=== PATIENT | female | born 1970 | race African-American/Black ===

== ENCOUNTER 2017-01-01 12:02 | Emergency (ER) | payer OTHER ==
[2017-01-01] MEDS ORDERED: MECLIZINE HCL 25 MG TABLET PO ONE (12:28)
--- NOTE | 2017-01-01 12:29 | ER Document Report ---
ED Medical Screen (RME) - General Stated Complaint: VOMITING,DIZZY Mode of Arrival: Ambulatory Information source: Patient Notes: Patient complains of feeling lightheaded and dizzy that started today. Patient does complain of congestion in her ears. Patient does complain of nausea with vomiting 1 today. Patient denies any pains. hx: DEYANIRA I have greeted and performed a rapid initial assessment of this patient. A comprehensive ED assessment and evaluation of the patient, analysis of test results and completion of the medical decision making process will be conducted by additional ED providers. Physical Exam - Vital signs Vitals: Temp Pulse Resp BP Pulse Ox 98.1 F 104 H 14 182/93 H 100 01/01/17 12:18 01/01/17 12:18 01/01/17 12:18 01/01/17 12:18 01/01/17 12:18 - Neurological Neuro grossly intact: Yes Monique Coma Scale Eye Opening: Spontaneous [place] Coma Scale Verbal: Oriented [place] Coma Scale Motor: Obeys Commands [place] Coma Scale Total: 15 Course - Vital Signs Vital signs: Temp Pulse Resp BP Pulse Ox 98.1 F 104 H 14 182/93 H 100 01/01/17 12:18 01/01/17 12:18 01/01/17 12:18 01/01/17 12:18 01/01/17 12:18
[2017-01-01 13:17] LABS: ABSOLUTE LYMPHOCYTES (AUTO) 0.9 10^3/uL (0.5-4.7); ABSOLUTE MONOCYTES (AUTO) 0.3 10^3/uL (0.1-1.4); ABSOLUTE NEUT (AUTO) 6.3 10^3/uL (1.7-8.2); BASOPHILS % (AUTO) 0.5 % (0-2); EOSINOPHILS % (AUTO) 0.6 % (0-6); HEMOGLOBIN 10.4 g/dL (12.0-15.5); HGB HCT DIFFERENCE -2.8; LYMPHOCYTES % (AUTO) 12.1 % (13-45); MEAN CORPUSCULAR HEMOGLOBIN 19.3 pg (27.0-33.4); MEAN CORPUSCULAR HGB CONC 30.5 g/dL (32.0-36.0); MONOCYTES % (AUTO) 4.1 % (3-13); RED BLOOD COUNT 5.38 10^6/uL (3.72-5.28); RED CELL DISTRIBUTION WIDTH 17.6 % (11.5-14.0); SEGMENTED NEUTROPHILS % (AUTO) 82.7 % (42-78); WHITE BLOOD COUNT 7.6 10^3/uL (4.0-10.5)
[2017-01-01 13:19] LABS: MEAN CORPUSCULAR VOLUME 63 fl (80-97)
[2017-01-01 13:23] LABS: ALANINE AMINOTRANSFERASE 32 U/L (9-52); ALBUMIN 3.4 g/dL (3.5-5.0); ALKALINE PHOSPHATASE 126 U/L (38-126); ANION GAP 6 (5-19); ASPARTATE AMINO TRANSFERASE 25 U/L (14-36); BILIRUBIN,TOTAL 0.5 mg/dL (0.2-1.3); BLOOD UREA NITROGEN 13 mg/dL (7-20); CALCIUM 9.8 mg/dL (8.4-10.2); CARBON DIOXIDE 31 mmol/L (22-30); CHLORIDE 99 mmol/L (98-107); CREATININE RESULT 0.62 mg/dL (0.52-1.25); GLUCOSE 342 mg/dL (75-110); POTASSIUM 4.1 mmol/L (3.6-5.0); SODIUM 135.6 mmol/L (137-145); TOTAL PROTEIN 7.4 g/dL (6.3-8.2)
[2017-01-01 14:02] LABS: ANISOCYTOSIS 2+; HYPOCHROMASIA 1+; MICROCYTOSIS 3+; OVALOCYTES 2+; POIKILOCYTOSIS 2+; ROULEAUX SLIGHT; SCHISTOCYTES SLIGHT
[2017-01-01] MEDS ORDERED: ONDANSETRON HCL INJ/PF 4 MG/2 ML SDV IV ONE (15:03)
[2017-01-01] MEDS ORDERED: NORMAL SALINE 1000 ML 1,000 ML IV PRN (15:04)
--- NOTE | 2017-01-01 16:49 | ER Document Report ---
ED General - General Chief Complaint: Vomiting Stated Complaint: VOMITING,DIZZY Mode of Arrival: Ambulatory Notes: 46 yr old diabetic female presents with complaints of nausea vomiting and lightheadedness, pt denies any fevers or chills , notes her blood sugar is usually in the 300s. pt denies any other concerns TRAVEL OUTSIDE OF THE [place] IN LAST 30 DAYS: No - HPI Onset: Just prior to arrival Onset/Duration: Sudden Quality of pain: No pain Severity: Mild Pain Level: Denies Associated symptoms: Nausea, Vomiting Exacerbated by: Denies Relieved by: Denies Similar symptoms previously: No Recently seen / treated by doctor: No - Related Data Allergies/Adverse Reactions: No Known Allergies Allergy (Verified 01/01/17 12:31) Past Medical History - General Information source: Patient - Social History Smoking Status: Never Smoker Cigarette use (# per day): No Chew tobacco use (# tins/day): No Smoking Education Provided: No Family History: Reviewed & Not Pertinent Patient has suicidal ideation: No Patient has homicidal ideation: No Endocrine Medical History: Reports: Hx Diabetes Mellitus Type 2 Renal/ Medical History: Denies: Hx Peritoneal Dialysis Surgical Hx: Negative Review of Systems - Review of Systems Notes: REVIEW OF SYSTEMS: CONSTITUTIONAL : Denies fever, chills, or sweats. Denies recent illness. EENT: Denies eye, ear, throat, or mouth pain or symptoms. Denies nasal or sinus congestion or discharge. Denies throat, tongue, or mouth swelling or difficulty swallowing. CARDIOVASCULAR: Denies chest pain. Denies palpitations or racing or irregular heart beat. Denies ankle edema. RESPIRATORY: Denies cough, cold, or chest congestion. Denies shortness of breath, difficulty breathing, or wheezing. GASTROINTESTINAL: Admits nausea vomiting GENITOURINARY: Denies difficulty urinating, painful urination, burning, frequency, blood in urine, or discharge. FEMALE GENITOURINARY: Denies vaginal bleeding, heavy or abnormal periods, irregular periods. Denies vaginal discharge or odor. MUSCULOSKELETAL: Denies back or neck pain or stiffness. Denies joint pain or swelling. SKIN: Denies rash, lesions or sores. HEMATOLOGIC : Denies easy bruising or bleeding. LYMPHATIC: Denies swollen, enlarged glands. NEUROLOGICAL: Admits to lightheadedness PSYCHIATRIC: Denies anxiety or stress. Denies depression, suicidal ideation, or homicidal ideation. ALL OTHER SYSTEMS REVIEWED AND NEGATIVE. Dictation was performed using [employer] voice recognition software PHYSICAL EXAMINATION: GENERAL: Well-appearing, well-nourished and in no acute distress. HEAD: Atraumatic, normocephalic. EYES: Pupils equal round and reactive to light, extraocular movements intact, conjunctiva are normal. ENT: Nares patent, oropharynx clear without exudates. Moist mucous membranes. NECK: Normal range of motion, supple without lymphadenopathy LUNGS: Breath sounds clear to auscultation bilaterally and equal. No wheezes rales or rhonchi. HEART: Regular rate and rhythm without murmurs ABDOMEN: Soft, nontender, nondistended abdomen. No guarding, no rebound. No masses appreciated. Female : deferred Musculoskeletal: Normal range of motion, no pitting or edema. No cyanosis. NEUROLOGICAL: Cranial nerves grossly intact. Normal speech, normal gait. Normal sensory, motor exams PSYCH: Normal mood, normal affect. SKIN: Warm, Dry, normal turgor, no rashes or lesions noted. Physical Exam - Vital signs Vitals: Temp Pulse Resp BP Pulse Ox 98.1 F 104 H 14 182/93 H 100 01/01/17 12:18 01/01/17 12:18 01/01/17 12:18 01/01/17 12:18 01/01/17 12:18 Course - Re-evaluation Re-evalutation: 01/01/17 16:47 Patient looks extremely well, fluid boluses otherwise stable for discharge. I do not find any life-threatening issues does not appear to be in DKA After performing a Medical Screening Examination, I estimate there is LOW risk for ACUTE CORONARY SYNDROME, RESPIRATORY FAILURE, SEPSIS OR MENINGITIS, thus I consider the discharge disposition reasonable. The patient and I have discussed the diagnosis and risks, and we agree with discharging home with close follow- up. We also discussed returning to the Emergency Department immediately if new or worsening symptoms occur. We have discussed the symptoms which are most concerning (e.g., changing or worsening pain, trouble swallowing or breathing, neck stiffness, fever) that necessitate immediate return. - Vital Signs Vital signs: Temp Pulse Resp BP Pulse Ox 98.1 F 104 H 14 182/93 H 100 01/01/17 12:18 01/01/17 12:18 01/01/17 12:18 01/01/17 12:18 01/01/17 12:18 - Laboratory Result Diagrams: 01/01/17 12:55 01/01/17 12:55 Laboratory results interpreted by me: 01/01/17 01/01/17 12:55 12:55 RBC 5.38 H Hgb 10.4 L Hct 34.0 L MCV 63 L MCH 19.3 L MCHC 30.5 L RDW 17.6 H Seg Neutrophils % 82.7 H Lymphocytes % 12.1 L Sodium 135.6 L Carbon Dioxide 31 H Glucose 342 H Albumin 3.4 L Discharge - Discharge Clinical Impression: Hyperglycemia Nausea & vomiting Qualifiers: Vomiting type: unspecified Vomiting Intractability: non-intractable Qualified Code(s): R11.2 - Nausea with vomiting, unspecified Condition: Stable Disposition: HOME, SELF-CARE Instructions: Vomiting ([facility]) Additional Instructions: Follow up with your physician tomorrow for further care or return to the ED IMMEDIATELY if symptoms worsen or new concerns occur Prescriptions: Ondansetron [Zofran Odt 4 mg Tablet] 1 - 2 tab PO Q4H PRN #15 tab.rapdis PRN Reason: For Nausea/Vomiting
[2017-01-01 17:11] VITALS: BP 132/76
--- NOTE | 2017-01-01 22:04 | EKG REPORT ---
SEVERITY:- OTHERWISE NORMAL ECG - SINUS TACHYCARDIA : Confirmed by: Keira Fernandes MD 01-Jan-2017 22:03:44
[2017-01-02 15:10] LABS: PATH REVIEW PATHOLOGIST REVIEWED
== END 2017-01-01 17:00 | disposition home or self-care (01) ==
LOC: ER 12:02
DX: E11.65 Type 2 diabetes mellitus with hyperglycemia (principal); R11.2 Nausea with vomiting, unspecified; R42 Dizziness and giddiness
CPT/HCPCS: 93005; 99284; 96361; 96374; 36415; 84703; 85025; 80053; 93010; J2405; J7030

== ENCOUNTER → 2019-03-13 | Outpatient (CLI) | payer OTHER ==
[2019-03-13 15:58] LABS: ANION GAP 8 (5-19); BLOOD UREA NITROGEN 57 mg/dL (7-20); CALCIUM 8.7 mg/dL (8.4-10.2); CARBON DIOXIDE 30 mmol/L (22-30); CHLORIDE 96 mmol/L (98-107); GLUCOSE 392 mg/dL (75-110); POTASSIUM 3.8 mmol/L (3.6-5.0); SODIUM 134.2 mmol/L (137-145)
[2019-03-15 07:37] LABS: HEPATITIS BE ANTIGEN Negative (Negative); HEPATITIS C VIRUS AB <0.1 s/co ratio (0.0-0.9); HEPATITS B SURFACE ANTIGEN Negative (Negative)
[2019-03-15 12:59] LABS: HEPATITIS B CORE AB TOT Negative (Negative)
== END ==
LOC: OD 14:15
PROVIDERS: ATTEND Physician Assistant Medical
DX: I13.2 Hypertensive heart and chronic kidney disease with heart failure and with stage 5 chronic kidney disease, or end stage renal disease (principal); R60.9 Edema, unspecified; N18.6 End stage renal disease; I50.9 Heart failure, unspecified; E11.22 Type 2 diabetes mellitus with diabetic chronic kidney disease
CPT/HCPCS: 36415; 80048; 86704; 86803; 86804; 87340; 87350

== ENCOUNTER 2019-03-24 05:14 | Emergency (ER) | payer OTHER ==
--- NOTE | 2019-03-24 05:26 | ER Document Report ---
ED Medical Screen (RME) - General Stated Complaint: POSSIBLE SEIZURE Time Seen by Provider: 03/24/19 05:19 Primary Care Provider: REJI PRYOR PA-C [Primary Care Provider] - Follow up as needed Notes: 48-year-old female with chief complaint of tremors. She states that she started uncontrollably shaking earlier tonight, then again later, ambulance was called. She denies headache, shortness of breath, focal numbness or weakness, fever/ch ills, nausea/vomiting, abdominal pain. Past medical history of diabetes and renal failure, currently preparing for peritoneal dialysis. TRAVEL OUTSIDE OF THE [place] IN LAST 30 DAYS: No - Related Data Allergies/Adverse Reactions: No Known Allergies Allergy (Verified 01/01/17 12:31) Past Medical History Endocrine Medical History: Reports: Hx Diabetes Mellitus Type 2 Renal/ Medical History: Denies: Hx Peritoneal Dialysis Physical Exam - General General appearance: Appears well In distress: None - Neurological Cognition: Normal Orientation: AAOx4 Monique Coma Scale Eye Opening: Spontaneous [place] Coma Scale Verbal: Oriented [place] Coma Scale Motor: Obeys Commands [place] Coma Scale Total: 15 Speech: Normal Cranial nerves: Normal Cerebellar coordination: Normal Motor strength normal: LUE, RUE, LLE, RLE 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 Denies any current symptoms. No overt neurological deficits noted. She is hypertensive, hyperglycemic. Work-up pending. I have greeted and performed a rapid initial assessment of this patient. A comprehensive ED assessment and evaluation of the patient, analysis of test results and completion of the medical decision making process will be conducted by additional ED providers. Doctor's Discharge - Discharge Referrals: REJI PRYOR PA-C [Primary Care Provider] - Follow up as needed
--- NOTE | 2019-03-24 05:52 | ER Document Report ---
ED General - General Chief Complaint: tremors Stated Complaint: POSSIBLE SEIZURE Time Seen by Provider: 03/24/19 05:19 TRAVEL OUTSIDE OF THE [place] IN LAST 30 DAYS: No - HPI Patient complains to provider of: Uncontrolled shaking left upper extremity and cramping Notes: 48-year-old female presents with uncontrolled shaking cramping of her left upper extremity last evening. Is now resolved. Patient just recently had her first episode of peritoneal dialysis yesterday afternoon approximately 12. Patient is being trained on how to do her own peritoneal dialysis at home. And yesterday was her first session. Patient denies shortness of breath, confusion, nausea, vomiting, any pain at all. She is in a normal state of health at this time. Denies any fever chills or other constitutional symptoms - Related Data Allergies/Adverse Reactions: No Known Allergies Allergy (Verified 03/24/19 05:41) Past Medical History - Social History Smoking Status: Unknown if Ever Smoked Family History: Reviewed & Not Pertinent Endocrine Medical History: Reports: Hx Diabetes Mellitus Type 2 Renal/ Medical History: Denies: Hx Peritoneal Dialysis Review of Systems - Review of Systems Notes: REVIEW OF SYSTEMS: CONSTITUTIONAL: -fevers, -chills EENT: -eye pain, -difficulty swallowing, -nasal congestion CARDIOVASCULAR: -chest pain, -syncope. RESPIRATORY: -cough, -SOB GASTROINTESTINAL: -abdominal pain, -nausea, -vomiting, -diarrhea GENITOURINARY: -dysuria, -hematuria MUSCULOSKELETAL: -back pain, -neck pain SKIN: -rash or skin lesions. HEMATOLOGIC: -easy bruising or bleeding. LYMPHATIC: -swollen, enlarged glands. NEUROLOGICAL: -altered mental status or loss of consciousness, -headache, - neurologic symptoms PSYCHIATRIC: -anxiety, -depression. ALL OTHER SYSTEMS REVIEWED AND NEGATIVE. Physical Exam - Vital signs Vitals: Temp 98.5 F 03/24/19 05:14 - Notes Notes: PHYSICAL EXAMINATION: GENERAL: Well-appearing, well-nourished and in no acute distress. HEAD: Atraumatic, normocephalic. EYES: Pupils equal round and reactive to light, extraocular movements intact, sclera anicteric, conjunctiva are normal. ENT: nares patent, oropharynx clear without exudates. Moist mucous membranes. NECK: Normal range of motion, supple without lymphadenopathy LUNGS: Breath sounds clear to auscultation bilaterally and equal. No wheezes rales or rhonchi. HEART: Regular rate and rhythm without murmurs ABDOMEN: Soft, nontender, normoactive bowel sounds. No guarding, no rebound. No masses appreciated. EXTREMITIES: Normal range of motion, no pitting or edema. No cyanosis. NEUROLOGICAL: Cranial nerves grossly intact. Normal speech, normal gait. Normal sensory and motor exams. PSYCH: Normal mood, normal affect. SKIN: Warm, Dry, normal turgor, no rashes or lesions noted. Course - Re-evaluation Re-evalutation: 03/24/19 06:19 48-year-old female stable vital signs within normal limits. Lower extensive lab work-up including EKG 03/24/19 07:21 Appearing female given fluid resuscitation. EKG shows no T wave abnormalities. Patient found to have normal potassium, normal anion gap. Urine pending at this time. Patient found to have critically elevated glucose greater than 700. Patient's kidney function 2.75 creatinine. Will initiate emergent IV insulin infusion. Her profound hyperglycemia in the setting of neurologic findings of shaking and cramping of her left upper extrema 03/24/19 10:15 Consult patient's panel sewer. Discussed case at length. Patient just received her first treatment peritoneal dialysis has a great deal of glucose in it. This is most likely the etiology of her elevated blood glucose. Recommend continued fluid resuscitation insulin therapy she can follow-up outpatient with them tomorrow. Patient does have access to insulin at home. Recommend today very tight diet control. Protein and vegetables no carbs. Follow-up appropriately tomorrow. - Vital Signs Vital signs: Temp Pulse Resp BP Pulse Ox 98.5 F 12 199/109 H 94 03/24/19 07:40 03/24/19 08:01 03/24/19 08:01 03/24/19 08:01 - Laboratory Result Diagrams: 03/24/19 06:10 03/24/19 06:10 Laboratory results interpreted by me: 03/24/19 03/24/19 03/24/19 06:10 06:10 06:10 Hgb 9.9 L Hct 32.0 L MCV 69 L MCH 21.5 L MCHC 31.0 L RDW 19.1 H Seg Neutrophils % 81.6 H Lymphocytes % 10.8 L VBG HCO3 32.6 H Sodium 131.5 L Chloride 92 L BUN 65 H Creatinine 2.75 H Est GFR ( Amer) 22 L Est GFR (Non-Af Amer) 18 L Glucose 736 H* Alkaline Phosphatase 351 H Total Protein 6.2 L Albumin 2.7 L Critical Care Note - Critical Care Note Total time excluding time spent on procedures (mins): 38 Discharge - Discharge Clinical Impression: Hyperglycemia, Hyperosmolality Condition: Stable Disposition: HOME, SELF-CARE
[2019-03-24 06:29] LABS: VENOUS BLOOD BASE EXCESS 5.4 mmol/L; VENOUS BLOOD HCO3 32.6 mmol/L (20-32); VENOUS BLOOD PCO2 62.6 mmHg (35-63); VENOUS BLOOD PH 7.34 (7.30-7.42)
[2019-03-24 06:30] LABS: ABSOLUTE BASOPHILS # (AUTO) 0.1 10^3/uL (0.0-0.2); ABSOLUTE EOSINOPHILS # (AUTO) 0.1 10^3/uL (0.0-0.6); ABSOLUTE LYMPHOCYTES (AUTO) 0.5 10^3/uL (0.5-4.7); ABSOLUTE MONOCYTES (AUTO) 0.3 10^3/uL (0.1-1.4); ABSOLUTE NEUT (AUTO) 4.2 10^3/uL (1.7-8.2); EOSINOPHILS % (AUTO) 1.1 % (0-6); HEMOGLOBIN 9.9 g/dL (12.0-15.5); LYMPHOCYTES % (AUTO) 10.8 % (13-45); MEAN CORPUSCULAR HEMOGLOBIN 21.5 pg (27.0-33.4); MEAN CORPUSCULAR VOLUME 69 fl (80-97); MONOCYTES % (AUTO) 5.5 % (3-13); PLATELET COUNT 235 10^3/uL (150-450); RED BLOOD COUNT 4.61 10^6/uL (3.72-5.28); RED CELL DISTRIBUTION WIDTH 19.1 % (11.5-14.0); SEGMENTED NEUTROPHILS % (AUTO) 81.6 % (42-78); TOTAL CELLS COUNTED % (AUTO) 100 %; WHITE BLOOD COUNT 5.1 10^3/uL (4.0-10.5)
[2019-03-24 06:50] LABS: ALANINE AMINOTRANSFERASE 30 U/L (9-52); ALBUMIN 2.7 g/dL (3.5-5.0); ALKALINE PHOSPHATASE 351 U/L (38-126); ANION GAP 10 (5-19); ASPARTATE AMINO TRANSFERASE 23 U/L (14-36); BILIRUBIN,DIRECT 0.3 mg/dL (0.0-0.4); BILIRUBIN,TOTAL 0.4 mg/dL (0.2-1.3); BLOOD UREA NITROGEN 65 mg/dL (7-20); CALCIUM 8.4 mg/dL (8.4-10.2); CARBON DIOXIDE 30 mmol/L (22-30); CHLORIDE 92 mmol/L (98-107); POTASSIUM 4.3 mmol/L (3.6-5.0); SODIUM 131.5 mmol/L (137-145); TOTAL PROTEIN 6.2 g/dL (6.3-8.2)
[2019-03-24 07:16] LABS: GLUCOSE 736 mg/dL (75-110)
[2019-03-24] MEDS ORDERED: INSULIN REG, HUMAN 100 UNIT/ML 3 ML VIAL (PYX) IV ONE ×3 (07:19→09:29)
--- NOTE | 2019-03-24 07:36 | EKG REPORT ---
SEVERITY:- ABNORMAL ECG - SINUS RHYTHM PROBABLE LEFT ATRIAL ABNORMALITY LEFT POSTERIOR FASCICULAR BLOCK NONSPECIFIC ST-T CHANGES ANTEROLATERAL LEADS, NEW FROM 2016 EKG : Confirmed by: Raheem Barrios MD 24-Mar-2019 07:35:25
[2019-03-24] MEDS ORDERED: ACETAMINOPHEN 325 MG TABLET PO ONE (07:52)
[2019-03-24] MEDS ORDERED: NORMAL SALINE 1000 ML 500 ML IV ONE (08:13)
[2019-03-24 10:25] VITALS: BP 200/117
== END 2019-03-24 10:25 | disposition home or self-care (01) ==
LOC: ER 05:14 → UNDOADMIN 08:10 → EH 08:10 → UNDODISIN 10:51
DX: E87.0 Hyperosmolality and hypernatremia (principal); E11.65 Type 2 diabetes mellitus with hyperglycemia; Z99.2 Dependence on renal dialysis
CPT/HCPCS: 93005; 99291; 96360; 96361; 36415; 82962; 84703; 85025; 80053; 84484; 82803; 93010; J1815; J7030

== ENCOUNTER → 2019-05-01 | Outpatient (CLI) | payer OTHER ==
--- NOTE | 2019-05-01 10:43 | RADIOLOGY REPORT (SQ) ---
EXAM DESCRIPTION: U/S ABDOMEN COMPLETE W/O DOP COMPLETED DATE/TIME: 05/01/2019 10:20 am REASON FOR STUDY: R18.8 OTHER ASCITES R18.8 OTHER ASCITES COMPARISON: None. TECHNIQUE: Dynamic and static grayscale images acquired of the abdomen and recorded on PACS. Additio nal selected color Doppler and spectral images recorded. Note: Study does not meet criteria for complete doppler/duplex scan LIMITATIONS: None. FINDINGS: PANCREAS: No masses. Visualized pancreatic duct normal caliber. LIVER: No masses. Echotexture normal. LIVER VASCULATURE: Normal directional flow of the main portal vein and hepatic veins. GALLBLADDER: No stones. Normal wall thickness. No pericholecystic fluid. ULTRASOUND-DETECTED ERWIN'S SIGN: Negative. INTRAHEPATIC DUCTS AND COMMON DUCT: CBD and intrahepatic ducts normal caliber. No filling defects. INFERIOR VENA CAVA: Normal flow. AORTA: No aneurysm. RIGHT KIDNEY: Normal size, 10.3 cm. Normal echogenicity. No solid or suspicious masses. No hyd ronephrosis. No calcifications. LEFT KIDNEY: Normal size, 11.8 cm. Normal echogenicity. No solid or suspicious masses. No hydr onephrosis. No calcifications. SPLEEN: Normal size, 11.2 cm. No solid masses. PERITONEAL AND PLEURAL SPACES: There is a small amount of ascites. OTHER: No other significant finding. IMPRESSION: There is a small amount of ascites. No other significant finding. TECHNICAL DOCUMENTATION: JOB ID: [id number] [employer]- All Rights Reserved Reading location - IP/workstation name: [email or web address]
== END ==
LOC: RAD 09:53
PROVIDERS: ATTEND Internal Medicine Nephrology
DX: R18.8 Other ascites (principal)
CPT/HCPCS: 76700

== ENCOUNTER 2019-07-25 16:26 | Emergency (ER) | payer OTHER ==
[2019-07-25 17:36] LABS: ALKALINE PHOSPHATASE 530 U/L (38-126); ANION GAP 12 (5-19); ASPARTATE AMINO TRANSFERASE 44 U/L (14-36); BILIRUBIN,DIRECT 0.4 mg/dL (0.0-0.4); BILIRUBIN,TOTAL 0.5 mg/dL (0.2-1.3); BLOOD UREA NITROGEN 43 mg/dL (7-20); CALCIUM 7.5 mg/dL (8.4-10.2); CARBON DIOXIDE 23 mmol/L (22-30); CHLORIDE 94 mmol/L (98-107); POTASSIUM 3.5 mmol/L (3.6-5.0); TOTAL PROTEIN 6.8 g/dL (6.3-8.2)
[2019-07-25 17:45] LABS: ABSOLUTE LYMPHOCYTES (AUTO) 0.5 10^3/uL (0.5-4.7); ABSOLUTE MONOCYTES (AUTO) 0.7 10^3/uL (0.1-1.4); ABSOLUTE NEUT (AUTO) 5.1 10^3/uL (1.7-8.2); BASOPHILS % (AUTO) 0.5 % (0-2); EOSINOPHILS % (AUTO) 0.6 % (0-6); HEMOGLOBIN 10.8 g/dL (12.0-15.5); LYMPHOCYTES % (AUTO) 8.2 % (13-45); MEAN CORPUSCULAR HEMOGLOBIN 21.2 pg (27.0-33.4); MEAN CORPUSCULAR HGB CONC 27.6 g/dL (32.0-36.0); MEAN CORPUSCULAR VOLUME 77 fl (80-97); MONOCYTES % (AUTO) 10.4 % (3-13); PLATELET COUNT 262 10^3/uL (150-450); RED BLOOD COUNT 5.06 10^6/uL (3.72-5.28); RED CELL DISTRIBUTION WIDTH 19.3 % (11.5-14.0); SEGMENTED NEUTROPHILS % (AUTO) 80.3 % (42-78); TOTAL CELLS COUNTED % (AUTO) 100 %; WHITE BLOOD COUNT 6.3 10^3/uL (4.0-10.5)
[2019-07-25 17:46] LABS: GLUCOSE 1087 mg/dL (75-110)
[2019-07-25] MEDS ORDERED: CLONIDINE HCL 0.2 MG TABLET PO ONE (18:11)
[2019-07-25] MEDS ORDERED: HYDRALAZINE HCL 50 MG TABLET PO ONE (18:11)
[2019-07-25 18:31] LABS: VENOUS BLOOD BASE EXCESS -5.2 mmol/L; VENOUS BLOOD HCO3 23.5 mmol/L (20-32); VENOUS BLOOD PH 7.2 (7.30-7.42)
[2019-07-25 18:34] LABS: APPEARANCE,URINE CLEAR; BILIRUBIN,URINE NEGATIVE (NEGATIVE); COLOR,URINE YELLOW; GLUCOSE, URINE >=500 mg/dL (NEGATIVE); KETONES,URINE NEGATIVE (NEGATIVE); LEUKOCYTE ESTERASE,URINE NEGATIVE (NEGATIVE); NITRITE,URINE NEGATIVE (NEGATIVE); PROTEIN,URINE >=500 mg/dL (NEGATIVE); URINE SPECIFIC GRAVITY 1.023; UROBILINOGEN,URINE NEGATIVE mg/dL (<2.0)
--- NOTE | 2019-07-25 19:23 | RADIOLOGY REPORT (SQ) ---
EXAM DESCRIPTION: CHEST SINGLE VIEW COMPLETED DATE/TIME: 07/25/2019 6:48 pm REASON FOR STUDY: ESRD, hyperglycemia COMPARISON: None. TECHNIQUE: Single frontal radiographic view of the chest acquired. NUMBER OF VIEWS: One view. LIMITATIONS: None. FINDINGS: LUNGS AND PLEURA: No pneumothorax. Moderate right basilar consolidation and large pleural effusion. MEDIASTINUM AND HILAR STRUCTURES: Age-appropriate contour. HEART AND VASCULAR STRUCTURES: Mild cardiomegaly. BONES: No acute findings. HARDWARE: Prior sternotomy -AVR. Right-sided dialysis catheter. OTHER: No other significant finding. IMPRESSION: Moderate right basilar consolidation and large pleural effusion. TECHNICAL DOCUMENTATION: JOB ID: [id number] [id number] 2010 [employer]- All Rights Reserved Reading location - IP/workstation name: [email or web address]
[2019-07-25] MEDS ORDERED: INSULIN REG, HUMAN 100 UNIT/ML 3 ML VIAL (PYX) IV ONE (20:06)
--- NOTE | 2019-07-25 20:34 | ER Document Report ---
ED General - General Chief Complaint: High Blood Sugar Stated Complaint: BLOOD SUGAR PROBLEMS Time Seen by Provider: 07/25/19 17:18 Primary Care Provider: INDIGO VALLE NP [Primary Care Provider] - Follow up as needed TRAVEL OUTSIDE OF THE [place] IN LAST 30 DAYS: No - HPI Notes: Patient is a 48-year-old female who presents to the emergency department for evaluation. She is here because her upper thighs hurt. She states she believes it is because they are "pulling too much fluid" at dialysis. She is to be on peritoneal dialysis. They started her on hemodialysis, are trying to get her back on peritoneal dialysis if possible. The patient states that she started having cramping and pain in her proximal thighs, believe that was from them over dialyzing her, so decided not to go to dialysis today. The patient also notes that she did not take any of her antihypertensives today. She is on both clonidine and hydralazine. She denies any vision changes. No chest pain or difficulty breathing. She states she also forgot to take her normal diabetic medications. She did take him insulin prior to EMS arrival. EMS found her blood sugar to be high. On further questioning the patient states she has a known pleural effusion on the right. She states that it was drained when she was in hospital in [place] last month. She is unsure as to what the fluid results showed. She denies any shortness of breath, no cough. - Related Data Allergies/Adverse Reactions: No Known Allergies Allergy (Verified 07/25/19 16:49) Past Medical History - General Information source: Patient - Social History Smoking Status: Current Every Day Smoker Chew tobacco use (# tins/day): No Frequency of alcohol use: None Drug Abuse: None Family History: Reviewed & Not Pertinent Patient has suicidal ideation: No Patient has homicidal ideation: No - Past Medical History Cardiac Medical History: Reports: Hx Congestive Heart Failure, Hx Hypertension Pulmonary Medical History: Reports: Other - Right-sided pleural effusion Endocrine Medical History: Reports: Hx Diabetes Mellitus Type 2 Renal/ Medical History: Reports: Hx End Stage Renal Disease, Hx Hemodialysis. Denies: Hx Peritoneal Dialysis Review of Systems - Review of Systems Constitutional: No symptoms reported EENT: No symptoms reported Cardiovascular: No symptoms reported Respiratory: See HPI Gastrointestinal: No symptoms reported Genitourinary: No symptoms reported Musculoskeletal: See HPI Skin: No symptoms reported Neurological/Psychological: No symptoms reported Physical Exam - Vital signs Vitals: Resp Pulse Ox 6 L 99 07/25/19 16:59 07/25/19 16:59 - Notes Notes: Is a 48-year-old female who appears older than her stated age in no acute distress. Head is normocephalic and atraumatic. She does have a patch in place over her left eye, right pupil is round. Oral mucosa is moist. Heart is regular rate and rhythm, lungs show diminished breath sounds in the right base, but no wheezes, rales, rhonchi. Abdomen is soft, nontender, normoactive bowel sounds. Extremities are 2+ pitting pretibial edema. No posterior calf tenderness. Skin is warm and dry. Patient is drowsy but alerts to verbal stimuli. Patient is awake, alert, oriented x3. Cranial nerves III - XII are grossly intact without focal neurological deficits. Strength is plus 4 out of 5 bilateral upper and lower extremities. Sensation is intact. Reflexes symmetrical. Intact [id number], rapid alternating movements, heel-to-sh in. Course - Re-evaluation Re-evalutation: 07/25/19 20:33 Patient presents emergency department for evaluation. On arrival her vital signs are markedly abnormal. She was hypertensive. Her blood glucose is rating as high. I did again give her regular blood pressure medications, and it decreased without incident. Current blood pressure is 145/82. Patient laboratory investigations showed a borderline low potassium, and a blood glucose over thousand. Her serum glucose is high, her osmolality is high. She started on insulin drip. This is done judiciously as her potassium is already borderline, but I am not inclined to administer fluids or potassium at this time to a dialysis patient who missed hemodialysis today. Patient remained stable. Her chest x-ray reveals a right pleural effusion, but again this is not new. I will contact medicine for possible admission. 07/25/19 22:[address] Romo in regards to this patient. She is very complex, and that she has findings consistent with HHS, but is likely moderately fluid overload secondary to being a dialysis patient did not receive dialysis today. She is a right pleural effusion. Her potassium is low despite not being dialyzed. Fluid management in this patient will be difficult. We do not have nephrology on. The patient was started on an insulin drip and given IV fluids, but only judiciously. I spoke with Dr. Jarquin at [facility], he will accept the patient in transfer. 07/26/19 01:07 She has been on insulin drip for several hours at this point. Basic metabolic panel was ordered to be repeated. She does have a significant hypokalemia as a result. I am hesitant to give much in the way of potassium in this patient whose creatinine is elevating, he did not have dialysis today. She was given 20 potassium orally, transport is forthcoming. Patient remained stable, has no complaints. 07/26/19 01:59 Transport to [facility] has arrived. Patient remained stable. Heart rate in the 70s, moderately elevated blood pressure 175/90 but otherwise unremarkable. Patient is stable for transport to next facility. - Vital Signs Vital signs: Temp Pulse Resp BP Pulse Ox 98.3 F 68 17 175/90 H 100 07/25/19 20:27 07/25/19 20:27 07/26/19 01:01 07/26/19 01:00 07/26/19 01:01 - Laboratory Result Diagrams: 07/25/19 16:42 07/26/19 00:17 Laboratory results interpreted by me: 07/25/19 07/25/19 07/25/19 16:42 16:42 16:42 Hgb 10.8 L MCV 77 L MCH 21.2 L MCHC 27.6 L RDW 19.3 H Lymph % (Auto) 8.2 L Seg Neutrophils % 80.3 H VBG pH Sodium 129.2 L Potassium 3.5 L Chloride 94 L Carbon Dioxide BUN 43 H Creatinine 3.09 H Est GFR ( Amer) 19 L Est GFR (MDRD) Non-Af 16 L Glucose 1087 H* POC Glucose Serum Osmolality 338 H Calcium 7.5 L AST 44 H Alkaline Phosphatase 530 H Albumin 3.0 L Urine Protein Urine Glucose (UA) Urine Blood 07/25/19 07/25/19 07/25/19 18:06 18:06 23:52 Hgb MCV MCH MCHC RDW Lymph % (Auto) Seg Neutrophils % VBG pH 7.20 L Sodium Potassium Chloride Carbon Dioxide BUN Creatinine Est GFR ( Amer) Est GFR (MDRD) Non-Af Glucose POC Glucose 546 H* Serum Osmolality Calcium AST Alkaline Phosphatase Albumin Urine Protein >=500 H Urine Glucose (UA) >=500 H Urine Blood SMALL H 07/26/19 00:17 Hgb MCV MCH MCHC RDW Lymph % (Auto) Seg Neutrophils % VBG pH Sodium 133.3 L Potassium 2.9 L* Chloride Carbon Dioxide 21 L BUN 44 H Creatinine 3.49 H Est GFR ( Amer) 17 L Est GFR (MDRD) Non-Af 14 L Glucose 592 H* POC Glucose Serum Osmolality Calcium 8.2 L AST Alkaline Phosphatase Albumin Urine Protein Urine Glucose (UA) Urine Blood - Diagnostic Test Radiology reviewed: Reports reviewed Radiology results interpreted by me: 07/25/19 22:49 Chest X-Ray 07/25/19 17:53 IMPRESSION: Moderate right basilar consolidation and large pleural effusion. Critical Care Note - Critical Care Note Total time excluding time spent on procedures (mins): 20 Discharge - Discharge Clinical Impression: Hyperosmolality, Hyperglycemia, Recurrent right pleural effusion Condition: Stable Disposition: [facility] Admitting Provider: Dr. Jarquin Referrals: INDIGO VALLE NP [Primary Care Provider] - Follow up as needed
[2019-07-25] MEDS ORDERED: NORMAL SALINE 1000 ML 1,000 ML IV ONE (22:42)
[2019-07-26 00:48] LABS: ANION GAP 13 (5-19); BLOOD UREA NITROGEN 44 mg/dL (7-20); CALCIUM 8.2 mg/dL (8.4-10.2); CARBON DIOXIDE 21 mmol/L (22-30); CHLORIDE 99 mmol/L (98-107)
[2019-07-26 00:54] LABS: GLUCOSE 592 mg/dL (75-110); POTASSIUM 2.9 mmol/L (3.6-5.0)
[2019-07-26] MEDS ORDERED: POTASSIUM CHLORIDE 10 MEQ CAPSULE.ER PO ONE ×2 (01:00→01:01)
[2019-07-26 02:16] VITALS: BP 156/81
== END 2019-07-26 02:17 | disposition short-term general hospital (02) ==
LOC: ER 16:26
DX: E11.00 Type 2 diabetes mellitus with hyperosmolarity without nonketotic hyperglycemic-hyperosmolar coma (NKHHC) (principal); T38.3X6A Underdosing of insulin and oral hypoglycemic [antidiabetic] drugs, initial encounter; Z91.138 Patient's unintentional underdosing of medication regimen for other reason; Z91.14 Patient's other noncompliance with medication regimen; E11.22 Type 2 diabetes mellitus with diabetic chronic kidney disease; I12.0 Hypertensive chronic kidney disease with stage 5 chronic kidney disease or end stage renal disease; N18.6 End stage renal disease; Z99.2 Dependence on renal dialysis; Z91.15 Patient's noncompliance with renal dialysis; Z79.4 Long term (current) use of insulin; E87.6 Hypokalemia; R25.2 Cramp and spasm; M79.652 Pain in left thigh; M79.651 Pain in right thigh; J90 Pleural effusion, not elsewhere classified; Z79.899 Other long term (current) drug therapy; F17.200 Nicotine dependence, unspecified, uncomplicated
CPT/HCPCS: 99285; 96360; 96361; 36415; 82962; 83930; 85025; 80053; 81001; 82803; 71045; J1815; J7030

== ENCOUNTER 2019-07-28 18:26 | Emergency (ER) | payer OTHER ==
--- NOTE | 2019-07-28 19:17 | ER Document Report ---
ED Medical Screen (RME) - General Chief Complaint: Back Pain Stated Complaint: BACK PAIN Time Seen by Provider: 07/28/19 19:06 Primary Care Provider: INDIGO VALLE NP [Primary Care Provider] - Follow up as needed Mode of Arrival: Wheelchair Information source: Patient Notes: This 48-year-old female with history of dialysis presents emergency department with thigh pain low back pain. Reports symptoms started Saturday. Patient reports she has dialysis on Saturday and Saturday. She reports she was transferred to [facility] where they did dialysis yesterday. She reports she did tell [facility] about the thigh pain and they put patches on her thighs. Patient reports they checked her electrolytes and they were fine.. No other symptoms such as fever vomiting diarrhea. Patient does still make urine. I have greeted and performed a rapid initial assessment of this patient. A comprehensive ED assessment and evaluation of the patient, analysis of test results and completion of the medical decision making process will be conducted by additional ED providers. Dictation of this chart was performed using voice recognition software; the refore, there may be some unintended grammatical errors. TRAVEL OUTSIDE OF THE [place] IN LAST 30 DAYS: No - Related Data Allergies/Adverse Reactions: No Known Allergies Allergy (Verified 07/28/19 18:33) Past Medical History - Social History Frequency of alcohol use: None Drug Abuse: None - Past Medical History Cardiac Medical History: Reports: Hx Congestive Heart Failure, Hx Hypertension Endocrine Medical History: Reports: Hx Diabetes Mellitus Type 2 Renal/ Medical History: Reports: Hx End Stage Renal Disease, Hx Hemodialysis. Denies: Hx Peritoneal Dialysis Physical Exam - Vital signs Vitals: Temp Pulse Resp BP Pulse Ox 97.7 F 64 18 109/48 L 95 07/28/19 18:38 07/28/19 18:38 07/28/19 18:38 07/28/19 18:38 07/28/19 18:38 Course - Vital Signs Vital signs: Temp Pulse Resp BP Pulse Ox 97.7 F 64 18 109/48 L 95 07/28/19 18:38 07/28/19 18:38 07/28/19 18:38 07/28/19 18:38 07/28/19 18:38 Doctor's Discharge - Discharge Referrals: INDIGO VALLE NP [Primary Care Provider] - Follow up as needed
[2019-07-28 19:45] LABS: ABSOLUTE BASOPHILS # (AUTO) 0.1 10^3/uL (0.0-0.2); ABSOLUTE EOSINOPHILS # (AUTO) 0.1 10^3/uL (0.0-0.6); ABSOLUTE LYMPHOCYTES (AUTO) 0.5 10^3/uL (0.5-4.7); ABSOLUTE MONOCYTES (AUTO) 0.7 10^3/uL (0.1-1.4); ABSOLUTE NEUT (AUTO) 5.4 10^3/uL (1.7-8.2); BASOPHILS % (AUTO) 1.7 % (0-2); EOSINOPHILS % (AUTO) 1.2 % (0-6); HEMATOCRIT 32.9 % (36.0-47.0); HEMOGLOBIN 10.3 g/dL (12.0-15.5); LYMPHOCYTES % (AUTO) 7.9 % (13-45); MEAN CORPUSCULAR HEMOGLOBIN 21.3 pg (27.0-33.4); MEAN CORPUSCULAR HGB CONC 31.4 g/dL (32.0-36.0); MONOCYTES % (AUTO) 10.7 % (3-13); PLATELET COUNT 253 10^3/uL (150-450); RED BLOOD COUNT 4.85 10^6/uL (3.72-5.28); RED CELL DISTRIBUTION WIDTH 17.5 % (11.5-14.0); SEGMENTED NEUTROPHILS % (AUTO) 78.5 % (42-78); TOTAL CELLS COUNTED % (AUTO) 100 %; WHITE BLOOD COUNT 6.9 10^3/uL (4.0-10.5)
[2019-07-28 19:53] LABS: AMORPHOUS SEDIMENT,URINE TRACE /HPF; APPEARANCE,URINE CLOUDY; BILIRUBIN,URINE NEGATIVE (NEGATIVE); COLOR,URINE AMBER; GLUCOSE, URINE >=500 mg/dL (NEGATIVE); KETONES,URINE TRACE mg/dL (NEGATIVE); LEUKOCYTE ESTERASE,URINE NEGATIVE (NEGATIVE); NITRITE,URINE NEGATIVE (NEGATIVE); PROTEIN,URINE >=500 mg/dL (NEGATIVE); URINE SPECIFIC GRAVITY 1.021; UROBILINOGEN,URINE NEGATIVE mg/dL (<2.0)
[2019-07-28 20:09] LABS: ALBUMIN 2.7 g/dL (3.5-5.0); ALKALINE PHOSPHATASE 274 U/L (38-126); ANION GAP 9 (5-19); ASPARTATE AMINO TRANSFERASE 30 U/L (14-36); BILIRUBIN,DIRECT 0.5 mg/dL (0.0-0.4); BILIRUBIN,TOTAL 0.6 mg/dL (0.2-1.3); BLOOD UREA NITROGEN 45 mg/dL (7-20); CALCIUM 7.6 mg/dL (8.4-10.2); CARBON DIOXIDE 25 mmol/L (22-30); CHLORIDE 99 mmol/L (98-107); POTASSIUM 4.2 mmol/L (3.6-5.0); TOTAL PROTEIN 6.6 g/dL (6.3-8.2)
[2019-07-28 20:12] LABS: MEAN CORPUSCULAR VOLUME 68 fl (80-97)
--- NOTE | 2019-07-28 20:25 | ER Document Report ---
HPI - HPI Patient complains to provider of: low back pain Time Seen by Provider: 07/28/19 19:06 Onset/Duration: Constant, Waxing and waning Quality of pain: Achy Severity: Moderate Pain Level: 4 Context: This is a 48yr old female pt with the listed pmh, presenting with an acute exacerbation of their lower lower back pain and bilat thigh pain. Patient states that this has been ongoing for the last few days. no fall or trauma. she feels like they may have taken off too much fluid at dialysis as they have done before and that's when she has had this pain before. Patient states that the pain is a sharp achy 8 out of 10 pain with radiation to her bilat thighs. she still makes a little urine. Patient states that movement and palpation make the pain worse and rest makes the pain better. Patient denies any numbness, tingling, change of bowel or bladder habits or signs or symptoms of saddle anesthesia. Patient states that secondary to the pain, they have come to the emergency department. otc meds not helping. No spinal surgeries. no IV drug use. no recent abx or steroids. no fevers, uti sx, or genitalia complaints. pt able to walk but minimally at baseline. Patient denies all other complaints at this time. denies . no hx of renal stones. she usually gets dialysis tues, thurs, sat. Exacerbated by: Movement Relieved by: Remaining still Similar symptoms previously: Yes Recently seen / treated by doctor: No - ROS Systems Reviewed and Negative: Yes All other systems reviewed and negative - to include 10 systems, unless mentioned in the hpi - REPRODUCTIVE Reproductive: DENIES: : Past Medical History - General Information source: Patient - Social History Smoking Status: Never Smoker Frequency of alcohol use: None Drug Abuse: None Lives with: Family Family History: Reviewed & Not Pertinent Patient has suicidal ideation: No Patient has homicidal ideation: No - Past Medical History Cardiac Medical History: Reports: Hx Congestive Heart Failure, Hx Hypertension Endocrine Medical History: Reports: Hx Diabetes Mellitus Type 2 Renal/ Medical History: Reports: Hx End Stage Renal Disease, Hx Hemodialysis. Denies: Hx Peritoneal Dialysis - Immunizations Immunizations up to date: Yes Vertical Provider Document - CONSTITUTIONAL Agree With Documented VS: Yes Exam Limitations: No Limitations General Appearance: No Apparent Distress Notes: Vital signs: All vital signs were reviewed per nursing notes. Gen. Appearance: Nontoxic, patient of stated age,. pleasant, smiling, speaking in full sentences, in no sign of resp distress, nontoxic, pt laying in bed, appears uncomfortable and chronically debilitated, middle aged black female, family at bedside, Psychiatric: Alert and oriented x3, pleasant and very conversational, normal affect. Skin: Warm, pink, dry, normal turgor, no rashes. no grossly visible overlying skin changes or signs of trauma. HEENT: Normocephalic, atraumatic, no kenney signs. no raccoon eyes, pupils are equal and reactive to light, extraocular muscles intact other than chronic left eye changes-unchanged from baseline per pt, mucosal membranes moist, pink conjunctiva, no pharyngeal erythema no tonsilar exudate. no drooling, tripoding, voice change or stridor, uvula midline. tongue protrudes midline Neck: Supple, no JVD, no tenderness, no lymphadenopathy. full rom and full strength. no meningeal signs. no signs of central cord syndrome CV: Regular rate and rhythm, Lungs: Clear to auscultation bilaterally, no wheezes, symmetrical chest rise. no chest wall ttp Abdomen: Soft, nontender, nondistended, good bowel sounds, no rebound, rigidity, guarding or peritoneal signs. No CVA tenderness bilaterally. This is a nonacute abdomen. No tenderness over McBurney's point. no grossly visible or palpable abdominal hernias Pelvic/Genitalia: pt deferred Rectal: deferred; however, no sign of loss of bowel or bladder, no soiling of clothing Back: There is increased tissue tension over the paralumbar musculature on the bilat sides. Palpation to this region did reproduce patient's pain exactly. There is no tenderness to palpation along the midline of the cervical, thoracic or lumbar spine. There are no step-offs or deformities noted. no overlying skin changes. Extremities: Distal pulses two out of four, good capillary refill, no edema, cyanosis or clubbing. full rom and full strength in all extremities with pain on bilat hip flexion and extension. no swelling or ttp of the extremities other than mild edema in bilat extremities ~1+. gait not assessed due to pt being min imally ambulatory at baseline and a fall risk. good hand sales manager. neg magdalena sign. neg peterson squeeze. no drop foot. no shortening or rotation of the limbs. no obvious deformities. Neuro: Cranial nerves II through XII intact, normal speech, cerebellar function intact. Symmetric smile and faces. reflexes wnl. motor and sensation intact to light touch. - INFECTION CONTROL TRAVEL OUTSIDE OF THE [place] IN LAST 30 DAYS: No Course - Re-evaluation Re-evalutation: pt here for lbp and thigh pain and bilat leg swelling x a few days. no fall or trauma. no signs or cauda equina, spinal cord involvement, or central cord syndrome. labs unremarkable other than chronic unchanged mild anemia, renal dz, hyponatremia, hyperglycemia without signs of dka, elevated bnp/ck in a dialysis pt, and a ua that appears contaminated. ucx pending. pt denied uti sx. will await culture results for initiation of abx. cxr showed a chronic unchanged pleural effusion and was otherwise neg for anything acute per rad and reviewed by myself. pt informed of findings. she was pain controlled with vicodin here. will dc with a few vicodin and glipizide. gave medication precautions. advised sx care. cont home meds as prescribed. she is only on a long acting insulin per pt and after discussing case with ed attending, dr bolivar, he advised adding po glipizide 10mg qd and having pt frequently check her sugars since her glucose was 400 here and f/u closely with her pcp for possible adjustment of her hypoglycemic meds. strict return precautions given. advised to f/u with pcp/nephr/dietitian assistant/dialysis in 1-2 days. return for any worsening symptoms. vss. well appearing. satting well on ra. neurononfocal. pt understands and agrees to plan. On reexam, pt improved with tx listed. remained stable. nontoxic. well appearing. pain controlled. tolerating po. requesting to go home. neurononfocal. case discussed with ER Attending, Dr. bolivar, who directed and agrees with plan of care and advised no further workup indicated at this time and pt is stable for dc home with close f/u with pcp/specialist. Documentation achieved through voice recording which may lead to some occasional accidental typographical errors. Extensive efforts have been made to proof read documentation to make sure these are the least as possible. according to the [place], she has not received any narcotics in the last 2 yrs other than 2 short scripts of vicodin back in 11/2018 and oxycodone 06/2018. Category Date Time Status Accucheck (ED) NOW Care 07/28/19 20:23 Active PCT AccuChek Documentation NOW Care 07/28/19 20:23 Active CHEST 2 VIEWS [RAD] Stat Exams 07/28/19 21:11 Completed BETA HYDROXYBUTYRATE Stat Lab 07/28/19 19:35 Completed BNP (In-House) [NT PRO BNP] [CHEM] Stat Lab 07/28/19 19:35 Completed CBC WITH DIFF [HEME] Stat Lab 07/28/19 19:35 Completed CKMB [CREATINE KINASE MB] [CHEM] Stat Lab 07/28/19 19:35 Completed COMPREHENSIVE METABOLIC PANEL [CHEM] Stat Lab 07/28/19 19:35 Completed CREATINE KINASE [CHEM] Stat Lab 07/28/19 19:35 Completed HCG-QUAL, SERUM [CHEM] Stat Lab 07/28/19 19:35 Completed MAGNESIUM [CHEM] Stat Lab 07/28/19 19:35 Completed URINALYSIS [URIN] Stat Lab 07/28/19 19:20 Completed URINE CULTURE [MC] Stat Lab 07/28/19 19:20 Completed Glipizide [Glucotrol 10 mg Tablet] Med 07/28/19 23:04 Discontinued 10 mg PO NOW ONE Hydrocodone/Acetaminophen [[place] 5-325 mg Tablet] Med 07/28/19 21:11 Discontinued 1 tab PO NOW ONE - Vital Signs Vital signs: Temp Pulse Resp BP Pulse Ox 97.7 F 64 18 109/48 L 95 07/28/19 18:38 07/28/19 18:38 07/28/19 18:38 07/28/19 18:38 07/28/19 18:38 Temp Pulse Pulse Resp BP BP Pulse Ox 07/28/19 23:27 97.8 F 67 14 114/65 98 07/28/19 21:35 16 118/65 07/28/19 18:38 97.7 F 64 18 109/48 L 95 - Laboratory Result Diagrams: 07/28/19 19:35 07/28/19 19:35 Laboratory results interpreted by me: 07/28/19 07/28/19 19:20 19:35 Hgb 10.3 L Hct 32.9 L MCV 68 L D MCH 21.3 L MCHC 31.4 L RDW 17.5 H Lymph % (Auto) 7.9 L Seg Neutrophils % 78.5 H Urine Protein >=500 H Urine Glucose (UA) >=500 H Urine Ketones TRACE H Urine Blood SMALL H Labs- Entire Visit 07/28/19 07/28/19 07/28/19 19:20 19:35 19:35 WBC 6.9 RBC 4.85 Hgb 10.3 L Hct 32.9 L MCV 68 L D MCH 21.3 L MCHC 31.4 L RDW 17.5 H Plt Count 253 Lymph % (Auto) 7.9 L Sunflower % (Auto) 10.7 Eos % (Auto) 1.2 Baso % (Auto) 1.7 Absolute Neuts (auto) 5.4 Absolute Lymphs (auto) 0.5 Absolute Monos (auto) 0.7 Absolute Eos (auto) 0.1 Absolute Basos (auto) 0.1 Seg Neutrophils % 78.5 H Sodium 132.8 L Potassium 4.2 Chloride 99 Carbon Dioxide 25 Anion Gap 9 BUN 45 H Creatinine 3.79 H Est GFR ( Amer) 15 L Est GFR (MDRD) Non-Af 13 L Glucose 406 H* Calcium 7.6 L Magnesium Total Bilirubin 0.6 Direct Bilirubin 0.5 H Neonat Total Bilirubin Not Reportable Neonat Direct Bilirubin Not Reportable Neonat Indirect Bili Not Reportable AST 30 ALT 16 Alkaline Phosphatase 274 H Creatine Kinase CK-MB (CK-2) NT-Pro-B Natriuret Pep Total Protein 6.6 Albumin 2.7 L Beta-Hydroxybutyrate Serum HCG, Qual Urine Color Urine Appearance CLOUDY Urine pH 5.0 Ur Specific Morrill 1.021 Urine Protein >=500 H Urine Glucose (UA) >=500 H Urine Ketones TRACE H Urine Blood SMALL H Urine Nitrite NEGATIVE Urine Bilirubin NEGATIVE Urine Urobilinogen NEGATIVE Ur Leukocyte Esterase NEGATIVE Urine WBC (Auto) 7 Urine RBC (Auto) 5 U Hyaline Cast (Auto) 5 Urine Bacteria (Auto) TRACE Squamous Epi Cells Auto 13 Amorphous Sediment Auto TRACE Urine Mucus (Auto) RARE Urine Ascorbic Acid NEGATIVE 07/28/19 07/28/19 07/28/19 19:35 19:35 19:35 WBC RBC Hgb Hct MCV MCH MCHC RDW Plt Count Lymph % (Auto) Sunflower % (Auto) Eos % (Auto) Baso % (Auto) Absolute Neuts (auto) Absolute Lymphs (auto) Absolute Monos (auto) Absolute Eos (auto) Absolute Basos (auto) Seg Neutrophils % Sodium Potassium Chloride Carbon Dioxide Anion Gap BUN Creatinine Est GFR ( Amer) Est GFR (MDRD) Non-Af Glucose Calcium Magnesium 2.0 Total Bilirubin Direct Bilirubin Neonat Total Bilirubin Neonat Direct Bilirubin Neonat Indirect Bili AST ALT Alkaline Phosphatase Creatine Kinase 435 H CK-MB (CK-2) 4.30 NT-Pro-B Natriuret Pep 70345 H Total Protein Albumin Beta-Hydroxybutyrate Serum HCG, Qual NEGATIVE Urine Color Urine Appearance Urine pH Ur Specific Morrill Urine Protein Urine Glucose (UA) Urine Ketones Urine Blood Urine Nitrite Urine Bilirubin Urine Urobilinogen Ur Leukocyte Esterase Urine WBC (Auto) Urine RBC (Auto) U Hyaline Cast (Auto) Urine Bacteria (Auto) Squamous Epi Cells Auto Amorphous Sediment Auto Urine Mucus (Auto) Urine Ascorbic Acid 07/28/19 19:35 WBC RBC Hgb Hct MCV MCH MCHC RDW Plt Count Lymph % (Auto) Sunflower % (Auto) Eos % (Auto) Baso % (Auto) Absolute Neuts (auto) Absolute Lymphs (auto) Absolute Monos (auto) Absolute Eos (auto) Absolute Basos (auto) Seg Neutrophils % Sodium Potassium Chloride Carbon Dioxide Anion Gap BUN Creatinine Est GFR ( Amer) Est GFR (MDRD) Non-Af Glucose Calcium Magnesium Total Bilirubin Direct Bilirubin Neonat Total Bilirubin Neonat Direct Bilirubin Neonat Indirect Bili AST ALT Alkaline Phosphatase Creatine Kinase CK-MB (CK-2) NT-Pro-B Natriuret Pep Total Protein Albumin Beta-Hydroxybutyrate 0.8 Serum HCG, Qual Urine Color Urine Appearance Urine pH Ur Specific Morrill Urine Protein Urine Glucose (UA) Urine Ketones Urine Blood Urine Nitrite Urine Bilirubin Urine Urobilinogen Ur Leukocyte Esterase Urine WBC (Auto) Urine RBC (Auto) U Hyaline Cast (Auto) Urine Bacteria (Auto) Squamous Epi Cells Auto Amorphous Sediment Auto Urine Mucus (Auto) Urine Ascorbic Acid - Diagnostic Test Radiology reviewed: Image reviewed, Reports reviewed Radiology results interpreted by me: Chest X-Ray 07/28/19 21:11 IMPRESSION: Moderate right pleural effusion, unchanged. Discharge - Discharge Clinical Impression: Peripheral edema, Hyperglycemia, Chronic anemia, Chronic kidney disease requiring chronic dialysis Low back pain Qualifiers: Chronicity: acute Back pain laterality: bilateral Sciatica presence: with sciatica Sciatica laterality: bilateral sciatica Qualified Code(s): M54.42 - Lumbago with sciatica, left side; M54.41 - Lumbago with sciatica, right side Condition: Stable Disposition: HOME, SELF-CARE Additional Instructions: Follow-up with PCP/endocrinology/nephrology/dialysis in 1 to 2 days for recheck. Return for any worsening symptoms. check your blood sugar often. do not work, drive, operate machinery or take tylenol while taking the pain meds. take the medication as prescribed. ice/heat to your back, get your dialysis as instructed. Prescriptions: Glipizide [Glipizide Xl] 10 mg PO DAILY #14 tab.er.24 Hydrocodone/Acetaminophen [[place] 5-325 mg Tablet] 1 tab PO Q6 PRN #12 tablet PRN Reason: For Pain Referrals: INDIGO VALLE NP [Primary Care Provider] - Follow up tomorrow
[2019-07-28 20:26] LABS: GLUCOSE 406 mg/dL (75-110)
[2019-07-28] MEDS ORDERED: HYDROCODONE/ACETAMINOPHEN 5-325 MG TABLET PO ONE (21:11)
[2019-07-28 21:46] LABS: CREATINE KINASE MB 4.3 ng/mL (<4.55)
--- NOTE | 2019-07-28 21:56 | RADIOLOGY REPORT (SQ) ---
XR CHEST 2 VIEWS CLINICAL STATEMENT: edema COMPARISON: 07/25/2019 FINDINGS: Moderate right pleural effusion, unchanged. Right chest PermCath. No pneumothorax. Left lung is clear. No pulmonary edema. IMPRESSION: Moderate right pleural effusion, unchanged.
[2019-07-28] MEDS ORDERED: GLIPIZIDE 10 MG TABLET PO ONE (23:04)
[2019-07-28 23:28] VITALS: BP 114/65
== END 2019-07-28 23:28 | disposition home or self-care (01) ==
LOC: ER 18:26
DX: M54.42 Lumbago with sciatica, left side (principal); M54.41 Lumbago with sciatica, right side; I12.0 Hypertensive chronic kidney disease with stage 5 chronic kidney disease or end stage renal disease; N18.6 End stage renal disease; E11.22 Type 2 diabetes mellitus with diabetic chronic kidney disease; E11.65 Type 2 diabetes mellitus with hyperglycemia; D63.1 Anemia in chronic kidney disease; Z99.2 Dependence on renal dialysis; R60.0 Localized edema; J90 Pleural effusion, not elsewhere classified; Z79.4 Long term (current) use of insulin
CPT/HCPCS: 99283; 36415; 87086; 82553; 82010; 82550; 83735; 84703; 85025; 80053; 81001; 83880; 71046; J3490

== ENCOUNTER → 2019-08-12 | Outpatient (CLI) | payer OTHER ==
--- NOTE | 2019-08-12 15:27 | RADIOLOGY REPORT (SQ) ---
EXAM DESCRIPTION: VENOUS BILATERAL LOWER COMPLETED DATE/TIME: 08/12/2019 3:16 pm REASON FOR STUDY: SWELLING R22.43 LOCALIZED SWELLING, MASS AND LUMP, LOWER LIMB, BILATE COMPARISON: None. TECHNIQUE: Dynamic and static green scale and color images acquired of both lower extremity venous sy stems. Selected spectral images acquired with additional compression and augmentation maneuvers. Imag es stored on PACS. LIMITATIONS: None. FINDINGS: RIGHT LEG COMMON FEMORAL AND FEMORAL: Normal phasicity, compression and augmentation. No visualized echogenic m aterial on green scale. No defects on color images. POPLITEAL: Normal compression and augmentation. No visualized echogenic material on green scale. No de fects on color images. CALF VESSELS: Normal compression and augmentation. No visualized echogenic material on green scale. No defects on color image. GSV AND SSV: Normal compression. No visualized echogenic material on green scale. No defects on color images. ANY DEEP VENOUS INSUFFICIENCY: Not evaluated. ANY EVIDENCE OF POPLITEAL CYST: No. OTHER: There is subcutaneous edema. LEFT LEG COMMON FEMORAL AND FEMORAL: Normal phasicity, compression and augmentation. No visualized echogenic m aterial on green scale. No defects on color images. POPLITEAL: Normal compression and augmentation. No visualized echogenic material on green scale. No de fects on color images. CALF VESSELS: Normal compression and augmentation. No visualized echogenic material on green scale. No defects on color images. GSV AND SSV: Normal compression. No visualized echogenic material on green scale. No defects on color images. ANY DEEP VENOUS INSUFFICIENCY: Not evaluated. ANY EVIDENCE POPLITEAL CYST: No. OTHER: There is subcutaneous edema. IMPRESSION: NO EVIDENCE DVT OR SVT IN EITHER LEG. TECHNICAL DOCUMENTATION: JOB ID: [id number] [employer]- All Rights Reserved Reading location - IP/workstation name: [email or web address]
--- NOTE | 2019-08-12 16:22 | XCELERA REPORT ---
[address] [address] Lower Extremity Arterial Evaluation Name: STEPHANIE RODRIGUEZ Age: 48 yrs Gender: Female : 1970 Patient Status: Outpatient Patient Location: [facility] Study Date: 08/12/2019 01:31 PM Procedure: A color flow and duplex scan of the lower extremity arteries was performed bilaterally with velocity and waveform anaylsis. Reason For Study: BLE PAIN Ordering Physician: Alberto CORREA Performed By: William Yu Measurements and Calculations Right Left [employer]IV[employer] DEFENSE DIRECTOR PSV 104.1 122.2 cm/sec Prox PFA PSV -62.1 -68.4 cm/sec Prox SFA PSV 83.8 103.7 cm/sec Mid SFA PSV -120.7 -98.2 cm/sec Dist SFA PSV -81.6 -79.5 cm/sec Prox Pop A PSV 62.9 59.4 cm/sec Dist NILSA PSV 82.5 76.6 cm/sec Dist [employer] PSV 77.1 70.2 cm/sec Buck Pedis PSV -66.3 -157.1cm/sec Right Side Arterial Evaluation Normal velocity and triphasic waveforms noted from the Common Femoral artery to the infrageniculate vessels . Calcification noted in the huynh of larger arteries. . Ankle Brachial index not ordered. Left Side Arterial Evaluation Normal velocity and triphasic waveforms noted from the Common Femoral artery to the infrageniculate vessels . Calcification noted in the huynh of larger arteries. . Ankle Brachial index not ordered. Interpretation Summary No hemodynamically significant lesions in the bilateral lower extremities, on duplex imaging, at rest. Arterial wall calcification noted suggestive of Atherosclerosis. : Alberto CORREA > Phil Morrison
== END ==
LOC: SP 12:58
PROVIDERS: ATTEND Internal Medicine Nephrology
DX: M79.606 Pain in leg, unspecified (principal); R60.0 Localized edema
CPT/HCPCS: 93925; 93970

== ENCOUNTER 2019-08-13 12:56 | Inpatient (IN) | payer OTHER ==
--- NOTE | 2019-08-13 13:12 | ER Document Report ---
ED Medical Screen (RME) - General Chief Complaint: Leg Swelling Stated Complaint: SWOLLEN LEG Time Seen by Provider: 08/13/19 13:08 Primary Care Provider: Alberto DEWITT MD [Primary Care Provider] - Follow up as needed Mode of Arrival: Wheelchair Information source: Patient Notes: 38-year-old female presented to ED for complaint of swelling to both legs for about a month. She is a dialysis patient. She went to dialysis morning Dr. Dewitt sent her to the emergency room to be evaluated. She states the pain and swelling is getting worse over the past week. She states the pain is in her muscles not in her joints. She patient is alert oriented respirations regular and unlabored speaking in full sentences. Cramping states the pain and swelling is up to her thighs. I have greeted and performed a rapid initial assessment of this patient. A comprehensive ED assessment and evaluation of the patient, analysis of test results and completion of medical decision making process will be conducted by an additional ED providers. TRAVEL OUTSIDE OF THE [place] IN LAST 30 DAYS: No - Related Data Allergies/Adverse Reactions: No Known Allergies Allergy (Verified 07/28/19 18:33) Past Medical History - Past Medical History Cardiac Medical History: Reports: Hx Congestive Heart Failure, Hx Hypertension Endocrine Medical History: Reports: Hx Diabetes Mellitus Type 2 Renal/ Medical History: Reports: Hx End Stage Renal Disease, Hx Hemodialysis. Denies: Hx Peritoneal Dialysis - Immunizations Immunizations up to date: Yes Physical Exam - Vital signs Vitals: Temp Pulse Resp BP Pulse Ox 97.6 F 72 19 149/75 H 97 08/13/19 13:04 08/13/19 13:04 08/13/19 13:04 08/13/19 13:04 08/13/19 13:04 Course - Vital Signs Vital signs: Temp Pulse Resp BP Pulse Ox 97.6 F 72 19 149/75 H 97 08/13/19 13:04 08/13/19 13:04 08/13/19 13:04 08/13/19 13:04 08/13/19 13:04 Doctor's Discharge - Discharge Referrals: Alberto DEWITT MD [Primary Care Provider] - Follow up as needed
--- NOTE | 2019-08-13 13:48 | ER Document Report ---
ED General - General Chief Complaint: Leg Swelling Stated Complaint: SWOLLEN LEG Time Seen by Provider: 08/13/19 13:08 Mode of Arrival: Wheelchair TRAVEL OUTSIDE OF THE [place] IN LAST 30 DAYS: No - HPI Notes: 48-year-old female with a history of chronic renal failure and on dialysis presents to the ED for complaints of bilateral thigh pain that has been bothersome for the last 3 weeks as well as some shortness of breath. Patient was getting dialysis today, Dr. Saul Dewitt, patient's director of oncology advised her to go to the emergency room for further evaluation. Patient states that she feels that her thighs are tighter, pain with movement. Ultrasound of bilateral lower extremities to rule out DVT was performed yesterday with which was negative. Patient reports pain is 8 out of 10, constant and throbbing. Denies any recent traumas or falls. Patient does get dialysis on Tuesdays and Fridays, no anuria. denies fevers, chills, chest pain,palpitations, dysp sebas, nausea, vomiting, diarrhea, abdominal pain, hematuria,blurred vision, double vision, loss of vision, speech changes, LH, dizziness, syncope, headaches, wheezing, ST, URI, neck pain, weakness, bowel or bladder dysfunction, saddle anesthesia, numbness or tingling in bilateral upper or lower extremities equally, muscle paralysis, weakness in bilateral upper or lower extremities equally or rash. - Related Data Allergies/Adverse Reactions: No Known Allergies Allergy (Verified 08/13/19 13:09) Past Medical History - General Information source: Patient - Social History Smoking Status: Never Smoker Chew tobacco use (# tins/day): No Frequency of alcohol use: None Drug Abuse: None Family History: Reviewed & Not Pertinent Patient has suicidal ideation: No Patient has homicidal ideation: No - Past Medical History Cardiac Medical History: Reports: Hx Congestive Heart Failure, Hx Hypertension Endocrine Medical History: Reports: Hx Diabetes Mellitus Type 2 Renal/ Medical History: Reports: Hx End Stage Renal Disease, Hx Hemodialysis. Denies: Hx Peritoneal Dialysis - Immunizations Immunizations up to date: Yes Review of Systems - Review of Systems Constitutional: No symptoms reported EENT: No symptoms reported Cardiovascular: No symptoms reported Respiratory: See HPI Gastrointestinal: No symptoms reported Genitourinary: No symptoms reported Female Genitourinary: No symptoms reported Musculoskeletal: See HPI Skin: No symptoms reported Hematologic/Lymphatic: No symptoms reported Neurological/Psychological: No symptoms reported Physical Exam - Vital signs Vitals: Temp Pulse Resp BP Pulse Ox 97.6 F 72 19 149/75 H 97 08/13/19 13:03 08/13/19 13:03 08/13/19 13:03 08/13/19 13:03 08/13/19 13:03 - Notes Notes: PHYSICAL EXAMINATION: GENERAL: Well-appearing, well-nourished and in no acute distress. HEAD: Atraumatic, normocephalic. EYES: Pupils equal round and reactive to light, extraocular movements intact, conjunctiva are normal. ENT: Nares patent, oropharynx clear without exudates. Moist mucous membranes. NECK: Normal range of motion, supple without lymphadenopathy LUNGS: Diminished breath sounds clear to auscultation bilaterally and equal. No wheezes rales or rhonchi. HEART: Regular rate and rhythm without murmurs ABDOMEN: Soft, nontender, nondistended abdomen. No guarding, no rebound. No masses appreciated. Female : deferred Musculoskeletal: Normal range of motion, no pitting or edema. No cyanosis. Lateral upper medial aspect of thighs taut, noted bilateral pedal edema. noted discoloration of skin bilaterally. negative magdalena's sign. anterior and posterior drawer test negative. noted pain with flexion bilaterally Dtr + 2 in BLE. Full motor and sensory function to BLE equally. No open wounds. No induration or drainage. Strength 5 out of 5 bilaterally equally. Ankle examination normal. Squeeze test negative. Hip examination normal. Pulses + 2 bilaterally and equally.negative squeeze bilaterally and equally. NEUROLOGICAL: Cranial nerves grossly intact. Normal speech, normal gait. Normal sensory, motor exams PSYCH: Normal mood, normal affect. SKIN: Warm, Dry, normal turgor, no rashes or lesions noted. Course - Re-evaluation Re-evalutation: 08/15/19 13:53 Afebrile, slightly hypertensive, in mild distress due to pain from upper thighs. Patient is asymptomatic for chest pain shortness of breath at this point in time. patient does have a elevated CK at 500, alk phos is 500, creatinine is elevated at 3.8 however patient does follow with Dr. Dewitt for nephrology, was referred to the emergency room by Dr.George Dewitt due to concerns of tightening of her bilateral upper thighs that is been progressive over the course of the last 2 weeks. Clinical examination does show the medial aspect of the upper thigh which is taut, painful on palpation, but is warm to touch, cap refill is less than 3 seconds, patient is able to move bilateral legs with passive range of motion, states that she is unable to actively move her legs with bending however she is able to bear full weight. consulted with Dr. Dewitt, director of oncology, at 1530, because he did refer patient to the emergency room as well as to discuss her pertinent laboratory findings of her creatinine in acute on chronic renal failure. Dr. Dewitt felt that the patient should be admitted to the emergency room for further evaluation of her bilateral thigh pain in conjunction with her laboratory findings and suggested obtaining CT of bilateral lower extremities with contrast to evaluate for any infectious process. BNP is still pending as well as cxr is pending. Dr. Kelvin Paulino, ER supervising physician at 1600 did evaluate patient at bedside, does find the tautness of her upper thighs to be concerning however there is no overt etiology for the pain she is having in her bilateral upper thighs. BNP 16,200, no vascular congestion noted on chest x-ray. Discussed findings with Dr. Black, hospitalist at 1800, will be admitted under the medical service on telemetry for further evaluation of her congestive heart failure, acute on chronic kidney failure. Patient was agreeable this plan of care and agree with plan of care. - Vital Signs Vital signs: Temp Pulse Resp BP Pulse Ox 97.7 F 70 16 125/57 L 98 08/15/19 11:32 08/15/19 11:32 08/15/19 11:32 08/15/19 11:32 08/15/19 11:32 - Laboratory Result Diagrams: 08/15/19 04:34 08/15/19 04:34 Laboratory results interpreted by me: 08/13/19 08/13/19 08/13/19 13:47 13:47 13:47 Hgb 10.6 L Hct 34.3 L MCV 69 L MCH 21.2 L MCHC 30.9 L RDW 17.8 H Lymph % (Auto) 7.0 L Baso % (Auto) 2.2 H Seg Neutrophils % 82.3 H Sodium 136.5 L BUN 65 H Creatinine 3.80 H Est GFR ( Amer) 15 L Est GFR (MDRD) Non-Af 13 L Glucose 448 H* Direct Bilirubin 0.8 H AST 53 H Alkaline Phosphatase 504 H Creatine Kinase 500 H C-Reactive Protein 45.1 H NT-Pro-B Natriuret Pep 20618 H Total Protein 9.0 H Urine Protein Urine Glucose (UA) Urine Blood 08/13/19 17:26 Hgb Hct MCV MCH MCHC RDW Lymph % (Auto) Baso % (Auto) Seg Neutrophils % Sodium BUN Creatinine Est GFR ( Amer) Est GFR (MDRD) Non-Af Glucose Direct Bilirubin AST Alkaline Phosphatase Creatine Kinase C-Reactive Protein NT-Pro-B Natriuret Pep Total Protein Urine Protein >=500 H Urine Glucose (UA) >=500 H Urine Blood SMALL H Discharge - Discharge Clinical Impression: Bilateral thigh pain CHF (congestive heart failure) Qualifiers: Heart failure type: unspecified Heart failure chronicity: acute on chronic Qualified Code(s): I50.9 - Heart failure, unspecified Condition: Stable Disposition: ADMITTED INPATIENT Admitting Provider: Wayne (Hospitalist) Unit Admitted: Telemetry
[2019-08-13 14:04] LABS: ABSOLUTE BASOPHILS # (AUTO) 0.2 10^3/uL (0.0-0.2); ABSOLUTE EOSINOPHILS # (AUTO) 0.2 10^3/uL (0.0-0.6); ABSOLUTE LYMPHOCYTES (AUTO) 0.6 10^3/uL (0.5-4.7); ABSOLUTE MONOCYTES (AUTO) 0.5 10^3/uL (0.1-1.4); ABSOLUTE NEUT (AUTO) 7.2 10^3/uL (1.7-8.2); BASOPHILS % (AUTO) 2.2 % (0-2); EOSINOPHILS % (AUTO) 2.6 % (0-6); HEMATOCRIT 34.3 % (36.0-47.0); HEMOGLOBIN 10.6 g/dL (12.0-15.5); MEAN CORPUSCULAR HEMOGLOBIN 21.2 pg (27.0-33.4); MEAN CORPUSCULAR HGB CONC 30.9 g/dL (32.0-36.0); MEAN CORPUSCULAR VOLUME 69 fl (80-97); MONOCYTES % (AUTO) 5.9 % (3-13); PLATELET COUNT 345 10^3/uL (150-450); RED CELL DISTRIBUTION WIDTH 17.8 % (11.5-14.0); SEGMENTED NEUTROPHILS % (AUTO) 82.3 % (42-78); TOTAL CELLS COUNTED % (AUTO) 100 %; WHITE BLOOD COUNT 8.7 10^3/uL (4.0-10.5)
[2019-08-13 14:30] LABS: ALBUMIN 3.7 g/dL (3.5-5.0); ALKALINE PHOSPHATASE 504 U/L (38-126); ANION GAP 12 (5-19); ASPARTATE AMINO TRANSFERASE 53 U/L (14-36); BILIRUBIN,DIRECT 0.8 mg/dL (0.0-0.4); BILIRUBIN,TOTAL 0.9 mg/dL (0.2-1.3); BLOOD UREA NITROGEN 65 mg/dL (7-20); C-REACTIVE PROTEIN 45.1 mg/L (<10.0); CALCIUM 8.8 mg/dL (8.4-10.2); CARBON DIOXIDE 26 mmol/L (22-30); CHLORIDE 99 mmol/L (98-107); CREATINE KINASE 500 U/L (30-135); POTASSIUM 4.8 mmol/L (3.6-5.0)
[2019-08-13 14:35] LABS: GLUCOSE 448 mg/dL (75-110)
[2019-08-13] MEDS ORDERED: NORMAL SALINE 1000 ML 1,000 ML IV PRN (14:36)
[2019-08-13] MEDS ORDERED: FUROSEMIDE INJ/PF 40 MG/4 ML SDV IV ONE (17:28)
[2019-08-13] MEDS ORDERED: ACETAMINOPHEN 325 MG TABLET PO ONE (17:28)
[2019-08-13] MEDS: MORPHINE SULFATE 10 MG/ML INJ IV ONE ×2 (17:49→18:32)
[2019-08-13 18:00] LABS: AMORPHOUS SEDIMENT,URINE TRACE /HPF; APPEARANCE,URINE CLOUDY; BILIRUBIN,URINE NEGATIVE (NEGATIVE); GLUCOSE, URINE >=500 mg/dL (NEGATIVE); KETONES,URINE NEGATIVE (NEGATIVE); LEUKOCYTE ESTERASE,URINE NEGATIVE (NEGATIVE); NITRITE,URINE NEGATIVE (NEGATIVE); PROTEIN,URINE >=500 mg/dL (NEGATIVE); URINE SPECIFIC GRAVITY 1.021; UROBILINOGEN,URINE NEGATIVE mg/dL (<2.0)
[2019-08-13 18:01] LABS: COLOR,URINE DARK YELLOW
--- NOTE | 2019-08-13 18:50 | RADIOLOGY REPORT (SQ) ---
EXAM DESCRIPTION: CT LEFT LOWER EXTREMITY WITH COMPLETED DATE/TIME: 08/13/2019 6:05 pm REASON FOR STUDY: please combine. r/o infection,compartment syndrome COMPARISON: None. TECHNIQUE: CT scan of the left hip performed without oral contrast. 80 mL Omnipaque 350 low osmolar contrast was injected. Images reviewed with soft tissue and bone windows. Reconstructed coronal an d sagittal MPR images reviewed. All images stored on PACS. All CT scanners at this facility use dose modulation, iterative reconstruction, and/or weight based d osing when appropriate to reduce radiation dose to as low as reasonably achievable (ALARA). [facility]: Dose Right [facility]: CareDose [facility]: Dose Right [facility]: Teradose 4D [facility]: [employer] RADIATION DOSE: mGy. LIMITATIONS: None. FINDINGS: PELVIC BONES: No acute fracture. No worrisome bone lesions. VISUALIZED SPINE: Not included. Left lower extremity: No fracture or dislocation. No abnormal fluid collections. Soft tissue planes appear to be maintained. There is subcutaneous edema. OPPOSITE HIP: No fracture or dislocation. No abnormal fluid collection. Soft tissue planes are main tained. There is subcutaneous edema. PELVIC SOFT TISSUES: No significant findings. EXTRAPELVIC SOFT TISSUES: Subcutaneous edema. OTHER: No other significant finding. IMPRESSION: Subcutaneous edema. No evidence of abscess. No evidence of compartment syndrome. TECHNICAL DOCUMENTATION: JOB ID: [id number] Quality ID # [id number]: Final reports with documentation of one or more dose reduction techniques (e.g., Au tomated exposure control, adjustment of the mA and/or kV according to patient size, use of iterative reconstruction technique) 2010 [employer]- All Rights Reserved Reading location - IP/workstation name: [email or web address]
[2019-08-13] MEDS ORDERED: INSULIN LISPRO 100 UNIT/ML 3 ML VIAL SUBCUT ONE (18:52)
--- NOTE | 2019-08-13 18:52 | RADIOLOGY REPORT (SQ) ---
EXAM DESCRIPTION: CT RT LOWER EXTREMITY WITH COMPLETED DATE/TIME: 08/13/2019 6:05 pm REASON FOR STUDY: please combine. r/o infection,compartment syndrome COMPARISON: None. TECHNIQUE: CT scan of the right hip performed without intravenous or oral contrast. Images reviewed with soft tissue and bone windows. Reconstructed coronal and sagittal MPR images reviewed. All sharyn ges stored on PACS. All CT scanners at this facility use dose modulation, iterative reconstruction, and/or weight based d osing when appropriate to reduce radiation dose to as low as reasonably achievable (ALARA). [facility]: Dose Right [facility]: CareDose [facility]: Dose Right [facility]: Teradose 4D [facility]: [employer] RADIATION DOSE: CT Rad equipment meets quality standard of care and radiation dose reduction techniq ues were employed. CTDIvol: 4.1 mGy. DLP: 238 mGy-cm. mGy. LIMITATIONS: None. FINDINGS: PELVIC BONES: No acute fracture. No worrisome bone lesions. VISUALIZED SPINE: Not included. Right lower extremity: No fracture or dislocation. No abnormal fluid collection. Soft tissue planes are maintained. There is subcutaneous edema. Left lower extremity: No fracture or dislocation. No abnormal fluid collection. Soft tissue planes are maintained. There is subcutaneous edema. PELVIC SOFT TISSUES: No significant findings. EXTRAPELVIC SOFT TISSUES: Subcutaneous edema. OTHER: No other significant finding. IMPRESSION: Subcutaneous edema. There is no evidence of abscess or compartment syndrome. TECHNICAL DOCUMENTATION: JOB ID: [id number] Quality ID # [id number]: Final reports with documentation of one or more dose reduction techniques (e.g., Au tomated exposure control, adjustment of the mA and/or kV according to patient size, use of iterative reconstruction technique) 2010 [employer]- All Rights Reserved Reading location - IP/workstation name: [email or web address]
--- NOTE | 2019-08-13 18:59 | RADIOLOGY REPORT (SQ) ---
EXAM DESCRIPTION: CHEST SINGLE VIEW COMPLETED DATE/TIME: 08/13/2019 6:07 pm REASON FOR STUDY: chf COMPARISON: 07/28/2019 EXAM PARAMETERS: NUMBER OF VIEWS: One view. TECHNIQUE: Single frontal radiographic view of the chest acquired. RADIATION DOSE: NA LIMITATIONS: None. FINDINGS: LUNGS AND PLEURA: Chronic relatively stable right pleural effusion. No masses. No infilt rate. MEDIASTINUM AND HILAR STRUCTURES: No masses. Contour normal. HEART AND VASCULAR STRUCTURES: Cardiomegaly. No mckenna pulmonary edema. BONES: No acute findings. HARDWARE: Dual-lumen catheter, sternotomy wires, heart valve. OTHER: No other significant finding. IMPRESSION: Cardiomegaly without pulmonary edema. Stable right pleural effusion. TECHNICAL DOCUMENTATION: JOB ID: [id number] [employer]- All Rights Reserved Reading location - IP/workstation name: [email or web address]
[2019-08-13] MEDS ORDERED: MORPHINE SULFATE 10 MG/ML INJ ONE (19:25)
[2019-08-13] MEDS ORDERED: ACETAMINOPHEN 325 MG TABLET PO PRN (19:32)
[2019-08-13] MEDS ORDERED: ONDANSETRON 4 MG TAB.RAPDIS PO PRN (19:32)
[2019-08-13] MEDS ORDERED: GLUCAGON,HUMAN RECOMB 1 MG INJ IM PRN (20:08)
[2019-08-13] MEDS ORDERED: DEXTROSE 50%-WATER 25 GM/50 ML DISP.SYRIN IV PRN ×2 (20:08)
[2019-08-13] MEDS ORDERED: DEXTROSE 40% GEL 15 GM TUBE PO PRN ×2 (20:08)
[2019-08-13] MEDS ORDERED: METHYLPREDNISOLONE INJ 40 MG/1 ML SDV IV ONE (21:00)
[2019-08-13] MEDS ORDERED: HYDRALAZINE HCL INJ/PF 20 MG/1 ML SDV IV PRN (21:06)
--- NOTE | 2019-08-13 21:16 | PDOC H&P ---
History of Present Illness Admission Date/PCP: 08/13/19 18:08 INDIGO VALLE NP Patient complains of: Bilateral anterior thigh pain x3 weeks History of Present Illness: STEPHANIE RODRIGUEZ is a 48 year old female with chronic kidney disease requiring hemodialysis. She has hypertension as well as diabetes mellitus type 2 requiring insulin. She has a history of mitral valve surgery. The patient was initially on peritoneal dialysis. It was felt to be ineffective. A Vas-Cath was placed in her right chest and hemodialysis was initiated. The patient reports that she was working back towards peritoneal dialysis. Approximately 3 weeks ago she fell at dialysis. She states she fell on her knee but also had back pain. It was at that point that both of her thighs began to hurt. The pain radiated from her back through her thighs. She describes it as a tightness over the anterior musculature. There is tenderness. She also reports hyperesthesia and a feeling of electrical shock radiating down her thighs. She denies weakness but states that there is pain when sitting or getting up from a seated position. She does not report associated symptoms such as chest pain, palpitation, legs feeling cold or numb. She went to her primary care physician and was given tizanidine and [place]. She states that these did not help. Progressed and when she presented for dialysis today she was instructed to go to the emergency department for further evaluation. She arrived at the emergency department at approximately 1:45 PM. On evaluation it was noted that her white blood cell count was normal but her sed rate is elevated. Her glucose was 448 and her blood pressure was elevated. The blood pressure continued to climb for several hours until it reached 194/112 at approximately 6 PM. Her brain atretic peptide was 16,000 and this is up from 10,000 several months ago. Her BUN and creatinine are elevated as expected. Her alkaline phosphatase was elevated at 500 as well as her creatinine kinase. The patient was referred to the hospital service for ongoing evaluation and treatment. 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 Denies: Ears, Nose, Throat Neurological Medical History: Denies: Hemorrhagic CVA, Ischemic CVA, Migraine, Seizures Endocrine Medical History: Reports: Diabetes Mellitus Type 2 Renal/ Medical History: Reports: End Stage Renal Disease Malignancy Medical History: Reports: None GI Medical History: Denies: Cirrhosis, Diverticulitis, Hiatal Hernia Musculoskeltal Medical History: Denies: Arthritis, Fibromyalgia, Gout Skin Medical History: Denies: Eczema, Psoriasis Psychiatric Medical History: Denies: Alcohol Dependency, Depression, Substance Abuse, Tobacco Dependency Traumatic Medical History: Reports: None Hematology: Reports: Anemia Denies: Sickle Cell Disease, Bleeding Tendencies Infectious Medical History: Reports: None Past Surgical History Past Surgical History: Reports: Valve Replacement - Mitral valve surgery, Vascular Surgery - Vas-Cath placement, peritoneal dialysis catheter placement, Other - Left eye surgery Social History Information Source: Patient Lives with: Family, Other - She is Smoking Status: Never Smoker Electronic Cigarette use?: No Frequency of Alcohol Use: None Hx Recreational Drug Use: No Hx Prescription Drug Abuse: No - Advance Directive Resuscitation Status: Full Code Surrogate healthcare decision maker:: Currently no healthcare proxy or living will on record Family History Family History: CAD, DM, Hypertension, Malignancy, Other - Congestive heart failure Parental Family History Reviewed: Yes Children Family History Reviewed: Yes Sibling(s) Family History Reviewed.: Yes Medication/Allergy Home Medications: Aspirin [Ecotrin] 81 mg PO DAILY 03/24/19 Carvedilol [Coreg] 1 tab PO Q12 03/24/19 Clonidine HCl [Catapres 0.2 mg Tablet] 1 tab PO DAILY PRN 03/24/19 Hydralazine HCl 100 mg PO TID 03/24/19 Torsemide [Demadex] 80 mg PO BID 03/24/19 Glipizide [Glipizide Xl] 10 mg PO DAILY #14 tab.er.24 07/28/19 Gentamicin Sulfate [Garamycin 0.1% Cream 15 gm] 1 applic TP ASDIR PRN 08/13/19 Insulin Detemir [Levemir] 15 unit SQ DAILY 08/13/19 Tizanidine HCl 4 mg PO Q6HP PRN 08/13/19 Allergies/Adverse Reactions: No Known Allergies Allergy (Verified 08/13/19 13:09) Review of Systems Constitutional: PRESENT: as per HPI, chills - Occasionally from the shoulders down, other - Her head gets sweaty. ABSENT: fever(s) Eyes: PRESENT: other - Left eye blindness Ears: ABSENT: hearing changes Nose, Mouth, and Throat: ABSENT: mouth pain, sore throat Cardiovascular: PRESENT: edema. ABSENT: chest pain, palpitations Respiratory: ABSENT: cough, dyspnea, sputum Gastrointestinal: ABSENT: abdominal pain, constipation, diarrhea, nausea, vomiting Genitourinary: ABSENT: dysuria, hematuria Musculoskeletal: PRESENT: back pain, other - Muscle pain in thighs Integumentary: PRESENT: diaphoresis - Had occasionally get sweaty, other - Dark discoloration medial distal thigh at the knee. ABSENT: erythema Neurological: ABSENT: abnormal speech, confusion, memory loss, tremor(s), vertigo Psychiatric: ABSENT: anxiety, depression, hallucinations Endocrine: ABSENT: cold intolerance, heat intolerance, polydipsia, polyphagia, polyuria Hematologic/Lymphatic: ABSENT: easy bleeding, easy bruising, lymphadenopathy Allergic/Immunologic: ABSENT: seasonal rhinorrhea Physical Exam Vital Signs: Temp Pulse Resp BP Pulse Ox 98.0 F 67 13 185/110 H 100 08/13/19 17:01 08/13/19 17:01 08/13/19 19:05 08/13/19 19:05 08/13/19 19:05 Intake & Output 08/12/19 08/13/19 08/14/19 06:59 06:59 06:59 Intake Total 1000 Balance 1000 General appearance: PRESENT: cooperative, mild distress, well-developed, well- nourished Head exam: PRESENT: atraumatic, normocephalic Eye exam: PRESENT: conjunctiva pale - Right eye, EOMI - Right eye, other - Left eye with patch in place. ABSENT: nystagmus, periorbital swelling, scleral icterus Ear exam: PRESENT: normal external ear exam. ABSENT: bleeding, drainage Mouth exam: PRESENT: dry mucosa, neck supple, tongue midline Teeth exam: ABSENT: poor dentation Neck exam: ABSENT: carotid bruit, lymphadenopathy, tenderness, tracheal deviation, tracheostomy Respiratory exam: PRESENT: clear to auscultation peterson - Bilaterally anteriorly, decreased breath sounds - At the right base, symmetrical, unlabored. ABSENT: rales, rhonchi, tachypnea, wheezes Cardiovascular exam: PRESENT: RRR, +S1, +S2, systolic murmur - 2/6, other - Positive S4 Pulses: PRESENT: normal radial pulses, normal dorsalis pedis pul GI/Abdominal exam: PRESENT: normal bowel sounds, soft. ABSENT: distended, tenderness Rectal exam: PRESENT: deferred Gentrourinary exam: ABSENT: indwelling catheter Extremities exam: PRESENT: tenderness - Tender over the anterior thigh with fullness to palpation mostly the rectus femoris. No tenderness proximally or below the knee. Fullness of the quadricep tendon., +1 edema - Pitting edema distal posterior thigh bilaterally Musculoskeletal exam: PRESENT: tenderness - As above Neurological exam: PRESENT: alert, awake, oriented to person, oriented to place, oriented to time, oriented to situation, CN II-XII grossly intact - Except left eye Psychiatric exam: PRESENT: appropriate affect - Affect reflects her frustration. ABSENT: agitated, anxious Focused psych exam: ABSENT: delusional, restlessness Skin exam: PRESENT: dry, warm. ABSENT: normal color - Few exam the entire leg there appears to be slightly increased pigmentation in the medial aspect of the thigh and knees., rash Results Laboratory Results: 08/13/19 13:47 08/13/19 13:47 08/13/19 08/13/19 08/13/19 13:47 13:47 17:26 WBC 8.7 RBC 5.00 Hgb 10.6 L Hct 34.3 L MCV 69 L MCH 21.2 L MCHC 30.9 L RDW 17.8 H Plt Count 345 Seg Neutrophils % 82.3 H Sodium 136.5 L Potassium 4.8 Chloride 99 Carbon Dioxide 26 Anion Gap 12 BUN 65 H Creatinine 3.80 H Est GFR ( Amer) 15 L Glucose 448 H* Calcium 8.8 Magnesium 2.0 Total Bilirubin 0.9 AST 53 H Alkaline Phosphatase 504 H C-Reactive Protein 45.1 H Total Protein 9.0 H Albumin 3.7 Urine Color DARK YELLOW Urine Appearance CLOUDY Urine pH 5.0 Ur Specific [place] 1.021 Urine Protein >=500 H Urine Glucose (UA) >=500 H Urine Ketones NEGATIVE Urine Blood SMALL H Urine Nitrite NEGATIVE Ur Leukocyte Esterase NEGATIVE Urine WBC (Auto) 9 Urine RBC (Auto) 10 08/13/19 08/13/19 08/13/19 13:47 13:47 13:47 Creatine Kinase 500 H CK-MB (CK-2) 2.98 NT-Pro-B Natriuret Pep 66922 H Impressions: Lower Extremity CT 08/13/19 15:48 IMPRESSION: Subcutaneous edema. There is no evidence of abscess or compartment syndrome. Chest X-Ray 08/13/19 17:29 IMPRESSION: Cardiomegaly without pulmonary edema. Stable right pleural effusion. Assessment and Plan - Diagnosis (1) Bilateral thigh pain Is this a current diagnosis for this admission?: Yes (2) Myositis Qualifiers: Myositis type: unspecified type Myositis location: thigh Laterality: unspecified laterality Qualified Code(s): M60.859 - Other myositis, unspecified thigh Is this a current diagnosis for this admission?: Yes (3) Hypertensive emergency Is this a current diagnosis for this admission?: Yes (4) Type 2 diabetes mellitus with insulin therapy Is this a current diagnosis for this admission?: Yes (5) CHF (congestive heart failure) Qualifiers: Heart failure type: unspecified Heart failure chronicity: acute on chronic Qualified Code(s): I50.9 - Heart failure, unspecified Is this a current diagnosis for this admission?: Yes (6) Chronic kidney disease on chronic dialysis Is this a current diagnosis for this admission?: Yes (7) Low back pain Qualifiers: Chronicity: acute Back pain laterality: midline Sciatica presence: without sciatica Qualified Code(s): M54.5 - Low back pain Is this a current diagnosis for this admission?: Yes (8) Pleural effusion Is this a current diagnosis for this admission?: Yes (9) Peripheral edema Is this a current diagnosis for this admission?: Yes - Plan Summary Summary: Bilateral thigh pain with myositis-bilateral rectus femoris tenderness with elevated creatinine kinase and sed rate. This would suggest an inflammatory process. She is not on any medications that would cause myositis or myalgias. She did state that she gets shooting pain down her thighs ever since she fell. When she fell she had acute onset back pain. CT scan of the thighs was negative for compartment syndrome and showed subcutaneous inflammatory changes. I will give a test dose of 40 mg Solu-Medrol IV x1 to see if this helps. Analgesia will be available. I have also ordered a K pad for gentle heat to try and relieve the discomfort. Serial creatinine kinase levels as well as sed rate studies have been ordered. Hypertensive emergency-the patient is on multiple medications for her blood pressure. Unfortunately she missed most of these during the day and her blood pressure sindi to 194/112. Blood pressure medications have been reinstituted. I expect her pressure will respond nicely. We will continue her home medication regimen at this time. As needed antihypertensives will be available. Diabetes mellitus type 2 requiring insulin-the patient's serum glucose was 448 on admission. I requested an Accu-Chek at approximately 6 PM and the sugar was 300. This is likely due to no food. She was given subcutaneous Humalog as a one-time dose. She will resume her glipizide and Lantus. Humalog sliding scale will be available as well. A diabetic/cardiac/hemodialysis diet has been ordered. Hemoglobin A1c is pending for the morning. Congestive heart failure-I could not find an echocardiogram. The patient has had mitral valve surgery and has cardiomegaly and a right pleural effusion on x- ray. These appear to be chronic. I have ordered an echocardiogram for better clarification of heart failure. Interestingly, the chest x-ray does not show mckenna congestion or pulmonary edema. There is cardiomegaly. As noted the right pleural effusion is chronic. We will resume her torsemide, hydralazine and clonidine. End-stage renal disease on hemodialysis-kidney disease most likely due to diabetes. There is also significant hypertension. The patient was initially started on peritoneal dialysis. When this was felt to be ineffective she was advanced to hemodialysis. The goal is to return to peritoneal dialysis. Her outpatient dialysis schedule is Saturday, and Saturday but as an inpatient she received dialysis on Saturday, Saturday and Saturday. Daily laboratory studies have been ordered as well as monitoring intake and output. Low back pain-the patient fell at dialysis several weeks ago. She states that she has low back pain and that is when the discomfort in her thighs started. Typically muscle tenderness is not associated with a radiculopathy. We will obtain lumbar spine films to assess for any compression fractures or decreased disc spaces. Right pleural effusion-this is felt to be chronic. We will continue to monitor. We will return her to her torsemide 80 mg twice daily diuretic dose. Peripheral edema-the patient does have pitting edema. She states that this will fluctuate and typically is worse when she is on her feet. It is mild today. We will continue to monitor with hemodialysis, diuretic therapy and low-sodium diet. - Time Time Spent with patient: 35 or more minutes Medications reviewed and adjusted accordingly: Yes Anticipated discharge: Home - Inpatient Certification Medical Necessity: Failure to Improve With Outpatient Therapy, Need Close Gaby toring Due to Risk of Patient Decompensation, Need For Continuous Telemetry Monitoring, Need for Pain Control, Other - Hemodialysis Post Hospital Care: D/C Supervisor Opening And Picking Documentation
--- NOTE | 2019-08-13 21:19 | ADVANCED CARE ---
- Diagnosis (1) Bilateral thigh pain Diagnosis Current: Yes (2) Myositis Diagnosis Current: Yes (3) Hypertensive emergency Diagnosis Current: Yes (4) Type 2 diabetes mellitus with insulin therapy Diagnosis Current: Yes (5) CHF (congestive heart failure) Diagnosis Current: Yes (6) Chronic kidney disease on chronic dialysis Diagnosis Current: Yes (7) Low back pain Diagnosis Current: Yes (8) Pleural effusion Diagnosis Current: Yes (9) Peripheral edema Diagnosis Current: Yes Attendance: The discussion was held at the bedside. The patient's daughter was present. Resuscitation Status: Full Code Discussion: I explained to the patient that a blank [place] healthcare proxy form will be present in her admission packet. We discussed the effective use of this document. As she is it might be that she does not want her making decisions. Legally the decisions will default to him first. I explained that she could designate decision-makers and that would supersede the typical familial order. I also explained that she could delineate treatment options in the event of catastrophic illness such as feeding tubes, long-term ventilation with tracheostomy and intermediate placement. The patient will review the document during this hospitalization. Care Planning Goals: Complete healthcare proxy. Document(s) Completed: None at this time. Time Spent: 18 minutes
[2019-08-13] MEDS: HYDRALAZINE HCL 50 MG TABLET PO SCH (21:29)
[2019-08-13] MEDS: CARVEDILOL 12.5 MG TABLET PO SCH (21:30)
[2019-08-13] MEDS: FAMOTIDINE 20 MG TABLET PO SCH (21:30)
[2019-08-13] MEDS: CLONIDINE HCL 0.2 MG TABLET PO SCH (21:30)
[2019-08-13] MEDS: INSULIN LISPRO 100 UNIT/ML 3 ML VIAL SUBCUT SCH (21:31)
[2019-08-13] MEDS: TORSEMIDE 20 MG TABLET PO SCH (21:31)
[2019-08-13] MEDS: HEPARIN SOD (PORCINE) 5,000 UNIT/ML 1 ML VIAL SUBCUT SCH (21:31)
[2019-08-13] MEDS: TEMAZEPAM 15 MG CAPSULE PO SCH (21:31)
[2019-08-13] MEDS ORDERED: FAMOTIDINE 20 MG TABLET PO SCH (22:00)
[2019-08-14] MEDS: FENTANYL CITRATE INJ/PF 100 MCG/2 ML AMPUL IV PRN ×2 (00:22→14:27)
[2019-08-14] MEDS: HEPARIN SOD (PORCINE) 5,000 UNIT/ML 1 ML VIAL SUBCUT SCH ×3 (05:08→21:05)
[2019-08-14] MEDS: HYDRALAZINE HCL 50 MG TABLET PO SCH ×3 (05:09→21:09)
[2019-08-14 05:52] LABS: ABSOLUTE LYMPHOCYTES (AUTO) 0.5 10^3/uL (0.5-4.7); ABSOLUTE MONOCYTES (AUTO) 0.2 10^3/uL (0.1-1.4); ABSOLUTE NEUT (AUTO) 7.8 10^3/uL (1.7-8.2); BASOPHILS % (AUTO) 0.5 % (0-2); EOSINOPHILS % (AUTO) 0.1 % (0-6); HEMATOCRIT 32.7 % (36.0-47.0); HEMOGLOBIN 10.2 g/dL (12.0-15.5); LYMPHOCYTES % (AUTO) 5.5 % (13-45); MEAN CORPUSCULAR HGB CONC 31.1 g/dL (32.0-36.0); MEAN CORPUSCULAR VOLUME 68 fl (80-97); MONOCYTES % (AUTO) 1.9 % (3-13); PLATELET COUNT 313 10^3/uL (150-450); RED BLOOD COUNT 4.84 10^6/uL (3.72-5.28); RED CELL DISTRIBUTION WIDTH 17.9 % (11.5-14.0); TOTAL CELLS COUNTED % (AUTO) 100 %; WHITE BLOOD COUNT 8.4 10^3/uL (4.0-10.5)
[2019-08-14 06:04] LABS: ANION GAP 12 (5-19); BLOOD UREA NITROGEN 68 mg/dL (7-20); CALCIUM 8.9 mg/dL (8.4-10.2); CARBON DIOXIDE 22 mmol/L (22-30); CHLORIDE 102 mmol/L (98-107); CHOLESTEROL 186.45 mg/dL (0-200); CREATINE KINASE 335 U/L (30-135); GLUCOSE 238 mg/dL (75-110); PHOSPHORUS 6.4 mg/dL (2.5-4.5); TRIGLYCERIDES 64 mg/dL (<150)
[2019-08-14 06:14] LABS: DIRECT LDL 88 mg/dL (<100)
[2019-08-14 06:27] LABS: ERYTHROCYTE SEDIMENTATION RATE 64 mm/hr (0-20)
[2019-08-14] MEDS: GLIPIZIDE XL 5 MG TAB.ER.24 PO SCH (08:18)
[2019-08-14] MEDS: INSULIN LISPRO 100 UNIT/ML 3 ML VIAL SUBCUT SCH ×4 (08:19→21:05)
[2019-08-14] MEDS ORDERED: INSULIN GLARGINE,HUM.REC.ANLOG 1,000 UNIT/10 ML VIAL SUBCUT SCH (10:00)
[2019-08-14] MEDS: TORSEMIDE 20 MG TABLET PO SCH ×2 (11:39→17:25)
[2019-08-14] MEDS: CARVEDILOL 12.5 MG TABLET PO SCH ×2 (11:40→21:09)
[2019-08-14] MEDS: CLONIDINE HCL 0.2 MG TABLET PO SCH ×2 (11:40→21:09)
--- NOTE | 2019-08-14 14:33 | PDOC CONSULTATION ---
Consultation Consult Date: 08/14/19 Provider Consulted: Alberto CORREA Consult reason:: ESRD. Severe bilateral thigh pain. History of Present Illness Admission Date/PCP: 08/13/19 18:08 INDIGO VALLE NP History of Present Illness: STEPHANIE RODRIGUEZ is a 48 year old female with a history of multiple comorbidities including long-standing complicated diabetes mellitus- bilateral severe proliferative retinopathy which has resulted in bilateral vitrectomy/retinopexy ; however she has lost vision in the left eye post surgery done in November 2018, history of chronic combined systolic and diastolic congestive heart failure with last echocardiogram done in 2018 that I reviewed showing an ejection fraction of 30-35%, history of mitral regurgitation for which she underwent a mitral valve repair in 2018 and finally Diabetic ESRD for which she initially underwent a complicated PD catheter placement in January 10, 2019 at [facility] and has had issues on PD and therefore she was converted to hemodialysis through an IJ catheter through which she is currently undergoing dialysis. Review of her discharge notes from January 2019 from [facility] showed that following her initial PD catheter placement she had pain and bloody aspirate in her Tenckhoff. She was then taken back to the OR for a redo exploratory laparoscopy and had a washout of hemoperitoneum and repositioning of the catheter. She was also transfused 2 units at that time. She has been now admitted with history of progressive pain and swelling of both the thighs over the last 3 to 4 days. Apparently she has had a fall to 3 weeks ago at the dialysis unit where she fell back as she was walking out. She says she had some pain but that got better. She denies uses of any drugs. No history of any polyarthralgia. She however she is also noted some discoloration over her thighs.I had seen her a few days earlier to this at the dialysis unit where she did she had some mild pain of both thighs but it was not warm or firm. She apparently saw her primary care who prescribed her with some analgesics and muscle relaxants but it was not making any improvement. The pain was getting much worse to the point that she was having difficulty in standing up and walking. I was able to reexamine her again at this stage at the dialysis unit and it showed it was firm and more tender, warm and there was there is purple/bluish discoloration that prompted me to think about possible compartment syndrome even though bilateral involvement is very unlikely and she was then referred her to the ER. Evaluations in the ER included CT scans of her thighs which showed some edema but no evidences to indicate compartment syndrome. She had labs done showed elevated CPK of around 500 along with elevated AST and alk phosphatase. She was seen by Dr. Og/hospitalist who after his initial evaluations concluded the patient had myositis and began her on IV Solu-Medrol. I am seeing her today on dialysis and she is completely different person. She states the pain is her whole lot better than she can imagine that she was undergoing over the last few days. She says she is able to undergo dialysis without crying in pain. She st ates she is able to bear some weight. She feels so much relieved compared to the other day. Presently she is undergoing dialysis without any issues. Vital signs are stable. 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 Denies: Ears, Nose, Throat Neurological Medical History: Denies: Hemorrhagic CVA, Ischemic CVA, Migraine, Seizures Endocrine Medical History: Reports: Diabetes Mellitus Type 2 Complications of Diabetes: Reports: None Renal/ Medical History: Reports: End Stage Renal Disease Malignancy Medical History: Reports: None GI Medical History: Denies: Cirrhosis, Diverticulitis, Hiatal Hernia Musculoskeltal Medical History: Denies: Arthritis, Fibromyalgia, Gout Skin Medical History: Denies: Eczema, Psoriasis Psychiatric Medical History: Denies: Alcohol Dependency, Depression, Substance Abuse, Tobacco Dependency Traumatic Medical History: Reports: None Infectious Medical History: Reports: None Past Surgical History Past Surgical History: Reports: Valve Replacement - Mitral valve surgery, Vascular Surgery - Vas-Cath placement, peritoneal dialysis catheter placement, Other - Left eye surgery Social History Lives with: Family, Other - She is Smoking Status: Never Smoker Electronic Cigarette use?: No Frequency of Alcohol Use: None Hx Recreational Drug Use: No Drugs: None Hx Prescription Drug Abuse: No - Advance Directive Resuscitation Status: Full Code Family History Parental Family History Reviewed: Yes - Positive for diabetes CAD and CKD Children Family History Reviewed: No Sibling(s) Family History Reviewed.: Yes - Positive for diabetes and CKD Medication/Allergy Home Medications: Aspirin [Ecotrin] 81 mg PO DAILY 03/24/19 Carvedilol [Coreg] 12.5 mg PO Q12 03/24/19 Clonidine HCl [Catapres 0.2 mg Tablet] 1 tab PO DAILY PRN 03/24/19 Hydralazine HCl 100 mg PO TID 03/24/19 Torsemide [Demadex] 80 mg PO BID 03/24/19 Glipizide [Glipizide Xl] 10 mg PO DAILY #14 tab.er.24 07/28/19 Gentamicin Sulfate [Garamycin 0.1% Cream 15 gm] 1 applic TP ASDIR PRN 08/13/19 Insulin Detemir [Levemir] 15 unit SQ DAILY 08/13/19 Tizanidine HCl 4 mg PO Q6HP PRN 08/13/19 Allergies/Adverse Reactions: No Known Allergies Allergy (Verified 08/13/19 13:09) Review of Systems Constitutional: PRESENT: anorexia, fatigue, weakness. ABSENT: chills, fever(s), headache(s), night sweats Ears: ABSENT: hearing changes Nose, Mouth, and Throat: ABSENT: mouth pain, sore throat Cardiovascular: PRESENT: edema. ABSENT: chest pain, dyspnea on exertion, orthropnea, palpitations Respiratory: ABSENT: dyspnea, hemoptysis Gastrointestinal: ABSENT: abdominal pain, bloating, coffee ground emesis, heartburn, hematemesis, hematochezia, nausea, vomiting Genitourinary: ABSENT: dysuria, hematuria, nocturia Musculoskeletal: PRESENT: back pain, deformity - Swollen twice which are painful and tender over the last 2 to 3 days, muscle weakness - Affecting her thighs leading to difficulty in standing up as well as walking. Integumentary: ABSENT: erythema, lesions, pruritus, rash, wounds Neurological: ABSENT: abnormal gait, abnormal movements, abnormal speech, confusion, convulsions, focal weakness, paresthesias, restless legs Hematologic/Lymphatic: ABSENT: easy bleeding, easy bruising, lymphadenopathy Physical Exam Vital Signs: Temp Pulse Resp BP Pulse Ox 97.7 F 82 16 173/83 H 97 08/14/19 11:49 08/14/19 11:49 08/14/19 11:49 08/14/19 11:49 08/14/19 11:49 Intake & Output 08/13/19 08/14/19 08/15/19 06:59 06:59 06:59 Intake Total 1000 Balance 1000 Weight 66.2 kg General appearance: PRESENT: mild distress Exam: She is wearing an eye patch over her left eye. On removal of the eye patch there is a lot of sclerosis and opacities that there is covering her left eye which indicates to me that she has had complete loss of vision . Eye exam: PRESENT: EOMI, PERRLA Ear exam: PRESENT: normal external ear exam Mouth exam: PRESENT: moist Neck exam: ABSENT: lymphadenopathy, meningismus, tenderness, thyromegaly, tracheal deviation Respiratory exam: PRESENT: clear to auscultation peterson. ABSENT: crackles Cardiovascular exam: PRESENT: +S1, +S2, systolic murmur GI/Abdominal exam: PRESENT: normal bowel sounds, soft. ABSENT: organomegaly, tenderness Extremities exam: PRESENT: other - Both her thighs unlike when I saw her at [facility] at the dialysis unit now soft but emblem fuser tender. She has no more bluish- purple discoloration that I saw her yesterday. Good capillary refill of toes.. ABSENT: pedal edema Neurological exam: PRESENT: alert, awake, oriented to person, oriented to place, oriented to time Psychiatric exam: PRESENT: appropriate affect Skin exam: ABSENT: cyanosis, mottled, rash Results Laboratory Results: 08/14/19 05:19 08/14/19 05:19 08/13/19 08/13/19 08/13/19 13:47 13:47 17:26 WBC 8.7 RBC 5.00 Hgb 10.6 L Hct 34.3 L MCV 69 L MCH 21.2 L MCHC 30.9 L RDW 17.8 H Plt Count 345 Seg Neutrophils % 82.3 H Sodium 136.5 L Potassium 4.8 Chloride 99 Carbon Dioxide 26 Anion Gap 12 BUN 65 H Creatinine 3.80 H Est GFR ( Amer) 15 L Glucose 448 H* Calcium 8.8 Phosphorus Magnesium 2.0 Total Bilirubin 0.9 AST 53 H Alkaline Phosphatase 504 H C-Reactive Protein 45.1 H Total Protein 9.0 H Albumin 3.7 Triglycerides Cholesterol LDL Cholesterol Direct VLDL Cholesterol HDL Cholesterol Urine Color DARK YELLOW Urine Appearance CLOUDY Urine pH 5.0 Ur Specific [place] 1.021 Urine Protein >=500 H Urine Glucose (UA) >=500 H Urine Ketones NEGATIVE Urine Blood SMALL H Urine Nitrite NEGATIVE Ur Leukocyte Esterase NEGATIVE Urine WBC (Auto) 9 Urine RBC (Auto) 10 08/14/19 08/14/19 05:19 05:19 WBC 8.4 RBC 4.84 Hgb 10.2 L Hct 32.7 L MCV 68 L MCH 21.0 L MCHC 31.1 L RDW 17.9 H Plt Count 313 Seg Neutrophils % 92.0 H Sodium 135.8 L Potassium 5.0 Chloride 102 Carbon Dioxide 22 Anion Gap 12 BUN 68 H Creatinine 3.77 H Est GFR ( Amer) 15 L Glucose 238 H Calcium 8.9 Phosphorus 6.4 H Magnesium 1.9 Total Bilirubin AST Alkaline Phosphatase C-Reactive Protein Total Protein Albumin Triglycerides 64 Cholesterol 186.45 LDL Cholesterol Direct 88 VLDL Cholesterol 13.0 HDL Cholesterol 56 Urine Color Urine Appearance Urine pH Ur Specific [place] Urine Protein Urine Glucose (UA) Urine Ketones Urine Blood Urine Nitrite Ur Leukocyte Esterase Urine WBC (Auto) Urine RBC (Auto) 08/13/19 08/13/19 08/13/19 13:47 13:47 13:47 Creatine Kinase 500 H CK-MB (CK-2) 2.98 NT-Pro-B Natriuret Pep 04293 H 08/14/19 08/14/19 05:19 05:19 Creatine Kinase 335 H CK-MB (CK-2) NT-Pro-B Natriuret Pep 10979 H Impressions: Lower Extremity CT 08/13/19 15:48 IMPRESSION: Subcutaneous edema. There is no evidence of abscess or compartment syndrome. Chest X-Ray 08/13/19 17:29 IMPRESSION: Cardiomegaly without pulmonary edema. Stable right pleural eff usion. Assessment & Plan - Diagnosis (1) Myositis Qualifiers: Myositis type: unspecified type Myositis location: thigh Laterality: unspecified laterality Qualified Code(s): M60.859 - Other myositis, unspecified thigh Is this a current diagnosis for this admission?: Yes Plan: Labs and clinical picture is indicative of myositis. I am not sure whether this is just plain polymyositis or is this Dermatomyositis. She obviously needs evaluation by rheumatology. Currently she is being managed well by hospitalist as she has had good relief of her clinical symptoms with the usage of IV Solu- Medrol. Discussed with Dr Og/ hospitalist to continue IV steroids followed by conversion to p.o. steroids while awaiting for rheumatology referral. (2) ESRD needing dialysis Plan: Patient currently undergoing dialysis. Vital signs are stable. Dialysis being supervised to ensure safe and smooth procedure. Plan to remove drain 1 to 2 L as tolerated. Dialysis orders were reviewed with the treating dialysis nurse. (3) Bilateral thigh pain Is this a current diagnosis for this admission?: Yes Plan: Most likely in the background of polymyositis. Much improved on steroids. Continue on the same. No evidences of compartment syndrome. (4) CHF (congestive heart failure) Qualifiers: Heart failure type: unspecified Heart failure chronicity: acute on chronic Qualified Code(s): I50.9 - Heart failure, unspecified Is this a current diagnosis for this admission?: Yes (5) Type 2 diabetes mellitus with insulin therapy Is this a current diagnosis for this admission?: Yes Plan: Chronic and stable at the moment. Compensated. (6) Hypertension Plan: Uncontrolled. See response to dialysis and ultrafiltration.
--- NOTE | 2019-08-14 15:31 | PDOC PROGRESS REPORT ---
Subjective Progress Note for:: 08/14/19 Subjective:: The patient had dialysis earlier. Her pressure is better and her muscle pain and tenderness has improved. Reason For Visit: MYOSITIS,ACUTE ON CHRONIC KIDNEY FAILURE,CONGESTIV Physical Exam Vital Signs: Temp Pulse Resp BP Pulse Ox 97.7 F 75 16 173/83 H 97 08/14/19 11:49 08/14/19 14:00 08/14/19 11:49 08/14/19 11:49 08/14/19 11:49 Intake & Output 08/13/19 08/14/19 08/15/19 06:59 06:59 06:59 Intake Total 1000 Balance 1000 Weight 66.2 kg General appearance: PRESENT: no acute distress, well-developed Mouth exam: PRESENT: moist, tongue midline Respiratory exam: PRESENT: clear to auscultation peterson, symmetrical, unlabored. ABSENT: rales, rhonchi, tachypnea, wheezes Cardiovascular exam: PRESENT: RRR, +S1, +S2 GI/Abdominal exam: PRESENT: normal bowel sounds, soft. ABSENT: distended, tenderness Musculoskeletal exam: PRESENT: normal inspection, other - Significantly decreased tenderness over the rectus femoris muscles Neurological exam: PRESENT: alert, awake, oriented to person, oriented to place, oriented to time, oriented to situation, CN II-XII grossly intact - Except left eye Psychiatric exam: PRESENT: appropriate affect. 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 Results Laboratory Results: 08/14/19 05:19 08/14/19 05:19 08/13/19 08/14/19 08/14/19 17:26 05:19 05:19 WBC 8.4 RBC 4.84 Hgb 10.2 L Hct 32.7 L MCV 68 L MCH 21.0 L MCHC 31.1 L RDW 17.9 H Plt Count 313 Seg Neutrophils % 92.0 H Sodium 135.8 L Potassium 5.0 Chloride 102 Carbon Dioxide 22 Anion Gap 12 BUN 68 H Creatinine 3.77 H Est GFR ( Amer) 15 L Glucose 238 H Calcium 8.9 Phosphorus 6.4 H Magnesium 1.9 Triglycerides 64 Cholesterol 186.45 LDL Cholesterol Direct 88 VLDL Cholesterol 13.0 HDL Cholesterol 56 Urine Color DARK YELLOW Urine Appearance CLOUDY Urine pH 5.0 Ur Specific [place] 1.021 Urine Protein >=500 H Urine Glucose (UA) >=500 H Urine Ketones NEGATIVE Urine Blood SMALL H Urine Nitrite NEGATIVE Ur Leukocyte Esterase NEGATIVE Urine WBC (Auto) 9 Urine RBC (Auto) 10 08/13/19 08/13/19 08/13/19 13:47 13:47 13:47 Creatine Kinase 500 H CK-MB (CK-2) 2.98 NT-Pro-B Natriuret Pep [id number] H 08/14/19 08/14/19 05:19 05:19 Creatine Kinase 335 H CK-MB (CK-2) NT-Pro-B Natriuret Pep 36438 H Impressions: Lower Extremity CT 08/13/19 15:48 IMPRESSION: Subcutaneous edema. There is no evidence of abscess or compartment syndrome. Chest X-Ray 08/13/19 17:29 IMPRESSION: Cardiomegaly without pulmonary edema. Stable right pleural effusion. Assessment and Plan - Diagnosis (1) Bilateral thigh pain Is this a current diagnosis for this admission?: Yes (2) Myositis Qualifiers: Myositis type: unspecified type Myositis location: thigh Laterality: unspecified laterality Qualified Code(s): M60.859 - Other myositis, unspecified thigh Is this a current diagnosis for this admission?: Yes (3) Hypertensive emergency Is this a current diagnosis for this admission?: Yes (4) Type 2 diabetes mellitus with insulin therapy Is this a current diagnosis for this admission?: Yes (5) CHF (congestive heart failure) Qualifiers: Heart failure type: unspecified Heart failure chronicity: acute on chronic Qualified Code(s): I50.9 - Heart failure, unspecified Is this a current diagnosis for this admission?: Yes (6) Chronic kidney disease on chronic dialysis Is this a current diagnosis for this admission?: Yes (7) Low back pain Qualifiers: Chronicity: acute Back pain laterality: midline Sciatica presence: without sciatica Qualified Code(s): M54.5 - Low back pain Is this a current diagnosis for this admission?: Yes (8) Pleural effusion Is this a current diagnosis for this admission?: Yes (9) Peripheral edema Is this a current diagnosis for this admission?: Yes - Plan Summary Summary: Bilateral thigh pain with myositis-bilateral rectus femoris tenderness with elevated creatinine kinase and sed rate. This would suggest an inflammatory process. She is not on any medications that would cause myositis or myalgias. She did state that she gets shooting pain down her thighs ever since she fell. When she fell she had acute onset back pain. CT scan of the thighs was negative for compartment syndrome and showed subcutaneous inflammatory changes. I will give a test dose of 40 mg Solu-Medrol IV x1 to see if this helps. Analgesia will be available. I have also ordered a K pad for gentle heat to try and relieve the discomfort. Serial creatinine kinase levels as well as sed rate studies have been ordered. Hypertensive emergency-the patient is on multiple medications for her blood pressure. Unfortunately she missed most of these during the day and her blood pressure sindi to 194/112. Blood pressure medications have been reinstituted. I expect her pressure will respond nicely. We will continue her home medication regimen at this time. As needed antihypertensives will be available. Diabetes mellitus type 2 requiring insulin-the patient's serum glucose was 448 on admission. I requested an Accu-Chek at approximately 6 PM and the sugar was 300. This is likely due to no food. She was given subcutaneous Humalog as a one-time dose. She will resume her glipizide and Lantus. Humalog sliding scale will be available as well. A diabetic/cardiac/hemodialysis diet has been orde red. Hemoglobin A1c is pending for the morning. Congestive heart failure-I could not find an echocardiogram. The patient has had mitral valve surgery and has cardiomegaly and a right pleural effusion on x- ray. These appear to be chronic. I have ordered an echocardiogram for better clarification of heart failure. Interestingly, the chest x-ray does not show mckenna congestion or pulmonary edema. There is cardiomegaly. As noted the right pleural effusion is chronic. We will resume her torsemide, hydralazine and clonidine. End-stage renal disease on hemodialysis-kidney disease most likely due to diabetes. There is also significant hypertension. The patient was initially started on peritoneal dialysis. When this was felt to be ineffective she was advanced to hemodialysis. The goal is to return to peritoneal dialysis. Her outpatient dialysis schedule is Saturday, and Saturday but as an inpatient she received dialysis on Saturday, Saturday and Saturday. Daily laboratory studies have been ordered as well as monitoring intake and output. Low back pain-the patient fell at dialysis several weeks ago. She states that she has low back pain and that is when the discomfort in her thighs started. Typically muscle tenderness is not associated with a radiculopathy. We will obtain lumbar spine films to assess for any compression fractures or decreased disc spaces. Right pleural effusion-this is felt to be chronic. We will continue to monitor. We will return her to her torsemide 80 mg twice daily diuretic dose. Peripheral edema-the patient does have pitting edema. She states that this will fluctuate and typically is worse when she is on her feet. It is mild today. We will continue to monitor with hemodialysis, diuretic therapy and low-sodium diet. 08/14/2019-the patient responded to steroid therapy. Her creatinine kinase and pain decreased. She likely has a polymyositis. She will need to see a disability services coordinator. She will likely discharge tomorrow on a prednisone taper. Hypertension is improved. We will continue her home medication regimen. I did discuss the possibility of increased blood pressure on steroid therapy. Because of the steroids her sugars were increased so I have increased her Lantus to 20 units daily. She will need to monitor and adjust dosing while on steroid taper. Peripheral edema is improved. - Time Time Spent with patient: 15-24 minutes Medications reviewed and adjusted accordingly: Yes Anticipated discharge: Home Within: within 24 hours
--- NOTE | 2019-08-14 16:34 | RADIOLOGY REPORT (SQ) ---
EXAM DESCRIPTION: L SPINE 2 VIEWS COMPLETED DATE/TIME: 08/14/2019 4:25 pm REASON FOR STUDY: Back pain after a fall COMPARISON: None. NUMBER OF VIEWS: Two views. TECHNIQUE: AP and lateral radiographic images acquired of the lumbar spine. LIMITATIONS: None. FINDINGS: MINERALIZATION: Normal. SEGMENTATION: Normal. No transitional anatomy. ALIGNMENT: Normal. VERTEBRAE: Maintained height. No fracture or worrisome bone lesion. DISCS: Preserved height. No significant osteophytes or end plate irregularity. POSTERIOR ELEMENTS: Pedicles and facets are intact. No pars defect or posterior arch defects. HARDWARE: None in the spine. PARASPINAL SOFT TISSUES: Normal. PELVIS: Intact as visualized. No fractures or worrisome bone lesions. SI joints intact. OTHER: No other significant finding. IMPRESSION: NORMAL 2 VIEW LUMBAR SPINE. TECHNICAL DOCUMENTATION: JOB ID: [id number] [employer]- All Rights Reserved Reading location - IP/workstation name: [email or web address]
[2019-08-14] MEDS: METHYLPREDNISOLONE INJ 40 MG/1 ML SDV IV SCH ×2 (16:38→21:09)
[2019-08-14] MEDS: TEMAZEPAM 15 MG CAPSULE PO SCH (21:09)
[2019-08-14] MEDS: FAMOTIDINE 20 MG TABLET PO SCH (21:09)
[2019-08-15] MEDS: HEPARIN SOD (PORCINE) 5,000 UNIT/ML 1 ML VIAL SUBCUT SCH (05:27)
[2019-08-15] MEDS: HYDRALAZINE HCL 50 MG TABLET PO SCH (05:27)
[2019-08-15 05:30] LABS: HEMATOCRIT 31.3 % (36.0-47.0); HEMOGLOBIN 9.7 g/dL (12.0-15.5); MEAN CORPUSCULAR HEMOGLOBIN 20.7 pg (27.0-33.4); MEAN CORPUSCULAR HGB CONC 30.9 g/dL (32.0-36.0); MEAN CORPUSCULAR VOLUME 67 fl (80-97); PLATELET COUNT 367 10^3/uL (150-450); RED BLOOD COUNT 4.67 10^6/uL (3.72-5.28); RED CELL DISTRIBUTION WIDTH 17.6 % (11.5-14.0); WHITE BLOOD COUNT 8.9 10^3/uL (4.0-10.5)
[2019-08-15 05:52] LABS: ANION GAP 12 (5-19); BLOOD UREA NITROGEN 50 mg/dL (7-20); CALCIUM 8.7 mg/dL (8.4-10.2); CARBON DIOXIDE 26 mmol/L (22-30); CHLORIDE 97 mmol/L (98-107); CREATINE KINASE 230 U/L (30-135); GLUCOSE 370 mg/dL (75-110); PHOSPHORUS 6.6 mg/dL (2.5-4.5); POTASSIUM 4.6 mmol/L (3.6-5.0)
[2019-08-15 07:10] LABS: ABSOLUTE LYMPHOCYTES# (MANUAL) 0.6 10^3/uL (0.5-4.7); ABSOLUTE MONOCYTES # (MANUAL) 0.2 10^3/uL (0.1-1.4); BASOPHILS % (MANUAL) 0 % (0-2); EOSINOPHILS % (MANUAL) 0 % (0-6); LYMPHOCYTES % (MANUAL) 7 % (13-45); MONOCYTES % (MANUAL) 2 % (3-13); SEGMENTED NEUTROPHILS % (MAN) 91 % (42-78); TOTAL CELLS COUNTED 100
[2019-08-15 07:12] LABS: ANISOCYTOSIS 1+; PLATELET COMMENT ADEQUATE
[2019-08-15] MEDS: GLIPIZIDE XL 5 MG TAB.ER.24 PO SCH (08:41)
[2019-08-15] MEDS: INSULIN LISPRO 100 UNIT/ML 3 ML VIAL SUBCUT SCH ×2 (08:41→11:50)
--- NOTE | 2019-08-15 09:51 | PDOC DISCHARGE SUMMARY ---
Impression - Admit/DC Date/PCP Admission Date/Primary Care Provider: 08/13/19 18:08 INDIGO VALLE NP Discharge Date: 08/15/19 - Discharge Diagnosis (1) Bilateral thigh pain Is this a current diagnosis for this admission?: Yes (2) Myositis Is this a current diagnosis for this admission?: Yes (3) Hypertensive emergency Is this a current diagnosis for this admission?: Yes (4) Type 2 diabetes mellitus with insulin therapy Is this a current diagnosis for this admission?: Yes (5) CHF (congestive heart failure) Is this a current diagnosis for this admission?: Yes (6) Chronic kidney disease on chronic dialysis Is this a current diagnosis for this admission?: Yes (7) Low back pain Is this a current diagnosis for this admission?: Yes (8) Pleural effusion Is this a current diagnosis for this admission?: Yes (9) Peripheral edema Is this a current diagnosis for this admission?: Yes - Assessment Summary: Bilateral thigh pain with myositis-bilateral rectus femoris tenderness with elevated creatinine kinase and sed rate. This would suggest an inflammatory process. She is not on any medications that would cause myositis or myalgias. She did state that she gets shooting pain down her thighs ever since she fell. When she fell she had acute onset back pain. CT scan of the thighs was negative for compartment syndrome and showed subcutaneous inflammatory changes. I will give a test dose of 40 mg Solu-Medrol IV x1 to see if this helps. Analgesia will be available. I have also ordered a K pad for gentle heat to try and relieve the discomfort. Serial creatinine kinase levels as well as sed rate studies have been ordered. Hypertensive emergency-the patient is on multiple medications for her blood pressure. Unfortunately she missed most of these during the day and her blood pressure sindi to 194/112. Blood pressure medications have been reinstituted. I expect her pressure will respond nicely. We will continue her home medication regimen at this time. As needed antihypertensives will be available. Diabetes mellitus type 2 requiring insulin-the patient's serum glucose was 448 on admission. I requested an Accu-Chek at approximately 6 PM and the sugar was 300. This is likely due to no food. She was given subcutaneous Humalog as a one-time dose. She will resume her glipizide and Lantus. Humalog sliding scale will be available as well. A diabetic/cardiac/hemodialysis diet has been ordered. Hemoglobin A1c is pending for the morning. Congestive heart failure-I could not find an echocardiogram. The patient has had mitral valve surgery and has cardiomegaly and a right pleural effusion on x- ray. These appear to be chronic. I have ordered an echocardiogram for better clarification of heart failure. Interestingly, the chest x-ray does not show mckenna congestion or pulmonary edema. There is cardiomegaly. As noted the right pleural effusion is chronic. We will resume her torsemide, hydralazine and clonidine. End-stage renal disease on hemodialysis-kidney disease most likely due to diabetes. There is also significant hypertension. The patient was initially started on peritoneal dialysis. When this was felt to be ineffective she was advanced to hemodialysis. The goal is to return to peritoneal dialysis. Her outpatient dialysis schedule is Saturday, and Saturday but as an inpatient she received dialysis on Saturday, Saturday and Saturday. Daily laboratory studies have been ordered as well as monitoring intake and output. Low back pain-the patient fell at dialysis several weeks ago. She states that she has low back pain and that is when the discomfort in her thighs started. Typically muscle tenderness is not associated with a radiculopathy. We will obtain lumbar spine films to assess for any compression fractures or decreased disc spaces. Right pleural effusion-this is felt to be chronic. We will continue to monitor. We will return her to her torsemide 80 mg twice daily diuretic dose. Peripheral edema-the patient does have pitting edema. She states that this will fluctuate and typically is worse when she is on her feet. It is mild today. We will continue to monitor with hemodialysis, diuretic therapy and low-sodium diet. 08/14/2019-the patient responded to steroid therapy. Her creatinine kinase and pain decreased. She likely has a polymyositis. She will need to see a technical staff assistant. She will likely discharge tomorrow on a prednisone taper. Hypertension is improved. We will continue her home medication regimen. I did discuss the possibility of increased blood pressure on steroid therapy. Because of the steroids her sugars were increased so I have increased her Lantus to 20 units daily. She will need to monitor and adjust dosing while on steroid taper. Peripheral edema is improved. - Additional Information Resuscitation Status: Full Code Discharge Diet: Cardiac, Diabetic Discharge Activity: Activity As Tolerated, Balance Activity w/Rest, Weigh Daily Referrals: INDIGO VALLE NP [Primary Care Provider] - 08/24/19 1:30 pm Prescriptions: Prednisone [Deltasone 10 mg Tablet] 10 mg PO ASDIR #126 tablet Insulin Detemir [Levemir] 20 unit SQ DAILY 30 Days #6 ml Home Medications: Aspirin [Ecotrin] 81 mg PO DAILY 03/24/19 Carvedilol [Coreg] 12.5 mg PO Q12 03/24/19 Clonidine HCl [Catapres 0.2 mg Tablet] 1 tab PO DAILY PRN 03/24/19 Hydralazine HCl 100 mg PO TID 03/24/19 Torsemide [Demadex] 80 mg PO BID 03/24/19 Glipizide [Glipizide Xl] 10 mg PO DAILY #14 tab.er.24 07/28/19 Gentamicin Sulfate [Garamycin 0.1% Cream 15 gm] 1 applic TP ASDIR PRN 08/13/19 Tizanidine HCl 4 mg PO Q6HP PRN 08/13/19 Carvedilol [Coreg 12.5 mg Tablet] 12.5 mg PO Q12 tablet 08/15/19 Clonidine HCl [Catapres 0.2 mg Tablet] 0.2 mg PO Q12 tablet 08/15/19 Glipizide [Glucotrol Xl 5 mg Tab.er] 10 mg PO QAM tab.er.24 08/15/19 Hydralazine HCl [Apresoline 50 mg Tablet] 100 mg PO Q8 tablet 08/15/19 Insulin Detemir [Levemir] 20 unit SQ DAILY 30 Days #6 ml 08/15/19 Prednisone [Deltasone 10 mg Tablet] 10 mg PO ASDIR #126 tablet 08/15/19 Torsemide [Demadex 20 mg Tablet] 80 mg PO BID tablet 08/15/19 History of Present Illiness History of Present Illness: STEPHANIE RODRIGUEZ is a 48 year old female with chronic kidney disease requiring hemodialysis. She has hypertension as well as diabetes mellitus type 2 requiring insulin. She has a history of mitral valve surgery. The patient was initially on peritoneal dialysis. It was felt to be ineffective. A Vas-Cath was placed in her right chest and hemodialysis was initiated. The patient reports that she was working back towards peritoneal dialysis. Approximately 3 weeks ago she fell at dialysis. She states she fell on her knee but also had back pain. It was at that point that both of her thighs began to hurt. The pain radiated from her back through her thighs. She describes it as a tightness over the anterior musculature. There is tenderness. She also reports hyperesthesia and a feeling of electrical shock radiating down her thighs. She denies weakness but states that there is pain when sitting or getting up from a seated position. She does not report associated symptoms such as chest pain, palpitation, legs feeling cold or numb. She went to her primary care physician and was given tizanidine and [place]. She states that these did not help. Progressed and when she presented for dialysis today she was instructed to go to the emergency department for further evaluation. She arrived at the emergency department at approximately 1:45 PM. On evaluation it was noted that her white blood cell count was normal but her sed rate is elevated. Her glucose was 448 and her blood pressure was elevated. The blood pressure continued to climb for several hours until it reached 194/112 at approximately 6 PM. Her brain atretic peptide was 16,000 and this is up from 10,000 several months ago. Her BUN and creatinine are elevated as expected. Her alkaline phosphatase was elevated at 500 as well as her creatinine kinase. The patient was referred to the hospital service for ongoing evaluation and treatment. Hospital Course Hospital Course: Benign hospital course. With a dose of steroids she noticed immediate improvement. She likely has polymyositis. After second dose of IV steroids her pain was almost completely gone. She will be discharged on a slow steroid taper. She will need follow-up with rheumatology. Instead of her normal dialysis on Saturday she in fact was dialyzed on Saturday. She was sent from the dialysis center prior to her dialysis treatment on . She will follow-up with her regular dialysis slot on Saturday. Physical Exam Vital Signs: Temp Pulse Resp BP Pulse Ox 97.7 F 69 16 168/86 H 98 08/15/19 07:34 08/15/19 03:20 08/15/19 07:34 08/15/19 07:34 08/15/19 03:20 Intake & Output 08/14/19 08/15/19 08/16/19 06:59 06:59 06:59 Intake Total 1000 1198 Output Total 3600 Balance 1000 -2402 Weight 66.2 kg 63.9 kg General appearance: PRESENT: no acute distress, well-developed Head exam: PRESENT: atraumatic, normocephalic Eye exam: PRESENT: other - Patch over left eye Respiratory exam: PRESENT: chest wall tenderness, symmetrical, unlabored. ABSENT: rales, rhonchi, tachypnea, wheezes Cardiovascular exam: PRESENT: RRR, +S1, +S2 GI/Abdominal exam: PRESENT: normal bowel sounds, soft. ABSENT: distended, tenderness Extremities exam: ABSENT: joint swelling, pedal edema Neurological exam: PRESENT: alert, awake, oriented to person, oriented to place, oriented to time, oriented to situation, CN II-XII grossly intact - Except left eye Psychiatric exam: PRESENT: appropriate affect, normal mood. ABSENT: agitated, anxious Focused psych exam: ABSENT: delusional, restlessness Skin exam: PRESENT: dry, warm. ABSENT: rash - Pigmented areas medial knee/thigh resolved Results Laboratory Results: WBC 8.9 10^3/uL (4.0-10.5) 08/15/19 04:34 RBC 4.67 10^6/uL (3.72-5.28) 08/15/19 04:34 Hgb 9.7 g/dL (12.0-15.5) L 08/15/19 04:34 Hct 31.3 % (36.0-47.0) L 08/15/19 04:34 MCV 67 fl (80-97) L 08/15/19 04:34 MCH 20.7 pg (27.0-33.4) L 08/15/19 04:34 MCHC 30.9 g/dL (32.0-36.0) L 08/15/19 04:34 RDW 17.6 % (11.5-14.0) H 08/15/19 04:34 Plt Count 367 10^3/uL (150-450) 08/15/19 04:34 Lymph % (Auto) Not Reportable 08/15/19 04:34 [place] % (Auto) Not Reportable 08/15/19 04:34 Eos % (Auto) Not Reportable 08/15/19 04:34 Baso % (Auto) Not Reportable 08/15/19 04:34 Absolute Neuts (auto) Not Reportable 08/15/19 04:34 Absolute Lymphs (auto) Not Reportable 08/15/19 04:34 Absolute Monos (auto) Not Reportable 08/15/19 04:34 Absolute Eos (auto) Not Reportable 08/15/19 04:34 Absolute Basos (auto) Not Reportable 08/15/19 04:34 Total Counted 100 08/15/19 04:34 Seg Neutrophils % Not Reportable 08/15/19 04:34 Seg Neuts % (Manual) 91 % (42-78) H 08/15/19 04:34 Lymphocytes % (Manual) 7 % (13-45) L 08/15/19 04:34 Monocytes % (Manual) 2 % (3-13) L 08/15/19 04:34 Eosinophils % (Manual) 0 % (0-6) 08/15/19 04:34 Basophils % (Manual) 0 % (0-2) 08/15/19 04:34 Abs Neuts (Manual) 8.1 10^3/uL (1.7-8.2) 08/15/19 04:34 Abs Lymphs (Manual) 0.6 10^3/uL (0.5-4.7) 08/15/19 04:34 Abs Monocytes (Manual) 0.2 10^3/uL (0.1-1.4) 08/15/19 04:34 Absolute Eos (Manual) 0.0 10^3/uL (0.0-0.6) 08/15/19 04:34 Abs Basophils (Manual) 0.0 10^3/uL (0.0-0.2) 08/15/19 04:34 Platelet Comment ADEQUATE 08/15/19 04:34 Anisocytosis 1+ 08/15/19 04:34 Microcytosis 2+ 08/15/19 04:34 ESR 64 mm/hr (0-20) H 08/14/19 05:19 Sodium 134.5 mmol/L (137-145) L 08/15/19 04:34 Potassium 4.6 mmol/L (3.6-5.0) 08/15/19 04:34 Chloride 97 mmol/L (98-107) L 08/15/19 04:34 Carbon Dioxide 26 mmol/L (22-30) 08/15/19 04:34 Anion Gap 12 (5-19) 08/15/19 04:34 BUN 50 mg/dL (7-20) H 08/15/19 04:34 Creatinine 3.41 mg/dL (0.52-1.25) H 08/15/19 04:34 Est GFR ( Amer) 17 (>60) L 08/15/19 04:34 Est GFR (MDRD) Non-Af 14 (>60) L 08/15/19 04:34 Glucose 370 mg/dL (75-110) H 08/15/19 04:34 POC Glucose 433 mg/dL (70-110) H* 08/14/19 20:23 Hemoglobin A1c % 13.4 % (4.7-6.0) H 08/14/19 05: Calcium 8.7 mg/dL (8.4-10.2) 08/15/19 04:34 Phosphorus 6.6 mg/dL (2.5-4.5) H 08/15/19 04:34 Magnesium 2.0 mg/dL (1.6-2.3) 08/15/19 04:34 Total Bilirubin 0.9 mg/dL (0.2-1.3) 08/13/19 13:47 Direct Bilirubin 0.8 mg/dL (0.0-0.4) H 08/13/19 13:47 Neonat Total Bilirubin Not Reportable 08/13/19 13:47 Neonat Direct Bilirubin Not Reportable 08/13/19 13:47 Neonat Indirect Bili Not Reportable 08/13/19 13:47 AST 53 U/L (14-36) H 08/13/19 13:47 ALT 28 U/L (<35) 08/13/19 13:47 Alkaline Phosphatase 504 U/L (38-126) H 08/13/19 13:47 Creatine Kinase 230 U/L (30-135) H 08/15/19 04:34 CK-MB (CK-2) 2.98 ng/mL (<4.55) 08/13/19 13:47 C-Reactive Protein 45.1 mg/L (<10.0) H 08/13/19 13:47 NT-Pro-B Natriuret Pep 00287 pg/mL (<125) H 08/14/19 05:19 Total Protein 9.0 g/dL (6.3-8.2) H 08/13/19 13:47 Albumin 3.7 g/dL (3.5-5.0) 08/13/19 13:47 Triglycerides 64 mg/dL (<150) 08/14/19 05:19 Cholesterol 186.45 mg/dL (0-200) 08/14/19 05:19 LDL Cholesterol Direct 88 mg/dL (<100) 08/14/19 05:19 VLDL Cholesterol 13.0 mg/dL (10-31) 08/14/19 05:19 HDL Cholesterol 56 mg/dL (>40) 08/14/19 05:19 Urine Color DARK YELLOW 08/13/19 17:26 Urine Appearance CLOUDY 08/13/19 17:26 Urine pH 5.0 (5.0-9.0) 08/13/19 17:26 Ur Specific [place] 1.021 08/13/19 17:26 Urine Protein >=500 mg/dL (NEGATIVE) H 08/13/19 17:26 Urine Glucose (UA) >=500 mg/dL (NEGATIVE) H 08/13/19 17:26 Urine Ketones NEGATIVE mg/dL (NEGATIVE) 08/13/19 17:26 Urine Blood SMALL (NEGATIVE) H 08/13/19 17:26 Urine Nitrite NEGATIVE (NEGATIVE) 08/13/19 17:26 Urine Bilirubin NEGATIVE (NEGATIVE) 08/13/19 17:26 Urine Urobilinogen NEGATIVE mg/dL (<2.0) 08/13/19 17:26 Ur Leukocyte Esterase NEGATIVE (NEGATIVE) 08/13/19 17:26 Urine WBC (Auto) 9 /HPF 08/13/19 17:26 Urine RBC (Auto) 10 /HPF 08/13/19 17:26 U Hyaline Cast (Auto) 10 /LPF 08/13/19 17:26 Urine Bacteria (Auto) TRACE /HPF 08/13/19 17:26 Squamous Epi Cells Auto 9 /HPF 08/13/19 17:26 Amorphous Sediment Auto TRACE /HPF 08/13/19 17:26 Urine Mucus (Auto) RARE /LPF 08/13/19 17:26 Urine Ascorbic Acid NEGATIVE (NEGATIVE) 08/13/19 17:26 08/13/19 08/13/19 08/14/19 13:47 13:47 05:19 CK-MB (CK-2) 2.98 NT-Pro-B Natriuret Pep 17734 H 22060 H Impressions: Lower Extremity CT 08/13/19 15:48 IMPRESSION: Subcutaneous edema. No evidence of abscess. No evidence of compartment syndrome. Lower Extremity CT 08/13/19 15:48 IMPRESSION: Subcutaneous edema. There is no evidence of abscess or compartment syndrome. Chest X-Ray 08/13/19 17:29 IMPRESSION: Cardiomegaly without pulmonary edema. Stable right pleural effusion. Lumbar Spine X-Ray 08/14/19 08:00 IMPRESSION: NORMAL 2 VIEW LUMBAR SPINE. Plan Health Concerns: The patient will need confirmatory diagnosis regarding her myositis. The steroid taper has been initiated. I started at approximately 1 mg/kg and will decrease by 10 mg every week. The technical staff assistant will adjust as appropriate. I did explain that the steroids will increase her sugars and she will likely need to increase her Levemir. She will need to be more comprehensive with Accu- Cheks. She also needs to monitor her blood pressure as the steroids can increase her blood pressure. Plan of Treatment: As above. Continue with hemodialysis and other medications. Increase Levemir based on Accu-Cheks. Goals: Framing Mill Operator Helper: Dr. Israel Hernández [phone], Dr. Misha Paulson [phone]---gave info to patient and they will schedule--DJL Time Spent: Greater than 30 Minutes Stroke Is this a Stroke Patient?: No Acute Heart Failure - Is this a Heart Failure Patient?: No
[2019-08-15] MEDS: TORSEMIDE 20 MG TABLET PO SCH (09:53)
[2019-08-15] MEDS: CARVEDILOL 12.5 MG TABLET PO SCH (09:53)
[2019-08-15] MEDS: CLONIDINE HCL 0.2 MG TABLET PO SCH (09:53)
[2019-08-15] MEDS: METHYLPREDNISOLONE INJ 40 MG/1 ML SDV IV SCH (09:54)
[2019-08-15] MEDS ORDERED: INSULIN GLARGINE,HUM.REC.ANLOG 1,000 UNIT/10 ML VIAL SUBCUT SCH (10:00)
[2019-08-15 11:35] VITALS: BP 125/57
[2019-08-15] MEDS ORDERED: INSULIN GLARGINE,HUM.REC.ANLOG 1,000 UNIT/10 ML VIAL (PYX) SUBCUT ONE (12:30)
[2019-08-17 15:36] LABS: A/G RATIO 0.6 (0.7-1.7); ALBUMIN 2 2.5 g/dL (2.9-4.4); ALPHA-2-GLOBULIN 2 0.8 g/dL (0.4-1.0); BETA GLOBULINS 1.1 g/dL (0.7-1.3); GAMMA GLOBULIN 2.2 g/dL (0.4-1.8); GLOBULIN TOTAL 4.5 g/dL (2.2-3.9); MONOCLONAL SPIKE Not Observed g/dL (Not Observ)
== END 2019-08-15 12:25 | disposition home or self-care (01) | DRG 545 ==
LOC: ER 12:56 → EH 18:08 → OBSVTOIN 18:08 → 3N 20:11
PROVIDERS: ADMIT Hospitalist; ATTEND Hospitalist
DX: M33.20 Polymyositis, organ involvement unspecified (principal); N18.6 End stage renal disease; I16.1 Hypertensive emergency; I13.2 Hypertensive heart and chronic kidney disease with heart failure and with stage 5 chronic kidney disease, or end stage renal disease; I50.42 Chronic combined systolic (congestive) and diastolic (congestive) heart failure; Z91.81 History of falling; Z79.4 Long term (current) use of insulin; E11.22 Type 2 diabetes mellitus with diabetic chronic kidney disease; Z99.2 Dependence on renal dialysis; T46.5X6A Underdosing of other antihypertensive drugs, initial encounter; Z91.138 Patient's unintentional underdosing of medication regimen for other reason; E11.319 Type 2 diabetes mellitus with unspecified diabetic retinopathy without macular edema; H54.62 Unqualified visual loss, left eye, normal vision right eye; Z79.82 Long term (current) use of aspirin; Z79.899 Other long term (current) drug therapy; M54.5 Low back pain; Z82.49 Family history of ischemic heart disease and other diseases of the circulatory system; Z83.3 Family history of diabetes mellitus
CPT/HCPCS: 36415; 71045; 72100; 80048; 80053; 80061; 81001; 82550; 82553; 82962; 83036; 83735; 83880; 84100; 84165; 85025; 85652; 86038; 86140; 93306; 96361; 96374; 99285; J1644; J1815; J1940; J2270; J2920; J3010; J3490; J7030

== ENCOUNTER 2019-08-17 03:39 | Emergency (ER) | payer OTHER ==
[2019-08-17] MEDS ORDERED: ASPIRIN 81 MG TABLET, CHEWABLE PO ONE (04:10)
--- NOTE | 2019-08-17 04:32 | ER Document Report ---
ED General - General Chief Complaint: High Blood Sugar Stated Complaint: CHEST PAIN Time Seen by Provider: 08/17/19 04:12 Primary Care Provider: INDIGO VALLE NP [Primary Care Provider] - Follow up as needed TRAVEL OUTSIDE OF THE [place] IN LAST 30 DAYS: No - HPI Notes: This is a 48-year-old female with a history of end-stage renal disease on dialysis Tuesdays, , Saturdays, who presents today with a complaint of elevated blood sugar. Patient also describes midsternal chest discomfort since yesterday evening around 5:00, which is constant, and worse with certain mo vements and she denies any fever or chills. She denies any vomiting or diarrhea. He denies any dyspnea. She describes the symptoms as moderate. Positions. Patient was recently admitted to the hospital and she was put on steroids. Patient states that she was told that the steroids would make her blood sugar go up. She states her blood pressure is elevated because of that. The pain is worse with certain movements. - Related Data Allergies/Adverse Reactions: No Known Allergies Allergy (Verified 08/13/19 13:09) Past Medical History - Social History Smoking Status: Never Smoker Chew tobacco use (# tins/day): No Frequency of alcohol use: None Drug Abuse: None Family History: Reviewed & Not Pertinent Patient has suicidal ideation: No Patient has homicidal ideation: No - Past Medical History Cardiac Medical History: Reports: Hx Congestive Heart Failure, Hx Hypertension, Hx Heart Murmur Pulmonary Medical History: Denies: Hx Asthma, Hx COPD, Hx Respiratory Failure Neurological Medical History: Denies: Hx Migraine, Hx Seizures Endocrine Medical History: Reports: Hx Diabetes Mellitus Type 2 Renal/ Medical History: Reports: Hx End Stage Renal Disease, Hx Hemodialysis. Denies: Hx Peritoneal Dialysis GI Medical History: Denies: Hx Cirrhosis, Hx Diverticulitis, Hx Hiatal Hernia Musculoskeletal Medical History: Denies Hx Arthritis, Denies Hx Fibromyalgia, Denies Hx Gout Skin Medical History: Denies Hx Eczema, Denies Hx Psoriasis Psychiatric Medical History: Denies: Hx Depression Past Surgical History: Reports: Hx Valve Replacement - Mitral valve surgery, Hx Vascular Surgery - Vas-Cath placement, peritoneal dialysis catheter placement, Other - Left eye surgery - Immunizations Immunizations up to date: Yes Review of Systems - Review of Systems Constitutional: denies: Fever Cardiovascular: Chest pain. denies: Palpitations, Heart racing, Dyspnea, Syncope, Dizziness Genitourinary: denies: Frequency, Flank pain, Hematuria Musculoskeletal: denies: Muscle pain, Muscle stiffness Neurological/Psychological: denies: Headaches -: Yes All other systems reviewed and negative Physical Exam - Vital signs Vitals: Temp Pulse Resp BP Pulse Ox 98.7 F 69 20 170/95 H 100 08/17/19 03:53 08/17/19 03:53 08/17/19 03:53 08/17/19 03:53 08/17/19 03:53 - General General appearance: Appears well, Alert - Respiratory Respiratory status: No respiratory distress Chest status: Tender - There is slight mid to right upper chest wall pain on palpation. There is reproducible pain with movement. Breath sounds: Normal Chest palpation: Normal - Cardiovascular Rhythm: Regular Heart sounds: Normal auscultation Murmur: No - Abdominal Inspection: Normal Distension: No distension Bowel sounds: Normal Tenderness: Nontender Organomegaly: No organomegaly - Extremities General upper extremity: Normal inspection, Nontender, Normal color, Normal ROM, Normal temperature General lower extremity: Normal inspection, Nontender, Edema - 2+ peripheral edema bilaterally., Normal color, Normal ROM, Normal temperature. No: Katya's sign - Neurological Neuro grossly intact: Yes Cognition: Normal Orientation: AAOx4 Monique Coma Scale Eye Opening: Spontaneous [place] Coma Scale Verbal: Oriented Monique Coma Scale Motor: Obeys Commands Monique Coma Scale Total: 15 Speech: Normal Motor strength normal: LUE, RUE, LLE, RLE Sensory: Normal - Psychological Associated symptoms: Normal affect, Normal mood Course - Re-evaluation Re-evalutation: 08/17/19 04:42 Clinical picture suggests hyperglycemia likely secondary to steroid use. Doubt DKA in this non insulin-dependent diabetic. 2. Atypical chest pain likely chest wall pain. I doubt acute coronary syndrome with atypical, reproducible pain for greater than 8 hours. Cannot rule out with one negative troponin. EKG shows normal sinus rhythm at 68 bpm. Left posterior fascicular block. No acute injury pattern. 08/17/19 06:15 Patient's care signed out to Dr. Munguia and end of my shift pending reevaluation and disposition. Anticipate discharge once blood sugar improves. - Vital Signs Vital signs: Temp Pulse Resp BP Pulse Ox 98.7 F 69 20 170/95 H 100 08/17/19 03:53 08/17/19 03:53 08/17/19 03:53 08/17/19 03:53 08/17/19 03:53 - Laboratory Result Diagrams: 08/17/19 04:19 08/17/19 04:19 Laboratory results interpreted by me: 08/17/19 08/17/19 08/17/19 04:19 04:19 04:40 Hgb 9.5 L Hct 31.2 L MCV 68 L MCH 20.8 L MCHC 30.5 L RDW 18.0 H VBG pH VBG HCO3 Sodium 129.8 L Chloride 92 L Carbon Dioxide 21 L BUN 95 H Creatinine 5.52 H Est GFR ( Amer) 10 L Est GFR (MDRD) Non-Af 8 L Glucose 571 H* POC Glucose 542 H* Calcium 7.5 L Direct Bilirubin 0.5 H Alkaline Phosphatase 487 H Creatine Kinase 213 H Albumin 3.1 L 08/17/19 04:55 Hgb Hct MCV MCH MCHC RDW VBG pH 7.29 L VBG HCO3 19.7 L Sodium Chloride Carbon Dioxide BUN Creatinine Est GFR ( Amer) Est GFR (MDRD) Non-Af Glucose POC Glucose Calcium Direct Bilirubin Alkaline Phosphatase Creatine Kinase Albumin Discharge - Discharge Clinical Impression: Hyperglycemia, Atypical chest pain Condition: Stable Disposition: OTHER Referrals: INDIGO VALLE NP [Primary Care Provider] - Follow up as needed
[2019-08-17] MEDS ORDERED: INSULIN REG, HUMAN 100 UNIT/ML 3 ML VIAL (PYX) IV ONE (04:51)
--- NOTE | 2019-08-17 05:04 | RADIOLOGY REPORT (SQ) ---
EXAM DESCRIPTION: XR CHEST 2 VIEWS COMPLETED DATE/TME: 08/17/2019 00:00 CLINICAL HISTORY: chest pain COMPARISON: 08/13/2019 FINDINGS: Frontal and lateral views of the chest. Cardiomediastinal silhouette: Right-sided tunneled dialysis catheter. Cardiomegaly. Prior median sternotomy. Lungs: Bibasilar opacities with likely right pleural effusion. No pneumothorax. Bones: No acute osseous abnormalities Upper abdomen: No abnormality identified. IMPRESSION: 1. Cardiomegaly. 2. Right pleural effusion with likely underlying atelectasis or consolidation.
[2019-08-17 05:12] LABS: VENOUS BLOOD BASE EXCESS -6.5 mmol/L; VENOUS BLOOD HCO3 19.7 mmol/L (20-32); VENOUS BLOOD PCO2 42.2 mmHg (35-63); VENOUS BLOOD PH 7.29 (7.30-7.42)
[2019-08-17 05:19] LABS: ALBUMIN 3.1 g/dL (3.5-5.0); ALKALINE PHOSPHATASE 487 U/L (38-126); ANION GAP 17 (5-19); ASPARTATE AMINO TRANSFERASE 26 U/L (14-36); BILIRUBIN,DIRECT 0.5 mg/dL (0.0-0.4); BILIRUBIN,TOTAL 0.5 mg/dL (0.2-1.3); BLOOD UREA NITROGEN 95 mg/dL (7-20); CALCIUM 7.5 mg/dL (8.4-10.2); CARBON DIOXIDE 21 mmol/L (22-30); CHLORIDE 92 mmol/L (98-107); CREATINE KINASE 213 U/L (30-135); POTASSIUM 4.3 mmol/L (3.6-5.0); TOTAL PROTEIN 7.3 g/dL (6.3-8.2)
[2019-08-17 05:26] LABS: HEMATOCRIT 31.2 % (36.0-47.0); HEMOGLOBIN 9.5 g/dL (12.0-15.5); MEAN CORPUSCULAR HEMOGLOBIN 20.8 pg (27.0-33.4); MEAN CORPUSCULAR HGB CONC 30.5 g/dL (32.0-36.0); MEAN CORPUSCULAR VOLUME 68 fl (80-97); PLATELET COUNT 333 10^3/uL (150-450); RED BLOOD COUNT 4.56 10^6/uL (3.72-5.28); WHITE BLOOD COUNT 8.2 10^3/uL (4.0-10.5)
[2019-08-17 05:29] LABS: CREATINE KINASE MB 3.11 ng/mL (<4.55)
[2019-08-17 05:38] LABS: TROPONIN I 0.049 ng/mL
[2019-08-17 05:39] LABS: GLUCOSE 571 mg/dL (75-110)
[2019-08-17] MEDS ORDERED: CARVEDILOL 12.5 MG TABLET PO ONE (06:58)
[2019-08-17] MEDS ORDERED: CLONIDINE HCL 0.2 MG TABLET PO ONE (06:58)
[2019-08-17] MEDS ORDERED: GLIPIZIDE 10 MG TABLET PO ONE (06:59)
[2019-08-17 07:00] LABS: ABSOLUTE MONOCYTES # (MANUAL) 0.5 10^3/uL (0.1-1.4); BAND NEUTROPHILS % (MANUAL) 2 % (3-5); BASOPHILS % (MANUAL) 0 % (0-2); EOSINOPHILS % (MANUAL) 0 % (0-6); LYMPHOCYTES % (MANUAL) 12 % (13-45); METAMYELOCYTES % (MANUAL) 2 % (0); MONOCYTES % (MANUAL) 6 % (3-13); SEGMENTED NEUTROPHILS % (MAN) 78 % (42-78); TOTAL CELLS COUNTED 100
[2019-08-17 07:02] LABS: ANISOCYTOSIS 1+; BURR CELLS SLIGHT; PLATELET COMMENT ADEQUATE; PLATELET LARGE PRESENT; POIKILOCYTOSIS SLIGHT; POLYCHROMASIA SLIGHT; SCHISTOCYTES SLIGHT; TOXIC VACUOLATION PRESENT
--- NOTE | 2019-08-17 07:34 | EKG REPORT ---
SEVERITY:- ABNORMAL ECG - NSR68 LEFT POSTERIOR FASCICULAR BLOCK NONSPECIFIC T ABNORMALITIES, LATERAL LEADS POOR R WAVE PROGRESSION ANTERIOR LEADS : Confirmed by: Raheem Barrios MD 17-Aug-2019 07:34:20
[2019-08-17] MEDS ORDERED: ONDANSETRON HCL INJ/PF 4 MG/2 ML SDV IV ONE (09:33)
[2019-08-17 09:54] LABS: ALBUMIN 2.8 g/dL (3.5-5.0); ALKALINE PHOSPHATASE 361 U/L (38-126); ANION GAP 13 (5-19); ASPARTATE AMINO TRANSFERASE 22 U/L (14-36); BILIRUBIN,DIRECT 0.4 mg/dL (0.0-0.4); BILIRUBIN,TOTAL 0.5 mg/dL (0.2-1.3); BLOOD UREA NITROGEN 98 mg/dL (7-20); CALCIUM 7.5 mg/dL (8.4-10.2); CARBON DIOXIDE 22 mmol/L (22-30); CHLORIDE 95 mmol/L (98-107); GLUCOSE 276 mg/dL (75-110); POTASSIUM 4.1 mmol/L (3.6-5.0); TOTAL PROTEIN 6.8 g/dL (6.3-8.2)
--- NOTE | 2019-08-17 10:23 | ER Document Report ---
Doctor's Note Notes: 08/17/19 10:19 This 48-year-old female patient presented to the emergency room this morning about 4 AM complaining of substernal chest pain and elevated blood sugars. She was placed on prednisone last week for a presumed myositis involving her thighs. She stopped taking the prednisone due to the elevated blood sugars. When she arrived here her blood sugar was 571, her total CK was 231, it had been about 500 last week. Her troponin was 0.049, a repeat troponin 5 hours later was 0.056 When asked about her chest pain, she said it was a dull aching in the right substernal region. She reports that it may have been made worse with certain movements, but she is not really certain about that. At this time there is no palpation tenderness and there is no chest pain reported.
[2019-08-17] MEDS ORDERED: LORAZEPAM INJ 2 MG/1 ML VIAL IV ONE (11:25)
[2019-08-17] MEDS ORDERED: METHYLPREDNISOLONE INJ 40 MG/1 ML SDV IV ONE (11:30)
--- NOTE | 2019-08-17 11:47 | PDOC CONSULTATION ---
Consultation Consult Date: 08/17/19 Attending physician:: OTTO VORA Provider Consulted: CHENG LONGO Consult reason:: Hyperglycemia, hypertension, polymyositis History of Present Illness Admission Date/PCP: INDIGO VALLE NP Patient complains of: Severe leg pain with hyperglycemia History of Present Illness: STEPHANIE RODRIGUEZ is a 48 year old female who discharged from hospital yesterday. She had a diagnosis of polymyositis. She required steroid therapy. We discussed the fact that her sugars would increase and she would need to compensate. Your sugars are extremely high and so she stopped her steroids and now has recurrent severe pain. In addition she has elevated glucose levels and hypertension. She is due for hemodialysis tomorrow. As she was discharged yesterday I was asked by the emergency room physician to consult and help with disposition. Past Medical History Cardiac Medical History: Reports: Congestive Heart Failure, Hypertension, Heart Murmur Pulmonary Medical History: Denies: Asthma, Chronic Obstructive Pulmonary Disease (COPD), Respiratory Failure Neurological Medical History: Denies: Migraine, Seizures Endocrine Medical History: Reports: Diabetes Mellitus Type 2 Renal/ Medical History: Reports: End Stage Renal Disease GI Medical History: Denies: Cirrhosis, Diverticulitis, Hiatal Hernia Musculoskeltal Medical History: Denies: Arthritis, Fibromyalgia, Gout Skin Medical History: Denies: Eczema, Psoriasis Psychiatric Medical History: Denies: Depression Hematology: Reports: Anemia Denies: Sickle Cell Disease, Bleeding Tendencies Past Surgical History Past Surgical History: Reports: Valve Replacement - Mitral valve surgery, Vascular Surgery - Vas-Cath placement, peritoneal dialysis catheter placement, Other - Left eye surgery Social History Information Source: Patient, COUNT INCLUDES [facility] Records Lives with: Family Smoking Status: Never Smoker Electronic Cigarette use?: No Frequency of Alcohol Use: None Hx Recreational Drug Use: No Drugs: None Hx Prescription Drug Abuse: No - Advance Directive Resuscitation Status: Full Code Family History Family History: Reviewed & Not Pertinent Parental Family History Reviewed: Yes Children Family History Reviewed: Yes Sibling(s) Family History Reviewed.: Yes Medication/Allergy Home Medications: Aspirin [Ecotrin] 81 mg PO DAILY 03/24/19 Carvedilol [Coreg] 12.5 mg PO Q12 03/24/19 Clonidine HCl [Catapres 0.2 mg Tablet] 1 tab PO DAILY PRN 03/24/19 Hydralazine HCl 100 mg PO TID 03/24/19 Glipizide [Glipizide Xl] 10 mg PO DAILY #14 tab.er.24 07/28/19 Gentamicin Sulfate [Garamycin 0.1% Cream 15 gm] 1 applic TP ASDIR PRN 08/13/19 Tizanidine HCl 4 mg PO Q6HP PRN 08/13/19 Carvedilol [Coreg 12.5 mg Tablet] 12.5 mg PO Q12 tablet 08/15/19 Clonidine HCl [Catapres 0.2 mg Tablet] 0.2 mg PO Q12 tablet 08/15/19 Torsemide [Demadex 20 mg Tablet] 80 mg PO BID tablet 08/15/19 Insulin Detemir [Levemir] 20 unit SQ DAILY 30 Days #6 ml 08/17/19 Insulin Lispro [Insulin Lispro Kwikpen U-100] 100 unit SQ ACHS #3 insuln.pen 08/17/19 Prednisone [Deltasone 10 mg Tablet] 10 mg PO ASDIR #126 tablet 08/17/19 Allergies/Adverse Reactions: No Known Allergies Allergy (Verified 08/13/19 13:09) Review of Systems All systems: reviewed and no additional remarkable complaints except as stated Eyes: PRESENT: visual disturbances - Blind in left eye Musculoskeletal: PRESENT: other - Severe pain in the rectus femoris muscles. Extremely tender. Neurological: PRESENT: abnormal gait Psychiatric: PRESENT: anxiety Physical Exam Vital Signs: Temp Pulse Resp BP Pulse Ox 98.4 F 69 13 147/87 H 100 08/17/19 11:01 08/17/19 03:53 08/17/19 11:01 08/17/19 11:01 08/17/19 11:01 Intake & Output 08/16/19 08/17/19 08/18/19 06:59 06:59 06:59 Weight 58.967 kg General appearance: PRESENT: cooperative, severe distress, well-developed Head exam: PRESENT: normocephalic Eye exam: PRESENT: other - Patch on left eye Ear exam: PRESENT: normal external ear exam. ABSENT: bleeding, drainage Mouth exam: PRESENT: moist, tongue midline Neck exam: PRESENT: full ROM. ABSENT: carotid bruit, lymphadenopathy Respiratory exam: PRESENT: clear to auscultation peterson, symmetrical. ABSENT: rales, rhonchi, tachypnea, wheezes Cardiovascular exam: PRESENT: RRR, +S1, +S2 GI/Abdominal exam: PRESENT: normal bowel sounds, soft. ABSENT: distended, tenderness Extremities exam: ABSENT: joint swelling, pedal edema Musculoskeletal exam: PRESENT: tenderness - Marked tenderness bilateral rectus femoris muscles Neurological exam: PRESENT: alert, awake, oriented to person, oriented to place, oriented to time, oriented to situation Psychiatric exam: PRESENT: anxious, other - Distressed affect reflecting severe pain Focused psych exam: ABSENT: delusional, pressured speech, restlessness Results Laboratory Results: 08/17/19 04:19 08/17/19 09:20 08/17/19 08/17/19 08/17/19 04:19 04:19 04:55 WBC 8.2 RBC 4.56 Hgb 9.5 L Hct 31.2 L MCV 68 L MCH 20.8 L MCHC 30.5 L RDW 18.0 H Plt Count 333 Seg Neutrophils % Not Reportable VBG pH 7.29 L VBG pCO2 42.2 VBG HCO3 19.7 L VBG Base Excess -6.5 Sodium 129.8 L Potassium 4.3 Chloride 92 L Carbon Dioxide 21 L Anion Gap 17 BUN 95 H Creatinine 5.52 H Est GFR ( Amer) 10 L Glucose 571 H* Calcium 7.5 L Total Bilirubin 0.5 AST 26 Alkaline Phosphatase 487 H Total Protein 7.3 Albumin 3.1 L 08/17/19 09:20 WBC RBC Hgb Hct MCV MCH MCHC RDW Plt Count Seg Neutrophils % VBG pH VBG pCO2 VBG HCO3 VBG Base Excess Sodium 129.9 L Potassium 4.1 Chloride 95 L Carbon Dioxide 22 Anion Gap 13 BUN 98 H Creatinine 5.50 H Est GFR ( Amer) 10 L Glucose 276 H Calcium 7.5 L Total Bilirubin 0.5 AST 22 Alkaline Phosphatase 361 H Total Protein 6.8 Albumin 2.8 L 08/17/19 08/17/19 08/17/19 04:19 04:19 09:20 Creatine Kinase 213 H CK-MB (CK-2) 3.11 Troponin I 0.049 0.056 Impressions: Chest X-Ray 08/17/19 00:00 IMPRESSION: 1. Cardiomegaly. 2. Right pleural effusion with likely underlying atelectasis or consolidation. Assessment and Plan - Diagnosis (1) Hyperglycemia Is this a current diagnosis for this admission?: Yes (2) Myositis Qualifiers: Myositis type: unspecified type Myositis location: thigh Laterality: unspecified laterality Qualified Code(s): M60.859 - Other myositis, unspecified thigh Is this a current diagnosis for this admission?: Yes (3) Bilateral thigh pain Is this a current diagnosis for this admission?: Yes (4) Chronic kidney disease on chronic dialysis Is this a current diagnosis for this admission?: Yes (5) Hypertension Qualifiers: Hypertension type: essential hypertension Qualified Code(s): I10 - Essential (primary) hypertension Is this a current diagnosis for this admission?: Yes (6) Type 2 diabetes mellitus with insulin therapy Is this a current diagnosis for this admission?: Yes - Plan Summary Summary: The patient had a marked increase in glucose from the steroid therapy. Patient held the steroids but unfortunately had significant rebound pain. We discussed pain management and I reminded her that the most significant relief came when she did receive a dose of steroids. Her glucose was never this high with the intravenous steroids. I will have the staff administer a dose of Solu-Medrol. I rewrote the prednisone treatment plan for the patient. We will start at 10 mg to see if this gives her any relief and then if not go to 15 or 20 mg. I wrote out a sliding scale for Humalog in addition to splitting her Levemir dose with a higher dose in the morning than in the evening. This was all sp elled out in her discharge paperwork. I printed the actual sliding scale for her to have at home and sent the Humalog pen prescription to [facility] on [facility]. The patient will keep her outpatient dialysis appointment tomorrow. I stressed that there may be treatments for myositis not involving steroids. I explained again that this is why she needs rheumatology. I coordinated with Dr. Vora in the emergency department. I reviewed the discharge plan with him. He was in agreement and will discharge the patient. - Time Time Spent with patient: 35 or more minutes Medications reviewed and adjusted accordingly: Yes Anticipated discharge: Home
[2019-08-17 12:13] VITALS: BP 130/85
== END 2019-08-17 12:45 | disposition home or self-care (01) ==
LOC: ER 03:39
DX: E11.65 Type 2 diabetes mellitus with hyperglycemia (principal); R07.89 Other chest pain; I13.2 Hypertensive heart and chronic kidney disease with heart failure and with stage 5 chronic kidney disease, or end stage renal disease; E11.22 Type 2 diabetes mellitus with diabetic chronic kidney disease; N18.6 End stage renal disease; I50.9 Heart failure, unspecified; Z99.2 Dependence on renal dialysis
CPT/HCPCS: 93005; 99285; 96374; 96375; 36415; 82553; 82962; 82550; 85025; 87070; 80053; 84484; 82803; 71046; 93010; J3490; J2920; J2060; J1815

== ENCOUNTER 2019-09-05 15:33 | Emergency (ER) | payer OTHER ==
--- NOTE | 2019-09-05 15:45 | ER Document Report ---
ED Medical Screen (RME) - General Chief Complaint: Dialysis Catheter Problem Stated Complaint: CATH PROBLEMS Time Seen by Provider: 09/05/19 15:44 Primary Care Provider: INDIGO VALLE NP [Primary Care Provider] - Follow up as needed Mode of Arrival: Ambulatory Information source: Patient Notes: Patient's dialysis catheter dislodged at the completion of dialysis today. Patient normally dialyzes on Saturday and Saturday and did finish her session. Patient denies any pain to the site and no bleeding. hx: CHF, hypertension, dialysis I have greeted and performed a rapid initial assessment of this patient. A comprehensive ED assessment and evaluation of the patient, analysis of test results and completion of the medical decision making process will be conducted by additional ED providers. TRAVEL OUTSIDE OF THE [place] IN LAST 30 DAYS: No - Related Data Allergies/Adverse Reactions: No Known Allergies Allergy (Verified 09/05/19 15:43) Past Medical History - Past Medical History Cardiac Medical History: Reports: Hx Congestive Heart Failure, Hx Hypertension, Hx Heart Murmur Pulmonary Medical History: Denies: Hx Asthma, Hx COPD, Hx Respiratory Failure Neurological Medical History: Denies: Hx Migraine, Hx Seizures Endocrine Medical History: Reports: Hx Diabetes Mellitus Type 2 Renal/ Medical History: Reports: Hx End Stage Renal Disease, Hx Hemodialysis. Denies: Hx Peritoneal Dialysis GI Medical History: Denies: Hx Cirrhosis, Hx Diverticulitis, Hx Hiatal Hernia Musculoskeltal Medical History: Denies Hx Arthritis, Denies Hx Fibromyalgia, Denies Hx Gout Skin Medical History: Denies Hx Eczema, Denies Hx Psoriasis Psychiatric Medical History: Denies: Hx Depression Past Surgical History: Reports: Hx Valve Replacement - Mitral valve surgery, Hx Vascular Surgery - Vas-Cath placement, peritoneal dialysis catheter placement, Other - Left eye surgery - Immunizations Immunizations up to date: Yes Physical Exam - General General appearance: Appears well, Alert Notes: Dialysis catheter dislodged about 5 in, suture had come loose, dressing in pl herber, no active bleeding Doctor's Discharge - Discharge Referrals: INDIGO VALLE NP [Primary Care Provider] - Follow up as needed
--- NOTE | 2019-09-05 17:13 | ER Document Report ---
ED General - General Chief Complaint: Medical Complaint Stated Complaint: CATH PROBLEMS Time Seen by Provider: 09/05/19 15:44 Primary Care Provider: INDIGO VALLE NP [Primary Care Provider] - Follow up as needed Mode of Arrival: Ambulatory TRAVEL OUTSIDE OF THE [place] IN LAST 30 DAYS: No - HPI Notes: Patient is a 49-year-old female with a history of CHF, hypertension, DM2, end- stage renal disease and on dialysis every Saturday//Saturday who presents per the direction of Dr. Morrison for dislodged port to her right chest today while at dialysis. Patient did complete her dialysis. Patient states that the stitch ripped in the tubing came out. She has no other concerns or complaints. She is able to eat and drink without difficulty. No other concerns or complaints. Denies any headache, fever, neck pain, URI, sore throat, chest pain, palpitations, syncope, cough, shortness of breath, wheeze, dyspnea, abdominal pain, nausea/vomiting/diarrhea, urinary retention, dysuria, hematuria, or rash. - Related Data Allergies/Adverse Reactions: No Known Allergies Allergy (Verified 09/05/19 15:43) Home Medications: patient doesnt have list Past Medical History - General Information source: Patient - Social History Smoking Status: Never Smoker Chew tobacco use (# tins/day): No Frequency of alcohol use: None Drug Abuse: None Family History: Reviewed & Not Pertinent Patient has suicidal ideation: No Patient has homicidal ideation: No - Past Medical History Cardiac Medical History: Reports: Hx Congestive Heart Failure, Hx Hypertension, Hx Heart Murmur Pulmonary Medical History: Denies: Hx Asthma, Hx COPD, Hx Respiratory Failure Neurological Medical History: Denies: Hx Migraine, Hx Seizures Endocrine Medical History: Reports: Hx Diabetes Mellitus Type 2 Renal/ Medical History: Reports: Hx End Stage Renal Disease, Hx Hemodialysis. Denies: Hx Peritoneal Dialysis GI Medical History: Denies: Hx Cirrhosis, Hx Diverticulitis, Hx Hiatal Hernia Musculoskeletal Medical History: Denies Hx Arthritis, Denies Hx Fibromyalgia, Denies Hx Gout Skin Medical History: Denies Hx Eczema, Denies Hx Psoriasis Psychiatric Medical History: Denies: Hx Depression Past Surgical History: Reports: Hx Valve Replacement - Mitral valve surgery, Hx Vascular Surgery - Vas-Cath placement, peritoneal dialysis catheter placement, Other - Left eye surgery - Immunizations Immunizations up to date: Yes Review of Systems - Review of Systems -: Yes All other systems reviewed and negative Physical Exam - Vital signs Vitals: Temp Pulse Resp BP Pulse Ox 97.4 F 68 18 158/80 H 100 09/05/19 18:47 09/05/19 18:47 09/05/19 18:47 09/05/19 18:47 09/05/19 18:47 - Notes Notes: PHYSICAL EXAMINATION: GENERAL: Well-appearing, well-nourished and in no acute distress. Chest: the port itself does appear to have come out some with the stitch being torn as well. No bleeding or discharge noted otherwise. LUNGS: somewhat diminished rt base. clear otherwise. HEART: Regular rate and rhythm without murmurs, rubs, gallops. ABDOMEN: Soft, nontender, nondistended abdomen. No guarding, no rebound. Normal bowel sounds present. No CVA tenderness bilaterally. Musculoskeletal: FROM to passive/active. Strength 5+/5. Extremities: 1+ pitting edema b/l LE's. Peripheral pulses 1+ b/l. Capillary refill less than 3 seconds. NEUROLOGICAL: Normal speech, normal gait. PSYCH: Normal mood, normal affect. SKIN: Warm, Dry, normal turgor, no rashes or lesions noted. see above. Course - Re-evaluation Re-evalutation: 09/05/19 18:04 Dr. Morrison at bedside and evaluating patient. Pt is now c/o feeling flushed and low sugar. Accucheck at bedside shows sugar of 48. Dr. Morrison would like CBC, CMP, and Vanc 1g. We will also give glucagon IV and PO. Vitals otherwise acceptable at this time. He believes she can then go home as long as the remaining labs are acceptable for f/u with him on Saturday. He taped the port cords at this time as well. We do not need to send her on any PO meds for home otherwise. Pt in agreement with tentative plan. 09/05/19 19:28 Patient is an afebrile, well-hydrated, 49-year-old female who presents for port catheter complications. Vitals are acceptable without significant tachycardia, tachypnea, or hypoxia. PE is otherwise unremarkable. Patient is nontoxic- appearing and is tolerating p.o. without difficulty. Patient states that she is feeling much better. Sugar has improved. Labs otherwise acceptable. Dr. Morrison reevaluate the patient and decided to pull the port out here in the emergency department. She is to follow-up on Saturday as directed by Dr. Morrison. Patient has no new concerns or complaints. She has a capability of monitoring her glucose at home. Low suspicion for any uremia warranting another dialysis session, sepsis, meningitis, severe dehydration, respiratory compromise, acute abdomen, or other systemic emergent condition at this time. Patient is aware that condition can change from initial presentation and she needs to monitor symptoms closely and seek medical attention with any acute changes. Return to the ED with any other worsening/concerning symptoms. Patient is in agreement. - Vital Signs Vital signs: Temp Pulse Resp BP Pulse Ox 97.4 F 68 18 158/80 H 100 09/05/19 18:47 09/05/19 18:47 09/05/19 18:47 09/05/19 18:47 09/05/19 18:47 - Laboratory Result Diagrams: 09/05/19 18:25 09/05/19 18:25 Laboratory results interpreted by me: 09/05/19 09/05/19 09/05/19 17:59 18:25 18:25 Hgb 9.3 L Hct 30.1 L MCV 67 L MCH 20.7 L MCHC 31.0 L RDW 17.7 H Sodium 136.5 L Potassium 3.5 L Chloride 97 L Carbon Dioxide 31 H BUN 25 H Creatinine 1.84 H Est GFR ( Amer) 35 L Est GFR (MDRD) Non-Af 29 L Glucose 57 L POC Glucose 48 L Alkaline Phosphatase 279 H Albumin 3.3 L 09/05/19 18:43 Hgb Hct MCV MCH MCHC RDW Sodium Potassium Chloride Carbon Dioxide BUN Creatinine Est GFR ( Amer) Est GFR (MDRD) Non-Af Glucose POC Glucose 169 H Alkaline Phosphatase Albumin Discharge - Discharge Clinical Impression: Encounter for care related to Port-a-Cath, Low glucose level Condition: Stable Disposition: HOME, SELF-CARE Additional Instructions: Keep the skin clean Wash with soap and water Tylenol if needed Take home medication as directed Monitor blood glucose regularly Monitor for any worsening symptoms Recheck with your PCM in 3-5 days F/u with Dr. Morrison on Saturday morning* Return to the ED with any worsening symptoms and/or development of fever, headache, chest pain, palpitations, syncope, shortness of breath, trouble breathing, abdominal pain, n/v/d, abscess, purulent discharge, red streaks, worsening swelling, or other worsening symptoms that are concerning to you. Forms: Elevated Blood Pressure Referrals: INDIGO VALLE NP [Primary Care Provider] - Follow up as needed OLIVIA MORRISON MD [ACTIVE STAFF] - 09/07/19
--- NOTE | 2019-09-05 17:35 | RADIOLOGY REPORT (SQ) ---
EXAM DESCRIPTION: CHEST 2 VIEWS COMPLETED DATE/TIME: 09/05/2019 5:20 pm REASON FOR STUDY: check port rt side, dislodged during dialysis COMPARISON: 08/17/2019 EXAM PARAMETERS: NUMBER OF VIEWS: two views TECHNIQUE: Digital Frontal and Lateral radiographic views of the chest acquired. RADIATION DOSE: NA LIMITATIONS: none FINDINGS: LUNGS AND PLEURA: Unchanged moderate right pleural effusion with associated atelectasis or consolidation. MEDIASTINUM AND HILAR STRUCTURES: No masses or contour abnormalities. HEART AND VASCULAR STRUCTURES: Cardiomegaly with prosthetic valvular annulus. BONES: No acute findings. HARDWARE: None in the chest. OTHER: There is a right chest large bore multi lumen vascular catheter, which is significantly retrac rach from position noted on prior examination dated 08/17/2019. The tips project near the confluence o f the superior vena cava. IMPRESSION: 1. There is a right chest large bore multi lumen vascular catheter, which is significant ly retracted from position noted on prior examination dated 08/17/2019. The tips project near the con fluence of the superior vena cava. 2. Unchanged moderate right pleural effusion and cardiomegaly. TECHNICAL DOCUMENTATION: JOB ID: [id number] [employer]- All Rights Reserved Reading location - IP/workstation name: [email or web address]
[2019-09-05] MEDS ORDERED: DEXTROSE 50%-WATER 25 GM/50 ML DISP.SYRIN IV ONE (18:03)
[2019-09-05] MEDS ORDERED: VANCOMYCIN HCL INJ 1000 MG VIAL IV ONE (18:07)
--- NOTE | 2019-09-05 18:43 | PDOC CONSULTATION ---
Consultation Consult Date: 09/05/19 Attending physician:: Alberto DEWITT Provider Consulted: OLIVIA CASTRO Consult reason:: Permacatheter loss. History of Present Illness Admission Date/PCP: INDIGO VALLE NP Patient complains of: Permacatheter became dislodged after dialysis today. History of Present Illness: STEPHANIE RODRIGUEZ is a 49 year old female The patient had a complete dialysis of the PD unit today. The catheter path of this large sort of the cuff outside of the skin. He was therefore referred to the emergency room for further evaluation and management. Past Medical History Cardiac Medical History: Reports: Congestive Heart Failure, Hypertension, Heart Murmur Pulmonary Medical History: Denies: Asthma, Chronic Obstructive Pulmonary Disease (COPD), Respiratory Failure Neurological Medical History: Denies: Migraine, Seizures Endocrine Medical History: Reports: Diabetes Mellitus Type 2 Renal/ Medical History: Reports: End Stage Renal Disease GI Medical History: Denies: Cirrhosis, Diverticulitis, Hiatal Hernia Musculoskeltal Medical History: Denies: Arthritis, Fibromyalgia, Gout Skin Medical History: Denies: Eczema, Psoriasis Psychiatric Medical History: Denies: Depression Hematology: Reports: Anemia Denies: Sickle Cell Disease, Bleeding Tendencies Past Surgical History Past Surgical History: Reports: Valve Replacement - Mitral valve surgery, Vascular Surgery - Vas-Cath placement, peritoneal dialysis catheter placement, Other - Left eye surgery Social History Smoking Status: Never Smoker Electronic Cigarette use?: No Frequency of Alcohol Use: None Hx Recreational Drug Use: No Drugs: None Hx Prescription Drug Abuse: No Family History Family History: Reviewed & Not Pertinent Parental Family History Reviewed: No Children Family History Reviewed: No Sibling(s) Family History Reviewed.: No Medication/Allergy Home Medications: Aspirin [Ecotrin] 81 mg PO DAILY 03/24/19 Carvedilol [Coreg] 12.5 mg PO Q12 03/24/19 Clonidine HCl [Catapres 0.2 mg Tablet] 1 tab PO DAILY PRN 03/24/19 Hydralazine HCl 100 mg PO TID 03/24/19 Glipizide [Glipizide Xl] 10 mg PO DAILY #14 tab.er.24 07/28/19 Gentamicin Sulfate [Garamycin 0.1% Cream 15 gm] 1 applic TP ASDIR PRN 08/13/19 Tizanidine HCl 4 mg PO Q6HP PRN 08/13/19 Carvedilol [Coreg 12.5 mg Tablet] 12.5 mg PO Q12 tablet 08/15/19 Clonidine HCl [Catapres 0.2 mg Tablet] 0.2 mg PO Q12 tablet 08/15/19 Torsemide [Demadex 20 mg Tablet] 80 mg PO BID tablet 08/15/19 Insulin Detemir [Levemir] 20 unit SQ DAILY 30 Days #6 ml 08/17/19 Insulin Lispro [Insulin Lispro Kwikpen U-100] 100 unit SQ ACHS #3 insuln.pen 08/17/19 Prednisone [Deltasone 10 mg Tablet] 10 mg PO ASDIR #126 tablet 08/17/19 Allergies/Adverse Reactions: No Known Allergies Allergy (Verified 09/05/19 15:43) Physical Exam Additional comments: Constitutional: Well-developed well-nourished -Martiniquais lady apparent mild acute distress. She believes that her sugar is low. Eyes: Mucous membranes pink and moist, pupils equal and reactive to light. Conjunctiva normal. Left eye shrunken, bilateral arcus senilis, advised. ENT: Hearing grossly normal. External pinna normal to inspection. Tongue normal to inspection. Respiratory: Normal respiratory effort. Chest: Right-sided PermCath in place, cuff slightly exposed, no purulence or erythema. Abdomen: Soft, non tender. Mildly protuberant. PD catheter in place. No hernia noted. Psychiatric: Judgment, memory, insight seem normal. Mood is pleasant and appropriate. Extremities: Upper extremities show normal range of movement. Pulses present noted to the radial arteries. Capillary refill normal. No cyanosis noted. No muscle wasting noted. Lower extremities show normal range of movement. Pulses present noted to the dorsalis pedis artery. Capillary refill normal. No cyanosis noted. No muscle wasting noted. Results Impressions: Chest X-Ray 09/05/19 17:08 IMPRESSION: 1. There is a right chest large bore multi lumen vascular catheter, which is significantly retracted from position noted on prior examination dated 08/17/2019. The tips project near the confluence of the superior vena cava. 2. Unchanged moderate right pleural effusion and cardiomegaly. Assessment & Plan - Diagnosis (1) Permanent central venous catheter in place Is this a current diagnosis for this admission?: Yes (2) ESRD needing dialysis Is this a current diagnosis for this admission?: Yes (3) Type 2 diabetes mellitus with insulin therapy Is this a current diagnosis for this admission?: Yes (4) Hypertension Qualifiers: Hypertension type: essential hypertension Qualified Code(s): I10 - Essential (primary) hypertension Is this a current diagnosis for this admission?: Yes - Plan Summary Plan Summary: This patient with peritoneal dialysis catheter in place, also a right-sided permacatheter. The abdominal catheter placed in about January of this year and will need to be permacatheter in about . She is on hemodialysis, the hope is to get her back on peritoneal dialysis. With her full dialysis today she was found to have a catheter that was loose. My recommendation at this point is to anchor the catheter which was done with tape. The hope is to replace it on Saturday with a new PermCath catheter possibly through another sites. In the meanwhile the patient should be evaluated for low blood sugar or other causes of l feeling less than optimal. I believe a single dose of vancomycin would be appropriate given the circumstances also evaluation CBC SMA-7 chest x- ray and possible EKG. I will leave this up to the judgment of the emergency room personnel. In the meanwhile there is no embossing machine tender promotional demonstrator today but I will try to discuss his embossing machine tender Dr. Saul Dewitt on Saturday. And we will make tentative plans to replace her catheter on Saturday. She understands that if she is not admitted that she is to arrive at the [facility] on Saturday for procedure.
[2019-09-05 18:51] LABS: ABSOLUTE BASOPHILS # (AUTO) 0.1 10^3/uL (0.0-0.2); TOTAL CELLS COUNTED % (AUTO) 100 %
[2019-09-05 18:54] LABS: ABSOLUTE EOSINOPHILS # (AUTO) 0.3 10^3/uL (0.0-0.6); ABSOLUTE LYMPHOCYTES (AUTO) 1.1 10^3/uL (0.5-4.7); ABSOLUTE MONOCYTES (AUTO) 0.7 10^3/uL (0.1-1.4); ABSOLUTE NEUT (AUTO) 5.2 10^3/uL (1.7-8.2); BASOPHILS % (AUTO) 1.2 % (0-2); EOSINOPHILS % (AUTO) 3.6 % (0-6); HEMATOCRIT 30.1 % (36.0-47.0); HEMOGLOBIN 9.3 g/dL (12.0-15.5); LYMPHOCYTES % (AUTO) 15.2 % (13-45); MEAN CORPUSCULAR HEMOGLOBIN 20.7 pg (27.0-33.4); MEAN CORPUSCULAR VOLUME 67 fl (80-97); MONOCYTES % (AUTO) 9.2 % (3-13); PLATELET COUNT 291 10^3/uL (150-450); RED CELL DISTRIBUTION WIDTH 17.7 % (11.5-14.0); SEGMENTED NEUTROPHILS % (AUTO) 70.8 % (42-78); WHITE BLOOD COUNT 7.4 10^3/uL (4.0-10.5)
[2019-09-05 19:03] LABS: ALBUMIN 3.3 g/dL (3.5-5.0); ALKALINE PHOSPHATASE 279 U/L (38-126); ANION GAP 9 (5-19); ASPARTATE AMINO TRANSFERASE 28 U/L (14-36); BILIRUBIN,DIRECT 0.3 mg/dL (0.0-0.4); BILIRUBIN,TOTAL 0.6 mg/dL (0.2-1.3); BLOOD UREA NITROGEN 25 mg/dL (7-20); CALCIUM 8.5 mg/dL (8.4-10.2); CARBON DIOXIDE 31 mmol/L (22-30); CHLORIDE 97 mmol/L (98-107); POTASSIUM 3.5 mmol/L (3.6-5.0); TOTAL PROTEIN 7.8 g/dL (6.3-8.2)
[2019-09-05 19:08] LABS: GLUCOSE 57 mg/dL (75-110)
[2019-09-05 19:46] VITALS: BP 181/103
== END 2019-09-05 20:15 | disposition home or self-care (01) ==
LOC: ER 15:33
DX: T82.898A Other specified complication of vascular prosthetic devices, implants and grafts, initial encounter (principal); I13.2 Hypertensive heart and chronic kidney disease with heart failure and with stage 5 chronic kidney disease, or end stage renal disease; E11.22 Type 2 diabetes mellitus with diabetic chronic kidney disease; N18.6 End stage renal disease; I50.9 Heart failure, unspecified; Z99.2 Dependence on renal dialysis
CPT/HCPCS: 99284; 96374; 96375; 36415; 87040; 82962; 85025; 80053; 71046; J3490; J3370

== ENCOUNTER 2019-09-07 06:59 | Day surgery (SDC) | payer OTHER ==
[2019-09-07] MEDS ORDERED: VANCOMYCIN HCL 500 MG in DEXTROSE 5%-WATER 100 ML IV PRN (07:28)
[2019-09-07] MEDS ORDERED: OXYCODONE-ACETAMINOPHEN 5-325 MG TABLET PO ONE (08:00)
[2019-09-07] MEDS ORDERED: DIAZEPAM 5 MG TABLET PO ONE (08:00)
[2019-09-07] MEDS ORDERED: BACITRACIN INJ 50,000 UNIT VIAL ONE (08:09)
[2019-09-07] MEDS ORDERED: LIDOCAINE 0.5% INJ-PF (5 MG/ML) 50 ML SDV ONE (08:09)
[2019-09-07] MEDS ORDERED: DIAZEPAM 5 MG TABLET ONE (08:11)
[2019-09-07] MEDS ORDERED: OXYCODONE-ACETAMINOPHEN 5-325 MG TABLET ONE (08:11)
[2019-09-07] MEDS ORDERED: MIDAZOLAM 2 MG/2 ML INJ ONE (08:29)
[2019-09-07] MEDS ORDERED: CEFAZOLIN INJ 1 GM VIAL ONE (08:29)
[2019-09-07] MEDS ORDERED: FENTANYL CITRATE INJ/PF 100 MCG/2 ML AMPUL ONE (08:30)
--- NOTE | 2019-09-07 10:24 | Discharge Summary ---
Discharge Summary (SDC) - Discharge Final Diagnosis: #1 end-stage renal disease on hemodialysis. 2. Valvular heart disease. 3. Diabetes mellitus type 2. Date of Surgery: 09/07/19 Discharge Date: 09/07/19 Condition: Fair Treatment or Instructions: Discharge home [after recovery per ASU criteria]. Diet , [renal],, diabetic, as tolerated, when fully awake advance as tolerated. Activities within moderation encouraged. Follow up in my office by appointment in about [1 week]. Call for appointment. Leave wounds [covered], [keep clean and dry, until office visit in 1 week]. Hold of on school/work [until evaluation in office]. Meds per med rec. May shower [in 48 hrs], [try to keep operated area as dry as possible]. Referrals: INDIGO VALLE NP [Primary Care Provider] - Discharge Diet: Other (Comments) - Renal, diabetic. Respiratory Treatments at Home: Deep Breathing/Coughing Discharge Activity: Activity As Tolerated Report the Following to Your Physician Immediately: Shortness of Breath, Unusual Bleeding
[2019-09-07] MEDS ORDERED: NORMAL SALINE 1000 ML 1,000 ML IV PRN (10:25)
--- NOTE | 2019-09-07 10:26 | Discharge Summary ---
Discharge Summary (SDC) - Discharge Final Diagnosis: #1 end-stage renal disease on hemodialysis. 2. Valvular heart disease. 3. Diabetes mellitus type 2. 4. Hypertension. Date of Surgery: 09/07/19 Condition: Fair Treatment or Instructions: Discharge home [after recovery per ASU criteria]. Diet , [renal],, diabetic, as tolerated, when fully awake advance as tolerated. Activities within moderation encouraged. Follow up in my office by appointment in about [1 week]. Call for appointment. Leave wounds [covered], [keep clean and dry, until office visit in 1 week]. Hold of on school/work [until evaluation in office]. Meds per med rec. May shower [in 48 hrs], [try to keep operated area as dry as possible]. Referrals: INDIGO VALLE NP [Primary Care Provider] - Respiratory Treatments at Home: Deep Breathing/Coughing Discharge Activity: Activity As Tolerated Report the Following to Your Physician Immediately: Shortness of Breath, Unusual Bleeding
--- NOTE | 2019-09-07 10:28 | EKG REPORT ---
SEVERITY:- ABNORMAL ECG - SINUS RHYTHM RIGHT AXIS DEVIATION ABNORMAL T, CONSIDER ISCHEMIA, LATERAL LEADS : Confirmed by: Raheem Barrios MD 07-Sep-2019 10:27:20
--- NOTE | 2019-09-07 10:28 | PDOC H&P ---
General Chief Complaint: This patient who lost her permacatheter on Saturday presents for insertion of a new permacatheter. She is hemodialysis dependent at this time. - Diagnosis (1) ESRD needing dialysis Is this a Current Diagnosis?: Yes (2) Hypertension Is this a Current Diagnosis?: Yes (3) Type 2 diabetes mellitus with insulin therapy Is this a Current Diagnosis?: Yes - Current Medications/Allergies Home Medications: Aspirin [Ecotrin] 81 mg PO DAILY 03/24/19 Hydralazine HCl 100 mg PO TID 03/24/19 Gentamicin Sulfate [Garamycin 0.1% Cream 15 gm] 1 applic TP ASDIR PRN 08/13/19 Allergies/Adverse Reactions: No Known Allergies Allergy (Verified 09/07/19 07:49) Past Medical History Cardiac Medical History: Reports: Congestive Heart Failure, Coronary Artery Disease, Hypertension, Heart Murmur Denies: Myocardial Infarction Pulmonary Medical History: Denies: Asthma, Bronchitis, Chronic Obstructive Pulmonary Disease (COPD), Pneumonia, Respiratory Failure Neurological Medical History: Denies: Migraine, Seizures Endocrine Medical History: Reports: Diabetes Mellitus Type 2 Renal/ Medical History: Reports: End Stage Renal Disease GI Medical History: Denies: Cirrhosis, Diverticulitis, Hiatal Hernia Musculoskeltal Medical History: Denies: Arthritis, Fibromyalgia, Gout Skin Medical History: Denies: Eczema, Psoriasis Psychiatric Medical History: Denies: Depression Hematology: Denies: Anemia, Sickle Cell Disease, Bleeding Tendencies Past Surgical History Past Surgical History: Reports: Valve Replacement - Mitral valve surgery, Vascular Surgery - Vas-Cath placement, peritoneal dialysis catheter placement, Other - Left eye surgery Family History Family History: Reviewed & Not Pertinent Parental Family History Reviewed: No Children Family History Reviewed: No Sibling(s) Family History Reviewed.: No Social History Smoking Status: Never Smoker Frequency of Alcohol Use: None Hx Recreational Drug Use: No Drugs: None Hx Prescription Drug Abuse: No Physical Exam Vital Signs: Temp Pulse Resp BP Pulse Ox 97.5 F 66 14 125/73 100 09/07/19 07:00 09/07/19 07:00 09/07/19 07:00 09/07/19 07:00 09/07/19 07:00 Intake & Output 09/06/19 09/07/19 09/08/19 06:59 06:59 06:59 Weight 58.967 kg Additional comments: Constitutional: Well-developed well-nourished -Salvad[place] lady, small build. No apparent acute distress. Eyes: Mucous membranes pink and moist, pupils unequal and reactive to light. Conjunctiva normal. Heavy arcus senilis. Left eye shrunken. ENT: Hearing grossly normal. External pinna normal to inspection. Teeth intact. Tongue normal to inspection. Cardiac: Heart sounds 1 and 2 normal, no murmurs. No carotid bruit. Chest: Right-sided site of permacatheter removal. Also scar of mitral valvuloplasty. Respiratory: breath sounds are present bilaterally, normal. Normal respiratory effort. Skin: Normal to inspection. No ulcers, normal turgor. Abdomen: Soft, non tender. Liver and spleen are not palpably enlarged. Bowel sounds are normal. PD catheter in place. Psychiatric: Judgment, memory, insight seem normal. Mood is pleasant and appropriate. Extremities: Upper extremities show normal range of movement. Pulses present noted to the radial arteries. Capillary refill normal. No cyanosis noted. No muscle wasting noted. Neurovascular: No apparent tremors, gait normal. Sensation grossly intact. Hearing grossly normal. Vison grossly intact. Impression/Plan Plan: The plan is for insertion of a new PermCath catheter. Consideration to be given to replacing it on the right. The patient has had removal of the old catheter, preoperative cleansing so that the chance of infection should be small. The procedure, its risks, benefits, expected outcomes alternatives are familiar to the patient. She wishes to proceed.
--- NOTE | 2019-09-07 10:31 | Operative Report ---
Operative Report DATE OF SURGERY: 09/07/19 PREOPERATIVE DIAGNOSIS: #1 end-stage renal disease on hemodialysis. 2. Valvul ar heart disease. 3. Diabetes mellitus type 2. 4. Hypertension. POSTOPERATIVE DIAGNOSIS: #1 end-stage renal disease on hemodialysis. 2. Valvular heart disease. 3. Diabetes mellitus type 2. 4. Hypertension. OPERATION: 1. Ultrasound evaluation of the right internal jugular vein. 2. Permacath insertion via real-time access in the right internal jugular vein. 3. Angiogram and interpretation. SURGEON: OLIVIA KHALIL LABEL MACHINE OPERATOR: None. ANESTHESIA: Moderate Sedation TISSUE REMOVED OR ALTERED: Not applicable. COMPLICATIONS: None. ESTIMATED BLOOD LOSS: 5 mL. INTRAOPERATIVE FINDINGS: Of a patent and large right internal jugular vein, estimated to be 2 cm in diameter. Satisfactory and safe access under ultrasound guidance. The position with the tip of the catheter well down in the right atrial pool. Noted topographically and also on angiogram. Final x-ray shows no untoward finding, hardware in good position. PROCEDURE: After obtaining informed consent, the patient was taken to the [Lining Machine Tender] and positioned supine. The [right neck] and chest were prepared with chlorhexidine and draped out with sterile linen. After the " universal timeout", in which it was verified that the patient continued to receive antibiotic, the procedure commenced. A steriley sheathed ultrasound probe was used to evaluate the [right internal jugular] vein. Local anesthesia was infiltrated adjacent to the probe. Access into the [right internal jugular] vein was obtained using a micropuncture needle, followed by micropuncture wire and then a micropuncture catheter. This was followed by introduction of a 0.035 guidewire the tip of which was placed down into the inferior vena cava . A 23 cm long PermCath was now positioned over the chest and an exit site marked and locally anesthetized ,the catheter was placed between the 2 incisions. Proximally, the catheter was now positioned using a peel-away sheath, after dilation. Easy ingress of heparinized solution and egress of blood obtained through both ports. A completion angiogram was done by injecting contrast. The findings were as dictated. The neck incision was now closed using interrupted 3-0 PDS to the subcutaneous tissues, the catheter was anchored at the exit site using 3-0 PDS. A Biopatch device was now placed adjacent to the catheter. Dressings were applied and the procedure concluded. Copies of the dictated operative report for Dr. Olivia Morrison MD.concluded. Copies of the dictated operative report for Dr. Olivia Morrison MD.
[2019-09-07 13:53] VITALS: BP 104/67
--- NOTE | 2019-09-09 09:07 | RADIOLOGY REPORT (SQ) ---
EXAM DESCRIPTION: TUNNELED CENTRAL LINE COMPLETED DATE/TIME: 09/07/2019 10:36 am REASON FOR STUDY: NEED FOR VASCULAR ACCESS COMPARISON: None. FLUOROSCOPY TIME: 0.6 minutes 17 images saved to PACS. TECHNIQUE: Intra-operative images acquired during surgical procedure to evaluate progress. NUMBER OF IMAGES: 17 LIMITATIONS: None. FINDINGS: Intraoperative fluoroscopic images obtained to evaluate progress. Limited arteriogram dem onstrating evidence of arterial cannulation. Additional images demonstrate evidence of right interna l jugular tunneled hemodialysis catheter placement. Please see operative report for detailed descrip tion of procedure. IMPRESSION: IMAGE(S) OBTAINED DURING PROCEDURE. COMMENT: Quality ID [id number]: Final reports for procedures using fluoroscopy that document radiation exp osure indices, or exposure time and number of fluorographic images (if radiation exposure indices are not available) Please consult full operative report of the attending physician for description of the procedure. TECHNICAL DOCUMENTATION: JOB ID: [id number] [employer]- All Rights Reserved Reading location - IP/workstation name: [email or web address]
== END 2019-09-07 12:30 | disposition home or self-care (01) ==
LOC: CCL 06:59
PROVIDERS: ATTEND Surgery
DX: I13.2 Hypertensive heart and chronic kidney disease with heart failure and with stage 5 chronic kidney disease, or end stage renal disease (principal); E11.22 Type 2 diabetes mellitus with diabetic chronic kidney disease; N18.6 End stage renal disease; Z99.2 Dependence on renal dialysis; Z79.4 Long term (current) use of insulin; Z79.82 Long term (current) use of aspirin; Z79.899 Other long term (current) drug therapy
CPT/HCPCS: 36415; 82962; 84132; 84703; 36558; 76937; 77001; 93005; 93010; C1713; C1752; Q9967; J2250; J3490 ×2; J3010; J3370; J7060; J1644; J0690

== ENCOUNTER 2019-10-29 01:06 | Emergency (ER) | payer OTHER ==
[2019-10-29 01:36] LABS: ABSOLUTE BASOPHILS # (AUTO) 0.1 10^3/uL (0.0-0.2); ABSOLUTE EOSINOPHILS # (AUTO) 0.1 10^3/uL (0.0-0.6); ABSOLUTE LYMPHOCYTES (AUTO) 0.9 10^3/uL (0.5-4.7); ABSOLUTE MONOCYTES (AUTO) 0.7 10^3/uL (0.1-1.4); ABSOLUTE NEUT (AUTO) 5.1 10^3/uL (1.7-8.2); BASOPHILS % (AUTO) 1.3 % (0-2); EOSINOPHILS % (AUTO) 1.2 % (0-6); HEMATOCRIT 29.5 % (36.0-47.0); HEMOGLOBIN 8.6 g/dL (12.0-15.5); LYMPHOCYTES % (AUTO) 13.4 % (13-45); MEAN CORPUSCULAR HEMOGLOBIN 20.9 pg (27.0-33.4); MEAN CORPUSCULAR HGB CONC 29.1 g/dL (32.0-36.0); MEAN CORPUSCULAR VOLUME 72 fl (80-97); MONOCYTES % (AUTO) 9.9 % (3-13); PLATELET COUNT 275 10^3/uL (150-450); RED BLOOD COUNT 4.11 10^6/uL (3.72-5.28); RED CELL DISTRIBUTION WIDTH 19.6 % (11.5-14.0); SEGMENTED NEUTROPHILS % (AUTO) 74.2 % (42-78); TOTAL CELLS COUNTED % (AUTO) 100 %; WHITE BLOOD COUNT 6.8 10^3/uL (4.0-10.5)
[2019-10-29 01:50] LABS: ALBUMIN 3.1 g/dL (3.5-5.0); ALKALINE PHOSPHATASE 380 U/L (38-126); ANION GAP 11 (5-19); ASPARTATE AMINO TRANSFERASE 20 U/L (14-36); BILIRUBIN,DIRECT 0.4 mg/dL (0.0-0.4); BILIRUBIN,TOTAL 0.6 mg/dL (0.2-1.3); BLOOD UREA NITROGEN 46 mg/dL (7-20); CALCIUM 8.3 mg/dL (8.4-10.2); CARBON DIOXIDE 28 mmol/L (22-30); CHLORIDE 92 mmol/L (98-107); POTASSIUM 4.2 mmol/L (3.6-5.0); TOTAL PROTEIN 6.9 g/dL (6.3-8.2)
[2019-10-29 02:03] LABS: GLUCOSE 833 mg/dL (75-110)
[2019-10-29] MEDS ORDERED: MORPHINE SULFATE 10 MG/ML INJ IV ONE (02:12)
[2019-10-29] MEDS ORDERED: INSULIN REG, HUMAN 100 UNIT/ML 3 ML VIAL (PYX) IV ONE ×2 (02:12→03:57)
[2019-10-29] MEDS ORDERED: ONDANSETRON HCL INJ/PF 4 MG/2 ML SDV IV ONE (02:13)
[2019-10-29 02:59] LABS: VENOUS BLOOD BASE EXCESS 0.9 mmol/L; VENOUS BLOOD HCO3 28.6 mmol/L (20-32); VENOUS BLOOD PCO2 63.5 mmHg (35-63); VENOUS BLOOD PH 7.27 (7.30-7.42)
--- NOTE | 2019-10-29 03:01 | RADIOLOGY REPORT (SQ) ---
EXAM DESCRIPTION: XR FEMUR 2 VIEWS COMPLETED DATE/TME: 10/29/2019 01:31 CLINICAL HISTORY: 49 years, Female, pain s/p fall COMPARISON: None. NUMBER OF VIEWS: Two TECHNIQUE: Two views of the left femur LIMITATIONS: None. FINDINGS: There is no acute fracture or dislocation. No large soft tissue swelling. No radiopaque foreign body. Vascular calcifications are noted. IMPRESSION: No acute fracture or dislocation copyright 2010 [employer]- All Rights Reserved
--- NOTE | 2019-10-29 03:04 | RADIOLOGY REPORT (SQ) ---
EXAM DESCRIPTION: XR KNEE 4 OR MORE VIEWS COMPLETED DATE/TME: 10/29/2019 01:32 CLINICAL HISTORY: 49 years, Female, pain s/p fall COMPARISON: None. NUMBER OF VIEWS: Four TECHNIQUE: Four views of the left knee LIMITATIONS: None. FINDINGS: There is no acute fracture or dislocation. No significant joint effusion. No radiopaque foreign body. Vascular calcifications are noted. IMPRESSION: No acute fracture or dislocation copyright 2010 [employer]- All Rights Reserved
[2019-10-29] MEDS ORDERED: CLONIDINE HCL 0.2 MG TABLET PO ONE (03:57)
[2019-10-29] MEDS ORDERED: HYDRALAZINE HCL 10 MG TABLET PO ONE (03:58)
[2019-10-29] MEDS ORDERED: OXYCODONE-ACETAMINOPHEN 5-325 MG TABLET PO ONE (06:02)
[2019-10-29 06:17] VITALS: BP 169/128
--- NOTE | 2019-10-29 06:21 | ER Document Report ---
ED General - General Chief Complaint: High Blood Sugar Stated Complaint: LEG PAIN Time Seen by Provider: 10/29/19 02:04 Primary Care Provider: INDIGO VALLE NP [Primary Care Provider] - Follow up as needed TRAVEL OUTSIDE OF THE [place] IN LAST 30 DAYS: No - HPI Notes: Patient is a 49-year-old female with a history of end-stage renal disease, dialysis Saturday, poorly controlled diabetes, and high blood pressure, who presents to the emergency department for evaluation. She states that the left side of her body "gave way" and she fell to the ground. She is complaining of pain in her left leg. She was unable to bear weight because of the pain earlier. She states this is happened to her in the past. She calls it a "seizure," describes it as a cramping type sensation. She denies hitting her head or losing consciousness. No neck or back pain. Her pain is worsened by bearing weight, nothing seems to make it better. The patient states she has been compliant with her medications, but then admits that her blood sugar read as "high" yesterday morning. She is been taking her Lantus, but admits she did not recheck it, nor did she take her sliding scale insulin for her elevated blood sugar. Patient states that she used to be on hydralazine 100 mg 3 times a day, states that cardiology in [facility] changed to to 10 mg 3 times a day. She is unable to tell me why. - Related Data Allergies/Adverse Reactions: No Known Allergies Allergy (Verified 09/07/19 07:49) Home Medications: isorbid. hydralazine. clonidine. torsemide. carvedilol Past Medical History - General Information source: Patient - Social History Smoking Status: Former Smoker Frequency of alcohol use: None Drug Abuse: None Family History: Reviewed & Not Pertinent Patient has suicidal ideation: No Patient has homicidal ideation: No - Past Medical History Cardiac Medical History: Reports: Hx Congestive Heart Failure, Hx Coronary Art ryan Disease, Hx Hypertension, Hx Heart Murmur Denies: Hx Heart Attack Pulmonary Medical History: Denies: Hx Asthma, Hx Bronchitis, Hx COPD, Hx Pneumonia, Hx Respiratory Kanu lure Neurological Medical History: Denies: Hx Cerebrovascular Accident, Hx Migraine, Hx Seizures Endocrine Medical History: Reports: Hx Diabetes Mellitus Type 2 Renal/ Medical History: Reports: Hx End Stage Renal Disease, Hx Hemodialysis. Denies: Hx Peritoneal Dialysis GI Medical History: Denies: Hx Cirrhosis, Hx Diverticulitis, Hx Hiatal Hernia Musculoskeletal Medical History: Denies Hx Arthritis, Denies Hx Fibromyalgia, Denies Hx Gout Skin Medical History: Denies Hx Eczema, Denies Hx Psoriasis Psychiatric Medical History: Denies: Hx Depression Past Surgical History: Reports: Hx Valve Replacement - Mitral valve surgery, Hx Vascular Surgery - Vas-Cath placement, peritoneal dialysis catheter placement, Other - Left eye surgery - Immunizations Immunizations up to date: Yes Hx Diphtheria, Pertussis, Tetanus Vaccination: No Review of Systems - Review of Systems Constitutional: See HPI EENT: No symptoms reported Cardiovascular: No symptoms reported Respiratory: No symptoms reported Gastrointestinal: No symptoms reported Genitourinary: No symptoms reported Musculoskeletal: See HPI Skin: No symptoms reported Neurological/Psychological: No symptoms reported Physical Exam - Vital signs Vitals: Temp Pulse Resp BP Pulse Ox 97.9 F 70 12 231/121 H 100 10/29/19 01:17 10/29/19 01:17 10/29/19 01:17 10/29/19 01:17 10/29/19 01:17 - Notes Notes: This is a 49-year-old female who appears much older than her stated age, in no acute distress. Vital signs reviewed, please refer to chart. Head is normocephalic, atraumatic. Neck is supple without meningismus. Heart is regular rate and rhythm. Lungs are clear to auscultation bilaterally. Abdomen is soft, nontender, normoactive bowel sounds throughout. Extremities without cyanosis, clubbing. Patient has 3+ pitting edema to bilateral lower extremities, up to the thighs, posterior calves are nontender. She is tender to palpation over the distal femur, and passive range of motion of the knee is painful. Neurovascularly intact distally. Peripheral pulses are equal. Skin is warm and dry. Patient is awake, alert, neurological exam is nonfocal. Course - Re-evaluation Re-evalutation: 10/29/19 06:19 Patient presents to the emergency department for evaluation. She had laboratory investigations as ordered. She was found to be hypertensive. I do have a suspicion that this patient has some compliance issues. Of course, however, she has had changes in her medications as of late as well. She was administered her regular medication doses, her blood pressure did respond somewhat. Her blood sugar was found to be over 800. However, she is found not to be acidotic. She has a normal anion gap. Again she has not been taking any of her sliding scale insulin. She was administered insulin and her blood sugar came down to just over 400. The importance of medication compliance was explained to the patient in great detail. She voiced understanding to this. She remains hypertensive, but she is due for dialysis today. I spoke with Dr. Dewitt. We are unsure as to whether there was a specific reason that her hydralazine was changed. At any rate, we will increase her clonidine to 0.3 mg 3 times a day. The importance of timely administration of this medication as well as compliance was stressed to the patient. She voiced understanding. Otherwise, she is to follow-up with primary care, nephrology, as well as cardiology. She is to start her increased clonidine dose today. She is to return to the emergency department with worsening or new concerning symptoms of any sort. - Vital Signs Vital signs: Temp Pulse Resp BP Pulse Ox 97.9 F 70 22 H 184/98 H 98 10/29/19 01:17 10/29/19 01:17 10/29/19 05:37 10/29/19 05:37 10/29/19 05:37 - Laboratory Result Diagrams: 10/29/19 01:25 10/29/19 01:25 Laboratory results interpreted by me: 10/29/19 10/29/19 10/29/19 01:25 01:25 01:25 Hgb 8.6 L Hct 29.5 L MCV 72 L MCH 20.9 L MCHC 29.1 L RDW 19.6 H VBG pH 7.27 L VBG pCO2 63.5 H Sodium 131.3 L Chloride 92 L BUN 46 H Creatinine 3.27 H Est GFR ( Amer) 18 L Est GFR (MDRD) Non-Af 15 L Glucose 833 H* POC Glucose Calcium 8.3 L Alkaline Phosphatase 380 H Albumin 3.1 L 10/29/19 05:08 Hgb Hct MCV MCH MCHC RDW VBG pH VBG pCO2 Sodium Chloride BUN Creatinine Est GFR ( Amer) Est GFR (MDRD) Non-Af Glucose POC Glucose 427 H* Calcium Alkaline Phosphatase Albumin - Diagnostic Test Radiology reviewed: Image reviewed, Reports reviewed Radiology results interpreted by me: 10/29/19 06:21 Femur X-Ray 10/29/19 01:31 IMPRESSION: No acute fracture or dislocation copyright 2010 [employer]- All Rights Reserved Knee X-Ray 10/29/19 01:32 IMPRESSION: No acute fracture or dislocation copyright 2010 [employer]- All Rights Reserved Discharge - Discharge Clinical Impression: Hyperglycemia, Peripheral edema, Left leg pain Hypertension Qualifiers: Hypertension type: unspecified Qualified Code(s): I10 - Essential (primary) hypertension Condition: Stable Disposition: HOME, SELF-CARE Instructions: Hyperglycemia ([facility]), High Blood Pressure, Requiring Treatment ([facility]) Additional Instructions: Please follow-up with your primary care provider, cloth painter, pastry mixer this week. It is important that you take your clonidine as directed, start the higher dose today. It is important that you take your medications as prescribed, including your insulin. Watch her diet closely. If you develop worsening or new concerning symptoms of any sort, please return immediately to the emergency department for evaluation. Referrals: INDIGO VALLE NP [Primary Care Provider] - Follow up as needed
[2019-10-29 06:42] LABS: APPEARANCE,URINE SLIGHTLY-CLOUDY; BILIRUBIN,URINE NEGATIVE (NEGATIVE); COLOR,URINE STRAW; GLUCOSE, URINE >=500 mg/dL (NEGATIVE); KETONES,URINE NEGATIVE (NEGATIVE); LEUKOCYTE ESTERASE,URINE NEGATIVE (NEGATIVE); NITRITE,URINE NEGATIVE (NEGATIVE); PROTEIN,URINE 100 mg/dL (NEGATIVE); UROBILINOGEN,URINE NEGATIVE mg/dL (<2.0)
== END 2019-10-29 06:47 | disposition home or self-care (01) ==
LOC: ER 01:06
DX: E11.65 Type 2 diabetes mellitus with hyperglycemia (principal); M79.605 Pain in left leg; W19.XXXA Unspecified fall, initial encounter; Y92.009 Unspecified place in unspecified non-institutional (private) residence as the place of occurrence of the external cause; I13.2 Hypertensive heart and chronic kidney disease with heart failure and with stage 5 chronic kidney disease, or end stage renal disease; I50.9 Heart failure, unspecified; E11.22 Type 2 diabetes mellitus with diabetic chronic kidney disease; N18.6 End stage renal disease; Z99.2 Dependence on renal dialysis; R60.0 Localized edema; I25.10 Atherosclerotic heart disease of native coronary artery without angina pectoris; Z79.4 Long term (current) use of insulin; Z79.899 Other long term (current) drug therapy; Z87.891 Personal history of nicotine dependence
CPT/HCPCS: 36415; 82962; 85025; 80053; 81001; 82803; 73552; 73564; J3490; J2270; J1815; J2405; 96374; 96375; 99284

== ENCOUNTER 2019-11-06 15:27 | Emergency (ER) | payer OTHER, MEDICAID ==
[2019-11-06 16:18] VITALS: BP 180/82
--- NOTE | 2019-11-06 16:22 | ER Document Report ---
ED Medical Screen (RME) - General Chief Complaint: Abnormal Lab Results Stated Complaint: AMIRAH REFERRED Time Seen by Provider: 11/06/19 16:20 Primary Care Provider: INDIGO VALLE NP [Primary Care Provider] - Follow up as needed Mode of Arrival: Wheelchair Information source: Patient Notes: 49-year-old female presented to ED for low hemoglobin. She had dialysis yesterday and they put jacquie blood while she was at dialysis and called her today telling her her hemoglobin was 6 and that she needed to come to the emergency room for blood transfusion. Patient is alert oriented respirations regular nonlabored speaking in full sentences. She states she is hurting in her left leg due to a fall a couple weeks ago. I have greeted and performed a rapid initial assessment of this patient. A comprehensive ED assessment and evaluation of the patient, analysis of test results and completion of medical decision making process will be conducted by an additional ED providers. TRAVEL OUTSIDE OF THE [place] IN LAST 30 DAYS: No - Related Data Allergies/Adverse Reactions: No Known Allergies Allergy (Verified 09/07/19 07:49) Past Medical History - Past Medical History Cardiac Medical History: Reports: Hx Congestive Heart Failure, Hx Coronary Artery Disease, Hx Hypertension, Hx Heart Murmur Denies: Hx Heart Attack Pulmonary Medical History: Denies: Hx Asthma, Hx Bronchitis, Hx COPD, Hx Pneumonia, Hx Respiratory Failure Neurological Medical History: Denies: Hx Cerebrovascular Accident, Hx Migraine, Hx Seizures Endocrine Medical History: Reports: Hx Diabetes Mellitus Type 2 Renal/ Medical History: Reports: Hx End Stage Renal Disease, Hx Hemodialysis. Denies: Hx Peritoneal Dialysis GI Medical History: Denies: Hx Cirrhosis, Hx Diverticulitis, Hx Hiatal Hernia Musculoskeltal Medical History: Denies Hx Arthritis, Denies Hx Fibromyalgia, Denies Hx Gout Skin Medical History: Denies Hx Eczema, Denies Hx Psoriasis Psychiatric Medical History: Denies: Hx Depression Past Surgical History: Reports: Hx Valve Replacement - Mitral valve surgery, Hx Vascular Surgery - Vas-Cath placement, peritoneal dialysis catheter placement, Other - Left eye surgery - Immunizations Immunizations up to date: Yes Hx Diphtheria, Pertussis, Tetanus Vaccination: No Physical Exam - Vital signs Vitals: Temp Pulse Resp BP Pulse Ox 98.4 F 93 16 180/82 H 100 11/06/19 16:18 11/06/19 16:18 11/06/19 16:18 11/06/19 16:18 11/06/19 16:18 Course - Vital Signs Vital signs: Temp Pulse Resp BP Pulse Ox 98.4 F 93 16 180/82 H 100 11/06/19 16:18 11/06/19 16:18 11/06/19 16:18 11/06/19 16:18 11/06/19 16:18 Doctor's Discharge - Discharge Referrals: INDIGO VALLE NP [Primary Care Provider] - Follow up as needed
[2019-11-06 17:24] LABS: MEAN CORPUSCULAR HGB CONC 29.7 g/dL (32.0-36.0); MEAN CORPUSCULAR VOLUME 71 fl (80-97); PLATELET COUNT 431 10^3/uL (150-450); RED BLOOD COUNT 3.26 10^6/uL (3.72-5.28); RED CELL DISTRIBUTION WIDTH 18.9 % (11.5-14.0)
[2019-11-06 17:31] LABS: HEMOGLOBIN 6.8 g/dL (12.0-15.5)
[2019-11-06 17:38] LABS: ALBUMIN 3.4 g/dL (3.5-5.0); ALKALINE PHOSPHATASE 282 U/L (38-126); ANION GAP 13 (5-19); ASPARTATE AMINO TRANSFERASE 29 U/L (14-36); BILIRUBIN,DIRECT 0.7 mg/dL (0.0-0.4); BILIRUBIN,TOTAL 1.4 mg/dL (0.2-1.3); BLOOD UREA NITROGEN 42 mg/dL (7-20); CALCIUM 8.6 mg/dL (8.4-10.2); CARBON DIOXIDE 27 mmol/L (22-30); CHLORIDE 99 mmol/L (98-107); POTASSIUM 4.1 mmol/L (3.6-5.0); TOTAL PROTEIN 7.9 g/dL (6.3-8.2)
[2019-11-06 17:47] LABS: GLUCOSE 466 mg/dL (75-110)
[2019-11-06 18:00] LABS: ABSOLUTE LYMPHOCYTES# (MANUAL) 0.8 10^3/uL (0.5-4.7); ABSOLUTE MONOCYTES # (MANUAL) 0.2 10^3/uL (0.1-1.4); BASOPHILS % (MANUAL) 0 % (0-2); EOSINOPHILS % (MANUAL) 2 % (0-6); LYMPHOCYTES % (MANUAL) 7 % (13-45); MONOCYTES % (MANUAL) 2 % (3-13); NUCLEATED RED BLOOD CELLS 3 /100 WBC (0); SEGMENTED NEUTROPHILS % (MAN) 89 % (42-78); TOTAL CELLS COUNTED 100
[2019-11-06 18:01] LABS: ANISOCYTOSIS 3+
[2019-11-06 18:02] LABS: HYPOCHROMASIA 3+; PLATELET COMMENT ADEQUATE
--- NOTE | 2019-11-06 18:02 | ER Document Report ---
ED General - General Chief Complaint: Abnormal Lab Results Stated Complaint: DAVITA REFERRED Time Seen by Provider: 11/06/19 16:20 Primary Care Provider: INDIGO VALLE NP [Primary Care Provider] - Follow up as needed Mode of Arrival: Wheelchair TRAVEL OUTSIDE OF THE [place] IN LAST 30 DAYS: No - HPI Notes: patient presents to ED at request of dialysis center due to low hemoglobin she states she feels fine and would not be here if she was not told to be here because she wants to be home visiting with family she denies known blood loss in stool or elsewhere she has left leg pain after striking the leg recently but denies bleeding from wound she has been taking tylenol w/ some relief she is due for dialysis tomorrow - Related Data Allergies/Adverse Reactions: No Known Allergies Allergy (Verified 09/07/19 07:49) Past Medical History - General Information source: Patient - Social History Smoking Status: Never Smoker Frequency of alcohol use: None Drug Abuse: None Family History: Reviewed & Not Pertinent Patient has suicidal ideation: No Patient has homicidal ideation: No - Past Medical History Cardiac Medical History: Reports: Hx Congestive Heart Failure, Hx Coronary Artery Disease, Hx Hypertension, Hx Heart Murmur Denies: Hx Heart Attack Pulmonary Medical History: Denies: Hx Asthma, Hx Bronchitis, Hx COPD, Hx Pneumonia, Hx Respiratory Failure Neurological Medical History: Denies: Hx Cerebrovascular Accident, Hx Migraine, Hx Seizures Endocrine Medical History: Reports: Hx Diabetes Mellitus Type 2 Renal/ Medical History: Reports: Hx End Stage Renal Disease, Hx Hemodialysis. Denies: Hx Peritoneal Dialysis GI Medical History: Denies: Hx Cirrhosis, Hx Diverticulitis, Hx Hiatal Hernia Musculoskeletal Medical History: Denies Hx Arthritis, Denies Hx Fibromyalgia, Denies Hx Gout Skin Medical History: Denies Hx Eczema, Denies Hx Psoriasis Psychiatric Medical History: Denies: Hx Depression Past Surgical History: Reports: Hx Valve Replacement - Mitral valve surgery, Hx Vascular Surgery - Vas-Cath placement, peritoneal dialysis catheter placement, Other - Left eye surgery - Immunizations Immunizations up to date: Yes Hx Diphtheria, Pertussis, Tetanus Vaccination: No Review of Systems - Review of Systems Constitutional: No symptoms reported EENT: No symptoms reported Cardiovascular: No symptoms reported Respiratory: No symptoms reported Gastrointestinal: No symptoms reported Genitourinary: No symptoms reported Female Genitourinary: No symptoms reported Musculoskeletal: Other - leg pain Skin: No symptoms reported Hematologic/Lymphatic: No symptoms reported Neurological/Psychological: No symptoms reported Physical Exam - Vital signs Vitals: Temp Pulse Resp BP Pulse Ox 98.4 F 93 16 180/82 H 100 11/06/19 16:18 11/06/19 16:18 11/06/19 16:18 11/06/19 16:18 11/06/19 16:18 Interpretation: Normal - General General appearance: Appears well, Alert - HEENT Head: Normocephalic, Atraumatic Eyes: Normal Pupils: PERRL - Respiratory Respiratory status: No respiratory distress Chest status: Nontender Breath sounds: Normal Chest palpation: Normal - Cardiovascular Rhythm: Regular Heart sounds: Normal auscultation Murmur: No - Abdominal Inspection: Normal Distension: No distension Bowel sounds: Normal Tenderness: Nontender Organomegaly: No organomegaly - Back Back: Normal, Nontender - Extremities General upper extremity: Normal inspection, Nontender, Normal color, Normal ROM, Normal temperature General lower extremity: Normal inspection, Nontender, Normal color, Normal ROM, Normal temperature, Normal weight bearing. No: Katya's sign Notes: L thigh is tender to palpation and mildly swollen although not tight. good pulses distal to the injury - Neurological Neuro grossly intact: Yes Cognition: Normal Orientation: AAOx4 [place] Coma Scale Eye Opening: Spontaneous Monique Coma Scale Verbal: Oriented Monique Coma Scale Motor: Obeys Commands [place] Coma Scale Total: 15 Speech: Normal Motor strength normal: LUE, RUE, LLE, RLE Sensory: Normal - Psychological Associated symptoms: Normal affect, Normal mood - Skin Skin Temperature: Warm Skin Moisture: Dry Skin Color: Normal Course - Re-evaluation Re-evalutation: 11/06/19 20:33 heme neg and asymptomatic does not want to be admitted tried to discuss with nephrology but apparently cannot contact nephrology even for established patients after 5pm on a Saturday i recommend following up with dialysis tomorrow and trying to arrange an outpt tranfusion unless she wants to return when willing to stay in the hospital for further care her anemia is likely related to anemia of chronic disease vs possibly related to small hematoma at thigh from recent injury 11/06/19 20:35 glucose corrected in ED - Vital Signs Vital signs: Temp Pulse Resp BP Pulse Ox 98.4 F 93 16 180/82 H 100 11/06/19 16:18 11/06/19 16:18 11/06/19 16:18 11/06/19 16:18 11/06/19 16:18 - Laboratory Result Diagrams: 11/06/19 16:55 11/06/19 16:55 Laboratory results interpreted by me: 11/06/19 11/06/19 16:55 16:55 WBC 11.0 H RBC 3.26 L Hgb 6.8 L Hct 23.0 L MCV 71 L MCH 21.0 L MCHC 29.7 L RDW 18.9 H Seg Neuts % (Manual) 89 H Lymphocytes % (Manual) 7 L Monocytes % (Manual) 2 L Abs Neuts (Manual) 9.8 H BUN 42 H Creatinine 3.35 H Est GFR ( Amer) 18 L Est GFR (MDRD) Non-Af 15 L Glucose 466 H* Total Bilirubin 1.4 H Direct Bilirubin 0.7 H Alkaline Phosphatase 282 H Albumin 3.4 L Discharge - Discharge Clinical Impression: ESRD (end stage renal disease), Hyperglycemia Anemia Qualifiers: Anemia type: unspecified type Qualified Code(s): D64.9 - Anemia, unspecified Leg pain Qualifiers: Laterality: left Qualified Code(s): M79.605 - Pain in left leg Condition: Stable Disposition: HOME, SELF-CARE Instructions: Anemia ([facility]) Additional Instructions: please follow up with dialysis tomorrow as scheduled. discuss with them the possibility of having an outpatient transfusion. I attempted to call Dr Lee while you were in the ED but could not reach a ladle liner apron cleaner to help coordinate your care. please return to the ED if you have worsening symptoms or concerns Prescriptions: Hydrocodone/Acetaminophen [[place] 5-325 mg Tablet] 1 tab PO Q6HP PRN #10 tablet PRN Reason: Referrals: INDIGO VALLE, CORRUGATOR OPERATOR [Primary Care Provider] - Follow up as needed
[2019-11-06] MEDS ORDERED: INSULIN LISPRO 100 UNIT/ML 3 ML VIAL SUBCUT ONE (18:18)
--- NOTE | 2019-11-06 19:05 | RADIOLOGY REPORT (SQ) ---
EXAM DESCRIPTION: FEMUR LEFT COMPLETED DATE/TIME: 11/06/2019 6:51 pm REASON FOR STUDY: pain/injury COMPARISON: 10/29/2019 NUMBER OF VIEWS: Two views. TECHNIQUE: Two radiographic images acquired of the left femur to include hip and knee in at least on e projection. LIMITATIONS: None. FINDINGS: MINERALIZATION: Normal. BONES: No acute fracture. No worrisome bone lesions. SOFT TISSUES: No obvious swelling or foreign body. Incidental note is made of diffuse atheroscleroti c vascular calcifications. OTHER: No other significant finding. IMPRESSION: No evidence of acute or previously occult fracture. TECHNICAL DOCUMENTATION: JOB ID: [id number]- All Rights Reserved Reading location - IP/workstation name: [email or web address]
[2019-11-06] MEDS ORDERED: HYDROCODONE/ACETAMINOPHEN 5-325 MG TABLET PO ONE (20:32)
[2019-11-07] MEDS ORDERED: FUROSEMIDE INJ/PF 40 MG/4 ML SDV IV PRN (17:21)
== END 2019-11-06 20:53 | disposition home or self-care (01) ==
LOC: ER 15:27
DX: E11.22 Type 2 diabetes mellitus with diabetic chronic kidney disease (principal); E11.65 Type 2 diabetes mellitus with hyperglycemia; I12.0 Hypertensive chronic kidney disease with stage 5 chronic kidney disease or end stage renal disease; N18.6 End stage renal disease; D63.1 Anemia in chronic kidney disease; Z99.2 Dependence on renal dialysis; M79.605 Pain in left leg; M79.89 Other specified soft tissue disorders; X58.XXXA Exposure to other specified factors, initial encounter; I25.10 Atherosclerotic heart disease of native coronary artery without angina pectoris
CPT/HCPCS: 99283; 86900; 86901; 36415; 86850; 83690; 85025; 80053; 73552; J1815

== ENCOUNTER 2019-11-07 16:24 | Outpatient (CLI) | payer OTHER, MEDICAID ==
[2019-11-07 17:40] LABS: HEMATOCRIT 21.4 % (36.0-47.0); MEAN CORPUSCULAR HEMOGLOBIN 21.5 pg (27.0-33.4); MEAN CORPUSCULAR HGB CONC 30.9 g/dL (32.0-36.0); MEAN CORPUSCULAR VOLUME 70 fl (80-97); PLATELET COUNT 387 10^3/uL (150-450); RED BLOOD COUNT 3.08 10^6/uL (3.72-5.28); RED CELL DISTRIBUTION WIDTH 18.9 % (11.5-14.0); WHITE BLOOD COUNT 9.8 10^3/uL (4.0-10.5)
[2019-11-07 17:57] LABS: HEMOGLOBIN 6.6 g/dL (12.0-15.5)
[2019-11-07] MEDS ORDERED: ACETAMINOPHEN 325 MG TABLET PO PRN (20:23)
[2019-11-07] MEDS ORDERED: DIPHENHYDRAMINE HCL 25 MG CAPSULE PO PRN (20:23)
[2019-11-07] MEDS ORDERED: FUROSEMIDE INJ/PF 40 MG/4 ML SDV IV PRN (21:24)
[2019-11-08 02:32] VITALS: BP 142/68
== END 2019-11-08 04:00 | disposition home or self-care (01) ==
LOC: II 16:24 → 4S 16:38 → II 11-08 04:00
PROVIDERS: ATTEND Internal Medicine Nephrology
DX: N18.6 End stage renal disease (principal); D63.1 Anemia in chronic kidney disease
CPT/HCPCS: 86900; 86901; 36415; 36430; 86850; 86920; P9016; J1940

== ENCOUNTER 2019-11-23 09:46 | Day surgery (SDC) | payer OTHER, MEDICAID ==
[~2019-11-23 09:46] MED LIST: BACITRACIN INJ 50,000 UNIT VIAL ONE; BUPIVACAINE HCL 0.25 % INJ/PF (2.5 MG/1 ML) 30 ML VIAL ONE; CEFAZOLIN 1 GM/D5W RTU 1 GM/50 ML RTUPB IV PRN; DEXAMETHASONE SOD PHOSPHATE INJ 4 MG/1 ML VIAL ONE; HEPARIN SOD (PORCINE) 1,000 UNIT/ML 10 ML VIAL ONE; KETOROLAC TROMETHAMINE 60 MG/2 ML SDV ONE; LIDOCAINE 0.5% INJ-PF (5 MG/ML) 50 ML SDV ONE; LIDOCAINE 1% INJ-PF (10 MG/ML) 30 ML SDV ONE; LIDOCAINE 2% INJ-PF (20 MG/ML) 2 ML AMPUL ONE; NITROGLYCERIN/D5W 0 MG/0 ML RTUINJ IV ONE
[2019-11-23] MEDS ORDERED: CEFAZOLIN 1 GM/D5W RTU 1 GM/50 ML RTUPB IV ONE (09:47)
[2019-11-23] MEDS ORDERED: NORMAL SALINE 1000 ML (RENAL PATIENTS) IV PRN (10:45)
[2019-11-23] MEDS ORDERED: LIDOCAINE 0.5% INJ-PF (5 MG/ML) 50 ML SDV SUBCUT PRN (10:53)
[2019-11-23 11:12] LABS: ANION GAP 13 (5-19); BLOOD UREA NITROGEN 56 mg/dL (7-20); CALCIUM 8.6 mg/dL (8.4-10.2); CARBON DIOXIDE 27 mmol/L (22-30); CHLORIDE 99 mmol/L (98-107); GLUCOSE 128 mg/dL (75-110); POTASSIUM 3.8 mmol/L (3.6-5.0)
[2019-11-23 11:15] LABS: ABSOLUTE BASOPHILS # (AUTO) 0.1 10^3/uL (0.0-0.2); ABSOLUTE EOSINOPHILS # (AUTO) 0.2 10^3/uL (0.0-0.6); ABSOLUTE LYMPHOCYTES (AUTO) 0.7 10^3/uL (0.5-4.7); ABSOLUTE MONOCYTES (AUTO) 0.6 10^3/uL (0.1-1.4); ABSOLUTE NEUT (AUTO) 5.3 10^3/uL (1.7-8.2); BASOPHILS % (AUTO) 1.6 % (0-2); EOSINOPHILS % (AUTO) 2.7 % (0-6); HEMATOCRIT 26.1 % (36.0-47.0); HEMOGLOBIN 8.2 g/dL (12.0-15.5); LYMPHOCYTES % (AUTO) 10.7 % (13-45); MEAN CORPUSCULAR HEMOGLOBIN 22.9 pg (27.0-33.4); MEAN CORPUSCULAR HGB CONC 31.4 g/dL (32.0-36.0); MEAN CORPUSCULAR VOLUME 73 fl (80-97); MONOCYTES % (AUTO) 8.8 % (3-13); PLATELET COUNT 358 10^3/uL (150-450); RED BLOOD COUNT 3.57 10^6/uL (3.72-5.28); RED CELL DISTRIBUTION WIDTH 22.4 % (11.5-14.0); SEGMENTED NEUTROPHILS % (AUTO) 76.2 % (42-78); TOTAL CELLS COUNTED % (AUTO) 100 %; WHITE BLOOD COUNT 6.9 10^3/uL (4.0-10.5)
[2019-11-23] MEDS ORDERED: PROPOFOL INJ 200 MG/20 ML VIAL IV ONE ×2 (11:56→14:31)
[2019-11-23] MEDS ORDERED: FENTANYL CITRATE INJ/PF 100 MCG/2 ML AMPUL ONE (11:57)
[2019-11-23] MEDS ORDERED: MIDAZOLAM 2 MG/2 ML INJ ONE (11:58)
[2019-11-23] MEDS ORDERED: BUPIVACAINE HCL 0.25 % INJ/PF (2.5 MG/1 ML) 30 ML VIAL ONE ×2 (12:00→12:07)
[2019-11-23] MEDS ORDERED: LIDOCAINE 0.5%/EPINEPHRINE INJ 50 ML VIAL ONE (12:10)
[2019-11-23] MEDS ORDERED: DIPHENHYDRAMINE HCL 50 MG/ML VIAL IV PRN (13:06)
[2019-11-23] MEDS ORDERED: OXYCODONE-ACETAMINOPHEN 5-325 MG TABLET PO PRN ×2 (13:06)
[2019-11-23] MEDS ORDERED: PROMETHAZINE HCL INJ 25 MG/1 ML VIAL IV PRN (13:06)
[2019-11-23] MEDS ORDERED: MEPERIDINE HCL/PF INJ 25 MG/1 ML DISP.SYRIN IV PRN (13:06)
[2019-11-23] MEDS ORDERED: MORPHINE SULFATE 10 MG/ML INJ IV PRN (13:06)
[2019-11-23] MEDS ORDERED: ONDANSETRON HCL INJ/PF 4 MG/2 ML SDV IV PRN (13:06)
[2019-11-23] MEDS ORDERED: FENTANYL CITRATE INJ/PF 100 MCG/2 ML AMPUL IV PRN ×3 (13:06)
[2019-11-23] MEDS ORDERED: LABETALOL HCL INJ 20 MG/4 ML DISP.SYRIN IV ONE (13:12)
--- NOTE | 2019-11-23 16:00 | Discharge Summary ---
Discharge Summary (SDC) - Discharge Final Diagnosis: #1 malfunctioning peritoneal dialysis catheter. 2. End-stage renal disease. 3. End-stage diabetes mellitus. 4. Hypertension. Date of Surgery: 11/23/19 Discharge Date: 11/23/19 Condition: Fair Treatment or Instructions: Discharge home [after recovery per ASU criteria]. Diet , [renal], diabetic, as tolerated, when fully awake advance as tolerated. Activities within moderation encouraged. Follow up in my office by appointment in about [1 week]. Call for appointment. Leave wounds [covered], [keep clean and dry, until office visit in 1 week]. Hold of on school/work [until evaluation in office]. Meds per med rec. Percocet. May shower [in 48 hrs], [try to keep operated area as dry as possible]. Prescriptions: Oxycodone HCl/Acetaminophen [Percocet 5-325 mg Tablet] 1 tab PO ASDIR PRN #15 tab PRN Reason: Referrals: INDIGO VALLE GAME BIRD FARMER [Primary Care Provider] - Respiratory Treatments at Home: Deep Breathing/Coughing Discharge Activity: Activity As Tolerated, No Driving, Keep Legs Elevated, No Lifting Over 10 Pounds, No Lifting/Push/Pulling, No tub bath Home Care Assistance: None Needed Adaptive Devices on Discharge: Rolling Walker Report the Following to Your Physician Immediately: Shortness of Breath, Fever over 101 Degrees, Unusual Bleeding, Redness, Swelling
--- NOTE | 2019-11-23 16:08 | Operative Report ---
Operative Report DATE OF SURGERY: 11/23/19 PREOPERATIVE DIAGNOSIS: #1 malfunctioning peritoneal dialysis catheter. 2. En d-stage renal disease. 3. End-stage diabetes mellitus. 4. Hypertension. POSTOPERATIVE DIAGNOSIS: #1 malfunctioning peritoneal dialysis catheter. 2. End-stage renal disease. 3. End-stage diabetes mellitus. 4. Hypertension. OPERATION: Insertion of right brachiocephalic AV fistula. SURGEON: OLIVIA KHALIL TALENT ACQUISITION OPERATIONS MANAGER: None. ANESTHESIA: IV-Regional TISSUE REMOVED OR ALTERED: Not applicable. COMPLICATIONS: None. ESTIMATED BLOOD LOSS: 5 mL. INTRAOPERATIVE FINDINGS: Of a very satisfactory cephalic vein easily accommodating a 2.5 mm coronary dilator. This vein orientation was unusual, lateral, the basilic vein actually crossed the field immediately above the brachial artery and was in the field and beneath the established fistula. Ultrasound in the operating room again confirmed the relative dominance of the radial artery and indeed almost nonexistent of the ulnar. Also noted is calcification of the arteries. Sutures were placed around the areas of calcification. This small body patient has quite small vessels as well. The decision of which fistula today was somewhat challenging in this patient because of the above factors as well as the vein anatomy being superior on the right. She is right-hand dominant. After some discussion the patient wished to go ahead with an insertion on the right side. The risks benefits and alternatives were acknowledged in several discussions. A satisfactory fistula was established with a Doppler signal very optimistic for good outcome. Slurred triphasic with waveform inflow, machinery continuous murmur in the fistula and multiphasic signal distally. Again the cephalic vein laterally was transposed medially to the brachial artery and the anastomosis done about 4 mm above the bifurcation of the brachial artery. PROCEDURE: Operative Report PROCEDURE: After reviewing the procedure with the patient, [she] was taken to the operating room. The patient was sedated and the [right upper extremity] prepared with chlorhexidine and draped out with sterile linen. After the "" universal timeout", in which it was verified that the patient [received IV antibiotics] the procedure commenced. The sterilely sheathed ultrasound probe was used to evaluate the venous and arterial systems, pertinent to the previously done vein mapping. Local anesthesia was infiltrated and a transverse incision made over the upper forearm, near the antecubital fossa. Dissection proceeded through the subcutaneous tissues down to the cephalic vein. This was dissected out proximally and distally for about 2 cm. Likewise major branches. The Bicipital aponeurosis was now incised longitudinally and the brachial artery dissected out for a distance of about 1.5 cm. This was immediately above the bifurcation. Rubber loops were placed on either end. The patient was given 2500 units of heparin intravenously. The deep branch of the cephalic vein was transected and irrigated with heparinized solution. The distal branches were clipped Coronary dilators were accepted [up to 2.5 mm]. The artery was controlled proximally and distally with rubber loops. An arteriotomy approximately [0.5 cm] in length was made, the artery was irrigated proximally and distally with heparinized solution. The transected vein was now spatulated it was then anastomosed end to end to side into the brachial artery. This was done using a continuous suture of 6-0 Prolene. Controls of the fistula were now released and it was analyzed using a Doppler probe. Hemostasis was secured once optimal function was assured, the wound was irrigated with antibiotic containing solution and closed. Closure was done using interrupted 3-0 PDS for the subcutaneous tissues. The skin was closed using a continuous subcutaneous suture of 4-0 Monocryl which was reinforced with Steri-Strips over benzoin. I then left the operative field and returned with a stethoscope covered with a sterile Tegaderm dressing. This allowed external auscultation of the fistula. Auscultation was [satisfactory]. The procedure was concluded by applying a dressing over the surgical site. DICTATING PHYSICIAN: OLIVIA CASTRO M.D.
--- NOTE | 2019-11-23 16:16 | Operative Report ---
Operative Report DATE OF SURGERY: 11/23/19 PREOPERATIVE DIAGNOSIS: #1 malfunctioning peritoneal dialysis catheter. 2. En d-stage renal disease. 3. End-stage diabetes mellitus. 4. Hypertension. POSTOPERATIVE DIAGNOSIS: #1 malfunctioning peritoneal dialysis catheter. 2. End-stage renal disease. 3. End-stage diabetes mellitus. 4. Hypertension. OPERATION: Removal of peritoneal dialysis catheter. SURGEON: OLIVIA KHALIL MIXING MACHINE TENDER CORK GASKET: None. ANESTHESIA: LMAC TISSUE REMOVED OR ALTERED: Not applicable. COMPLICATIONS: Unusual bleeding from the removal site. ESTIMATED BLOOD LOSS: 50 mL. INTRAOPERATIVE FINDINGS: Of a well founded peritoneal dialysis cath based on a short midline incision and exit site to the right of the umbilicus. Upon removal of the catheter there was a tremendous amount of peritoneal fluid which was expressed into the wound clear, slightly yellow-tinged, consistent with ascites. Estimated to be about 500 mils. Of note the there was considerable bleeding from the posterior aspect of the superficial cuff attachment site. This was controlled using sutures of 3-0 PDS. The blood loss prior to controlled was about 50 mils. Control was challenging as this was deep in the tunnel between the 2 incisions. PROCEDURE: After obtaining informed consent and going over the procedure with [the patient and her family she was taken to the operating room, she had appropriate anesthesia and underwent insertion of a right brachiocephalic fistula. After this the abdomen was prepped and draped for this a separate procedure. The abdomen was prepped and draped in the usual sterile fashion. After the universal timeout, in which it was verified that the patient received IV antibiotic, the procedure commenced. The topographical location for the peritoneal dialysis catheter was noted by palpation. Local anesthesia was now infiltrated in the incision made in the some of the umbilical scar of previous catheter insertion. Dissection proceeded down to the catheter which was placed on traction. The deep cuff was identified and an incision made over it. In this way the catheter immediately deep to the cuff was grasped and the intraperitoneal portion easily retrieved. At this point there was a large amount of fluid which resembled ascites. This was suctioned out over a period of time. In the meanwhile the external opening was enlarged by about a centimeter to approach the external cuff which was dissected free. The entire catheter was now removed and a specimen photograph taken and submitted in the chart. At this point continuous bleeding was noted from the exit site. It was therefore enlarged and hemostats used to display and and to grasp of the bleeding which appeared to be from fibrotic tissue immediately posterior to the prior cuff. This was now suture ligated with 3-0 PDS. The wounds were inspected using retractors and once hemostasis was satisfied closed loosely using interrupted sutures of 3-0 PDS. Dressings applied and the procedure concluded.
[2019-11-23 17:52] VITALS: BP 134/83
== END 2019-11-23 17:40 | disposition home or self-care (01) ==
LOC: OROUT 09:46
PROVIDERS: ATTEND Surgery
DX: T85.611A Breakdown (mechanical) of intraperitoneal dialysis catheter, initial encounter (principal); Y83.2 Surgical operation with anastomosis, bypass or graft as the cause of abnormal reaction of the patient, or of later complication, without mention of misadventure at the time of the procedure; I13.2 Hypertensive heart and chronic kidney disease with heart failure and with stage 5 chronic kidney disease, or end stage renal disease; I50.9 Heart failure, unspecified; E11.22 Type 2 diabetes mellitus with diabetic chronic kidney disease; N18.6 End stage renal disease; Z99.2 Dependence on renal dialysis; Z79.82 Long term (current) use of aspirin; Z79.899 Other long term (current) drug therapy
CPT/HCPCS: 36415; 84703; 85025; 80048; 49422; 49421; J2250; J3490 ×5; J0690; J1100; J1885; J3010; J1644; J2704

== ENCOUNTER 2019-12-15 17:22 | Emergency (ER) | payer OTHER, MEDICAID ==
[2019-12-15] MEDS ORDERED: IPRATROPIUM/ALBUTEROL 0.5-2.5 MG/3 ML AMPUL NEB ONE (18:13)
[2019-12-15] MEDS ORDERED: PREDNISONE 20 MG TABLET PO ONE (18:14)
--- NOTE | 2019-12-15 18:15 | ER Document Report ---
ED Medical Screen (RME) - General Chief Complaint: Cough Stated Complaint: CHEST CONGESTION/COUGH/NAUSEA Time Seen by Provider: 12/15/19 18:07 Primary Care Provider: INDIGO VALLE NP [Primary Care Provider] - Follow up as needed Notes: HPI: 49-year-old female who is a dialysis patient of Dr. Dewitt who goes on Saturday presenting for 1 week of cough with shortness of breath and chest discomfort. Patient has not had any definitive fever. She does report some shortness of breath with wheezing which she states she does not normally do. Patient did go to dialysis today and have her full dialysis treatment. I have greeted and performed a rapid initial assessment of this patient. A comprehensive ED assessment and evaluation of the patient, analysis of test results and completion of the medical decision making process will be conducted by additional ED providers PHYSICAL EXAMINATION: GENERAL: Well-appearing, well-nourished and in no acute distress. HEAD: Atraumatic, normocephalic. EYES: sclera anicteric, conjunctiva are normal. ENT: Moist mucous membranes. NECK: Normal range of motion LUNGS: Normal work of breathing, crackles in the bases, expiratory wheezing, does not become significantly dyspneic with speaking. Dialysis catheter in the right upper chest wall HEART: 2+ radial pulses bilaterally, regular rate and rhythm ABD: limited by positioning for exam in triage. EXTREMITIES: no pitting or edema. No cyanosis. NEUROLOGICAL: No focal neurological deficits. Moves all extremities spontaneously and on command. PSYCH: Normal mood, normal affect. SKIN: Warm, Dry, normal turgor, no rashes or lesions noted. TRAVEL OUTSIDE OF THE [place] IN LAST 30 DAYS: No - Related Data Allergies/Adverse Reactions: No Known Allergies Allergy (Verified 11/23/19 10:37) Past Medical History - Past Medical History Cardiac Medical History: Reports: Hx Congestive Heart Failure, Hx Hypertension, Hx Heart Murmur Denies: Hx Coronary Artery Disease, Hx Heart Attack Pulmonary Medical History: Denies: Hx Asthma, Hx Bronchitis, Hx COPD, Hx Pneumonia, Hx Respiratory Failure Neurological Medical History: Denies: Hx Cerebrovascular Accident, Hx Migraine, Hx Seizures Endocrine Medical History: Reports: Hx Diabetes Mellitus Type 2 Renal/ Medical History: Reports: Hx End Stage Renal Disease, Hx Hemodialysis. Denies: Hx Peritoneal Dialysis GI Medical History: Denies: Hx Cirrhosis, Hx Diverticulitis, Hx Hiatal Hernia Musculoskeltal Medical History: Denies Hx Arthritis, Denies Hx Fibromyalgia, Denies Hx Gout Skin Medical History: Denies Hx Eczema, Denies Hx Psoriasis Psychiatric Medical History: Denies: Hx Depression Past Surgical History: Reports: Hx Valve Replacement - Mitral valve surgery, Hx Vascular Surgery - Vas-Cath placement, peritoneal dialysis catheter placement, Other - Left eye surgery - Immunizations Immunizations up to date: Yes Hx Diphtheria, Pertussis, Tetanus Vaccination: No Physical Exam - Vital signs Vitals: Temp Pulse Resp BP Pulse Ox 98.4 F 68 16 158/79 H 96 12/15/19 17:52 12/15/19 17:52 12/15/19 17:52 12/15/19 17:52 12/15/19 17:52 Course - Vital Signs Vital signs: Temp Pulse Resp BP Pulse Ox 98.4 F 68 16 158/79 H 96 12/15/19 17:52 12/15/19 17:52 12/15/19 17:52 12/15/19 17:52 12/15/19 17:52 Doctor's Discharge - Discharge Referrals: INDIGO VALLE NP [Primary Care Provider] - Follow up as needed
[2019-12-15 19:13] LABS: HEMATOCRIT 30.6 % (36.0-47.0); HEMOGLOBIN 9.7 g/dL (12.0-15.5); MEAN CORPUSCULAR HEMOGLOBIN 23.1 pg (27.0-33.4); MEAN CORPUSCULAR HGB CONC 31.7 g/dL (32.0-36.0); MEAN CORPUSCULAR VOLUME 73 fl (80-97); PLATELET COUNT 253 10^3/uL (150-450); RED BLOOD COUNT 4.21 10^6/uL (3.72-5.28); RED CELL DISTRIBUTION WIDTH 22.2 % (11.5-14.0); WHITE BLOOD COUNT 9.5 10^3/uL (4.0-10.5)
[2019-12-15 19:27] LABS: A TYPE INFLUENZA AG NEGATIVE (NEGATIVE); B INFLUENZA AG NEGATIVE (NEGATIVE)
--- NOTE | 2019-12-15 19:28 | RADIOLOGY REPORT (SQ) ---
EXAM DESCRIPTION: CHEST 2 VIEWS COMPLETED DATE/TIME: 12/15/2019 7:11 pm REASON FOR STUDY: cough COMPARISON: 07/25/2019, 08/17/2019, 09/05/2019 chest films EXAM PARAMETERS: NUMBER OF VIEWS: two views TECHNIQUE: Digital Frontal and Lateral radiographic views of the chest acquired. RADIATION DOSE: NA LIMITATIONS: none FINDINGS: LUNGS AND PLEURA: Persistent small to moderate right pleural effusion, similar compared to previous studies. Persistent right basilar airspace disease atelectasis versus pneumonia. No left pleural effusion. No focal left infiltrates. No right or left pneumothorax. MEDIASTINUM AND HILAR STRUCTURES: No masses or contour abnormalities. HEART AND VASCULAR STRUCTURES: Stable moderate cardiomegaly with limited sternotomy and valve replace ment BONES: No acute findings. HARDWARE: Right-sided central venous dialysis catheter tip in the superior vena cava OTHER: No other significant finding. IMPRESSION: Unchanged right pleural effusion and basilar airspace disease TECHNICAL DOCUMENTATION: JOB ID: [id number] [employer]- All Rights Reserved Reading location - IP/workstation name: [id number]
[2019-12-15 19:29] LABS: ALBUMIN 3.4 g/dL (3.5-5.0); ALKALINE PHOSPHATASE 219 U/L (38-126); ANION GAP 10 (5-19); ASPARTATE AMINO TRANSFERASE 26 U/L (14-36); BILIRUBIN,DIRECT 0.4 mg/dL (0.0-0.4); BILIRUBIN,TOTAL 1.1 mg/dL (0.2-1.3); BLOOD UREA NITROGEN 35 mg/dL (7-20); CALCIUM 8.3 mg/dL (8.4-10.2); CARBON DIOXIDE 28 mmol/L (22-30); CHLORIDE 96 mmol/L (98-107); GLUCOSE 169 mg/dL (75-110); POTASSIUM 3.6 mmol/L (3.6-5.0); TOTAL PROTEIN 8.1 g/dL (6.3-8.2)
[2019-12-15 19:43] LABS: ABSOLUTE LYMPHOCYTES# (MANUAL) 1.1 10^3/uL (0.5-4.7); ABSOLUTE MONOCYTES # (MANUAL) 0.3 10^3/uL (0.1-1.4); BASOPHILS % (MANUAL) 0 % (0-2); EOSINOPHILS % (MANUAL) 0 % (0-6); LYMPHOCYTES % (MANUAL) 12 % (13-45); MONOCYTES % (MANUAL) 3 % (3-13); SEGMENTED NEUTROPHILS % (MAN) 85 % (42-78); TOTAL CELLS COUNTED 100
[2019-12-15 19:44] LABS: HYPOCHROMASIA 2+; POLYCHROMASIA 2+; TOXIC GRANULATION 1+
[2019-12-15 19:45] LABS: ANISOCYTOSIS 3+; OVALOCYTES SLIGHT; PLATELET COMMENT ADEQUATE; POIKILOCYTOSIS SLIGHT; SCHISTOCYTES SLIGHT; TEAR DROP CELLS SLIGHT
[2019-12-15] MEDS ORDERED: ALBUTEROL SULFATE HFA (90 MCG/PUFF) 8 GM MDI (1 MDI/ER DISP) IH PRN (20:47)
[2019-12-15] MEDS ORDERED: ONDANSETRON ODT 4 MG TAB (6 TAB/ER DISP) PO PRN (20:48)
--- NOTE | 2019-12-15 20:53 | ER Document Report ---
ED General - General Chief Complaint: Cough Stated Complaint: CHEST CONGESTION/COUGH/NAUSEA Time Seen by Provider: 12/15/19 18:07 Primary Care Provider: INDIGO VALLE NP [Primary Care Provider] - Follow up as needed TRAVEL OUTSIDE OF THE [place] IN LAST 30 DAYS: No - HPI Notes: Patient is a 49-year-old female who presents to the emergency department for evaluation of cough, congestion, chest pain, nausea, vomiting. Her symptoms been present for approximately 1 week. She denies any mckenna fevers to her knowledge, but she admits she has had some occasional chills. She has had cough and congestion, ear pain for the last several days as well. She states her cough has been productive of yellow sputum. She started vomiting today. She had multiple episodes of nonbloody, nonbilious emesis. It started while she was at dialysis. She states she was able to finish her normal dialysis treatment without difficulty. She also notes that she is had increased swelling in her legs, this is been attributed to the increased protein they are using with her dialysis. She denies any leg pain. She states her chest only hurts when she is coughing, she describes it as a soreness. - Related Data Allergies/Adverse Reactions: No Known Allergies Allergy (Verified 11/23/19 10:37) Home Medications: List reviewed, please see chart Past Medical History - General Information source: Patient - Social History Smoking Status: Unknown if Ever Smoked Family History: Reviewed & Not Pertinent Patient has suicidal ideation: No Patient has homicidal ideation: No - Past Medical History Cardiac Medical History: Reports: Hx Congestive Heart Failure, Hx Hypertension, Hx Heart Murmur Denies: Hx Coronary Artery Disease, Hx Heart Attack Pulmonary Medical History: Denies: Hx Asthma, Hx Bronchitis, Hx COPD, Hx Pneumonia, Hx Respiratory Failure Neurological Medical History: Denies: Hx Cerebrovascular Accident, Hx Migraine, Hx Seizures Endocrine Medical History: Reports: Hx Diabetes Mellitus Type 2 Renal/ Medical History: Reports: Hx End Stage Renal Disease, Hx Hemodialysis. Denies: Hx Peritoneal Dialysis GI Medical History: Denies: Hx Cirrhosis, Hx Diverticulitis, Hx Hiatal Hernia Musculoskeletal Medical History: Denies Hx Arthritis, Denies Hx Fibromyalgia, Denies Hx Gout Skin Medical History: Denies Hx Eczema, Denies Hx Psoriasis Psychiatric Medical History: Denies: Hx Depression Past Surgical History: Reports: Hx Valve Replacement - Mitral valve surgery, Hx Vascular Surgery - Vas-Cath placement, peritoneal dialysis catheter placement, Other - Left eye surgery - Immunizations Immunizations up to date: Yes Hx Diphtheria, Pertussis, Tetanus Vaccination: No Hx Pneumococcal Vaccination: 08/11/20 Review of Systems - Review of Systems Constitutional: See HPI EENT: See HPI Cardiovascular: No symptoms reported Respiratory: See HPI Gastrointestinal: No symptoms reported Genitourinary: No symptoms reported Musculoskeletal: See HPI Skin: No symptoms reported Neurological/Psychological: No symptoms reported Physical Exam - Vital signs Vitals: Temp Pulse Resp BP Pulse Ox 98.4 F 68 16 158/79 H 96 12/15/19 17:52 12/15/19 17:52 12/15/19 17:52 12/15/19 17:52 12/15/19 17:52 - Notes Notes: Is a 49-year-old female who appears her stated age in no acute distress. She is resting comfortably in the bed, has a mask on. vital signs reviewed, please refer to chart. Head is normocephalic, atraumatic. Pupils equal round, reactive to light. Neck is supple without meningismus. Heart is regular rate and rhythm. Lungs reveal occasional rhonchi and scattered expiratory wheezes. Abdomen is soft, nontender, normoactive bowel sounds throughout. Extremities without cyanosis, clubbing. 3+ pitting edema to bilateral lower extremities. Posterior calves are nontender. Peripheral pulses are equal. Skin is warm and dry. Patient is awake, alert, neurological exam is nonfocal. Course - Re-evaluation Re-evalutation: 12/15/19 20:50 Patient presents to the emergency department for evaluation. He has had cough, congestion, nausea, vomiting. She is afebrile here, no mckenna fevers to her knowledge. She does seem to have an influenza-like illness. Her influenza swab was negative. Her laboratory investigations were remarkable primarily for an intermediately elevated troponin. This is not a new problem for her. This is secondary to her dialysis. Her chest pain is not concerning in any way for cardiac pain. It is reproducible with palpation, only present with coughing. Patient's chest x-ray shows stable chronic effusion. At this point she is offered supportive care. She is to follow-up closely with primary care. She is to return to the emergency department with worsening or new concerning symptoms of any sort. - Vital Signs Vital signs: Temp Pulse Resp BP Pulse Ox 98.4 F 68 17 190/89 H 99 12/15/19 17:52 12/15/19 17:52 12/15/19 20:17 12/15/19 20:17 12/15/19 20:15 - Laboratory Result Diagrams: 12/15/19 18:45 12/15/19 18:45 Laboratory results interpreted by me: 12/15/19 12/15/19 18:45 18:45 Hgb 9.7 L Hct 30.6 L MCV 73 L MCH 23.1 L MCHC 31.7 L RDW 22.2 H Seg Neuts % (Manual) 85 H Lymphocytes % (Manual) 12 L Sodium 133.6 L Chloride 96 L BUN 35 H Creatinine 2.68 H Est GFR ( Amer) 23 L Est GFR (MDRD) Non-Af 19 L Glucose 169 H Calcium 8.3 L Alkaline Phosphatase 219 H Albumin 3.4 L - Diagnostic Test Radiology reviewed: Reports reviewed Radiology results interpreted by me: 12/15/19 20:53 Chest X-Ray 12/15/19 18:13 IMPRESSION: Unchanged right pleural effusion and basilar airspace disease - EKG Interpretation by Me Additional EKG results interpreted by me: 12/15/19 20:53 Sinus mechanism with a rate of 60 bpm. Incomplete bundle branch block, right axis deviation, nonspecific ST changes. No change compared to prior study of September 07, 2019 Discharge - Discharge Clinical Impression: Influenza-like illness, Nausea & vomiting, Pleural effusion Condition: Stable Disposition: HOME, SELF-CARE Instructions: Antinausea Medication ([facility]), Viral Syndrome ([facility]), Vomiting ([facility]) Additional Instructions: Use albuterol inhaler as needed for cough/shortness of breath. Zofran as needed for nausea. Stay well hydrated with small, frequent sips of fluids. Continue dialysis as scheduled. Follow-up with your primary care provider this week. Return to the emergency department for worsening or new concerning symptoms of any sort. Referrals: INDIGO VALLE NP [Primary Care Provider] - Follow up as needed
--- NOTE | 2019-12-15 22:01 | EKG REPORT ---
SEVERITY:- ABNORMAL ECG - SINUS RHYTHM PROBABLE LEFT ATRIAL ABNORMALITY LEFT POSTERIOR FASCICULAR BLOCK ABNORMAL T, CONSIDER ISCHEMIA, LATERAL LEADS : Confirmed by: Keira Fernandes MD 15-Dec-2019 22:00:32
[2019-12-15 22:15] VITALS: BP 184/89
== END 2019-12-15 22:28 | disposition home or self-care (01) ==
LOC: ER 17:22
DX: J11.1 Influenza due to unidentified influenza virus with other respiratory manifestations (principal); I12.0 Hypertensive chronic kidney disease with stage 5 chronic kidney disease or end stage renal disease; E11.22 Type 2 diabetes mellitus with diabetic chronic kidney disease; N18.6 End stage renal disease; Z99.2 Dependence on renal dialysis; J90 Pleural effusion, not elsewhere classified; R11.2 Nausea with vomiting, unspecified; I45.10 Unspecified right bundle-branch block; R05 Cough; R07.9 Chest pain, unspecified; R68.83 Chills (without fever); H92.09 Otalgia, unspecified ear
CPT/HCPCS: 93005; 94640; 99285; 36415; 85025; 80053; 84484; 87804; 71046; 93010; J7512; J3490; J7620

== ENCOUNTER 2019-12-21 16:21 | Emergency (ER) | payer OTHER, MEDICAID ==
--- NOTE | 2019-12-21 17:11 | RADIOLOGY REPORT (SQ) ---
EXAM DESCRIPTION: CHEST SINGLE VIEW COMPLETED DATE/TIME: 12/21/2019 4:52 pm REASON FOR STUDY: sob COMPARISON: AP and lateral views of the chest from 12/15/2019 EXAM PARAMETERS: NUMBER OF VIEWS: One view. TECHNIQUE: An AP view of the chest was obtained. RADIATION DOSE: NA LIMITATIONS: None. FINDINGS: LUNGS AND PLEURA: Unchanged pleural and parenchymal opacities in the right inferior hemith orax that could represent a combination of pleural fluid, atelectasis and or consolidation. MEDIASTINUM AND HILAR STRUCTURES: No mediastinal or hilar contour abnormality. HEART AND VASCULAR STRUCTURES: Stable cardiomegaly. BONES: No acute findings. HARDWARE: Cardiac valve prosthesis, median sternotomy wires, epicardial leads, and surgical clips. T he tip of the tunneled right IJ is hemodialysis catheter projects at the level of the cavoatrial junc tion. OTHER: No other finding. IMPRESSION: Unchanged pleural and parenchymal opacities in the inferior right hemithorax that could represent a combination of pleural fluid and atelectasis. Clinical correlation to exclude a superimp osed pneumonia is recommended. TECHNICAL DOCUMENTATION: JOB ID: [id number] 2010 [employer]- All Rights Reserved Reading location - IP/workstation name: [email or web address]
[2019-12-21 17:58] LABS: ABSOLUTE EOSINOPHILS # (AUTO) 0.1 10^3/uL (0.0-0.6); ABSOLUTE LYMPHOCYTES (AUTO) 0.7 10^3/uL (0.5-4.7); ABSOLUTE MONOCYTES (AUTO) 0.6 10^3/uL (0.1-1.4); ABSOLUTE NEUT (AUTO) 8.4 10^3/uL (1.7-8.2); BASOPHILS % (AUTO) 0.3 % (0-2); EOSINOPHILS % (AUTO) 0.7 % (0-6); HEMATOCRIT 31.7 % (36.0-47.0); HEMOGLOBIN 9.3 g/dL (12.0-15.5); LYMPHOCYTES % (AUTO) 6.7 % (13-45); MEAN CORPUSCULAR HEMOGLOBIN 22.7 pg (27.0-33.4); MEAN CORPUSCULAR HGB CONC 29.5 g/dL (32.0-36.0); MONOCYTES % (AUTO) 6.3 % (3-13); PLATELET COUNT 239 10^3/uL (150-450); RED BLOOD COUNT 4.11 10^6/uL (3.72-5.28); RED CELL DISTRIBUTION WIDTH 22.7 % (11.5-14.0); TOTAL CELLS COUNTED % (AUTO) 100 %; WHITE BLOOD COUNT 9.8 10^3/uL (4.0-10.5)
[2019-12-21 18:07] LABS: MEAN CORPUSCULAR VOLUME 77 fl (80-97)
[2019-12-21 18:12] LABS: ALBUMIN 3.3 g/dL (3.5-5.0); ALKALINE PHOSPHATASE 271 U/L (38-126); ANION GAP 16 (5-19); ASPARTATE AMINO TRANSFERASE 20 U/L (14-36); BILIRUBIN,DIRECT 0.7 mg/dL (0.0-0.4); BILIRUBIN,TOTAL 0.9 mg/dL (0.2-1.3); BLOOD UREA NITROGEN 65 mg/dL (7-20); CALCIUM 8.7 mg/dL (8.4-10.2); CARBON DIOXIDE 24 mmol/L (22-30); CHLORIDE 88 mmol/L (98-107); POTASSIUM 5.2 mmol/L (3.6-5.0); TOTAL PROTEIN 7.5 g/dL (6.3-8.2)
[2019-12-21 18:32] LABS: GLUCOSE 790 mg/dL (75-110)
--- NOTE | 2019-12-21 18:46 | ER Document Report ---
ED General - General Chief Complaint: Breathing Difficulty Stated Complaint: DIFFICULTY BREATHING Time Seen by Provider: 12/21/19 18:45 Primary Care Provider: INDIGO VALLE NP [Primary Care Provider] - Follow up as needed Mode of Arrival: Medic Information source: Patient TRAVEL OUTSIDE OF THE [place] IN LAST 30 DAYS: No - HPI Onset: Other - over the last few days Onset/Duration: Gradual Quality of pain: Achy Severity: Moderate Pain Level: 2 Associated symptoms: Other - abdominal distention Exacerbated by: Other - Exertion Relieved by: Denies Similar symptoms previously: No Recently seen / treated by doctor: Yes - Patient was dialyzed Saturday Notes: 49 year old female with a history of ESRD Last dialyzed Saturday), CHF, DM, HTN here for abdominal distention, elevated blood sugars, and shortness of breath. The patient says she recently switched from Peritoneal Dialysis in the last month and since then her abdomen has become distended. The patient claims she has been taking all of her medications including her diabetes medications as prescribed. The patient denies fevers, chills, sweats, urinary symptoms, productive cough. - Related Data Allergies/Adverse Reactions: No Known Allergies Allergy (Verified 11/23/19 10:37) Past Medical History - Social History Smoking Status: Former Smoker Chew tobacco use (# tins/day): No Frequency of alcohol use: None Drug Abuse: None Family History: Reviewed & Not Pertinent Patient has suicidal ideation: No Patient has homicidal ideation: No - Past Medical History Cardiac Medical History: Reports: Hx Congestive Heart Failure, Hx Hypertension, Hx Heart Murmur Denies: Hx Coronary Artery Disease, Hx Heart Attack Pulmonary Medical History: Denies: Hx Asthma, Hx Bronchitis, Hx COPD, Hx Pneumonia, Hx Respiratory Failure Neurological Medical History: Denies: Hx Cerebrovascular Accident, Hx Migraine, Hx Seizures Endocrine Medical History: Reports: Hx Diabetes Mellitus Type 2 Renal/ Medical History: Reports: Hx End Stage Renal Disease, Hx Hemodialysis. Denies: Hx Peritoneal Dialysis GI Medical History: Denies: Hx Cirrhosis, Hx Diverticulitis, Hx Hiatal Hernia Musculoskeletal Medical History: Denies Hx Arthritis, Denies Hx Fibromyalgia, Denies Hx Gout Skin Medical History: Denies Hx Eczema, Denies Hx Psoriasis Psychiatric Medical History: Denies: Hx Depression Past Surgical History: Reports: Hx Valve Replacement - Mitral valve surgery, Hx Vascular Surgery - Vas-Cath placement, peritoneal dialysis catheter placement, Other - Left eye surgery - Immunizations Immunizations up to date: Yes Hx Diphtheria, Pertussis, Tetanus Vaccination: No Hx Pneumococcal Vaccination: 08/11/20 Review of Systems - Review of Systems Constitutional: Weakness, Other - high blood sugars EENT: No symptoms reported Cardiovascular: No symptoms reported Respiratory: No symptoms reported Gastrointestinal: Abdomen distended, Abdominal pain Genitourinary: No symptoms reported Female Genitourinary: No symptoms reported Musculoskeletal: No symptoms reported Skin: No symptoms reported Hematologic/Lymphatic: No symptoms reported Neurological/Psychological: No symptoms reported -: Yes All other systems reviewed and negative Physical Exam - Vital signs Vitals: Resp 17 12/21/19 16:35 - Notes Notes: GENERAL: Well-appearing, well-nourished and in no acute distress. HEAD: Atraumatic, normocephalic. EYES: Pupils equal round and reactive to light, extraocular movements intact, sclera anicteric, conjunctiva are normal. ENT: Nares patent, oropharynx clear without exudates. Moist mucous membranes. NECK: Normal range of motion, supple without lymphadenopathy or JVD. LUNGS: Breath sounds clear to auscultation bilaterally and equal. No wheezes rales or rhonchi. HEART: Regular rate and rhythm without murmurs, rubs or gallops. ABDOMEN: Distention noted with mild diffuse tenderness, soft, normoactive bowel sounds. No guarding, no rebound. No masses appreciated. Scabs and scars noted from prior peritoneal dialysis. EXTREMITIES: Normal range of motion, no pitting or edema. No clubbing or cyanosis. NEUROLOGICAL: Cranial nerves II through XII grossly intact. Normal speech, normal gait. PSYCH: Normal mood, normal affect. SKIN: Warm, Dry, normal turgor, no rashes or lesions noted. Course - Re-evaluation Re-evalutation: 12/21/19 19:36 The patient is very hyperglycemic with a blood glucose of 790. The patient also has a low sodium at 127. The patient also has abdominal distention and abdominal discomfort. Patient says she has been taking her diabetes medications as prescribed but this may not be the case. Patient is due for dialysis tomorrow and she seems volume overloaded but her K is only 5.2. There are no available inpatient dialysis beds for tomorrow so will need to transfer patient. 12/21/19 20:31 [facility] has accepted the patient to a medical bed. After speaking with Dr. Hanks, plan to start an insulin infusion prior to transport. 12/21/19 22:13 [facility] has changed the patient's accepting Doctor to Dr. Darnell [facility]. Patient remains on an insulin infusion. Patient is acidotic by VBG but has a normal Serum Bicarb. - Vital Signs Vital signs: Temp Pulse Resp BP Pulse Ox 98.3 F 18 192/93 H 96 12/21/19 21:01 12/21/19 21:30 12/21/19 21:30 12/21/19 16:40 - Laboratory Result Diagrams: 12/21/19 17:24 12/21/19 17:24 Laboratory results interpreted by me: 12/21/19 12/21/19 12/21/19 17:24 17:24 17:24 Hgb 9.3 L Hct 31.7 L MCV 77 L D MCH 22.7 L MCHC 29.5 L RDW 22.7 H Lymph % (Auto) 6.7 L Absolute Neuts (auto) 8.4 H Seg Neutrophils % 86.0 H PT VBG pH Sodium 127.7 L Potassium 5.2 H Chloride 88 L BUN 65 H Creatinine 3.83 H Est GFR ( Amer) 15 L Est GFR (MDRD) Non-Af 12 L Glucose 790 H* Direct Bilirubin 0.7 H Alkaline Phosphatase 271 H NT-Pro-B Natriuret Pep 10112 H Albumin 3.3 L 12/21/19 12/21/19 17:24 21:08 Hgb Hct MCV MCH MCHC RDW Lymph % (Auto) Absolute Neuts (auto) Seg Neutrophils % PT 16.7 H VBG pH 7.25 L Sodium Potassium Chloride BUN Creatinine Est GFR ( Amer) Est GFR (MDRD) Non-Af Glucose Direct Bilirubin Alkaline Phosphatase NT-Pro-B Natriuret Pep Albumin - Diagnostic Test Radiology reviewed: Image reviewed, Reports reviewed - EKG Interpretation by Me EKG shows normal: Sinus rhythm, Intervals, QRS Complexes Rate: Normal [place]/QRS: Right axis deviation Additional EKG results interpreted by me: 12/21/19 19:12 T wave inversions in aVL, V5, V6 Critical Care Note - Critical Care Note Total time excluding time spent on procedures (mins): 33 Discharge - Discharge Clinical Impression: End stage kidney disease, Hyperglycemia, Hyponatremia Heart failure Qualifiers: Heart failure type: unspecified Heart failure chronicity: acute on chronic Qualified Code(s): I50.9 - Heart failure, unspecified Condition: Stable Disposition: [facility] Admitting Provider: Dr. Darnell Referrals: INDIGO VALLE NP [Primary Care Provider] - Follow up as needed
[2019-12-21] MEDS ORDERED: INSULIN REG, HUMAN 100 UNIT/ML 3 ML VIAL (PYX) SUBCUT ONE (19:05)
[2019-12-21 19:39] LABS: INTERNATIONAL RATION (INR) 1.34; PROTHROMBIN TIME 16.7 SEC (11.4-15.4)
[2019-12-21] MEDS ORDERED: LABETALOL HCL INJ 20 MG/4 ML DISP.SYRIN IV ONE (19:41)
[2019-12-21] MEDS ORDERED: DEXTROSE 40% GEL 15 GM TUBE PO PRN ×2 (20:30)
[2019-12-21] MEDS ORDERED: GLUCAGON,HUMAN RECOMB 1 MG INJ IM PRN (20:30)
[2019-12-21] MEDS ORDERED: NORMAL SALINE 100 ML with INSULIN REGULAR, HUMAN 100 UNIT IV PRN ×2 (20:30)
[2019-12-21] MEDS ORDERED: DEXTROSE 50%-WATER 25 GM/50 ML DISP.SYRIN IV PRN ×2 (20:30)
[2019-12-21 21:26] LABS: VENOUS BLOOD BASE EXCESS -2.7 mmol/L; VENOUS BLOOD HCO3 24.9 mmol/L (20-32); VENOUS BLOOD PCO2 57.8 mmHg (35-63); VENOUS BLOOD PH 7.25 (7.30-7.42)
[2019-12-21] MEDS ORDERED: HYDRALAZINE HCL INJ/PF 20 MG/1 ML SDV IV ONE (22:10)
[2019-12-22 00:26] VITALS: BP 144/78
--- NOTE | 2019-12-22 07:24 | EKG REPORT ---
SEVERITY:- ABNORMAL ECG - SINUS RHYTHM RIGHT AXIS DEVIATION ABNORMAL T, CONSIDER ISCHEMIA, LATERAL LEADS LA ABNORMALITY : Confirmed by: Raheem Barrios MD 22-Dec-2019 07:23:16
== END 2019-12-22 00:30 | disposition short-term general hospital (02) ==
LOC: ER 16:21
DX: E87.1 Hypo-osmolality and hyponatremia (principal); E11.65 Type 2 diabetes mellitus with hyperglycemia; R06.00 Dyspnea, unspecified; R53.1 Weakness; E11.22 Type 2 diabetes mellitus with diabetic chronic kidney disease; I13.2 Hypertensive heart and chronic kidney disease with heart failure and with stage 5 chronic kidney disease, or end stage renal disease; I50.9 Heart failure, unspecified; N18.6 End stage renal disease; Z95.4 Presence of other heart-valve replacement; Z99.2 Dependence on renal dialysis
CPT/HCPCS: 93005; 99291; 51701; 96374; 96375; 36415; 82010; 82962; 85025; 85610; 80053; 84484; 82803; 83880; 71045; 93010; J0360; J1815 ×2; J3490; J7050

== ENCOUNTER 2020-02-20 11:59 | Emergency (ER) | payer OTHER, MEDICARE, MEDICAID ==
[2020-02-20 13:06] LABS: HEMATOCRIT 31.3 % (36.0-47.0); HEMOGLOBIN 9.7 g/dL (12.0-15.5); MEAN CORPUSCULAR HEMOGLOBIN 22.1 pg (27.0-33.4); MEAN CORPUSCULAR HGB CONC 31.1 g/dL (32.0-36.0); MEAN CORPUSCULAR VOLUME 71 fl (80-97); PLATELET COUNT 248 10^3/uL (150-450); RED BLOOD COUNT 4.41 10^6/uL (3.72-5.28); WHITE BLOOD COUNT 8.6 10^3/uL (4.0-10.5)
[2020-02-20 13:16] LABS: ALBUMIN 3.7 g/dL (3.5-5.0); ALKALINE PHOSPHATASE 456 U/L (38-126); ANION GAP 13 (5-19); ASPARTATE AMINO TRANSFERASE 40 U/L (14-36); BILIRUBIN,DIRECT 0.8 mg/dL (0.0-0.4); BILIRUBIN,TOTAL 1.2 mg/dL (0.2-1.3); BLOOD UREA NITROGEN 89 mg/dL (7-20); CARBON DIOXIDE 24 mmol/L (22-30); CHLORIDE 97 mmol/L (98-107); GLUCOSE 165 mg/dL (75-110); POTASSIUM 5.3 mmol/L (3.6-5.0); TOTAL PROTEIN 8.4 g/dL (6.3-8.2)
[2020-02-20 13:21] LABS: ALCOHOL < 10 mg/dL (NONE DETECTED)
[2020-02-20 13:24] LABS: CREATINE KINASE MB 3.06 ng/mL (<4.55)
--- NOTE | 2020-02-20 13:24 | RADIOLOGY REPORT (SQ) ---
EXAM DESCRIPTION: CT HEAD WITHOUT IMAGES COMPLETED DATE/TIME: 02/20/2020 1:13 pm REASON FOR STUDY: weakness/fall COMPARISON: None. TECHNIQUE: Axial images acquired through the brain without intravenous contrast. Images reviewed wi th bone, brain and subdural windows. Additional sagittal and coronal reconstructions were generated. Images stored on PACS. All CT scanners at this facility use dose modulation, iterative reconstruction, and/or weight based d osing when appropriate to reduce radiation dose to as low as reasonably achievable (ALARA). [facility]: Dose Right [facility]: CareDose [facility]: Dose Right [facility]: Teradose 4D [facility]: Smart Puddle RADIATION DOSE: CT Rad equipment meets quality standard of care and radiation dose reduction techniq ues were employed. CTDIvol: 53.2 mGy. DLP: 964 mGy-cm. mGy. LIMITATIONS: None. FINDINGS: VENTRICLES: Prominent. CEREBRUM: No masses. No hemorrhage. No midline shift. Areas of low density in the white matter mos t likely due to chronic micro-vascular ischemic change. No evidence for acute infarction. CEREBELLUM: No masses. No hemorrhage. No alteration of density. No evidence for acute infarction. EXTRAAXIAL SPACES: Mild age-related involutional change. No fluid collections. No masses. ORBITS AND GLOBE: No intra- or extraconal masses. Normal contour of globe without masses. CALVARIUM: No fracture. PARANASAL SINUSES: No fluid or mucosal thickening. SOFT TISSUES: No mass or hematoma. OTHER: No other significant finding. IMPRESSION: MILD CHRONIC CHANGES OF ATROPHY AND MICROVASCULAR ISCHEMIA. NO ACUTE PROCESS. EVIDENCE OF ACUTE STROKE: NO. TECHNICAL DOCUMENTATION: JOB ID: [id number] Quality ID # [id number]: Final reports with documentation of one or more dose reduction techniques (e.g., Au tomated exposure control, adjustment of the mA and/or kV according to patient size, use of iterative reconstruction technique) 2010 [employer]- All Rights Reserved Reading location - IP/workstation name: [email or web address]
[2020-02-20 13:27] LABS: TROPONIN I 0.116 ng/mL
--- NOTE | 2020-02-20 13:45 | RADIOLOGY REPORT (SQ) ---
EXAM DESCRIPTION: FEMUR LEFT; TIBIA FIBULA LEFT IMAGES COMPLETED DATE/TIME: 02/20/2020 1:32 pm REASON FOR STUDY: fall/pain; pain/fall COMPARISON: None. NUMBER OF VIEWS: Four views. TECHNIQUE: Two radiographic images acquired of the left tibia fibula and left femur to include hip a nd knee in at least one projection. LIMITATIONS: None. FINDINGS: MINERALIZATION: Osteopenia. BONES: Oblique fracture of the proximal tibial diaphysis extending to the lateral margin of the metap hysis. Minimal displacement. SOFT TISSUES: Vascular calcifications. OTHER: No other significant finding. IMPRESSION: Fracture of the proximal tibia. TECHNICAL DOCUMENTATION: JOB ID: [id number] 2010 [employer]- All Rights Reserved Reading location - IP/workstation name: [email or web address]
--- NOTE | 2020-02-20 13:45 | RADIOLOGY REPORT (SQ) ---
EXAM DESCRIPTION: FEMUR LEFT; TIBIA FIBULA LEFT IMAGES COMPLETED DATE/TIME: 02/20/2020 1:32 pm REASON FOR STUDY: fall/pain; pain/fall COMPARISON: None. NUMBER OF VIEWS: Four views. TECHNIQUE: Two radiographic images acquired of the left tibia fibula and left femur to include hip a nd knee in at least one projection. LIMITATIONS: None. FINDINGS: MINERALIZATION: Osteopenia. BONES: Oblique fracture of the proximal tibial diaphysis extending to the lateral margin of the metap hysis. Minimal displacement. SOFT TISSUES: Vascular calcifications. OTHER: No other significant finding. IMPRESSION: Fracture of the proximal tibia. TECHNICAL DOCUMENTATION: JOB ID: [id number] 2010 [employer]- All Rights Reserved Reading location - IP/workstation name: [email or web address]
--- NOTE | 2020-02-20 13:47 | RADIOLOGY REPORT (SQ) ---
EXAM DESCRIPTION: FOOT LEFT COMPLETE; ANKLE LEFT COMPLETE IMAGES COMPLETED DATE/TIME: 02/20/2020 1:32 pm REASON FOR STUDY: fall/apin; fall COMPARISON: None. NUMBER OF VIEWS: Six views. TECHNIQUE: AP, lateral and oblique radiographic images acquired of the left ankle and left foot. LIMITATIONS: None. FINDINGS: MINERALIZATION: Osteopenia. BONES: No acute fracture or dislocation. No worrisome bone lesions. JOINTS: No effusions. SOFT TISSUES: Vascular calcifications. OTHER: No other significant finding. IMPRESSION: No fracture. TECHNICAL DOCUMENTATION: JOB ID: [id number] 2010 [employer]- All Rights Reserved Reading location - IP/workstation name: [id number]
--- NOTE | 2020-02-20 13:47 | RADIOLOGY REPORT (SQ) ---
EXAM DESCRIPTION: FOOT LEFT COMPLETE; ANKLE LEFT COMPLETE IMAGES COMPLETED DATE/TIME: 02/20/2020 1:32 pm REASON FOR STUDY: fall/apin; fall COMPARISON: None. NUMBER OF VIEWS: Six views. TECHNIQUE: AP, lateral and oblique radiographic images acquired of the left ankle and left foot. LIMITATIONS: None. FINDINGS: MINERALIZATION: Osteopenia. BONES: No acute fracture or dislocation. No worrisome bone lesions. JOINTS: No effusions. SOFT TISSUES: Vascular calcifications. OTHER: No other significant finding. IMPRESSION: No fracture. TECHNICAL DOCUMENTATION: JOB ID: [id number] 2010 [employer]- All Rights Reserved Reading location - IP/workstation name: [id number]
[2020-02-20 13:48] LABS: ABSOLUTE LYMPHOCYTES# (MANUAL) 0.6 10^3/uL (0.5-4.7); ABSOLUTE MONOCYTES # (MANUAL) 0.3 10^3/uL (0.1-1.4); BASOPHILS % (MANUAL) 0 % (0-2); EOSINOPHILS % (MANUAL) 3 % (0-6); LYMPHOCYTES % (MANUAL) 6 % (13-45); MONOCYTES % (MANUAL) 4 % (3-13); SEGMENTED NEUTROPHILS % (MAN) 86 % (42-78); TOTAL CELLS COUNTED 100
[2020-02-20 13:49] LABS: ANISOCYTOSIS 2+; HYPOCHROMASIA 1+; PLATELET COMMENT ADEQUATE; TARGET CELLS SLIGHT
--- NOTE | 2020-02-20 13:49 | RADIOLOGY REPORT (SQ) ---
EXAM DESCRIPTION: CHEST SINGLE VIEW IMAGES COMPLETED DATE/TIME: 02/20/2020 1:32 pm REASON FOR STUDY: dialysis/fall COMPARISON: 12/21/2019 EXAM PARAMETERS: NUMBER OF VIEWS: One view. TECHNIQUE: Single frontal radiographic view of the chest acquired. RADIATION DOSE: NA LIMITATIONS: None. FINDINGS: LUNGS AND PLEURA: Chronic small right pleural effusion. MEDIASTINUM AND HILAR STRUCTURES: Stable. HEART AND VASCULAR STRUCTURES: Stable cardiomegaly. BONES: No acute findings. HARDWARE: None in the chest. OTHER: Unchanged position of right central line. IMPRESSION: Chronic small right pleural effusion. TECHNICAL DOCUMENTATION: JOB ID: [id number] 2010 [employer]- All Rights Reserved Reading location - IP/workstation name: [email or web address]
[2020-02-20] MEDS ORDERED: MORPHINE SULFATE 10 MG/ML INJ IV ONE (14:20)
[2020-02-20] MEDS ORDERED: ONDANSETRON HCL INJ/PF 4 MG/2 ML SDV IV ONE (14:21)
[2020-02-20] MEDS ORDERED: FUROSEMIDE INJ/PF 40 MG/4 ML SDV IV ONE (14:30)
[2020-02-20] MEDS ORDERED: CEFAZOLIN 1 GM/D5W RTU 1 GM/50 ML RTUPB IV ONE (14:31)
--- NOTE | 2020-02-20 14:37 | ER Document Report ---
ED Fall - General Chief Complaint: Fall Stated Complaint: WEAKNESS Time Seen by Provider: 02/20/20 12:13 Primary Care Provider: INDIGO VALLE NP [Primary Care Provider] - Follow up as needed AMI VASQUEZ JR, DO [ACTIVE PROVISIONAL STAFF] - Follow up in 3-5 days Mode of Arrival: Medic Information source: Patient Notes: 49-year-old female -Israeli was walking into the dialysis center for hemodialysis today. She had a mechanical fall as her foot got tied up with a door mat and she fell onto her left side without any loss of consciousness. Patient was unable to get up and walk on her own at that point in time and EMS was called. EMS brought patient in full patient was alert conscious oriented. See EMS report. Patient complains of pain in her left leg around the knee area greatest pain. Denied any loss of consciousness no head or neck pain or chest pain. Patient also has a recent blood culture x2 with gram-positive cocci in clusters that was reported out on February 16. Patient is known to have some drainage coming from 1 of her dialysis shunts that is present and it was cultured and that report was given on February 16 today patient was to receive IV Ancef during her dialysis. With that said the patient will receive IV antibiotic Ancef today. Patient walks with a walker as she was doing today when she fell in front of the dialysis center front door. TRAVEL OUTSIDE OF THE [place] IN LAST 30 DAYS: No - Related data Allergies/Adverse Reactions: No Known Allergies Allergy (Verified 11/23/19 10:37) Past Medical History - Social History Smoking Status: Never Smoker Frequency of alcohol use: None Drug Abuse: None Lives with: Family Family History: Reviewed & Not Pertinent Patient has suicidal ideation: No Patient has homicidal ideation: No - Past Medical History Cardiac Medical History: Reports: Hx Congestive Heart Failure, Hx Hypertension, Hx Heart Murmur Denies: Hx Coronary Artery Disease, Hx Heart Attack Pulmonary Medical History: Denies: Hx Asthma, Hx Bronchitis, Hx COPD, Hx Pneumonia, Hx Respiratory Failure Neurological Medical History: Denies: Hx Cerebrovascular Accident, Hx Migraine, Hx Seizures Endocrine Medical History: Reports: Hx Diabetes Mellitus Type 2 Renal/ Medical History: Reports: Hx End Stage Renal Disease, Hx Hemodialysis. Denies: Hx Peritoneal Dialysis GI Medical History: Denies: Hx Cirrhosis, Hx Diverticulitis, Hx Hiatal Hernia Musculoskeletal Medical History: Denies Hx Arthritis, Denies Hx Fibromyalgia, Denies Hx Gout Skin Medical History: Denies Hx Eczema, Denies Hx Psoriasis Psychiatric Medical History: Denies: Hx Depression Past Surgical History: Reports: Hx Valve Replacement - Mitral valve surgery, Hx Vascular Surgery - Vas-Cath placement, peritoneal dialysis catheter placement, Other - Left eye surgery - Immunizations Immunizations up to date: Yes Hx Diphtheria, Pertussis, Tetanus Vaccination: No Hx Pneumococcal Vaccination: 08/11/20 Review of Systems - Review of Systems Constitutional: Weakness Cardiovascular: Edema Gastrointestinal: Abdomen distended Musculoskeletal: Joint pain Hematologic/Lymphatic: Other - 1 of her port sites that is used for hemodialysis is reported to have a drainage that has been recently cultured. Culture has shown 2 out of 2 bottles of gram positive cocci in clusters. Physical Exam - Vital signs Vitals: Temp Pulse Resp BP Pulse Ox 97.6 F 69 20 122/73 100 02/20/20 12:09 02/20/20 12:09 02/20/20 12:09 02/20/20 12:09 02/20/20 12:09 Interpretation: Normal - General General appearance: Appears well, Alert In distress: Moderate - HEENT Eyes: Other - Patient is blind in the left eye and wears a patch over that right eye is pupils equal round reactive to light. Conjunctiva: Normal Ears: Normal External canal: Normal Sinus: Normal - Respiratory Respiratory status: No respiratory distress Chest status: Nontender Breath sounds: Normal, Other - Decreased breath sounds greatest in the right base. Chest palpation: Normal - Cardiovascular Rhythm: Regular Murmur: No - Abdominal Distension: Distended Bowel sounds: Normal - Back Back: Nontender - Extremities General upper extremity: Normal inspection, Nontender, Normal color, Normal ROM, Normal temperature General lower extremity: Normal inspection, Nontender, Normal color, Normal ROM, Normal temperature, Normal weight bearing, Other - Left leg tenderness and swelling in for knee region greatest on the medial side. Decreased range of motion due to pain. 2+ pitting edema in both lower extremities.. No: Katya's sign Knee: Tender joint line - Tender joint line on the left knee with decreased range of motion. Calf: Normal Foot: Other - Left foot with a blistered skin over the dorsal foot this blister has been decompressed. No evidence for infection. 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 02/20/20 14:52 Discussed at length with the hemodialysis center in [facility] at the [facility] our goal was to try to have patient dialyzed today but time has run out for them to be able to effectively hemodialyzed her today. The plan is to have patient receive her IV antibiotics for this blood culture positive for gram-positive cocci. Patient will be immobilized in a splint and follow-up with orthopedics regarding her tibial fracture. Discussed at length with the midlevel this primary care nurse practitioner today for the dialysis nephrology service spoke with Hai Munoz and the plan is for patient to receive IV Lasix in the emergency department today IV Ancef 1 g IV push today and also to be discharged home with Kayexalate to ensure that her potassium does not rise to any dangerous level. Patient will be contacted by the dialysis team to set her dialysis schedule for next week. - Vital Signs Vital signs: Temp Pulse Resp BP Pulse Ox 97.6 F 69 16 139/77 H 100 02/20/20 12:09 02/20/20 12:09 02/20/20 14:03 02/20/20 14:03 02/20/20 14:03 - Laboratory Result Diagrams: 02/20/20 12:35 02/20/20 12:35 Laboratory results interpreted by me: 02/20/20 02/20/20 02/20/20 12:35 12:35 12:35 Hgb 9.7 L Hct 31.3 L MCV 71 L MCH 22.1 L MCHC 31.1 L RDW 19.0 H Seg Neuts % (Manual) 86 H Lymphocytes % (Manual) 6 L Sodium 134.4 L Potassium 5.3 H Chloride 97 L BUN 89 H Creatinine 6.02 H Est GFR ( Amer) 9 L Est GFR (MDRD) Non-Af 7 L Glucose 165 H Lactic Acid 2.3 H Direct Bilirubin 0.8 H AST 40 H Alkaline Phosphatase 456 H Total Protein 8.4 H 02/20/20 14:46 Lab results show a lactic acid of 2.3 with upper limit of normal is 2.1 patient has a elevated BUN and creatinine of 89 and 6.02 consistent with her dialysis renal failure. Also patient has a troponin of 0.116, which is close to a troponin of 0.059. There are no acute EKG changes to suggest an VA. Not uncommon to see these values in a chronic hemodialysis chronic renal failure failure patient. - Diagnostic Test Radiology reviewed: Image reviewed, Reports reviewed Radiology results interpreted by me: 02/20/20 14:48 CT of head showed no acute stroke or no acute process ischemic changes noted otherwise. Left femur no fracture Left tib-fib shows a oblique fracture of the proximal tibial diaphysis extending to the lateral margin of the metaphysis with minimal displacement Left ankle no acute fracture seen. Left foot no acute process no fracture. 02/20/20 14:49 Chest x-ray shows chronic pleural effusion otherwise no acute process patient has dialysis catheter is noted up in the right chest subclavian area. - EKG Interpretation by Me Additional EKG results interpreted by me: 02/20/20 14:50 Twelve-lead EKG done today for 09/30/2020 1333 normal sinus rhythm rate of 60, right axis deviation. Abnormal T waves consider ischemia/lateral leads. Procedures - Immobilization Left Knee Immobilizer type: Edward wrap, Knee immobilizer Performed by: ZEINAB Post-Proc Neuro Vasc Exam: Normal Discharge - Discharge Clinical Impression: Chronic kidney disease on chronic dialysis, Pleural effusion, Closed left tibial fracture, Gram-positive blood culture, Hyperkalemia Condition: Good Disposition: HOME, SELF-CARE Additional Instructions: Fractured Tibia You have a fracture of the tibia, the kim bone. The physician has assessed the seriousness of this fracture and has determined that no operation or hospitalization is required. The fracture should heal well, but must be monitored by re-examination and possibly X-rays. The initial treatment of this fracture is immobilization, ice packs, and elevation. A tibial fracture requires protection for about four to eight weeks, depen ding on the nature of the fracture and the age of the patient. Usually, a long- leg cast is required. Often no weight-bearing can be allowed at first despite casting. This type of fracture sometimes does not heal well. You MUST follow the doctors instructions, and call the doctor if you have any problems. Call the doctor or return at once if pain becomes severe, or if numbness or weakness develops in the foot or toes. Chronic renal failure on hemodialysis. Hyperkalemia today Missed dialysis today You will be contacted by the dialysis team to alert you of your schedule for dialysis this week which will most likely begin on Saturday. Continue your other usual medicines as you are doing. We will be giving you the name of the orthopedic doctor to follow-up regarding your tibial fracture. Prescriptions: Sodium Polystyrene Sulfonate [Kayexalate 15 Gm/60 Ml Susp 60 Ml] 15 gm PO DAILY 2 Days #30 gm Oxycodone HCl/Acetaminophen [Percocet 5-325 mg Tablet] 1 - 2 tab PO Q4H PRN #15 tablet PRN Reason: Referrals: INDIGO VALLE NP [Primary Care Provider] - Follow up as needed AMI VASQUEZ JR, DO [ACTIVE PROVISIONAL STAFF] - Follow up in 3-5 days
[2020-02-20 16:11] VITALS: BP 138/77
--- NOTE | 2020-02-21 09:09 | EKG REPORT ---
SEVERITY:- ABNORMAL ECG - SINUS RHYTHM RIGHT AXIS DEVIATION ABNORMAL T, CONSIDER ISCHEMIA, LATERAL LEADS : Confirmed by: Keira Fernandes MD 21-Feb-2020 09:08:25
== END 2020-02-20 16:11 | disposition home or self-care (01) ==
LOC: ER 11:59
DX: S82.232A Displaced oblique fracture of shaft of left tibia, initial encounter for closed fracture (principal); M25.562 Pain in left knee; W01.0XXA Fall on same level from slipping, tripping and stumbling without subsequent striking against object, initial encounter; Y93.89 Activity, other specified; Y92.538 Other ambulatory health services establishments as the place of occurrence of the external cause; E87.5 Hyperkalemia; S90.822A Blister (nonthermal), left foot, initial encounter; X58.XXXA Exposure to other specified factors, initial encounter; R78.81 Bacteremia; I12.0 Hypertensive chronic kidney disease with stage 5 chronic kidney disease or end stage renal disease; E11.22 Type 2 diabetes mellitus with diabetic chronic kidney disease; N18.6 End stage renal disease; Z99.2 Dependence on renal dialysis; R53.1 Weakness; R14.0 Abdominal distension (gaseous); J90 Pleural effusion, not elsewhere classified; H54.62 Unqualified visual loss, left eye, normal vision right eye; R94.31 Abnormal electrocardiogram [ECG] [EKG]
CPT/HCPCS: 93005; 99285; 96375; 96365; 36415; 87040; 82553; 80307; 83605; 83690; 85025; 87077; 80053; 84484; 87150 ×26; 73610; 71045; 73552; 73630; 73590; 70450; 93010; J0690; J1940; J2270; J2405

== ENCOUNTER 2020-02-21 03:20 | Emergency (ER) | payer OTHER, MEDICARE, MEDICAID ==
--- NOTE | 2020-02-21 04:31 | ER Document Report ---
HPI - HPI Time Seen by Provider: 02/21/20 04:03 Pain Level: 5 Context: Patient is a 49-year-old female who presents to the emergency department with a chief complaint of left leg pain. She had a mechanical fall yesterday and was diagnosed with a left tibia fracture. She was placed in a knee immobilizer. She was also sent home with oxycodone for pain relief. Patient states that she has been taking her pain medication, but has not had relief of her pain. - CONSTITUTIONAL Constitutional: DENIES: Fever, Chills - CARDIOVASCULAR Cardiovascular: DENIES: Chest pain - RESPIRATORY Respiratory: DENIES: Trouble Breathing, Coughing - REPRODUCTIVE Reproductive: DENIES: : - MUSCULOSKELETAL Musculoskeletal: REPORTS: Extremity pain - DERM Skin Color: Normal Skin Problems: None Past Medical History - General Information source: Patient - Social History Smoking Status: Never Smoker Family History: Reviewed & Not Pertinent Patient has suicidal ideation: No Patient has homicidal ideation: No - Past Medical History Cardiac Medical History: Reports: Hx Congestive Heart Failure, Hx Hypertension, Hx Heart Murmur Denies: Hx Coronary Artery Disease, Hx Heart Attack Pulmonary Medical History: Denies: Hx Asthma, Hx Bronchitis, Hx COPD, Hx Pneumonia, Hx Respiratory Failure Neurological Medical History: Denies: Hx Cerebrovascular Accident, Hx Migraine, Hx Seizures Endocrine Medical History: Reports: Hx Diabetes Mellitus Type 2 Renal/ Medical History: Reports: Hx End Stage Renal Disease, Hx Hemodialysis. Denies: Hx Peritoneal Dialysis GI Medical History: Denies: Hx Cirrhosis, Hx Diverticulitis, Hx Hiatal Hernia Musculoskeletal Medical History: Denies Hx Arthritis, Denies Hx Fibromyalgia, Denies Hx Gout Skin Medical History: Denies Hx Eczema, Denies Hx Psoriasis Psychiatric Medical History: Denies: Hx Depression Past Surgical History: Reports: Hx Valve Replacement - Mitral valve surgery, Hx Vascular Surgery - Vas-Cath placement, peritoneal dialysis catheter placement, Other - Left eye surgery - Immunizations Immunizations up to date: Yes Hx Diphtheria, Pertussis, Tetanus Vaccination: No Hx Pneumococcal Vaccination: 08/11/20 Vertical Provider Document - CONSTITUTIONAL Agree With Documented VS: Yes Exam Limitations: No Limitations General Appearance: No Apparent Distress - INFECTION CONTROL TRAVEL OUTSIDE OF THE [place] IN LAST 30 DAYS: No - HEENT HEENT: Atraumatic, Normocephalic - NECK Neck: Normal Inspection - RESPIRATORY Respiratory: Breath Sounds Normal, No Respiratory Distress - CARDIOVASCULAR Cardiovascular: Regular Rate, Regular Rhythm Pulses: Normal: Posterior tibial, Dorsalis pedis - MUSCULOSKELETAL/EXTREMETIES Musculoskeletal/Extremeties: Tender - Left proximal tibia area, Edema - bilateral lower extremities - NEURO Level of Consciousness: Awake, Alert, Appropriate Motor/Sensory: No Motor Deficit, No Sensory Deficit - DERM Integumentary: Warm, Dry, No Rash Notes: large blister to Left dorsal foot. Course - Re-evaluation Re-evalutation: 02/21/20 05:01 I originally ordered 50 mcg of fentanyl, but due to the patient's heart rate being 55, I asked the nurse only to give 25 mcg of fentanyl, as the patient is a dialysis patient. 02/21/20 05:20 Patient stated that she was still in pain. I loosened her knee immobilizer and she stated that her pain got much better. Patient will be placed in a long-leg posterior splint to help with with comfort. When patient's sock was removed, a large blister was noted. Patient states that she had that blister 5 days ago. 02/21/20 06:19 Patient states that she feels much better after being placed in a long-leg posterior splint. Patient will continue to follow-up with orthopedics. The splint did not cover the blister on the dorsal aspect of her foot. Follow-up precautions were given. Verbal discharge instructions were given to the patient. They verbalized understanding. They are stable for discharge. 02/21/20 06:46 Patient was getting ready for discharge and she expressed concern about getting around and she states that she is nervous that she is possibly going to fall when she is at home. I will write her a prescription for wheelchair. I will also put an order for the health care social worker to assess her situation, as she is a dialysis patient and is now going to be using a wheelchair. - Vital Signs Vital signs: Temp Pulse Resp BP Pulse Ox 98.5 F 82 16 128/72 H 02/21/20 03:36 02/21/20 03:36 02/21/20 03:36 02/21/20 03:36 Procedures - Immobilization Left Leg Pre-Proc Neuro Vasc Exam: Normal Immobilizer type: Long leg posterior Performed by: ZEINAB Post-Proc Neuro Vasc Exam: Normal, Unchanged from pre-exam Alignment checked and good: Yes Discharge - Discharge Clinical Impression: Peripheral edema, Left leg pain Condition: Stable Disposition: HOME, SELF-CARE Additional Instructions: You were seen today in the emergency department for left leg pain. Your leg was resplinted. Please continue to follow-up with orthopedics in regards to this visit. Take your pain medication as prescribed. Referrals: INDIGO VALLE NP [Primary Care Provider] - Follow up as needed AMI VASQUEZ JR, DO [ACTIVE PROVISIONAL STAFF] - Follow up in 3-5 days
[2020-02-21] MEDS: FENTANYL CITRATE INJ/PF 100 MCG/2 ML AMPUL IM ONE ×2 (04:58→05:05)
[2020-02-21] MEDS ORDERED: FENTANYL CITRATE INJ/PF 100 MCG/2 ML AMPUL IM ONE (05:02)
[2020-02-21 08:56] LABS: HEMATOCRIT 30.2 % (36.0-47.0); HEMOGLOBIN 9.3 g/dL (12.0-15.5); MEAN CORPUSCULAR HEMOGLOBIN 21.9 pg (27.0-33.4); MEAN CORPUSCULAR HGB CONC 30.8 g/dL (32.0-36.0); MEAN CORPUSCULAR VOLUME 71 fl (80-97); PLATELET COUNT 214 10^3/uL (150-450); RED BLOOD COUNT 4.26 10^6/uL (3.72-5.28); RED CELL DISTRIBUTION WIDTH 19.3 % (11.5-14.0); WHITE BLOOD COUNT 7.4 10^3/uL (4.0-10.5)
--- NOTE | 2020-02-21 09:09 | EKG REPORT ---
SEVERITY:- ABNORMAL ECG - SINUS RHYTHM RIGHT AXIS DEVIATION LOW VOLTAGE IN FRONTAL LEADS NONSPECIFIC T ABNORMALITIES, LATERAL LEADS : Confirmed by: Keira Fernandes MD 21-Feb-2020 09:08:15
[2020-02-21 09:12] LABS: ALBUMIN 3.4 g/dL (3.5-5.0); ALKALINE PHOSPHATASE 354 U/L (38-126); ANION GAP 16 (5-19); ASPARTATE AMINO TRANSFERASE 36 U/L (14-36); BILIRUBIN,DIRECT 1.1 mg/dL (0.0-0.4); BILIRUBIN,TOTAL 1.1 mg/dL (0.2-1.3); BLOOD UREA NITROGEN 96 mg/dL (7-20); CALCIUM 8.3 mg/dL (8.4-10.2); CARBON DIOXIDE 21 mmol/L (22-30); CHLORIDE 97 mmol/L (98-107); GLUCOSE 96 mg/dL (75-110); TOTAL PROTEIN 7.9 g/dL (6.3-8.2)
[2020-02-21 09:17] LABS: ABSOLUTE LYMPHOCYTES# (MANUAL) 1.1 10^3/uL (0.5-4.7); ABSOLUTE MONOCYTES # (MANUAL) 0.4 10^3/uL (0.1-1.4); BASOPHILS % (MANUAL) 0 % (0-2); EOSINOPHILS % (MANUAL) 1 % (0-6); LYMPHOCYTES % (MANUAL) 15 % (13-45); MONOCYTES % (MANUAL) 5 % (3-13); SEGMENTED NEUTROPHILS % (MAN) 79 % (42-78); TOTAL CELLS COUNTED 100
[2020-02-21 09:18] LABS: ANISOCYTOSIS 2+; HYPOCHROMASIA 1+; PLATELET COMMENT ADEQUATE; POLYCHROMASIA SLIGHT
[2020-02-21 09:20] LABS: POTASSIUM 6.3 mmol/L (3.6-5.0)
[2020-02-21] MEDS ORDERED: CALCIUM GLUCONATE 1000 MG/10 ML INJ IV ONE (09:30)
[2020-02-21] MEDS ORDERED: SODIUM BICARBONATE 8.4% INJ 50 MEQ/50 ML DISP.SYRIN IV ONE (09:30)
[2020-02-21] MEDS ORDERED: DEXTROSE 50%-WATER 25 GM/50 ML DISP.SYRIN IV ONE (09:30)
[2020-02-21] MEDS ORDERED: INSULIN REG, HUMAN 100 UNIT/ML 3 ML VIAL (PYX) IV ONE (09:30)
[2020-02-21] MEDS ORDERED: SODIUM POLYSTYRENE SULFONATE 15 GM/60 ML PO ONE ×4 (09:33→20:17)
[2020-02-21] MEDS ORDERED: ONDANSETRON HCL INJ/PF 4 MG/2 ML SDV IV ONE (10:36)
[2020-02-21] MEDS ORDERED: OXYCODONE-ACETAMINOPHEN 5-325 MG TABLET PO ONE ×2 (15:30→21:36)
[2020-02-21 15:36] LABS: ANION GAP 14 (5-19); BLOOD UREA NITROGEN 100 mg/dL (7-20); CALCIUM 8.5 mg/dL (8.4-10.2); CARBON DIOXIDE 24 mmol/L (22-30); CHLORIDE 97 mmol/L (98-107); GLUCOSE 189 mg/dL (75-110)
[2020-02-21 15:40] LABS: POTASSIUM 6.2 mmol/L (3.6-5.0)
--- NOTE | 2020-02-21 16:19 | RADIOLOGY REPORT (SQ) ---
EXAM DESCRIPTION: CHEST SINGLE VIEW IMAGES COMPLETED DATE/TIME: 02/21/2020 4:10 pm REASON FOR STUDY: missed dialysis COMPARISON: 02/20/2020 EXAM PARAMETERS: NUMBER OF VIEWS: One view. TECHNIQUE: Single frontal radiographic view of the chest acquired. RADIATION DOSE: NA LIMITATIONS: None. FINDINGS: LUNGS AND PLEURA: Right pleural effusion stable. Left lung clear. MEDIASTINUM AND HILAR STRUCTURES: No masses. Contour normal. HEART AND VASCULAR STRUCTURES: Heart enlarged without overt failure. BONES: No acute findings. HARDWARE: Venous access catheter unchanged. Heart valve. OTHER: No other significant finding. IMPRESSION: Stable appearance. Right pleural effusion. TECHNICAL DOCUMENTATION: JOB ID: [id number] 2010 [employer]- All Rights Reserved Reading location - IP/workstation name: [email or web address]
[2020-02-21] MEDS ORDERED: HYDRALAZINE HCL 25 MG TABLET PO ONE (17:35)
[2020-02-21 19:28] LABS: ANION GAP 16 (5-19); BLOOD UREA NITROGEN 102 mg/dL (7-20); CARBON DIOXIDE 21 mmol/L (22-30); CHLORIDE 97 mmol/L (98-107); GLUCOSE 213 mg/dL (75-110)
[2020-02-21] MEDS ORDERED: CARVEDILOL 12.5 MG TABLET PO ONE (19:43)
[2020-02-21] MEDS ORDERED: TORSEMIDE 20 MG TABLET PO ONE (19:43)
[2020-02-21 19:47] LABS: POTASSIUM 6.1 mmol/L (3.6-5.0)
[2020-02-21 21:42] VITALS: BP 147/75
== END 2020-02-21 21:58 | disposition home or self-care (01) ==
LOC: ER 03:20
DX: S82.202A Unspecified fracture of shaft of left tibia, initial encounter for closed fracture (principal); W19.XXXA Unspecified fall, initial encounter; I12.0 Hypertensive chronic kidney disease with stage 5 chronic kidney disease or end stage renal disease; E11.22 Type 2 diabetes mellitus with diabetic chronic kidney disease; N18.6 End stage renal disease; Z99.2 Dependence on renal dialysis; E87.5 Hyperkalemia; S90.822A Blister (nonthermal), left foot, initial encounter; X58.XXXA Exposure to other specified factors, initial encounter; J90 Pleural effusion, not elsewhere classified; R60.0 Localized edema
CPT/HCPCS: 93005; 99285; 96372; 96374; 96375; 36415; 82962; 85025; 80053; 71045; 93010; 29505; J0610; J3490 ×2; J3010; J1815; J2405

== ENCOUNTER 2020-03-07 05:48 | Inpatient (IN) | payer OTHER, MEDICARE, MEDICAID ==
--- NOTE | 2020-03-07 06:32 | ER Document Report ---
ED Cardiac - General Chief Complaint: Chest Pain Stated Complaint: CHEST PAIN Time Seen by Provider: 03/07/20 06:12 Primary Care Provider: INDIGO VALLE NP [Primary Care Provider] - Follow up as needed Notes: HPI: Patient is a 49-year-old female with past medical history as recorded including end-stage renal disease on dialysis with a recent left lower extremity fracture on splint who presents today stating she awoke this morning and felt "dizzy". Patient is a poor historian but states that she felt as if the room was "spinning". She states she had some nausea and vomited some phlegm. She denies any headache, neck pain, abdominal pain, focal weakness or numbness. Patient does state that she had some 5 out of 10 substernal chest discomfort during this time. She denies any radiation. She states it was "pressure". It was completely relieved with sublingual nitroglycerin provided by EMS. She denies any and all shortness of breath or difficulty breathing. She denies any runny nose, congestion, or fever. She states she had a cardiac catheterization greater than a year ago but does not remember the results and denies any stents being placed. She believes this was at [facility]. Patient has completed on Saturday dialysis according to patient report. ROS: See HPI All other review of systems reviewed and otherwise negative Reviewed vital signs and nursing note as charted by RN. PHYSICAL EXAM: CONSTITUTIONAL: Alert and oriented and responds appropriately to questions. Well-appearing; well-nourished HEAD: Normocephalic; atraumatic EYES: Left eye is patched secondary to previous surgery in November 2018. Right pupils equal reactive. Full extraocular range of motion ENT: Normal nose; no rhinorrhea; moist mucous membranes; pharynx without lesions noted NECK: Supple without meningismus; non-tender; no cervical lymphadenopathy, no masses CARD: Regular rate and rhythm; no murmurs; symmetric distal pulses RESP: Normal chest excursion without splinting or tachypnea; breath sounds clear and equal bilaterally; no wheezes, no rhonchi, no rales ABD/GI: Normal bowel sounds; non-distended; soft, non-tender; no palpable organomegaly or masses BACK: The back appears normal and is non-tender to palpation EXT: Left leg is splinted with a small abrasion-like lesion to the dorsal aspect of the left foot. 2+ pitting edema to bilateral lower extremities SKIN: No acute lesions noted NEURO: CN 2-12 intact; no nystagmus; 5 out of 5 strength to the right lower extremity and bilateral upper extremities. No obvious cerebellar symptoms PSYCH: The patient's mood and manner are appropriate. Grooming and personal hygiene are appropriate. TRAVEL OUTSIDE OF THE [place] IN LAST 30 DAYS: No - Related Data Allergies/Adverse Reactions: No Known Allergies Allergy (Verified 11/23/19 10:37) Past Medical History - Social History Smoking Status: Never Smoker Family History: Reviewed & Not Pertinent Patient has suicidal ideation: No Patient has homicidal ideation: No - Past Medical History Cardiac Medical History: Reports: Hx Congestive Heart Failure, Hx Hypertension, Hx Heart Murmur Denies: Hx Coronary Artery Disease, Hx Heart Attack Pulmonary Medical History: Denies: Hx Asthma, Hx Bronchitis, Hx COPD, Hx Pneumonia, Hx Respiratory Failure Neurological Medical History: Denies: Hx Cerebrovascular Accident, Hx Migraine, Hx Seizures Endocrine Medical History: Reports: Hx Diabetes Mellitus Type 2 Renal/ Medical History: Reports: Hx End Stage Renal Disease, Hx Hemodialysis. Denies: Hx Peritoneal Dialysis GI Medical History: Denies: Hx Cirrhosis, Hx Diverticulitis, Hx Hiatal Hernia Musculoskeletal Medical History: Denies Hx Arthritis, Denies Hx Fibromyalgia, Denies Hx Gout Skin Medical History: Denies Hx Eczema, Denies Hx Psoriasis Psychiatric Medical History: Denies: Hx Depression Past Surgical History: Reports: Hx Valve Replacement - Mitral valve surgery, Hx Vascular Surgery - Vas-Cath placement, peritoneal dialysis catheter placement, Other - Left eye surgery - Immunizations Immunizations up to date: Yes Hx Diphtheria, Pertussis, Tetanus Vaccination: No Hx Pneumococcal Vaccination: 08/11/20 Physical Exam - Vital signs Vitals: Resp 16 03/07/20 05:56 Course - Re-evaluation Re-evalutation: 03/07/20 06:30 Given the above history and physical examination I will obtain basic labs, electrolytes, cardiac evaluation including EKG and x-ray of the chest, and reassess. Patient denies any and all pain at this time. Patient denies any shortness of breath or difficulty breathing. Despite the previous leg fracture in a splint, with the patient denying absolutely any shortness of breath or difficulty breathing, with the patient not tachycardic or hypoxic, pulmonary embolism is low on my differential. EKG shows a heart rate of 82, normal sinus rhythm, poor R wave progression, left posterior fascicular block, no obvious ST elevation or depression. Comparing to previous EKG on February 20, I detect no obvious appreciable change. 03/07/20 07:38 Initial troponin as recorded. White blood cell count is slightly elevated. Patient is chest pain-free. EKG shows no appreciable change compared to previous. X-ray of the chest shows no previous change compared to x-ray on February 20. Persistent pleural effusion to the right lower lung. 03/07/20 09:51 CTA of the chest as recorded. Patient has no cough or fever but I will provide a dose of Rocephin and azithromycin and obtain blood cultures. Second troponin is unchanged. Patient still denies any chest pain. I will call the juice weigher workplace relations adviser to discuss the case. 03/07/20 10:10 I have called and spoken to the juice weigher. She is asked me to provide a dose of Kayexalate. Slightly elevated troponins, I have called and spoken to the die cutter operator Dr. Hughes who states that he can follow the patient. - Vital Signs Vital signs: Temp Pulse Resp BP Pulse Ox 97.4 F 88 16 178/96 H 74 L 03/07/20 06:26 03/07/20 06:26 03/07/20 09:31 03/07/20 09:31 03/07/20 09:31 - Laboratory Result Diagrams: 03/07/20 06:13 03/07/20 06:13 Laboratory results interpreted by me: 03/07/20 03/07/20 06:13 06:13 WBC 12.2 H Hgb 8.8 L Hct 28.1 L MCV 69 L MCH 21.7 L MCHC 31.3 L RDW 19.1 H Seg Neuts % (Manual) 85 H Lymphocytes % (Manual) 10 L Abs Neuts (Manual) 10.4 H Sodium 129.9 L Potassium 5.7 H Chloride 92 L Carbon Dioxide 20 L BUN 103 H Creatinine 6.30 H Est GFR ( Amer) 8 L Est GFR (MDRD) Non-Af 7 L Glucose 291 H Total Bilirubin 1.7 H Direct Bilirubin 1.2 H Alkaline Phosphatase 452 H Albumin 3.4 L Discharge - Discharge Clinical Impression: Dizziness Chest pain Qualifiers: Chest pain type: unspecified Qualified Code(s): R07.9 - Chest pain, unspecified Pneumonia Qualifiers: Pneumonia type: due to unspecified organism Laterality: left Lung location: lower lobe of lung Qualified Code(s): J18.9 - Pneumonia, unspecified organism Condition: Fair Disposition: ADMITTED OBSERVATION Admitting Provider: Bethany (Hospitalist) Unit Admitted: Telemetry Referrals: INDIGO VALLE NP [Primary Care Provider] - Follow up as needed
[2020-03-07 06:50] LABS: HEMATOCRIT 28.1 % (36.0-47.0); HEMOGLOBIN 8.8 g/dL (12.0-15.5); MEAN CORPUSCULAR HEMOGLOBIN 21.7 pg (27.0-33.4); MEAN CORPUSCULAR HGB CONC 31.3 g/dL (32.0-36.0); MEAN CORPUSCULAR VOLUME 69 fl (80-97); PLATELET COUNT 321 10^3/uL (150-450); RED BLOOD COUNT 4.05 10^6/uL (3.72-5.28); RED CELL DISTRIBUTION WIDTH 19.1 % (11.5-14.0); WHITE BLOOD COUNT 12.2 10^3/uL (4.0-10.5)
--- NOTE | 2020-03-07 06:52 | RADIOLOGY REPORT (SQ) ---
EXAM DESCRIPTION: XR CHEST 1 VIEW COMPLETED DATE/TME: 03/07/2020 05:58 CLINICAL HISTORY: 49 years Female, chest pain COMPARISON: 02/21/20 NUMBER OF VIEWS/TECHNIQUE: 1/AP FINDINGS: Moderate opacity-effusion of the right lower hemithorax. Right lower lateral thoracic-axillary clips.Sternotomy. Cardiac/mediastinal hardware/clips. Interval absence of a right jugular line.Normal cardiac silhouette size. No pneumothorax. Stable bony thorax. IMPRESSION: Interval line/tube modification.
[2020-03-07 07:04] LABS: ALBUMIN 3.4 g/dL (3.5-5.0); ALKALINE PHOSPHATASE 452 U/L (38-126); ANION GAP 18 (5-19); ASPARTATE AMINO TRANSFERASE 23 U/L (14-36); BILIRUBIN,DIRECT 1.2 mg/dL (0.0-0.4); BILIRUBIN,TOTAL 1.7 mg/dL (0.2-1.3); BLOOD UREA NITROGEN 103 mg/dL (7-20); CALCIUM 8.5 mg/dL (8.4-10.2); CARBON DIOXIDE 20 mmol/L (22-30); CHLORIDE 92 mmol/L (98-107); CREATINE KINASE 74 U/L (30-135); GLUCOSE 291 mg/dL (75-110); POTASSIUM 5.7 mmol/L (3.6-5.0); TOTAL PROTEIN 7.9 g/dL (6.3-8.2)
[2020-03-07 07:14] LABS: CREATINE KINASE MB 3.71 ng/mL (<4.55); TROPONIN I 0.119 ng/mL
[2020-03-07 07:30] LABS: ABSOLUTE LYMPHOCYTES# (MANUAL) 1.2 10^3/uL (0.5-4.7); ABSOLUTE MONOCYTES # (MANUAL) 0.6 10^3/uL (0.1-1.4); BASOPHILS % (MANUAL) 0 % (0-2); EOSINOPHILS % (MANUAL) 0 % (0-6); LYMPHOCYTES % (MANUAL) 10 % (13-45); MONOCYTES % (MANUAL) 5 % (3-13); SEGMENTED NEUTROPHILS % (MAN) 85 % (42-78); TOTAL CELLS COUNTED 100
[2020-03-07 07:32] LABS: ANISOCYTOSIS 2+; OVALOCYTES SLIGHT; POLYCHROMASIA 1+; TEAR DROP CELLS SLIGHT
[2020-03-07 07:33] LABS: HYPOCHROMASIA SLIGHT; PLATELET COMMENT ADEQUATE; TARGET CELLS 1+
--- NOTE | 2020-03-07 08:35 | EKG REPORT ---
SEVERITY:- ABNORMAL ECG - SINUS RHYTHM LEFT POSTERIOR FASCICULAR BLOCK BORDERLINE T WAVE ABNORMALITIES : Confirmed by: Maria Ines Moseley 07-Mar-2020 08:34:45
--- NOTE | 2020-03-07 08:59 | RADIOLOGY REPORT (SQ) ---
EXAM DESCRIPTION: CTA CHEST IMAGES COMPLETED DATE/TIME: 03/07/2020 8:43 am REASON FOR STUDY: 16; chest pain; recent left tibia fracture COMPARISON: AP view of the chest from 03/07/2020 TECHNIQUE: CT scan of the chest performed using helical scanning technique with dynamic intravenous contrast injection. Images reviewed with lung, soft tissue and bone windows. Reconstructed coronal and sagittal MPR images reviewed. Additional 3 dimensional post-processing performed to develop Maximal Intensity Projection images ([place] P). All images stored on PACS. All CT scanners at this facility use dose modulation, iterative reconstruction, and/or weight based d osing when appropriate to reduce radiation dose to as low as reasonably achievable (ALARA). [facility]: Dose Right [facility]: CareDose [facility]: Dose Right [facility]: Teradose 4D [facility]: SCADA Access CONTRAST TYPE AND DOSE: Contrast/concentration: Isovue 300.00 mg/ml; Total Contrast Delivered: 50.0 ml; Total Saline Delivered: 63.0 ml Contrast bolus optimized for the pulmonary arteries. RENAL FUNCTION: Creatinine 6.3 milligrams/deciliter. RADIATION DOSE: CT Rad equipment meets quality standard of care and radiation dose reduction techniq ues were employed. CTDIvol: 13.2 - 17.5 mGy. DLP: 583 mGy-cm. LIMITATIONS: None. FINDINGS: LUNGS AND PLEURA: The trachea main bronchi are patent. There is a moderate right pleural effusion with associated areas of subsegmental atelectasis in the right lower lobe. The segmental an d nonsegmental alveolar opacities in the left lower lobe could represent a pneumonia. There is no pn eumothorax. AORTA AND GREAT VESSELS: Evaluation is limited as the contrast bolus was optimized for evaluation of the pulmonary arteries. There is no thoracic aortic aneurysm. HEART: The heart is enlarged. The reflux of contrast into the IVC and hepatic veins is concerning f or right-sided cardiac dysfunction. There is no pericardial effusion. PULMONARY ARTERIES: The main pulmonary artery is enlarged and it measures 3.1 cm in its transverse di ameter - correlate for pulmonary hypertension. There is no embolus. HILAR AND MEDIASTINAL STRUCTURES: The thoracic esophagus is patulous. There is no mediastinal/hilar adenopathy or mass. HARDWARE: Sternotomy wires, mitral by prosthesis, and right axillary and mediastinal surgical clips. UPPER ABDOMEN: No abnormality. THYROID AND OTHER SOFT TISSUES: No adenopathy or mass. BONES: No acute findings. 3D MIPS: Confirm above findings. OTHER: No other finding. IMPRESSION: 1. No pulmonary embolus. 2. Moderate right-sided pleural effusion with areas of subsegmental atelectasis in the right lower l obe. 3. Alveolar opacities in the left lower lobe concerning for pneumonia. 4. Cardiomegaly with suspected pulmonary hypertension and right-sided cardiac dysfunction. COMMENT: Quality ID # [id number]: Final reports with documentation of one or more dose reduction techniques (e.g., Automated exposure control, adjustment of the mA and/or kV according to patient size, use of iterative reconstruction technique) TECHNICAL DOCUMENTATION: JOB ID: [id number] 2010 [employer]- All Rights Reserved Reading location - IP/workstation name: [email or web address]
[2020-03-07] MEDS ORDERED: CEFTRIAXONE 1 GM/D5W RTU 1 GM/50 ML RTUPB IV ONE (09:42)
[2020-03-07] MEDS ORDERED: AZITHROMYCIN INJ 500 MG VIAL IV ONE (09:43)
[2020-03-07] MEDS ORDERED: SODIUM POLYSTYRENE SULFONATE 15 GM/60 ML PO ONE (09:58)
[2020-03-07] MEDS ORDERED: OXYCODONE-ACETAMINOPHEN 5-325 MG TABLET PO ONE (10:36)
[2020-03-07] MEDS ORDERED: ACETAMINOPHEN 325 MG TABLET PO PRN (13:00)
[2020-03-07] MEDS ORDERED: ONDANSETRON 4 MG TAB.RAPDIS PO PRN (13:00)
[2020-03-07] MEDS ORDERED: IPRATROPIUM/ALBUTEROL 0.5-2.5 MG/3 ML AMPUL NEB PRN (13:00)
[2020-03-07] MEDS ORDERED: MAGNESIUM HYDROXIDE SUSP 30 ML UDCUP PO PRN (13:00)
[2020-03-07] MEDS ORDERED: DEXTROSE 50%-WATER 25 GM/50 ML DISP.SYRIN IV PRN (13:21)
[2020-03-07] MEDS ORDERED: GLUCAGON,HUMAN RECOMB 1 MG INJ IM PRN (13:21)
[2020-03-07] MEDS ORDERED: DEXTROSE 40% GEL 15 GM TUBE PO PRN ×2 (13:21)
--- NOTE | 2020-03-07 15:02 | PDOC CONSULTATION ---
Consultation Consult Date: 03/07/20 Attending physician:: DIANA CLARKE Provider Consulted: EL YBARRA Consult reason:: Dyspnea, elevated troponin History of Present Illness Admission Date/PCP: 03/07/20 10:15 INDIGO VALLE NP Patient complains of: Dyspnea History of Present Illness: STEPHANIE RODRIGUEZ is a 49 year old female With the following problems 1. Mitral valve repair-06/30/2018 (mitral regurgitation-minimally invasive) 2. End-stage renal disease on hemodialysis-Saturday 3. Systemic hypertension Patient presented with multiple complaints including dizziness as well as dyspnea. She also reported chest pain. Laboratory evaluation was positive for mildly elevated troponins. Her EKG was unchanged. Patient is presently being treated for possible pneumonia with intravenous antibiotics. Blood cultures wer e drawn. Presently she does not report any chest pain to me. She has been told by her gas processing plant operator in [place] that she has congestive heart failure. Ejection fraction is unknown. Patient is a non-smoker. She does not report other surgeries. Past Medical History Cardiac Medical History: Reports: Congestive Heart Failure, Hypertension, Heart Murmur Denies: Coronary Artery Disease, Myocardial Infarction Pulmonary Medical History: Denies: Asthma, Bronchitis, Chronic Obstructive Pulmonary Disease (COPD), Pneumonia, Respiratory Failure Neurological Medical History: Denies: Migraine, Seizures Endocrine Medical History: Reports: Diabetes Mellitus Type 2 Renal/ Medical History: Reports: End Stage Renal Disease GI Medical History: Denies: Cirrhosis, Diverticulitis, Hiatal Hernia Musculoskeltal Medical History: Denies: Arthritis, Fibromyalgia, Gout Skin Medical History: Denies: Eczema, Psoriasis Psychiatric Medical History: Denies: Depression Hematology: Reports: Anemia - RECENT BLOOD TRANSFUSION Denies: Sickle Cell Disease, Bleeding Tendencies Past Surgical History Past Surgical History: Reports: Valve Replacement - Mitral valve surgery, Vascular Surgery - Vas-Cath placement, peritoneal dialysis catheter placement, Other - Left eye surgery Social History Smoking Status: Never Smoker Frequency of Alcohol Use: None Hx Recreational Drug Use: No Drugs: None Hx Prescription Drug Abuse: No - Advance Directive Resuscitation Status: Full Code Family History Family History: Reviewed & Not Pertinent Parental Family History Reviewed: Yes - No familial illnesses reported Children Family History Reviewed: No Sibling(s) Family History Reviewed.: No Medication/Allergy Home Medications: Aspirin [Ecotrin] 81 mg PO DAILY 03/24/19 Clonidine HCl [Catapres 0.2 mg Tablet] 0.2 mg PO BIDP PRN 11/16/19 Carvedilol [Coreg 12.5 mg Tablet] 25 mg PO Q12 02/21/20 Chlorthalidone [Hygroton 25 mg Tablet] 25 mg PO DAILYP PRN 02/21/20 Dorzolamide HCl/Timolol Maleat [Cosopt Oph Soln 10 ml] 1 drop OS BID 02/21/20 Hydralazine HCl [Apresoline 25 mg Tablet] 25 mg PO Q8 02/21/20 Insulin Detemir [Levemir Insulin 100 units/mL Insulin Pen] 15 units SUBCUT QHS 02/21/20 Torsemide [Demadex 20 mg Tablet] 100 mg PO BID 02/21/20 Allergies/Adverse Reactions: No Known Allergies Allergy (Verified 11/23/19 10:37) Review of Systems Cardiovascular: PRESENT: chest pain Respiratory: PRESENT: dyspnea Physical Exam Vital Signs: Temp Pulse Resp BP Pulse Ox 97.1 F 83 16 130/76 H 82 L 03/07/20 11:58 03/07/20 13:04 03/07/20 13:04 03/07/20 11:58 03/07/20 11:58 Intake & Output 03/06/20 03/07/20 03/08/20 06:59 06:59 06:59 Intake Total 50 Balance 50 Weight 58.967 kg General appearance: PRESENT: no acute distress, cooperative, well-developed, well-nourished Head exam: PRESENT: atraumatic, normocephalic Eye exam: PRESENT: conjunctiva pale, EOMI Mouth exam: PRESENT: moist Neck exam: PRESENT: JVD Respiratory exam: PRESENT: crackles, decreased breath sounds, symmetrical, unlabored Cardiovascular exam: PRESENT: RRR, +S1, +S2 Pulses: PRESENT: normal radial pulses GI/Abdominal exam: PRESENT: soft Rectal exam: PRESENT: deferred Neurological exam: PRESENT: alert, awake, oriented to person, oriented to place Psychiatric exam: PRESENT: appropriate affect Skin exam: PRESENT: dry, intact, normal color Additional comments: Abdomen is distended. No tenderness is elicited. Results Laboratory Results: 03/07/20 06:13 03/07/20 06:13 03/07/20 03/07/20 06:13 06:13 WBC 12.2 H RBC 4.05 Hgb 8.8 L Hct 28.1 L MCV 69 L MCH 21.7 L MCHC 31.3 L RDW 19.1 H Plt Count 321 Seg Neutrophils % Not Reportable Sodium 129.9 L Potassium 5.7 H Chloride 92 L Carbon Dioxide 20 L Anion Gap 18 BUN 103 H Creatinine 6.30 H Est GFR ( Amer) 8 L Glucose 291 H Calcium 8.5 Total Bilirubin 1.7 H AST 23 Alkaline Phosphatase 452 H Total Protein 7.9 Albumin 3.4 L 03/07/20 03/07/20 03/07/20 06:13 06:13 09:00 Creatine Kinase 74 CK-MB (CK-2) 3.71 Troponin I 0.119 0.118 Impressions: Chest X-Ray 03/07/20 05:58 IMPRESSION: Interval line/tube modification. Chest/Abdomen CTA 03/07/20 08:01 IMPRESSION: 1. No pulmonary embolus. 2. Moderate right-sided pleural effusion with areas of subsegmental atelectasis in the right lower lobe. 3. Alveolar opacities in the left lower lobe concerning for pneumonia. 4. Cardiomegaly with suspected pulmonary hypertension and right-sided cardiac dysfunction. Assessment & Plan - Diagnosis (1) Chest pain Qualifiers: Chest pain type: unspecified Qualified Code(s): R07.9 - Chest pain, unspecified Is this a current diagnosis for this admission?: Yes Plan: Atypical chest pain. Mildly elevated troponins probably secondary to infection, poor clearance on account of end-stage renal disease Do not suspect ongoing acute coronary syndrome EKG does not support ongoing myocardial ischemia. Would recommend supportive care and treatment for pneumonia (2) ESRD needing dialysis Is this a current diagnosis for this admission?: Yes Plan: Nephrology service has been contacted. Plan is for patient to go to hemodialysis. (3) Pneumonia Qualifiers: Pneumonia type: due to unspecified organism Laterality: left Lung location: lower lobe of lung Qualified Code(s): J18.9 - Pneumonia, unspecified organism Is this a current diagnosis for this admission?: Yes Plan: Clinical diagnosis of pneumonia. Antibiotics have been instituted intravenously. Blood cultures have been drawn. - Notes Notes: Mildly elevated troponins. This is in the setting of end-stage renal disease. Chest x-ray shows postsurgical changes including mitral valve ring. Cardiomegaly is noted. Twelve-lead EKG 03/07/2020 Sinus rhythm, 82 bpm, left posterior fascicular block, QTC is 477 ms.
[2020-03-07] MEDS: HYDRALAZINE HCL 25 MG TABLET PO SCH ×2 (15:43→21:21)
[2020-03-07] MEDS: CLONIDINE HCL 0.2 MG TABLET PO SCH ×2 (15:44→21:21)
[2020-03-07] MEDS: HEPARIN SOD (PORCINE) 5,000 UNIT/ML 1 ML VIAL SUBCUT SCH ×2 (15:45→21:21)
[2020-03-07] MEDS: INSULIN REG, HUMAN 100 UNIT/ML 3 ML VIAL (PYX) SUBCUT SCH ×2 (17:09→21:48)
[2020-03-07] MEDS: DORZOLAMIDE HCL 2%/TIMOLOL MALEAT 0.5% OPH SOLN 10 ML OS SCH (17:10)
[2020-03-07] MEDS: TORSEMIDE 20 MG TABLET PO SCH (17:11)
--- NOTE | 2020-03-07 18:05 | PDOC H&P ---
History of Present Illness Admission Date/PCP: 03/07/20 10:15 INDIGO VALLE NP Patient complains of: Dizziness, chest pain in a 49-year-old female with end- stage renal disease History of Present Illness: STEPHANIE RODRIGUEZ is a 49 year old female Patient presents emergency room complains of feeling dizzy. She states she woke up this morning and she felt dizzy. Dizziness associated with nausea and vomiting. She denies any fever or cough. She denies any chest pain at this time but apparently according to records she had 5 out of 10 substernal chest discomfort when she was having this episode. She denied previous episodes. She was evaluated in the emergency room and found to have elevated troponin however patient has end-stage renal disease which could account for this troponin. It appears cardiology was consulted in the emergency room, Dr. Hughes and is aware of this patient. Patient was also found to have a left lower lobe infiltrate with pneumonia on chest x-ray Past Medical History Cardiac Medical History: Reports: Congestive Heart Failure, Hypertension, Heart Murmur Denies: Coronary Artery Disease, Myocardial Infarction Pulmonary Medical History: Denies: Asthma, Bronchitis, Chronic Obstructive Pulmonary Disease (COPD), Pneumonia, Respiratory Failure Neurological Medical History: Denies: Migraine, Seizures Endocrine Medical History: Reports: Diabetes Mellitus Type 2 Renal/ Medical History: Reports: End Stage Renal Disease GI Medical History: Denies: Cirrhosis, Diverticulitis, Hiatal Hernia Musculoskeltal Medical History: Denies: Arthritis, Fibromyalgia, Gout Skin Medical History: Denies: Eczema, Psoriasis Psychiatric Medical History: Denies: Depression Hematology: Reports: Anemia - RECENT BLOOD TRANSFUSION Denies: Sickle Cell Disease, Bleeding Tendencies Past Surgical History Past Surgical History: Reports: Valve Replacement - Mitral valve surgery, Vascular Surgery - Vas-Cath placement, peritoneal dialysis catheter placement, Other - Left eye surgery Social History Smoking Status: Never Smoker Frequency of Alcohol Use: None Hx Recreational Drug Use: No Drugs: None Hx Prescription Drug Abuse: No - Advance Directive Resuscitation Status: Full Code Family History Family History: Reviewed & Not Pertinent Parental Family History Reviewed: No Children Family History Reviewed: Yes Sibling(s) Family History Reviewed.: Yes Medication/Allergy Home Medications: Aspirin [Ecotrin] 81 mg PO DAILY 03/24/19 Clonidine HCl [Catapres 0.2 mg Tablet] 0.2 mg PO BIDP PRN 11/16/19 Carvedilol [Coreg 12.5 mg Tablet] 25 mg PO Q12 02/21/20 Chlorthalidone [Hygroton 25 mg Tablet] 25 mg PO DAILYP PRN 02/21/20 Dorzolamide HCl/Timolol Maleat [Cosopt Oph Soln 10 ml] 1 drop OS BID 02/21/20 Hydralazine HCl [Apresoline 25 mg Tablet] 25 mg PO Q8 02/21/20 Insulin Detemir [Levemir Insulin 100 units/mL Insulin Pen] 15 units SUBCUT QHS 02/21/20 Torsemide [Demadex 20 mg Tablet] 100 mg PO BID 02/21/20 Allergies/Adverse Reactions: No Known Allergies Allergy (Verified 11/23/19 10:37) Review of Systems All systems: reviewed and no additional remarkable complaints except as stated Physical Exam Vital Signs: Temp Pulse Resp BP Pulse Ox 98.6 F 80 18 164/96 H 95 03/07/20 10:01 03/07/20 12:06 03/07/20 11:01 03/07/20 11:01 03/07/20 11:01 Intake & Output 03/06/20 03/07/20 03/08/20 06:59 06:59 06:59 Intake Total 50 Balance 50 Weight 58.967 kg General appearance: PRESENT: no acute distress, other - Sleepy but easily arousable Head exam: PRESENT: atraumatic Eye exam: PRESENT: other - L eye patch Respiratory exam: PRESENT: clear to auscultation peterson, unlabored Cardiovascular exam: PRESENT: RRR, +S1, +S2, systolic murmur GI/Abdominal exam: PRESENT: soft. ABSENT: tenderness Extremities exam: PRESENT: other - RUE brachiocephalic fistula with a bruit Neurological exam: PRESENT: alert, oriented to person, oriented to place, oriented to time, oriented to situation Psychiatric exam: PRESENT: flat affect Skin exam: PRESENT: skin tears - L foot Results Laboratory Results: 03/07/20 06:13 03/07/20 06:13 03/07/20 03/07/20 06:13 06:13 WBC 12.2 H RBC 4.05 Hgb 8.8 L Hct 28.1 L MCV 69 L MCH 21.7 L MCHC 31.3 L RDW 19.1 H Plt Count 321 Seg Neutrophils % Not Reportable Sodium 129.9 L Potassium 5.7 H Chloride 92 L Carbon Dioxide 20 L Anion Gap 18 BUN 103 H Creatinine 6.30 H Est GFR ( Amer) 8 L Glucose 291 H Calcium 8.5 Total Bilirubin 1.7 H AST 23 Alkaline Phosphatase 452 H Total Protein 7.9 Albumin 3.4 L 03/07/20 03/07/20 03/07/20 06:13 06:13 09:00 Creatine Kinase 74 CK-MB (CK-2) 3.71 Troponin I 0.119 0.118 Impressions: Chest X-Ray 03/07/20 05:58 IMPRESSION: Interval line/tube modification. Chest/Abdomen CTA 03/07/20 08:01 IMPRESSION: 1. No pulmonary embolus. 2. Moderate right-sided pleural effusion with areas of subsegmental atelectasis in the right lower lobe. 3. Alveolar opacities in the left lower lobe concerning for pneumonia. 4. Cardiomegaly with suspected pulmonary hypertension and right-sided cardiac dysfunction. Assessment and Plan - Diagnosis (1) Elevated troponin Is this a current diagnosis for this admission?: Yes (2) Dizziness Is this a current diagnosis for this admission?: Yes (3) Pneumonia Qualifiers: Pneumonia type: due to unspecified organism Laterality: left Lung location: lower lobe of lung Qualified Code(s): J18.9 - Pneumonia, unspecified organism Is this a current diagnosis for this admission?: Yes (4) ESRD needing dialysis Is this a current diagnosis for this admission?: Yes (5) Status post mitral valve repair Is this a current diagnosis for this admission?: Yes Plan: She has a history of mitral valve repair in June 2018 for mitral regurgitation. - Plan Summary Summary: She was found to have an elevated troponin. She has no chest pain and no EKG changes. She has been seen by cardiology. She denies any prior history of coronary artery disease. We will follow-up with cardiology recommendations - Time Time Spent with patient: 35 or more minutes Medications reviewed and adjusted accordingly: Yes Anticipated discharge: Home Within: within 48 hours - Inpatient Certification Based on my medical assessment, after consideration of the patient's comorbidities, presenting symptoms, or acuity I expect that the services needed warrant INPATIENT care.: Yes Medical Necessity: Risk of Complication if Not Cared For in Hospital
[2020-03-07] MEDS: INSULIN GLARGINE,HUM.REC.ANLOG 1,000 UNIT/10 ML VIAL SUBCUT SCH (21:21)
[2020-03-07] MEDS: CARVEDILOL 12.5 MG TABLET PO SCH (21:21)
[2020-03-07] MEDS ORDERED: [UNRECOGNIZED DRUG - OTHER] SUBCUT SCH (22:00)
[2020-03-07] MEDS ORDERED: INSULIN DETEMIR 15 UNIT SUBCUT SCH (22:00)
[2020-03-08] MEDS: OXYCODONE-ACETAMINOPHEN 5-325 MG TABLET PO PRN (00:45)
[2020-03-08] MEDS: TEMAZEPAM 7.5 MG CAPSULE PO PRN (04:16)
[2020-03-08] MEDS: HYDRALAZINE HCL 25 MG TABLET PO SCH ×3 (05:32→21:26)
[2020-03-08] MEDS: CLONIDINE HCL 0.2 MG TABLET PO SCH ×3 (05:33→21:34)
[2020-03-08] MEDS: HEPARIN SOD (PORCINE) 5,000 UNIT/ML 1 ML VIAL SUBCUT SCH ×3 (05:35→22:34)
[2020-03-08 05:53] LABS: HEMATOCRIT 24.6 % (36.0-47.0); MEAN CORPUSCULAR HEMOGLOBIN 21.7 pg (27.0-33.4); MEAN CORPUSCULAR HGB CONC 31.8 g/dL (32.0-36.0); MEAN CORPUSCULAR VOLUME 68 fl (80-97); PLATELET COUNT 268 10^3/uL (150-450); RED BLOOD COUNT 3.62 10^6/uL (3.72-5.28); RED CELL DISTRIBUTION WIDTH 19.1 % (11.5-14.0); WHITE BLOOD COUNT 12.2 10^3/uL (4.0-10.5)
[2020-03-08 06:10] LABS: BLOOD UREA NITROGEN 112 mg/dL (7-20); CALCIUM 7.7 mg/dL (8.4-10.2); CHLORIDE 93 mmol/L (98-107); GLUCOSE 120 mg/dL (75-110)
[2020-03-08 06:15] LABS: CARBON DIOXIDE 18 mmol/L (22-30)
[2020-03-08 06:19] LABS: ANION GAP 19 (5-19)
[2020-03-08] MEDS ORDERED: CALCIUM GLUC IN NACL, ISO-OSM 1 GM/50 ML RTUPB IV ONE (06:25)
[2020-03-08] MEDS ORDERED: IPRATROPIUM/ALBUTEROL 0.5-2.5 MG/3 ML AMPUL NEB ONE (06:25)
[2020-03-08] MEDS ORDERED: SODIUM POLYSTYRENE SULFONATE 15 GM/60 ML PO ONE (06:26)
[2020-03-08 06:29] LABS: HEMOGLOBIN 7.8 g/dL (12.0-15.5)
[2020-03-08 06:32] LABS: ABSOLUTE LYMPHOCYTES# (MANUAL) 1.1 10^3/uL (0.5-4.7); ABSOLUTE MONOCYTES # (MANUAL) 1.5 10^3/uL (0.1-1.4); BASOPHILS % (MANUAL) 0 % (0-2); EOSINOPHILS % (MANUAL) 2 % (0-6); LYMPHOCYTES % (MANUAL) 9 % (13-45); MONOCYTES % (MANUAL) 12 % (3-13); NUCLEATED RED BLOOD CELLS 2 /100 WBC (0); SEGMENTED NEUTROPHILS % (MAN) 77 % (42-78); TOTAL CELLS COUNTED 100
[2020-03-08 06:33] LABS: ANISOCYTOSIS 2+
[2020-03-08 06:34] LABS: OVALOCYTES SLIGHT; PLATELET COMMENT ADEQUATE; POIKILOCYTOSIS 1+; POLYCHROMASIA SLIGHT; SCHISTOCYTES SLIGHT; TARGET CELLS 1+
[2020-03-08] MEDS: INSULIN REG, HUMAN 100 UNIT/ML 3 ML VIAL (PYX) SUBCUT SCH ×4 (08:20→21:25)
[2020-03-08] MEDS: PROMETHAZINE HCL INJ 25 MG/1 ML VIAL IV PRN (12:08)
[2020-03-08] MEDS: CARVEDILOL 12.5 MG TABLET PO SCH ×2 (12:13→21:38)
[2020-03-08] MEDS: DOCUSATE SODIUM 100 MG CAPSULE PO SCH (12:13)
[2020-03-08] MEDS: ASPIRIN 81 MG TABLET, ENT COATED PO SCH (12:14)
[2020-03-08] MEDS: TORSEMIDE 20 MG TABLET PO SCH ×2 (12:14→18:13)
--- NOTE | 2020-03-08 12:14 | PDOC PROGRESS REPORT ---
Subjective Progress Note for:: 03/08/20 Subjective:: Report any chest pain. Awaiting dialysis today. Access issues have been noted. Reason For Visit: CHEST PAIN,PNA,ESRD Physical Exam Vital Signs: Temp Pulse Resp BP Pulse Ox 97.3 F 66 18 116/66 99 03/08/20 07:47 03/08/20 08:20 03/08/20 08:20 03/08/20 07:47 03/08/20 08:20 Intake & Output 03/07/20 03/08/20 03/09/20 06:59 06:59 06:59 Intake Total 310 Balance 310 Weight 58.967 kg 70.73 kg General appearance: PRESENT: no acute distress, well-developed, well-nourished Head exam: PRESENT: atraumatic, normocephalic Eye exam: PRESENT: EOMI Neck exam: PRESENT: JVD Respiratory exam: PRESENT: decreased breath sounds, symmetrical, unlabored Cardiovascular exam: PRESENT: RRR, +S1, +S2 Pulses: PRESENT: normal radial pulses GI/Abdominal exam: PRESENT: soft Rectal exam: PRESENT: deferred Neurological exam: PRESENT: alert, awake, oriented to person, oriented to place, oriented to time, oriented to situation Psychiatric exam: PRESENT: appropriate affect Skin exam: PRESENT: dry, intact, normal color Results Laboratory Results: 03/08/20 04:57 03/08/20 04:57 03/08/20 03/08/20 03/08/20 04:57 04:57 08:20 WBC 12.2 H RBC 3.62 L Hgb 7.8 L Hct 24.6 L MCV 68 L MCH 21.7 L MCHC 31.8 L RDW 19.1 H Plt Count 268 Seg Neutrophils % Not Reportable Sodium 130.1 L Potassium 6.0 H* Chloride 93 L Carbon Dioxide 18 L Anion Gap 19 BUN 112 H Creatinine 6.95 H Est GFR ( Amer) 8 L Glucose 120 H Lactic Acid 2.0 Calcium 7.7 L 03/07/20 03/07/20 03/07/20 06:13 06:13 09:00 Creatine Kinase 74 CK-MB (CK-2) 3.71 Troponin I 0.119 0.118 03/07/20 15:11 Creatine Kinase CK-MB (CK-2) Troponin I 0.133 Impressions: Chest X-Ray 03/07/20 05:58 IMPRESSION: Interval line/tube modification. Chest/Abdomen CTA 03/07/20 08:01 IMPRESSION: 1. No pulmonary embolus. 2. Moderate right-sided pleural effusion with areas of subsegmental atelectasis in the right lower lobe. 3. Alveolar opacities in the left lower lobe concerning for pneumonia. 4. Cardiomegaly with suspected pulmonary hypertension and right-sided cardiac dysfunction. Assessment & Plan - Diagnosis (1) Chest pain Qualifiers: Chest pain type: unspecified Qualified Code(s): R07.9 - Chest pain, unsp ecified Is this a current diagnosis for this admission?: Yes Plan: No chest pain is reported Mildly elevated troponins in the setting of pneumonia. Likely demand mediated. Unlikely to be acute coronary syndrome. Supportive care (2) ESRD needing dialysis Is this a current diagnosis for this admission?: Yes Plan: Plans for dialysis today. (3) Pneumonia Qualifiers: Pneumonia type: due to unspecified organism Laterality: left Lung location: lower lobe of lung Qualified Code(s): J18.9 - Pneumonia, unspecified organism Is this a current diagnosis for this admission?: Yes Plan: Receiving antibiotics. (4) Hypertension Qualifiers: Hypertension type: unspecified Qualified Code(s): I10 - Essential (primary) hypertension Is this a current diagnosis for this admission?: Yes Plan: Continue carvedilol 25 mg twice daily Continue clonidine at present dose - Notes Notes: Patient was hyperkalemic and this has been treated with Kayexalate and calcium gluconate. Awaiting hemodialysis. Twelve-lead EKG showed mildly prolonged QTC this morning. Avoid QTC prolonging agents. Electrolyte abnormalities also noted. Should resolve with hemodialysis
[2020-03-08] MEDS: CEFTRIAXONE 1 GM/D5W RTU 1 GM/50 ML RTUPB IV SCH (12:17)
[2020-03-08] MEDS: DORZOLAMIDE HCL 2%/TIMOLOL MALEAT 0.5% OPH SOLN 10 ML OS SCH ×2 (12:18→18:13)
--- NOTE | 2020-03-08 13:08 | PDOC CONSULTATION ---
Consultation Consult Date: 03/08/20 Provider Consulted: SURGICAL SURGICALIST MD Consult reason:: dysfunctional dialysis fistula, need for temporary dialysis catheter. History of Present Illness Admission Date/PCP: 03/07/20 10:15 INDIGO VALLE NP History of Present Illness: STEPHANIE RODRIGUEZ is a 49 year old female seen at the request of Nephrology for a dysfunctional AV fistula. Per report, her fistula is clotted and does not allow adequate blood flow for hemodialysis. She is in need of a temporary catheter, and also evaluation of her fistula. Today, she denies any chest pain, shortness of breath, abdominal pain, fevers, chills, malaise, fatigue, blurry vision, dizziness. She does experience nausea and vomiting. Past Medical History Cardiac Medical History: Reports: Congestive Heart Failure, Hypertension, Heart Murmur Denies: Coronary Artery Disease, Myocardial Infarction Pulmonary Medical History: Denies: Asthma, Bronchitis, Chronic Obstructive Pulmonary Disease (COPD), Pneumonia, Respiratory Failure Neurological Medical History: Denies: Migraine, Seizures Endocrine Medical History: Reports: Diabetes Mellitus Type 2 Renal/ Medical History: Reports: End Stage Renal Disease GI Medical History: Denies: Cirrhosis, Diverticulitis, Hiatal Hernia Musculoskeltal Medical History: Denies: Arthritis, Fibromyalgia, Gout Skin Medical History: Denies: Eczema, Psoriasis Psychiatric Medical History: Denies: Depression Hematology: Reports: Anemia - RECENT BLOOD TRANSFUSION Denies: Sickle Cell Disease, Bleeding Tendencies Past Surgical History Past Surgical History: Reports: Valve Replacement - Mitral valve surgery, Vascular Surgery - Vas-Cath placement, peritoneal dialysis catheter placement, Other - Left eye surgery Social History Smoking Status: Never Smoker Frequency of Alcohol Use: None Hx Recreational Drug Use: No Drugs: None Hx Prescription Drug Abuse: No - Advance Directive Resuscitation Status: Full Code Family History Family History: Reviewed & Not Pertinent Parental Family History Reviewed: Yes Children Family History Reviewed: Yes Sibling(s) Family History Reviewed.: Yes Medication/Allergy Home Medications: Aspirin [Ecotrin] 81 mg PO DAILY 03/24/19 Clonidine HCl [Catapres 0.2 mg Tablet] 0.2 mg PO BIDP PRN 11/16/19 Carvedilol [Coreg 12.5 mg Tablet] 25 mg PO Q12 02/21/20 Chlorthalidone [Hygroton 25 mg Tablet] 25 mg PO DAILYP PRN 02/21/20 Dorzolamide HCl/Timolol Maleat [Cosopt Oph Soln 10 ml] 1 drop OS BID 02/21/20 Hydralazine HCl [Apresoline 25 mg Tablet] 25 mg PO Q8 02/21/20 Insulin Detemir [Levemir Insulin 100 units/mL Insulin Pen] 15 units SUBCUT QHS 02/21/20 Torsemide [Demadex 20 mg Tablet] 100 mg PO BID 02/21/20 Allergies/Adverse Reactions: No Known Allergies Allergy (Verified 11/23/19 10:37) Review of Systems Constitutional: ABSENT: chills, fever(s) Eyes: ABSENT: visual disturbances Ears: ABSENT: hearing changes Nose, Mouth, and Throat: ABSENT: sore throat Cardiovascular: ABSENT: chest pain Gastrointestinal: PRESENT: nausea, vomiting. ABSENT: abdominal pain Genitourinary: ABSENT: dysuria Integumentary: ABSENT: pruritus, rash Neurological: ABSENT: confusion, convulsions, dizziness Psychiatric: ABSENT: anxiety Endocrine: ABSENT: cold intolerance, heat intolerance Hematologic/Lymphatic: ABSENT: easy bleeding, easy bruising Physical Exam Vital Signs: Temp Pulse Resp BP Pulse Ox 97.3 F 66 18 116/66 99 03/08/20 07:47 03/08/20 08:20 03/08/20 08:20 03/08/20 07:47 03/08/20 08:20 Intake & Output 03/07/20 03/08/20 03/09/20 06:59 06:59 06:59 Intake Total 310 Balance 310 Weight 58.967 kg 70.73 kg General appearance: PRESENT: no acute distress, cooperative, disheveled Head exam: PRESENT: atraumatic, normocephalic Eye exam: PRESENT: EOMI, PERRLA. ABSENT: scleral icterus Mouth exam: PRESENT: moist Neck exam: ABSENT: meningismus, thyromegaly, tracheal deviation, tracheostomy Respiratory exam: PRESENT: tachypnea, wheezes. ABSENT: unlabored Cardiovascular exam: ABSENT: tachycardia Vascular exam: PRESENT: normal capillary refill GI/Abdominal exam: PRESENT: soft. ABSENT: rebound, rigid, tenderness Rectal exam: PRESENT: deferred Extremities exam: ABSENT: clubbing Musculoskeletal exam: ABSENT: deformity Neurological exam: PRESENT: alert, awake, oriented to person, oriented to place, oriented to time, oriented to situation, CN II-XII grossly intact Psychiatric exam: ABSENT: agitated, anxious, depressed Focused psych exam: ABSENT: delusional Skin exam: ABSENT: cyanosis, erythema, jaundice Results Laboratory Results: 03/08/20 04:57 03/08/20 04:57 03/08/20 03/08/20 03/08/20 04:57 04:57 08:20 WBC 12.2 H RBC 3.62 L Hgb 7.8 L Hct 24.6 L MCV 68 L MCH 21.7 L MCHC 31.8 L RDW 19.1 H Plt Count 268 Seg Neutrophils % Not Reportable Sodium 130.1 L Potassium 6.0 H* Chloride 93 L Carbon Dioxide 18 L Anion Gap 19 BUN 112 H Creatinine 6.95 H Est GFR ( Amer) 8 L Glucose 120 H Lactic Acid 2.0 Calcium 7.7 L 03/07/20 03/07/20 03/07/20 06:13 06:13 09:00 Creatine Kinase 74 CK-MB (CK-2) 3.71 Troponin I 0.119 0.118 03/07/20 15:11 Creatine Kinase CK-MB (CK-2) Troponin I 0.133 Impressions: Chest X-Ray 03/07/20 05:58 IMPRESSION: Interval line/tube modification. Chest/Abdomen CTA 03/07/20 08:01 IMPRESSION: 1. No pulmonary embolus. 2. Moderate right-sided pleural effusion with areas of subsegmental atelectasis in the right lower lobe. 3. Alveolar opacities in the left lower lobe concerning for pneumonia. 4. Cardiomegaly with suspected pulmonary hypertension and right-sided cardiac dysfunction. Assessment & Plan - Diagnosis (1) AV fistula occlusion Is this a current diagnosis for this admission?: Yes - Plan Summary Plan Summary: This is a 49-year-old female with an AV fistula that is dysfunctional. There is not enough blood flow to continue with hemodialysis, therefore she has not had hemodialysis today. Her potassium is elevated. She is in need of a temporary dialysis catheter until her fistula can be reopened or revised. Plan for permacath insertion today. Dr. Goldstein will evaluate her for possible fistulogram with declot/intervention in the coming days. Surgery will continue to follow this patient very closely with you.
[2020-03-08] MEDS ORDERED: SODIUM POLYSTYRENE SULFONATE 15 GM/60 ML PO SCH (13:15)
--- NOTE | 2020-03-08 13:20 | PDOC PROGRESS REPORT ---
Subjective Progress Note for:: 03/08/20 Reason For Visit: CHEST PAIN,PNA,ESRD Physical Exam Vital Signs: Temp Pulse Resp BP Pulse Ox 97.3 F 66 18 116/66 99 03/08/20 07:47 03/08/20 08:20 03/08/20 08:20 03/08/20 07:47 03/08/20 08:20 Intake & Output 03/07/20 03/08/20 03/09/20 06:59 06:59 06:59 Intake Total 310 Balance 310 Weight 58.967 kg 70.73 kg General appearance: PRESENT: no acute distress, other Head exam: PRESENT: atraumatic, normocephalic Eye exam: PRESENT: conjunctiva pink, EOMI, PERRLA. ABSENT: scleral icterus Ear exam: PRESENT: normal external ear exam Mouth exam: PRESENT: moist, tongue midline Neck exam: ABSENT: carotid bruit, JVD, lymphadenopathy, thyromegaly Respiratory exam: PRESENT: clear to auscultation peterson. ABSENT: rales, rhonchi, wheezes Cardiovascular exam: PRESENT: RRR. ABSENT: diastolic murmur, rubs, systolic murmur Pulses: PRESENT: normal dorsalis pedis pul Vascular exam: PRESENT: normal capillary refill GI/Abdominal exam: PRESENT: normal bowel sounds, soft. ABSENT: distended, guarding, mass, organolmegaly, rebound, tenderness Rectal exam: PRESENT: deferred Extremities exam: PRESENT: full ROM. ABSENT: calf tenderness, clubbing, pedal edema Neurological exam: PRESENT: alert, awake, oriented to person, oriented to place, oriented to time, oriented to situation, CN II-XII grossly intact. ABSENT: motor sensory deficit Psychiatric exam: PRESENT: appropriate affect, normal mood. ABSENT: homicidal ideation, suicidal ideation Skin exam: PRESENT: dry, intact, warm. ABSENT: cyanosis, rash Results Laboratory Results: 03/08/20 04:57 03/08/20 04:57 03/08/20 03/08/20 03/08/20 04:57 04:57 08:20 WBC 12.2 H RBC 3.62 L Hgb 7.8 L Hct 24.6 L MCV 68 L MCH 21.7 L MCHC 31.8 L RDW 19.1 H Plt Count 268 Seg Neutrophils % Not Reportable Sodium 130.1 L Potassium 6.0 H* Chloride 93 L Carbon Dioxide 18 L Anion Gap 19 BUN 112 H Creatinine 6.95 H Est GFR ( Amer) 8 L Glucose 120 H Lactic Acid 2.0 Calcium 7.7 L 03/07/20 03/07/20 03/07/20 06:13 06:13 09:00 Creatine Kinase 74 CK-MB (CK-2) 3.71 Troponin I 0.119 0.118 03/07/20 15:11 Creatine Kinase CK-MB (CK-2) Troponin I 0.133 Impressions: Chest X-Ray 03/07/20 05:58 IMPRESSION: Interval line/tube modification. Chest/Abdomen CTA 03/07/20 08:01 IMPRESSION: 1. No pulmonary embolus. 2. Moderate right-sided pleural effusion with areas of subsegmental atelectasis in the right lower lobe. 3. Alveolar opacities in the left lower lobe concerning for pneumonia. 4. Cardiomegaly with suspected pulmonary hypertension and right-sided cardiac d ysfunction. Assessment and Plan - Diagnosis (1) Elevated troponin Is this a current diagnosis for this admission?: Yes Plan: Likely demand mismatch~no evidence of ischemia (2) Dizziness Is this a current diagnosis for this admission?: Yes (3) Pneumonia Qualifiers: Pneumonia type: due to unspecified organism Laterality: left Lung location: lower lobe of lung Qualified Code(s): J18.9 - Pneumonia, unspecified organism Is this a current diagnosis for this admission?: Yes Plan: Continue with empiric ceftriaxone and Zithromax (4) ESRD needing dialysis Is this a current diagnosis for this admission?: Yes Plan: Plan is for dialysis as per nephrology (5) Status post mitral valve repair Is this a current diagnosis for this admission?: Yes - Plan Summary Summary: 03/08 Patient denies any chest pain. She was noted to have potassium of 6 which is consistent with her end-stage renal disease. Unfortunately she has a dysfunctional AV fistula. Plan is to insert a temporary dialysis catheter permacath likely today and then she will need a possible fistulogram with declot or intervention in the coming days. He also received Kayexalate overnight.
--- NOTE | 2020-03-08 15:30 | EKG REPORT ---
SEVERITY:- ABNORMAL ECG - SINUS RHYTHM RIGHT AXIS DEVIATION ABNORMAL T, CONSIDER ISCHEMIA, LATERAL LEADS PROLONGED QT INTERVAL : Confirmed by: Keira Fernandes MD 08-Mar-2020 15:28:24
[2020-03-08] MEDS: AZITHROMYCIN 250 MG TABLET PO SCH (17:17)
[2020-03-08] MEDS ORDERED: LIDOCAINE 2% INJ (20 MG/ML) 20 ML MDV ONE (17:22)
[2020-03-08] MEDS ORDERED: BUPIVACAINE HCL 0.25 % INJ/PF (2.5 MG/1 ML) 30 ML VIAL ONE (17:33)
[2020-03-08] MEDS ORDERED: LIDOCAINE 1% INJ-PF (10 MG/ML) 30 ML SDV ONE (17:33)
--- NOTE | 2020-03-08 18:09 | PDOC CONSULTATION ---
Consultation Consult Date: 03/08/20 Provider Consulted: JOSEPH SALTER Consult reason:: ESRD, Hyperkalemia History of Present Illness Admission Date/PCP: 03/07/20 10:15 INDIGO VALLE NP History of Present Illness: STEPHANIE RODRIGUEZ is a 49 year old -[place] lady known to me with history of ESRD on maintenance hemodialysis 3 times a week, history of congestive heart failure, diabetes mellitus type 2, and history of mitral valve repair in June 2018 who was admitted yesterday presenting with dizziness associated with some nausea and vomiting. Patient told me today that she was at a friend's house when she experienced slight substernal chest pain for which EMS was called. On the way to the emergency room she was given nitroglycerin and so when she reached emergency room she no longer has any chest pain. She denies any shortness of breath, cough nor fever. Initial evaluation showed elevated troponin. A chest x-ray showed moderate opacity/effusion in the right lower hemothorax. CT scan of the chest with IV contrast revealed no pulmonary embolus. It also revealed moderate right-sided pleural effusion with areas of subsegmental atelectasis in the right lower lobe, alveolar opacities in the left lower lobe concerning for pneumonia, and cardiomegaly with suspected pulmonary hypertension and right-sided cardiac dysfunction. Patient also presented with high potassium of 5.7. Other electrolyte abnormalities includes hyponatremia and metabolic acidosis. Cardiology was consulted and Dr. Mil Hughes's saw the patient and his assessment was no acute coronary syndrome. She was also started on IV ceftriaxone and oral Zithromax. Patient's last dialysis was last Saturday. She was having issues with her right arm AV fistula that caused frequent stopping of the machine and clotting. She was supposed to go to [place] to have fistulogram of her right arm AV fistula today which obviously will not happen. Dr. Gregg is consulted for possible declotting of her right AV fistula and or PermCath placement so that we can do hemodialysis on this patient at least tomorrow. Today the patient is chest pain-free and denies any shortness of breath. She is virtually asymptomatic today. Her blood pressure has been also elevated at times but has improved. Past Medical History Cardiac Medical History: Reports: CHF-Diastolic, Heart Murmur, Hypertension- primary, Valvular Heart disease Endocrine Medical History: Reports: Diabetes Mellitus Type 2 Renal/ Medical History: Reports: End Stage Renal Disease Hematology Medical History: Reports Anemia of Chronic Kidney Disease Past Surgical History Past Surgical History: Reports: Dialysis Access Surgery AVF, Valve Replacement - Mitral valve repair on 06/30/2018, Vascular Surgery - Vas-Cath placement, peritoneal dialysis catheter placement, Other - Left eye surgery Social History Information Source: Patient, [facility] Records Smoking Status: Never Smoker Electronic Cigarette use?: No Frequency of Alcohol Use: None Hx Recreational Drug Use: No Drugs: None Hx Prescription Drug Abuse: No - Advance Directive Resuscitation Status: Full Code Family History Family History: Reviewed & Not Pertinent Parental Family History Reviewed: Yes Children Family History Reviewed: Yes Sibling(s) Family History Reviewed.: Yes Medication/Allergy Home Medications: Aspirin [Ecotrin] 81 mg PO DAILY 03/24/19 Clonidine HCl [Catapres 0.2 mg Tablet] 0.2 mg PO BIDP PRN 11/16/19 Carvedilol [Coreg 12.5 mg Tablet] 25 mg PO Q12 02/21/20 Chlorthalidone [Hygroton 25 mg Tablet] 25 mg PO DAILYP PRN 02/21/20 Dorzolamide HCl/Timolol Maleat [Cosopt Oph Soln 10 ml] 1 drop OS BID 02/21/20 Hydralazine HCl [Apresoline 25 mg Tablet] 25 mg PO Q8 02/21/20 Insulin Detemir [Levemir Insulin 100 units/mL Insulin Pen] 15 units SUBCUT QHS 02/21/20 Torsemide [Demadex 20 mg Tablet] 100 mg PO BID 02/21/20 Allergies/Adverse Reactions: No Known Allergies Allergy (Verified 11/23/19 10:37) Review of Systems All systems: reviewed and no additional remarkable complaints except as stated Review of Systems: Constitutional: ABSENT: chills, fatigue, fever(s), headache(s), weight gain, weight loss Eyes: ABSENT: visual disturbances Ears: ABSENT: hearing changes Cardiovascular: ABSENT: dyspnea on exertion, edema, orthropnea, palpitations; presented with some chest pains yesterday Respiratory: ABSENT: cough, dyspnea, hemoptysis Gastrointestinal: ABSENT: abdominal pain, constipation, diarrhea, hematemesis, h ematochezia; presented with nausea, and vomiting Genitourinary: ABSENT: dysuria, hematuria Musculoskeletal: ABSENT: joint swelling Integumentary: ABSENT: rash, wounds Neurological: ABSENT: abnormal gait, abnormal speech, confusion, focal weakness, numbness, syncope; admits dizziness on presentation Psychiatric: ABSENT: anxiety, depression Endocrine: ABSENT: cold intolerance, heat intolerance, polydipsia, polyuria Hematologic/Lymphatic: ABSENT: easy bleeding, easy bruising, lymphadenopathy Physical Exam Vital Signs: Temp Pulse Resp BP Pulse Ox 97.3 F 66 18 116/66 99 03/08/20 07:47 03/08/20 08:20 03/08/20 08:20 03/08/20 07:47 03/08/20 08:20 Intake & Output 03/07/20 03/08/20 03/09/20 06:59 06:59 06:59 Intake Total 310 Balance 310 Weight 58.967 kg 70.73 kg Exam: General appearance: No acute distress, cooperative, well-developed, well- nourished Head exam: PRESENT: atraumatic, normocephalic Eye exam: PRESENT: Conjunctiva pale, left eye patch. ABSENT: conjunctival injection, scleral icterus Mouth exam: PRESENT: moist, neck supple, tongue midline Neck exam: PRESENT: full ROM. ABSENT: carotid bruit, JVD, lymphadenopathy, thyromegaly Respiratory exam: PRESENT: clear to auscultation bilaterally. ABSENT: rales, rhonchi, stridor, wheezes Cardiovascular exam: PRESENT: RRR, +S1, +S2. ABSENT: systolic murmur Pulses: PRESENT: normal radial pulses, normal dorsalis pedis pulses GI/Abdominal exam: PRESENT: normal bowel sounds, soft. ABSENT: guarding, mass, tenderness Rectal exam: Deferred Extremities exam: PRESENT: full ROM. Right arm AV fistula actually has thrill and bruit with a lot of hematoma overlying it. ABSENT: calf tenderness, pedal edema Musculoskeletal: PRESENT: full ROM. ABSENT: deformity Neurological exam: PRESENT: alert, Awake, Oriented to person, Oriented to place, Oriented to time, reflexes normal, CN II-XII grossly intact. ABSENT: motor sensory deficit Psychiatric exam: PRESENT: appropriate affect, normal mood. ABSENT: homicidal ideation, suicidal ideation Skin exam: PRESENT: intact, dry, warm. ABSENT: rash Results Laboratory Results: 03/08/20 04:57 03/08/20 04:57 03/08/20 03/08/20 03/08/20 04:57 04:57 08:20 WBC 12.2 H RBC 3.62 L Hgb 7.8 L Hct 24.6 L MCV 68 L MCH 21.7 L MCHC 31.8 L RDW 19.1 H Plt Count 268 Seg Neutrophils % Not Reportable Sodium 130.1 L Potassium 6.0 H* Chloride 93 L Carbon Dioxide 18 L Anion Gap 19 BUN 112 H Creatinine 6.95 H Est GFR ( Amer) 8 L Glucose 120 H Lactic Acid 2.0 Calcium 7.7 L 03/07/20 03/07/20 03/07/20 06:13 06:13 09:00 Creatine Kinase 74 CK-MB (CK-2) 3.71 Troponin I 0.119 0.118 03/07/20 15:11 Creatine Kinase CK-MB (CK-2) Troponin I 0.133 Impressions: Chest X-Ray 03/07/20 05:58 IMPRESSION: Interval line/tube modification. Chest/Abdomen CTA 03/07/20 08:01 IMPRESSION: 1. No pulmonary embolus. 2. Moderate right-sided pleural effusion with areas of subsegmental atelectasis in the right lower lobe. 3. Alveolar opacities in the left lower lobe concerning for pneumonia. 4. Cardiomegaly with suspected pulmonary hypertension and right-sided cardiac dysfunction. Assessment & Plan - Diagnosis (1) End stage renal disease on dialysis Is this a current diagnosis for this admission?: Yes Plan: We will plan on doing dialysis tomorrow. Will need vascular abscess for which Dr. Gregg will place a PermCath today. (2) Hyperkalemia Is this a current diagnosis for this admission?: Yes Plan: Patient was given IV calcium gluconate and Kayexalate yesterday and today. Dialysis tomorrow. Follow renal and low potassium diet. (3) AV fistula occlusion Is this a current diagnosis for this admission?: Yes Plan: Discussed with Dr. Gregg today. He will place a PermCath so we can do adequate dialysis tomorrow. Dr. Gregg also spoke to Dr. Goldstein who will look into possible declotting and fistulogram of the patient's right arm AV fistula. (4) Anemia in chronic kidney disease (CKD) Is this a current diagnosis for this admission?: Yes Plan: We will check iron studies and give the patient Retacrit on dialysis. (5) Hyponatremia Is this a current diagnosis for this admission?: Yes Plan: Likely secondary to ESRD with missing dialysis and possibly mild fluid retention. (6) Metabolic acidosis Is this a current diagnosis for this admission?: Yes Plan: Due to missing dialysis. (7) Pneumonia Qualifiers: Pneumonia type: due to unspecified organism Laterality: left Lung location: lower lobe of lung Qualified Code(s): J18.9 - Pneumonia, unspecified organism Is this a current diagnosis for this admission?: Yes Plan: Management per hospitalist service. Patient is on IV ceftriaxone and azithromycin orally. (8) Elevated troponin Is this a current diagnosis for this admission?: Yes Plan: Dr. Hughes following the patient. Apparently no acute coronary syndrome. (9) Hypertension Qualifiers: Hypertension type: unspecified Qualified Code(s): I10 - Essential (primary) hypertension Is this a current diagnosis for this admission?: Yes Plan: Improving today. (10) Diabetes mellitus type 2 in nonobese Is this a current diagnosis for this admission?: Yes - Notes Notes: Thank you very much for this consultation. - Time Time Spent: 50 to 70 Minutes
[2020-03-08] MEDS ORDERED: MIDAZOLAM 2 MG/2 ML INJ ONE (18:10)
[2020-03-08] MEDS ORDERED: PROPOFOL INJ 200 MG/20 ML VIAL IV ONE (18:10)
[2020-03-08] MEDS ORDERED: FENTANYL CITRATE INJ/PF 100 MCG/2 ML AMPUL ONE (18:10)
[2020-03-08] MEDS ORDERED: MEPERIDINE HCL/PF INJ 25 MG/1 ML DISP.SYRIN IV PRN (19:07)
[2020-03-08] MEDS ORDERED: DIPHENHYDRAMINE HCL 50 MG/ML VIAL IV PRN (19:07)
[2020-03-08] MEDS ORDERED: FENTANYL CITRATE INJ/PF 100 MCG/2 ML AMPUL IV PRN ×3 (19:07)
[2020-03-08] MEDS ORDERED: OXYCODONE-ACETAMINOPHEN 5-325 MG TABLET PO PRN ×2 (19:07)
[2020-03-08] MEDS ORDERED: MORPHINE SULFATE 10 MG/ML INJ IV PRN (19:07)
[2020-03-08] MEDS ORDERED: PROMETHAZINE HCL INJ 25 MG/1 ML VIAL IV PRN ×2 (19:07)
--- NOTE | 2020-03-08 19:55 | Operative Report ---
Nonrecallable Operative Report DATE OF SURGERY: 03/08/20 PREOPERATIVE DIAGNOSIS: 1. End-stage renal disease. 2. Dysfunctional/clotted AV fistula. POSTOPERATIVE DIAGNOSIS: 1. Same as above. 2. Same as above. 3. Tortuous superior vena cava OPERATION: 1. Superior venacavogram, to rule out stricture. 2. Ultrasound- guided left internal jugular vein puncture, with picture documentation. 3. insertion of left internal jugular vein permacath. SURGEON: JAMMIE ROSENBERG ANESTHESIA: LMAC TISSUE REMOVED OR ALTERED: None COMPLICATIONS: Tortuosity of the superior vena cava, causing kinking of the wire. This prompted performing a superior venacavogram to assess for strictures. Please note that no strictures were identified. ESTIMATED BLOOD LOSS: 50 cc PROCEDURE: Drain/implants: Left internal jugular vein permacath placement. Procedure in detail: After informed consent was obtained, the patient was brought to the operating room and laid in the Trendelenburg position. The area of the neck and chest were prepped and draped in a normal sterile fashion. Due to previous right IJ permacath placement, the left internal jugular vein was utilized. The ultrasound was used to identify the left internal jugular vein. Under direct ultrasound guidance, the left IJ was punctured and cannulated. Dark venous, nonpulsatile blood was returned in the syringe. A wire was then inserted into the left internal jugular vein. The wire was confirmed to be within the left internal jugular vein using the ultrasound device. Picture documentation was obtained. Next, fluoroscopy was used to visualize the wire in the SVC. The wire was found to kink and turn upward toward the right internal jugular vein. Manipulation of the wire was undertaken. There was difficulty manipulating the wire into the inferior vena cava. Secondary to this, a superior venacavogram was performed in order to assess for strictures or other impassible phenomena. Sheath was inserted over the wire. The wire was removed, and a superior venacavogram was shot with 20 cc of Isovue. The superior vena cava was tortuous, but did not have signs of extrinsic compression or stricture. After this was confirmed, further manipulation of the wire into the IVC was successful. This was confirmed with fluoroscopy. Next, serial dilators were used to dilate the insertion tract. The catheter was inserted and tunneled from a separate stab incision on the left chest, up to the needle insertion site. Next, the breakaway sheath was inserted over the wire, under direct fluoroscopic guidance. The wire and dilator were removed as one continuous piece. The permacath was then inserted into the breakaway sheath. The breakaway sheath was cracked and pulled away. This left the permacath within the superior vena cava. The permacath was pulled back to lie in an appropriate level in the SVC. This was all confirmed with fluoroscopy. Next, attention was turned to securing of the permacath. A U-stitch was used at the exit point, to secure the permacath to the skin. This was done with 2-0 Prolene suture. The ears of the permacath hub were then sutured to the skin, also using 2-0 Prolene suture. The insertion site was closed using 4-0 Vicryl suture. A Biopatch was placed, and an occlusive dressing was used. Dermabond and Steri-Strips were utilized over the needle insertion site. The permacath was aspirated and flushed with heparinized saline. There was no obstruction to aspiration or flushing. Once this was completed, the procedure was concluded. All sponge, instrument, and needle counts were correct x2. Condition: Fair.
--- NOTE | 2020-03-08 19:57 | RADIOLOGY REPORT (SQ) ---
EXAM DESCRIPTION: FLUORO/CV PLACEMENT IMAGES COMPLETED DATE/TIME: 03/08/2020 7:38 pm REASON FOR STUDY: PERM CATH PLACEMENT ON LEFT SIDE COMPARISON: AP chest 03/07/2020 FLUOROSCOPY TIME: 10 minutes 7 digital fluoroscopic images saved to PACS. TECHNIQUE: Intra-operative images acquired during surgical procedure to evaluate progress. NUMBER OF IMAGES: 7 digital fluoroscopic images LIMITATIONS: None. FINDINGS: Intra procedural imaging and fluoro during placement of a left-sided central venous dialys is catheter with the tip in the right atrium. IMPRESSION: IMAGE(S) OBTAINED DURING PROCEDURE. COMMENT: Quality ID [id number]: Final reports for procedures using fluoroscopy that document radiation exp osure indices, or exposure time and number of fluorographic images (if radiation exposure indices are not available) Please consult full operative report of the attending physician for description of the procedure. TECHNICAL DOCUMENTATION: JOB ID: [id number] [employer]- All Rights Reserved Reading location - IP/workstation name: [id number]
[2020-03-08] MEDS: INSULIN GLARGINE,HUM.REC.ANLOG 1,000 UNIT/10 ML VIAL SUBCUT SCH (21:38)
[2020-03-08 21:40] LABS: ABSOLUTE RETICS # 0.155 10^6/uL (0.028-0.122); RETICULOCYTE COUNT (AUTO) 4.07 % (0.66-2.85)
[2020-03-08 22:06] LABS: IRON(TIBC) 33.2 ug/dL (37-170)
[2020-03-09] MEDS: TEMAZEPAM 7.5 MG CAPSULE PO PRN ×2 (00:37→21:11)
[2020-03-09] MEDS: PROMETHAZINE HCL INJ 25 MG/1 ML VIAL IV PRN ×2 (02:09→21:11)
[2020-03-09] MEDS ORDERED: NORMAL SALINE 1000 ML 1,000 ML IV PRN (05:00)
[2020-03-09] MEDS ORDERED: HEPARIN SOD (PORCINE) 1,000 UNIT/ML 10 ML VIAL IV PRN (05:00)
[2020-03-09] MEDS: CLONIDINE HCL 0.2 MG TABLET PO SCH ×3 (05:49→21:17)
[2020-03-09] MEDS: HYDRALAZINE HCL 25 MG TABLET PO SCH ×3 (05:49→21:17)
[2020-03-09 06:08] LABS: MEAN CORPUSCULAR HEMOGLOBIN 21.6 pg (27.0-33.4); MEAN CORPUSCULAR VOLUME 68 fl (80-97); PLATELET COUNT 265 10^3/uL (150-450); RED BLOOD COUNT 3.69 10^6/uL (3.72-5.28); RED CELL DISTRIBUTION WIDTH 19.1 % (11.5-14.0); WHITE BLOOD COUNT 10.4 10^3/uL (4.0-10.5)
[2020-03-09 06:25] LABS: CARBON DIOXIDE 13 mmol/L (22-30); CHLORIDE 96 mmol/L (98-107); GLUCOSE 205 mg/dL (75-110); POTASSIUM 5.8 mmol/L (3.6-5.0)
[2020-03-09 06:33] LABS: ANION GAP 24 (5-19); BLOOD UREA NITROGEN 124 mg/dL (7-20)
[2020-03-09 06:36] LABS: CALCIUM 6.8 mg/dL (8.4-10.2)
[2020-03-09 06:54] LABS: ABSOLUTE LYMPHOCYTES# (MANUAL) 1.1 10^3/uL (0.5-4.7); ABSOLUTE MONOCYTES # (MANUAL) 0.2 10^3/uL (0.1-1.4); BASOPHILS % (MANUAL) 1 % (0-2); EOSINOPHILS % (MANUAL) 0 % (0-6); LYMPHOCYTES % (MANUAL) 10 % (13-45); MONOCYTES % (MANUAL) 2 % (3-13); SEGMENTED NEUTROPHILS % (MAN) 86 % (42-78); TOTAL CELLS COUNTED 100
[2020-03-09 06:56] LABS: ANISOCYTOSIS 2+
[2020-03-09 06:57] LABS: HYPOCHROMASIA 1+; OVALOCYTES SLIGHT; PLATELET COMMENT ADEQUATE; POLYCHROMASIA SLIGHT; TOXIC GRANULATION SLIGHT; TOXIC VACUOLATION PRESENT
[2020-03-09] MEDS: HEPARIN SOD (PORCINE) 5,000 UNIT/ML 1 ML VIAL SUBCUT SCH ×3 (07:00→21:11)
[2020-03-09] MEDS ORDERED: EPOETIN ALFA-EPBX 40,000 UNIT/ML VIAL (RENAL) IV PRN (08:00)
[2020-03-09] MEDS ORDERED: LORAZEPAM INJ 2 MG/1 ML VIAL IV ONE (09:15)
[2020-03-09] MEDS ORDERED: LORAZEPAM INJ 2 MG/1 ML VIAL ONE (09:22)
[2020-03-09] MEDS: DORZOLAMIDE HCL 2%/TIMOLOL MALEAT 0.5% OPH SOLN 10 ML OS SCH ×2 (11:54→17:43)
--- NOTE | 2020-03-09 12:19 | PDOC PROGRESS REPORT ---
Subjective Progress Note for:: 03/09/20 Reason For Visit: CHEST PAIN,PNA,ESRD Physical Exam Vital Signs: Temp Pulse Resp BP Pulse Ox 97.4 F 108 H 18 101/64 97 03/09/20 03:06 03/09/20 07:00 03/09/20 03:06 03/09/20 03:06 03/09/20 03:06 Intake & Output 03/08/20 03/09/20 03/10/20 06:59 06:59 06:59 Intake Total 310 737 Output Total 0 Balance 310 737 Weight 70.73 kg 73.7 kg Results Laboratory Results: 03/09/20 05:48 03/09/20 05:48 03/08/20 03/08/20 03/09/20 21:10 21:10 05:48 WBC 10.4 RBC 3.69 L Hgb 8.0 L Hct 25.0 L MCV 68 L MCH 21.6 L MCHC 32.0 RDW 19.1 H Plt Count 265 Seg Neutrophils % Not Reportable Retic Count (auto) 4.07 H Sodium Potassium Chloride Carbon Dioxide Anion Gap BUN Creatinine Est GFR ( Amer) Glucose Calcium Iron 33.2 L TIBC 213 L % Saturation 16 Ferritin 353.00 H Vitamin B12 810.0 Folate 10.40 03/09/20 05:48 WBC RBC Hgb Hct MCV MCH MCHC RDW Plt Count Seg Neutrophils % Retic Count (auto) Sodium 132.6 L Potassium 5.8 H Chloride 96 L Carbon Dioxide 13 L Anion Gap 24 H BUN 124 H Creatinine 7.67 H Est GFR ( Amer) 7 L Glucose 205 H Calcium 6.8 L* Iron TIBC % Saturation Ferritin Vitamin B12 Folate 03/07/20 03/07/20 03/07/20 06:13 06:13 09:00 Creatine Kinase 74 CK-MB (CK-2) 3.71 Troponin I 0.119 0.118 03/07/20 15:11 Creatine Kinase CK-MB (CK-2) Troponin I 0.133 Impressions: Chest X-Ray 03/07/20 05:58 IMPRESSION: Interval line/tube modification. Chest/Abdomen CTA 03/07/20 08:01 IMPRESSION: 1. No pulmonary embolus. 2. Moderate right-sided pleural effusion with areas of subsegmental atelectasis in the right lower lobe. 3. Alveolar opacities in the left lower lobe concerning for pneumonia. 4. Cardiomegaly with suspected pulmonary hypertension and right-sided cardiac dysfunction. Guidance Fluoroscopy 03/08/20 00:00 IMPRESSION: IMAGE(S) OBTAINED DURING PROCEDURE. Assessment & Plan - Diagnosis (1) AV fistula occlusion Is this a current diagnosis for this admission?: Yes - Plan Summary Plan Summary: This is a 49-year-old female with a dysfunctional AV fistula. She had a permacath placed yesterday. The permacath appears to be working adequately. She was able to undergo dialysis today. Dr. Goldstein to follow the patient's AV fistula. It is likely that she will require revision/replacement of her AV fistula. Further treatments and interventions to be determined by Dr. Goldstein.
[2020-03-09] MEDS: ASPIRIN 81 MG TABLET, ENT COATED PO SCH (12:22)
[2020-03-09] MEDS: DOCUSATE SODIUM 100 MG CAPSULE PO SCH (12:23)
[2020-03-09] MEDS: CARVEDILOL 12.5 MG TABLET PO SCH ×2 (12:23→21:10)
[2020-03-09] MEDS: AZITHROMYCIN 250 MG TABLET PO SCH (12:23)
[2020-03-09] MEDS: CEFTRIAXONE 1 GM/D5W RTU 1 GM/50 ML RTUPB IV SCH (12:24)
--- NOTE | 2020-03-09 15:07 | PDOC PROGRESS REPORT ---
Subjective Progress Note for:: 03/09/20 Subjective:: Patient somewhat lethargic when I saw her but apparently she had received some Ativan postdialysis Reason For Visit: CHEST PAIN,PNA,ESRD Follow-up for above Physical Exam Vital Signs: Temp Pulse Resp BP Pulse Ox 97.4 F 80 18 101/64 96 03/09/20 03:06 03/09/20 14:26 03/09/20 14:26 03/09/20 03:06 03/09/20 14:26 Intake & Output 03/08/20 03/09/20 03/10/20 06:59 06:59 06:59 Intake Total 310 737 900 Output Total 0 3000 Balance 310 737 -2100 Weight 70.73 kg 73.7 kg General appearance: PRESENT: no acute distress, other - Chronically ill looking, lethargic but arousable Eye exam: PRESENT: other - Right eye patch Mouth exam: PRESENT: dry mucosa Neck exam: ABSENT: JVD Respiratory exam: PRESENT: clear to auscultation peterson, unlabored. ABSENT: rhonchi Cardiovascular exam: PRESENT: +S1, +S2, systolic murmur Rectal exam: PRESENT: deferred Extremities exam: PRESENT: +1 edema, other - Brachiocephalic fistula with poor bruit Musculoskeletal exam: PRESENT: other - Left chest wall dialysis catheter Neurological exam: PRESENT: other - Lethargic but arousable Results Laboratory Results: 03/09/20 05:48 03/09/20 05:48 03/08/20 03/08/20 03/09/20 21:10 21:10 05:48 WBC 10.4 RBC 3.69 L Hgb 8.0 L Hct 25.0 L MCV 68 L MCH 21.6 L MCHC 32.0 RDW 19.1 H Plt Count 265 Seg Neutrophils % Not Reportable Retic Count (auto) 4.07 H Sodium Potassium Chloride Carbon Dioxide Anion Gap BUN Creatinine Est GFR ( Amer) Glucose Calcium Iron 33.2 L TIBC 213 L % Saturation 16 Ferritin 353.00 H Vitamin B12 810.0 Folate 10.40 03/09/20 05:48 WBC RBC Hgb Hct MCV MCH MCHC RDW Plt Count Seg Neutrophils % Retic Count (auto) Sodium 132.6 L Potassium 5.8 H Chloride 96 L Carbon Dioxide 13 L Anion Gap 24 H BUN 124 H Creatinine 7.67 H Est GFR ( Amer) 7 L Glucose 205 H Calcium 6.8 L* Iron TIBC % Saturation Ferritin Vitamin B12 Folate 03/07/20 03/07/20 03/07/20 06:13 06:13 09:00 Creatine Kinase 74 CK-MB (CK-2) 3.71 Troponin I 0.119 0.118 03/07/20 15:11 Creatine Kinase CK-MB (CK-2) Troponin I 0.133 Impressions: Chest X-Ray 03/07/20 05:58 IMPRESSION: Interval line/tube modification. Chest/Abdomen CTA 03/07/20 08:01 IMPRESSION: 1. No pulmonary embolus. 2. Moderate right-sided pleural effusion with areas of subsegmental atelectasis in the right lower lobe. 3. Alveolar opacities in the left lower lobe concerning for pneumonia. 4. Cardiomegaly with suspected pulmonary hypertension and right-sided cardiac dysfunction. Guidance Fluoroscopy 03/08/20 00:00 IMPRESSION: IMAGE(S) OBTAINED DURING PROCEDURE. Assessment and Plan - Diagnosis (1) Elevated troponin Is this a current diagnosis for this admission?: Yes Plan: Likely demand mismatch~no evidence of ischemia (2) Dizziness Is this a current diagnosis for this admission?: Yes (3) Pneumonia Qualifiers: Pneumonia type: due to unspecified organism Laterality: left Lung location: lower lobe of lung Qualified Code(s): J18.9 - Pneumonia, unspecified organism Is this a current diagnosis for this admission?: Yes Plan: Continue with empiric ceftriaxone and Zithromax (4) ESRD needing dialysis Is this a current diagnosis for this admission?: Yes Plan: She was dialyzed today (5) Status post mitral valve repair Is this a current diagnosis for this admission?: Yes - Plan Summary Summary: 03/08 Patient denies any chest pain. She was noted to have potassium of 6 which is consistent with her end-stage renal disease. Unfortunately she has a dysfunctional AV fistula. Plan is to insert a temporary dialysis catheter perma cath likely today and then she will need a possible fistulogram with declot or intervention in the coming days. He also received Kayexalate overnight. 03/09 hyperkalemia secondary to her kidney function. She was dialyzed received some Kayexalate. Will recheck potassium level
[2020-03-09] MEDS: TORSEMIDE 20 MG TABLET PO SCH ×2 (15:23→17:41)
[2020-03-09] MEDS: OXYCODONE-ACETAMINOPHEN 5-325 MG TABLET PO PRN (16:08)
[2020-03-09] MEDS: INSULIN REG, HUMAN 100 UNIT/ML 3 ML VIAL (PYX) SUBCUT SCH ×4 (16:12→23:00)
--- NOTE | 2020-03-09 18:46 | PDOC PROGRESS REPORT ---
Subjective Progress Note for:: 03/09/20 Subjective:: I am seeing the patient during dialysis this morning. She tells me that she feels like she have some blurry vision. He said she was a little dizzy this morning but not currently. She denies any chest pains no shortness of breath. She was doing okay until about half of her dialysis time she starts becoming restless and states that she could not understand what is going on, she just does not feel well. All her vital signs during that time was within normal vance its. Her blood sugar was 187 and her oxygen saturation was 99 to 100%. So I gave her lorazepam 0.5 mg IV and she calmed down after that and was able to complete dialysis. Reason For Visit: CHEST PAIN,PNA,ESRD Physical Exam Vital Signs: Temp Pulse Resp BP Pulse Ox 97.4 F 108 H 18 101/64 97 03/09/20 03:06 03/09/20 07:00 03/09/20 03:06 03/09/20 03:06 03/09/20 03:06 Intake & Output 03/08/20 03/09/20 03/10/20 06:59 06:59 06:59 Intake Total 310 737 Output Total 0 Balance 310 737 Weight 70.73 kg 73.7 kg Vitals during dialysis: Blood pressure 137/78, pulse rate of 76, blood flow rate of 350 mL/min and dialysate flow rate of 800 mL/min. Exam: General appearance: PRESENT: no acute distress, cooperative, fairly developed, fairly nourished and somewhat restless in the middle of dialysis treatment Head exam: PRESENT: atraumatic, normocephalic Eye exam: PRESENT: conjunctiva pale, left eye patch. ABSENT: scleral icterus Neck exam: ABSENT: JVD Respiratory exam: PRESENT: Normal breath sounds. ABSENT: crackles, rales, rhonchi, unlabored, wheezes Cardiovascular exam: PRESENT: Regular rate rhythm -+S1, +S2. ABSENT: diastolic murmur, systolic murmur GI/Abdominal exam: PRESENT: normal bowel sounds, soft. ABSENT: guarding, mass, tenderness Extremities exam: Grade 1 bilateral lower extremity pitting edema Neurological exam: PRESENT: alert, awake, oriented to person, place and time. Skin exam: PRESENT: dry, warm, Results Laboratory Results: 03/09/20 05:48 03/09/20 05:48 03/08/20 03/08/20 03/09/20 21:10 21:10 05:48 WBC 10.4 RBC 3.69 L Hgb 8.0 L Hct 25.0 L MCV 68 L MCH 21.6 L MCHC 32.0 RDW 19.1 H Plt Count 265 Seg Neutrophils % Not Reportable Retic Count (auto) 4.07 H Sodium Potassium Chloride Carbon Dioxide Anion Gap BUN Creatinine Est GFR ( Amer) Glucose Calcium Iron 33.2 L TIBC 213 L % Saturation 16 Ferritin 353.00 H Vitamin B12 810.0 Folate 10.40 03/09/20 05:48 WBC RBC Hgb Hct MCV MCH MCHC RDW Plt Count Seg Neutrophils % Retic Count (auto) Sodium 132.6 L Potassium 5.8 H Chloride 96 L Carbon Dioxide 13 L Anion Gap 24 H BUN 124 H Creatinine 7.67 H Est GFR ( Amer) 7 L Glucose 205 H Calcium 6.8 L* Iron TIBC % Saturation Ferritin Vitamin B12 Folate 03/07/20 03/07/20 03/07/20 06:13 06:13 09:00 Creatine Kinase 74 CK-MB (CK-2) 3.71 Troponin I 0.119 0.118 03/07/20 15:11 Creatine Kinase CK-MB (CK-2) Troponin I 0.133 Impressions: Chest X-Ray 03/07/20 05:58 IMPRESSION: Interval line/tube modification. Chest/Abdomen CTA 03/07/20 08:01 IMPRESSION: 1. No pulmonary embolus. 2. Moderate right-sided pleural effusion with areas of subsegmental atelectasis in the right lower lobe. 3. Alveolar opacities in the left lower lobe concerning for pneumonia. 4. Cardiomegaly with suspected pulmonary hypertension and right-sided cardiac dysfunction. Guidance Fluoroscopy 03/08/20 00:00 IMPRESSION: IMAGE(S) OBTAINED DURING PROCEDURE. Assessment & Plan - Diagnosis (1) End stage renal disease on dialysis Is this a current diagnosis for this admission?: Yes Plan: We will do dialysis today for 3 hours, using the patient's left IJ PermCath, with 2 potassium/3 calcium bath, blood flow rate of 350 mL per minute, dialysate flow rate of 800 mL per minute, ultrafiltration 2.5 to 3 L as tolerated, no heparin and Retacrit with 40,000 units during dialysis intravenously. Patient is being closely monitored during dialysis treatment. After giving Ativan patient is being reevaluated until the end of treatment. (2) Hyperkalemia Is this a current diagnosis for this admission?: Yes Plan: Use low potassium bath on dialysis as above. (3) AV fistula occlusion Is this a current diagnosis for this admission?: Yes Plan: Currently being dialyzed using left IJ PermCath. Right arm AV fistula needs possible fistulogram. This can be done after this hospitalization once more stable. Dr. Goldstein has also evaluated the patient. (4) Anemia in chronic kidney disease (CKD) Is this a current diagnosis for this admission?: Yes Plan: Retacrit given during dialysis. (5) Hypocalcemia Is this a current diagnosis for this admission?: Yes Plan: We are using high calcium bath during dialysis. (6) Hyponatremia Is this a current diagnosis for this admission?: Yes Plan: Slowly improving. (7) Metabolic acidosis Is this a current diagnosis for this admission?: Yes Plan: Worse today but should improve with dialysis treatment. (8) Pneumonia Qualifiers: Pneumonia type: due to unspecified organism Laterality: left Lung location: lower lobe of lung Qualified Code(s): J18.9 - Pneumonia, unspecified organism Is this a current diagnosis for this admission?: Yes Plan: On antibiotics per hospitalist service. (9) Elevated troponin Is this a current diagnosis for this admission?: Yes (10) Hypertension Qualifiers: Hypertension type: unspecified Qualified Code(s): I10 - Essential (primary) hypertension Is this a current diagnosis for this admission?: Yes Plan: Controlled. (11) Diabetes mellitus type 2 in nonobese Is this a current diagnosis for this admission?: Yes - Time Time with patient: 15-25 minutes
[2020-03-09] MEDS: INSULIN GLARGINE,HUM.REC.ANLOG 1,000 UNIT/10 ML VIAL SUBCUT SCH (21:21)
[2020-03-10] MEDS: CLONIDINE HCL 0.2 MG TABLET PO SCH ×2 (05:31→16:29)
[2020-03-10] MEDS: HYDRALAZINE HCL 25 MG TABLET PO SCH ×2 (05:31→16:28)
[2020-03-10] MEDS: HEPARIN SOD (PORCINE) 5,000 UNIT/ML 1 ML VIAL SUBCUT SCH ×2 (05:34→16:30)
[2020-03-10 06:01] LABS: HEMATOCRIT 24.8 % (36.0-47.0); HEMOGLOBIN 8.1 g/dL (12.0-15.5); MEAN CORPUSCULAR HEMOGLOBIN 22.1 pg (27.0-33.4); MEAN CORPUSCULAR HGB CONC 32.8 g/dL (32.0-36.0); MEAN CORPUSCULAR VOLUME 67 fl (80-97); PLATELET COUNT 269 10^3/uL (150-450); RED BLOOD COUNT 3.67 10^6/uL (3.72-5.28); RED CELL DISTRIBUTION WIDTH 19.6 % (11.5-14.0); WHITE BLOOD COUNT 9.7 10^3/uL (4.0-10.5)
[2020-03-10 06:17] LABS: ABSOLUTE LYMPHOCYTES# (MANUAL) 1.1 10^3/uL (0.5-4.7); ABSOLUTE MONOCYTES # (MANUAL) 1.1 10^3/uL (0.1-1.4); BASOPHILS % (MANUAL) 0 % (0-2); EOSINOPHILS % (MANUAL) 0 % (0-6); LYMPHOCYTES % (MANUAL) 11 % (13-45); MONOCYTES % (MANUAL) 11 % (3-13); SEGMENTED NEUTROPHILS % (MAN) 78 % (42-78); TOTAL CELLS COUNTED 100
[2020-03-10 06:18] LABS: ANION GAP 14 (5-19); CALCIUM 7.4 mg/dL (8.4-10.2); CARBON DIOXIDE 22 mmol/L (22-30); CHLORIDE 96 mmol/L (98-107); GLUCOSE 173 mg/dL (75-110)
[2020-03-10 06:19] LABS: ANISOCYTOSIS 2+; HYPOCHROMASIA 1+; PLATELET COMMENT ADEQUATE; POIKILOCYTOSIS SLIGHT; POLYCHROMASIA 1+; ROULEAUX SLIGHT; TARGET CELLS SLIGHT
[2020-03-10 06:37] LABS: BLOOD UREA NITROGEN 76 mg/dL (7-20); POTASSIUM 4.4 mmol/L (3.6-5.0)
[2020-03-10] MEDS: PROMETHAZINE HCL INJ 25 MG/1 ML VIAL IV PRN (09:04)
[2020-03-10] MEDS: INSULIN REG, HUMAN 100 UNIT/ML 3 ML VIAL (PYX) SUBCUT SCH ×4 (09:08→21:32)
[2020-03-10] MEDS: CARVEDILOL 12.5 MG TABLET PO SCH (11:53)
[2020-03-10] MEDS: DOCUSATE SODIUM 100 MG CAPSULE PO SCH (11:53)
[2020-03-10] MEDS: TORSEMIDE 20 MG TABLET PO SCH ×2 (11:54→18:49)
[2020-03-10] MEDS: AZITHROMYCIN 250 MG TABLET PO SCH (11:57)
[2020-03-10] MEDS: ASPIRIN 81 MG TABLET, ENT COATED PO SCH (11:57)
[2020-03-10] MEDS: CEFTRIAXONE 1 GM/D5W RTU 1 GM/50 ML RTUPB IV SCH (11:59)
[2020-03-10] MEDS: DORZOLAMIDE HCL 2%/TIMOLOL MALEAT 0.5% OPH SOLN 10 ML OS SCH ×2 (12:02→18:49)
[2020-03-10] MEDS: OXYCODONE-ACETAMINOPHEN 5-325 MG TABLET PO PRN ×2 (13:41→21:42)
--- NOTE | 2020-03-10 13:53 | PDOC PROGRESS REPORT ---
Subjective Progress Note for:: 03/10/20 Subjective:: Patient much more awake today. She is however still pretty weak. Reason For Visit: CHEST PAIN,PNA,ESRD Physical Exam Vital Signs: Temp Pulse Resp BP Pulse Ox 97.2 F 64 12 114/65 100 03/10/20 08:42 03/10/20 11:19 03/10/20 11:19 03/10/20 11:19 03/10/20 11:19 Intake & Output 03/09/20 03/10/20 03/11/20 06:59 06:59 06:59 Intake Total 737 1361 Output Total 0 3000 Balance 737 -1639 Weight 73.7 kg 69.9 kg General appearance: PRESENT: no acute distress, other - Chronically ill looking Head exam: PRESENT: atraumatic, normocephalic Eye exam: PRESENT: conjunctiva pink, other - Left eye patch. ABSENT: scleral icterus Ear exam: PRESENT: normal external ear exam Mouth exam: PRESENT: moist, tongue midline Teeth exam: PRESENT: poor dentation Neck exam: ABSENT: carotid bruit, JVD, lymphadenopathy, thyromegaly Respiratory exam: PRESENT: clear to auscultation peterson. ABSENT: rales, rhonchi, wheezes Cardiovascular exam: PRESENT: RRR, +S1, +S2, other - Left SVC catheter. ABSENT: diastolic murmur, rubs, systolic murmur Pulses: PRESENT: normal dorsalis pedis pul, other - Minimal bruit in right brachiocephalic fistula Vascular exam: PRESENT: normal capillary refill GI/Abdominal exam: PRESENT: normal bowel sounds, soft. ABSENT: distended, guarding, mass, organolmegaly, rebound, tenderness Rectal exam: PRESENT: deferred Extremities exam: PRESENT: +1 edema, other - RLE restricted movement. ABSENT: calf tenderness, clubbing, pedal edema Neurological exam: PRESENT: alert, awake, oriented to person, oriented to place, oriented to time, oriented to situation, CN II-XII grossly intact. ABSENT: motor sensory deficit Psychiatric exam: PRESENT: appropriate affect, normal mood. ABSENT: homicidal ideation, suicidal ideation Skin exam: PRESENT: dry, intact, rash, skin tears - L foot anterior aspect. ABS ENT: cyanosis Results Laboratory Results: 03/10/20 05:21 03/10/20 05:21 03/10/20 03/10/20 05:21 05:21 WBC 9.7 RBC 3.67 L Hgb 8.1 L Hct 24.8 L MCV 67 L MCH 22.1 L MCHC 32.8 RDW 19.6 H Plt Count 269 Seg Neutrophils % Not Reportable Sodium 132.2 L Potassium 4.4 D Chloride 96 L Carbon Dioxide 22 Anion Gap 14 BUN 76 H D Creatinine 5.31 H Est GFR ( Amer) 10 L Glucose 173 H Calcium 7.4 L 03/07/20 03/07/20 03/07/20 06:13 06:13 09:00 Creatine Kinase 74 CK-MB (CK-2) 3.71 Troponin I 0.119 0.118 03/07/20 15:11 Creatine Kinase CK-MB (CK-2) Troponin I 0.133 Impressions: Chest X-Ray 03/07/20 05:58 IMPRESSION: Interval line/tube modification. Chest/Abdomen CTA 03/07/20 08:01 IMPRESSION: 1. No pulmonary embolus. 2. Moderate right-sided pleural effusion with areas of subsegmental atelectasis in the right lower lobe. 3. Alveolar opacities in the left lower lobe concerning for pneumonia. 4. Cardiomegaly with suspected pulmonary hypertension and right-sided cardiac dysfunction. Guidance Fluoroscopy 03/08/20 00:00 IMPRESSION: IMAGE(S) OBTAINED DURING PROCEDURE. Assessment and Plan - Diagnosis (1) Elevated troponin Is this a current diagnosis for this admission?: Yes (2) Dizziness Is this a current diagnosis for this admission?: Yes (3) Pneumonia Qualifiers: Pneumonia type: due to unspecified organism Laterality: left Lung location: lower lobe of lung Qualified Code(s): J18.9 - Pneumonia, unspecified organism Is this a current diagnosis for this admission?: Yes (4) ESRD needing dialysis Is this a current diagnosis for this admission?: Yes (5) Status post mitral valve repair Is this a current diagnosis for this admission?: Yes (6) AV fistula occlusion Is this a current diagnosis for this admission?: Yes Plan: Outpatient follow-up and evaluation once discharge (7) Anemia in chronic kidney disease (CKD) Is this a current diagnosis for this admission?: Yes (8) Hypocalcemia Is this a current diagnosis for this admission?: Yes (9) Hyponatremia Is this a current diagnosis for this admission?: Yes (10) Metabolic acidosis Is this a current diagnosis for this admission?: Yes (11) Hypertensive emergency Is this a current diagnosis for this admission?: Yes - Plan Summary Summary: 03/08 Patient denies any chest pain. She was noted to have potassium of 6 which is consistent with her end-stage renal disease. Unfortunately she has a dysfunctional AV fistula. Plan is to insert a temporary dialysis catheter p ermacath likely today and then she will need a possible fistulogram with declot or intervention in the coming days. He also received Kayexalate overnight. 03/09 hyperkalemia secondary to her kidney function. She was dialyzed received some Kayexalate. Will recheck potassium level 03/10 patient's clinical status is improved, she is more awake and alert. She is however still pretty weak and will likely need rehab and to have ordered a PT evaluation. She does have a clotted AV fistula so this will have to be likely declotted as outpatient. In the interim a subclavian Shiley catheter was placed and this can be used for a few weeks till her fistula is declotted. Anemia is relatively stable, secondary to chronic kidney disease. At this point I think patient is clinically stable to begin discharge planning. We will also order social service to assess needs. She had a recent hip fracture and her mobility is somewhat limited and apparently she lives alone. Is unclear how she has been able to manage
[2020-03-10] MEDS: TEMAZEPAM 7.5 MG CAPSULE PO PRN (21:42)
[2020-03-11] MEDS: HYDRALAZINE HCL 25 MG TABLET PO SCH ×2 (03:42→05:10)
[2020-03-11] MEDS: CLONIDINE HCL 0.2 MG TABLET PO SCH ×4 (03:43→21:30)
[2020-03-11] MEDS: HEPARIN SOD (PORCINE) 5,000 UNIT/ML 1 ML VIAL SUBCUT SCH ×4 (03:43→21:29)
[2020-03-11] MEDS: INSULIN GLARGINE,HUM.REC.ANLOG 1,000 UNIT/10 ML VIAL SUBCUT SCH ×2 (03:43→21:29)
[2020-03-11] MEDS: CARVEDILOL 12.5 MG TABLET PO SCH ×3 (03:43→21:30)
[2020-03-11] MEDS: OXYCODONE-ACETAMINOPHEN 5-325 MG TABLET PO PRN ×3 (03:51→17:08)
[2020-03-11] MEDS ORDERED: HEPARIN SOD (PORCINE) 1,000 UNIT/ML 10 ML VIAL IV PRN (05:00)
[2020-03-11] MEDS ORDERED: NORMAL SALINE 1000 ML 1,000 ML IV PRN (05:00)
[2020-03-11] MEDS ORDERED: EPOETIN ALFA-EPBX 2,000 UNIT, EPOETIN ALFA-EPBX 3,000 UNIT, EPOETIN ALFA-EPBX 20,000 UN... IV PRN ×4 (05:00)
[2020-03-11 06:31] LABS: BLOOD UREA NITROGEN 87 mg/dL (7-20); CARBON DIOXIDE 18 mmol/L (22-30); CHLORIDE 94 mmol/L (98-107); GLUCOSE 174 mg/dL (75-110); POTASSIUM 4.4 mmol/L (3.6-5.0)
[2020-03-11 06:37] LABS: ANION GAP 19 (5-19)
[2020-03-11 06:42] LABS: CALCIUM 6.8 mg/dL (8.4-10.2); HEMATOCRIT 25.6 % (36.0-47.0); HEMOGLOBIN 8.2 g/dL (12.0-15.5); MEAN CORPUSCULAR HEMOGLOBIN 21.6 pg (27.0-33.4); MEAN CORPUSCULAR HGB CONC 31.9 g/dL (32.0-36.0); MEAN CORPUSCULAR VOLUME 68 fl (80-97); PLATELET COUNT 278 10^3/uL (150-450); RED BLOOD COUNT 3.78 10^6/uL (3.72-5.28); WHITE BLOOD COUNT 9.9 10^3/uL (4.0-10.5)
[2020-03-11 07:02] LABS: ABSOLUTE LYMPHOCYTES# (MANUAL) 0.9 10^3/uL (0.5-4.7); ABSOLUTE MONOCYTES # (MANUAL) 0.6 10^3/uL (0.1-1.4); BASOPHILS % (MANUAL) 1 % (0-2); EOSINOPHILS % (MANUAL) 1 % (0-6); LYMPHOCYTES % (MANUAL) 9 % (13-45); MONOCYTES % (MANUAL) 6 % (3-13); SEGMENTED NEUTROPHILS % (MAN) 83 % (42-78); TOTAL CELLS COUNTED 100
[2020-03-11 07:03] LABS: ANISOCYTOSIS 2+; HYPOCHROMASIA 1+
[2020-03-11 07:04] LABS: OVALOCYTES SLIGHT; TARGET CELLS SLIGHT; TEAR DROP CELLS SLIGHT
[2020-03-11 07:05] LABS: PLATELET COMMENT ADEQUATE
[2020-03-11] MEDS: INSULIN REG, HUMAN 100 UNIT/ML 3 ML VIAL (PYX) SUBCUT SCH ×4 (08:07→21:29)
[2020-03-11] MEDS: TORSEMIDE 20 MG TABLET PO SCH ×2 (10:27→17:08)
[2020-03-11] MEDS: AZITHROMYCIN 250 MG TABLET PO SCH (10:27)
[2020-03-11] MEDS: ASPIRIN 81 MG TABLET, ENT COATED PO SCH (10:28)
[2020-03-11] MEDS: DOCUSATE SODIUM 100 MG CAPSULE PO SCH (10:28)
[2020-03-11] MEDS: DORZOLAMIDE HCL 2%/TIMOLOL MALEAT 0.5% OPH SOLN 10 ML OS SCH ×2 (12:17→17:08)
[2020-03-11] MEDS: CEFTRIAXONE 1 GM/D5W RTU 1 GM/50 ML RTUPB IV SCH (12:30)
--- NOTE | 2020-03-11 12:53 | PDOC PROGRESS REPORT ---
Subjective Progress Note for:: 03/11/20 Reason For Visit: Patient seen on dialysis today. Patient admitted with apparent mild chest pain and progressive shortness of breath which she had denied during her admission as per review of notes. However today she is complaining that was the case when she was admitted and she is very vague about it. There is no history of any coughing spells or fever or chills preceding her admission. She has had issues with AV fistula during dialysis at [facility] and was in the process of being declotted at [place] and so she has not been getting proper dialysis I would imagine prior to admission. During her admission here she was found to have nonworking fistula and she has had a left IJ PermCath placement. She is undergoing dialysis through that. She has been complaining of blurry/fuzzy vision from her only good right eye x 2-3 days since admission. 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 She denies any history of diplopia or complete loss of vision in the right eye. No history of any headaches. She says her vision from her right eye was fair prior to her admission and she wonders if any of her medications could be responsible. She also mentions that she had an appointment with Dr. Abdirahman Puga/retinal surgeon for today and she would like to go and be seen by him. She has not seen him for a long time because of noncompliance in keeping appointments. Labs and medications were reviewed. Vital signs are stable but blood pressures are low normal. Dialysis orders were reviewed with the treating dialysis nurse. Calcium is 6.8. She is on a 3 calcium bath. Physical Exam Vital Signs: Temp Pulse Resp BP Pulse Ox 97.2 F 67 20 118/76 98 03/11/20 03:11 03/11/20 07:00 03/11/20 03:11 03/11/20 03:11 03/11/20 03:11 Intake & Output 03/10/20 03/11/20 03/12/20 06:59 06:59 06:59 Intake Total 1361 457 Output Total 3000 Balance -1639 457 Weight 69.9 kg 69.7 kg General appearance: PRESENT: no acute distress Respiratory exam: PRESENT: clear to auscultation peterson, decreased breath sounds. ABSENT: crackles Cardiovascular exam: PRESENT: +S1, +S2 GI/Abdominal exam: PRESENT: normal bowel sounds, soft. ABSENT: organomegaly, tenderness Extremities exam: ABSENT: pedal edema Neurological exam: PRESENT: alert, awake, oriented to person, oriented to place Psychiatric exam: PRESENT: anxious Results Laboratory Results: 03/11/20 04:54 03/11/20 04:54 03/11/20 03/11/20 04:54 04:54 WBC 9.9 RBC 3.78 Hgb 8.2 L Hct 25.6 L MCV 68 L MCH 21.6 L MCHC 31.9 L RDW 20.0 H Plt Count 278 Seg Neutrophils % Not Reportable Sodium 131.3 L Potassium 4.4 Chloride 94 L Carbon Dioxide 18 L Anion Gap 19 BUN 87 H Creatinine 6.14 H Est GFR ( Amer) 9 L Glucose 174 H Calcium 6.8 L* 03/07/20 03/07/20 03/07/20 06:13 06:13 09:00 Creatine Kinase 74 CK-MB (CK-2) 3.71 Troponin I 0.119 0.118 03/07/20 15:11 Creatine Kinase CK-MB (CK-2) Troponin I 0.133 Impressions: Chest X-Ray 03/07/20 05:58 IMPRESSION: Interval line/tube modification. Chest/Abdomen CTA 03/07/20 08:01 IMPRESSION: 1. No pulmonary embolus. 2. Moderate right-sided pleural effusion with areas of subsegmental atelectasis in the right lower lobe. 3. Alveolar opacities in the left lower lobe concerning for pneumonia. 4. Cardiomegaly with suspected pulmonary hypertension and right-sided cardiac dysfunction. Guidance Fluoroscopy 03/08/20 00:00 IMPRESSION: IMAGE(S) OBTAINED DURING PROCEDURE. Assessment & Plan - Diagnosis (1) Blurry vision, right eye Plan: She has only got vision in her right eye. I am going to see if we have floor covering contractor agricultural equipment sales manager in the hospital who can see her and check her out.Given the fact she is a complicated diabetes with previous retinal detachment and complete loss of vision of her left eye and apparent retinal disease of her right eye she is at a high risk of retinal issues. (2) End stage renal disease on dialysis Is this a current diagnosis for this admission?: Yes Plan: Seen on dialysis. Vital signs are stable. Dialysis being supervised to ensure safe and smooth procedure. Plan to remove 1 L of fluid as tolerated. Dialysis orders were reviewed with the treating dialysis nurse. (3) Pneumonia Qualifiers: Pneumonia type: due to unspecified organism Laterality: left Lung location: lower lobe of lung Qualified Code(s): J18.9 - Pneumonia, unspecified organism Is this a current diagnosis for this admission?: Yes Plan: On antibiotics which includes azithromycin and ceftriaxone. Note that azithromycin is at 500 mg daily which is quite high/toxic for a patient with ESRD. Is also drug which can prolong QTC. Therefore I am going to stop it for today and restart it tomorrow at 250 mg daily. Please adjust medications to a GFR of below 10 cc/min in this patient. (4) Diabetes mellitus type 2 in nonobese Is this a current diagnosis for this admission?: Yes Plan: As per hospitalist. (5) Hyperkalemia Is this a current diagnosis for this admission?: Yes Plan: Resolved. Monitor. (6) Hypocalcemia Is this a current diagnosis for this admission?: Yes Plan: Will give IV calcium now. (7) Hyponatremia Is this a current diagnosis for this admission?: Yes Plan: Improving. Monitor. (8) Hypertension Qualifiers: Hypertension type: unspecified Qualified Code(s): I10 - Essential (primary) hypertension Is this a current diagnosis for this admission?: Yes Plan: Low normal. Will DC hydralazine and monitor. (9) AV fistula occlusion Is this a current diagnosis for this admission?: Yes Plan: Needs outpatient evaluation as we do not have vascular surgeon at the moment here in hospital to do that. Meanwhile dialysis going through left IJ catheter that was placed. (10) Metabolic acidosis Is this a current diagnosis for this admission?: Yes Plan: See the response to dialysis.
[2020-03-11] MEDS ORDERED: LORAZEPAM INJ 2 MG/1 ML VIAL IV PRN (17:44)
--- NOTE | 2020-03-11 18:14 | PDOC PROGRESS REPORT ---
Subjective Progress Note for:: 03/11/20 Subjective:: Patient seen during dialysis today. Patient to be doing quite well overall. She adamantly denies ever missing dialysis or her medications and states she is fully compliant with her plan of care as laid out by her doctors. I spoke with Dr. Dewitt who states that this is not true and that patient actually does miss dialysis regularly and is also noncompliant with her diet and medications. She has been emotionally labile off and on throughout the admission having panic attacks intermittently. She states her right eye is blurry and Dr. Dewitt called her ophthalmology surgeon Dr. Puga who interviewed patient over the phone and stated that this does not seem like an emergent problem and she can follow- up with him next . She had been threatening to leave AMA in order to make this appointment which was originally scheduled for today. She is continue d to have anxiety attacks throughout the day and I have started her on Lexapro and as needed Ativan. She has a superficial skin slough wound on her left dorsal aspect of her foot but this seems to be healing and dry today. She had an AV fistula occlusion which will be addressed by her vascular surgeon outpatient in the next 1 to 2 weeks. She is currently being dialyzed through a temporary dialysis catheter. Reason For Visit: CHEST PAIN,PNA,ESRD Physical Exam Vital Signs: Temp Pulse Resp BP Pulse Ox 97.6 F 73 18 157/71 H 100 03/11/20 12:27 03/11/20 14:00 03/11/20 12:27 03/11/20 12:27 03/11/20 12:27 Intake & Output 03/10/20 03/11/20 03/12/20 06:59 06:59 06:59 Intake Total 1361 457 168 Output Total 3000 3200 Balance -1639 457 3032 Weight 69.9 kg 69.7 kg General appearance: PRESENT: no acute distress, well-developed, well-nourished Head exam: PRESENT: atraumatic, normocephalic Eye exam: PRESENT: conjunctiva pink Mouth exam: PRESENT: moist Respiratory exam: PRESENT: clear to auscultation peterson. ABSENT: rales, rhonchi, wheezes Cardiovascular exam: PRESENT: RRR. ABSENT: diastolic murmur, rubs, systolic murmur GI/Abdominal exam: PRESENT: normal bowel sounds, soft. ABSENT: distended, guarding, mass, organolmegaly, rebound, tenderness Neurological exam: PRESENT: alert, awake, oriented to person, oriented to place, oriented to time, oriented to situation Psychiatric exam: PRESENT: anxious, normal mood Skin exam: PRESENT: dry, skin tears - Superficial skin tear to the left foot dorsum, dry and healing, warm Results Laboratory Results: 03/11/20 04:54 03/11/20 04:54 03/11/20 03/11/20 04:54 04:54 WBC 9.9 RBC 3.78 Hgb 8.2 L Hct 25.6 L MCV 68 L MCH 21.6 L MCHC 31.9 L RDW 20.0 H Plt Count 278 Seg Neutrophils % Not Reportable Sodium 131.3 L Potassium 4.4 Chloride 94 L Carbon Dioxide 18 L Anion Gap 19 BUN 87 H Creatinine 6.14 H Est GFR ( Amer) 9 L Glucose 174 H Calcium 6.8 L* 03/07/20 03/07/20 03/07/20 06:13 06:13 09:00 Creatine Kinase 74 CK-MB (CK-2) 3.71 Troponin I 0.119 0.118 03/07/20 15:11 Creatine Kinase CK-MB (CK-2) Troponin I 0.133 Impressions: Chest X-Ray 03/07/20 05:58 IMPRESSION: Interval line/tube modification. Chest/Abdomen CTA 03/07/20 08:01 IMPRESSION: 1. No pulmonary embolus. 2. Moderate right-sided pleural effusion with areas of subsegmental atelectasis in the right lower lobe. 3. Alveolar opacities in the left lower lobe concerning for pneumonia. 4. Cardiomegaly with suspected pulmonary hypertension and right-sided cardiac dysfunction. Guidance Fluoroscopy 03/08/20 00:00 IMPRESSION: IMAGE(S) OBTAINED DURING PROCEDURE. Assessment and Plan - Diagnosis (1) AV fistula occlusion Is this a current diagnosis for this admission?: Yes Plan: Vascular surgery outpatient follow-up arranged (2) Anemia in chronic kidney disease (CKD) Is this a current diagnosis for this admission?: Yes (3) Diabetes mellitus type 2 in nonobese Is this a current diagnosis for this admission?: Yes (4) Dizziness Is this a current diagnosis for this admission?: Yes (5) Elevated troponin Is this a current diagnosis for this admission?: Yes Plan: Likely due to ESRD given troponin values have been flat consistently Very doubtful cardiac ischemia etiology (6) Hyponatremia Is this a current diagnosis for this admission?: Yes Plan: Stable Trend BMP (7) Metabolic acidosis Is this a current diagnosis for this admission?: Yes (8) Pneumonia Qualifiers: Pneumonia type: due to unspecified organism Laterality: left Lung location: lower lobe of lung Qualified Code(s): J18.9 - Pneumonia, unspecified organism Is this a current diagnosis for this admission?: Yes Plan: Seen on chest imaging Completed 5 days of empiric ceftriaxone and Zithromax, clinically improved back to baseline Presentation is not consistent with coronavirus, no need to test for this as of yet (9) CHF (congestive heart failure) Qualifiers: Heart failure type: unspecified Heart failure chronicity: acute on chronic Qualified Code(s): I50.9 - Heart failure, unspecified Is this a current diagnosis for this admission?: Yes (10) ESRD needing dialysis Is this a current diagnosis for this admission?: Yes Plan: Nephrology consulted, actively following and managing HD (11) Hypertensive emergency Is this a current diagnosis for this admission?: Yes - Plan Summary Summary: 03/08 Patient denies any chest pain. She was noted to have potassium of 6 which is consistent with her end-stage renal disease. Unfortunately she has a dysfu nctional AV fistula. Plan is to insert a temporary dialysis catheter permacath likely today and then she will need a possible fistulogram with declot or intervention in the coming days. He also received Kayexalate overnight. 03/09 hyperkalemia secondary to her kidney function. She was dialyzed received some Kayexalate. Will recheck potassium level 03/10 patient's clinical status is improved, she is more awake and alert. She is however still pretty weak and will likely need rehab and to have ordered a PT evaluation. She does have a clotted AV fistula so this will have to be likely declotted as outpatient. In the interim a subclavian Shiley catheter was placed and this can be used for a few weeks till her fistula is declotted. Anemia is relatively stable, secondary to chronic kidney disease. At this point I think patient is clinically stable to begin discharge planning. We will also order social service to assess needs. She had a recent hip fracture and her mobility is somewhat limited and apparently she lives alone. Is unclear how she has been able to manage - Time Time Spent with patient: 25-34 minutes Medications reviewed and adjusted accordingly: Yes Anticipated discharge: Home Within: within 48 hours - Inpatient Certification Based on my medical assessment, after consideration of the patient's comorbidities, presenting symptoms, or acuity I expect that the services needed warrant INPATIENT care.: Yes I certify that my determination is in accordance with my understanding of Medicare's requirements for reasonable and necessary INPATIENT services [42 CFR 412.3e].: Yes Medical Necessity: Significant Comorbidiites Make Outpatient Treatment Too Risky, Need Close Monitoring Due to Risk of Patient Decompensation, Risk of Complication if Not Cared For in Hospital, Risk of Diagnosis Which Will Require Inpatient Eval/Care/Monitoring
[2020-03-11] MEDS: ESCITALOPRAM OXALATE 10 MG TABLET PO SCH (18:29)
[2020-03-11] MEDS: TEMAZEPAM 7.5 MG CAPSULE PO PRN (21:30)
[2020-03-11] MEDS: ACETAMINOPHEN 325 MG TABLET PO PRN (21:41)
[2020-03-11] MEDS: PROMETHAZINE HCL INJ 25 MG/1 ML VIAL IV PRN (22:33)
[2020-03-12] MEDS: OXYCODONE-ACETAMINOPHEN 5-325 MG TABLET PO PRN ×3 (03:20→17:51)
[2020-03-12] MEDS: PROMETHAZINE HCL INJ 25 MG/1 ML VIAL IV PRN ×3 (05:44→23:01)
[2020-03-12] MEDS: HEPARIN SOD (PORCINE) 5,000 UNIT/ML 1 ML VIAL SUBCUT SCH ×3 (05:45→21:17)
[2020-03-12] MEDS: CLONIDINE HCL 0.2 MG TABLET PO SCH ×3 (05:49→21:16)
[2020-03-12 09:19] LABS: ANION GAP 15 (5-19); BLOOD UREA NITROGEN 57 mg/dL (7-20); CALCIUM 7.6 mg/dL (8.4-10.2); CARBON DIOXIDE 24 mmol/L (22-30); CHLORIDE 94 mmol/L (98-107); GLUCOSE 168 mg/dL (75-110); HEMATOCRIT 27.2 % (36.0-47.0); HEMOGLOBIN 8.4 g/dL (12.0-15.5); MEAN CORPUSCULAR HEMOGLOBIN 21.6 pg (27.0-33.4); MEAN CORPUSCULAR HGB CONC 30.9 g/dL (32.0-36.0); MEAN CORPUSCULAR VOLUME 70 fl (80-97); PLATELET COUNT 325 10^3/uL (150-450); POTASSIUM 4.4 mmol/L (3.6-5.0); RED CELL DISTRIBUTION WIDTH 19.8 % (11.5-14.0)
[2020-03-12] MEDS: INSULIN REG, HUMAN 100 UNIT/ML 3 ML VIAL (PYX) SUBCUT SCH ×4 (09:28→21:17)
[2020-03-12] MEDS ORDERED: AZITHROMYCIN 250 MG TABLET PO SCH (10:00)
[2020-03-12 10:02] LABS: ABSOLUTE LYMPHOCYTES# (MANUAL) 1.4 10^3/uL (0.5-4.7); ABSOLUTE MONOCYTES # (MANUAL) 0.5 10^3/uL (0.1-1.4); BASOPHILS % (MANUAL) 0 % (0-2); EOSINOPHILS % (MANUAL) 1 % (0-6); LYMPHOCYTES % (MANUAL) 15 % (13-45); MONOCYTES % (MANUAL) 5 % (3-13); NUCLEATED RED BLOOD CELLS 3 /100 WBC (0); SEGMENTED NEUTROPHILS % (MAN) 79 % (42-78); TOTAL CELLS COUNTED 100
[2020-03-12 10:04] LABS: ANISOCYTOSIS 2+; HYPOCHROMASIA 1+; OVALOCYTES 1+; PLATELET COMMENT ADEQUATE; POIKILOCYTOSIS 2+; POLYCHROMASIA SLIGHT; TARGET CELLS 1+
[2020-03-12] MEDS: ASPIRIN 81 MG TABLET, ENT COATED PO SCH (10:06)
[2020-03-12] MEDS: CARVEDILOL 12.5 MG TABLET PO SCH ×2 (10:06→21:15)
[2020-03-12] MEDS: TORSEMIDE 20 MG TABLET PO SCH ×2 (10:06→17:51)
[2020-03-12] MEDS: ESCITALOPRAM OXALATE 10 MG TABLET PO SCH (10:06)
[2020-03-12] MEDS: DOCUSATE SODIUM 100 MG CAPSULE PO SCH (10:06)
[2020-03-12] MEDS: DORZOLAMIDE HCL 2%/TIMOLOL MALEAT 0.5% OPH SOLN 10 ML OS SCH ×2 (10:06→17:52)
--- NOTE | 2020-03-12 14:04 | PDOC PROGRESS REPORT ---
Subjective Progress Note for:: 03/12/20 Subjective:: 03/11/2020 patient seen during dialysis today. Patient to be doing quite well overall. She adamantly denies ever missing dialysis or her medications and states she is fully compliant with her plan of care as laid out by her doctors. I spoke with Dr. Dewitt who states that this is not true and that patient actually does miss dialysis regularly and is also noncompliant with her diet and medications. She has been emotionally labile off and on throughout the admiss ion having panic attacks intermittently. She states her right eye is blurry and Dr. Dewitt called her ophthalmology surgeon Dr. Puga who interviewed patient over the phone and stated that this does not seem like an emergent problem and she can follow-up with him next . She had been threatening to leave AMA in order to make this appointment which was originally scheduled for today. She is continued to have anxiety attacks throughout the day and I have started her on Lexapro and as needed Ativan. She has a superficial skin slough wound on her left dorsal aspect of her foot but this seems to be healing and dry today. She had an AV fistula occlusion which will be addressed by her vascular surgeon outpatient in the next 1 to 2 weeks. She is currently being dialyzed through a temporary dialysis catheter. 03/12/2020 Patient is much calmer today and states she is agreeable to SNF and actually wants to go there instead of going home with home health. She would like to remain inpatient until she is accepted to SNF. On labs today, hemoglobin is rising, BMP consistent with ESRD. She has no new complaints today. I spoke with the nurse and the patient about possibly taking the patient outside to get some fresh air today which will significantly help with her severe anxiety. If her nurse has time, I think this would be beneficial. Reason For Visit: CHEST PAIN,PNA,ESRD Physical Exam Vital Signs: Temp Pulse Resp BP Pulse Ox 97.8 F 68 16 108/64 97 03/12/20 11:40 03/12/20 11:40 03/12/20 11:40 03/12/20 11:40 03/12/20 11:40 Intake & Output 03/11/20 03/12/20 03/13/20 06:59 06:59 06:59 Intake Total 457 918 Output Total 7430 Balance 457 -8676 Weight 69.7 kg 68.4 kg General appearance: PRESENT: no acute distress, well-developed, well-nourished Head exam: PRESENT: atraumatic, normocephalic Eye exam: PRESENT: conjunctiva pink Mouth exam: PRESENT: moist Respiratory exam: PRESENT: clear to auscultation peterson. ABSENT: rales, rhonchi, wheezes Cardiovascular exam: PRESENT: RRR. ABSENT: diastolic murmur, rubs, systolic murmur GI/Abdominal exam: PRESENT: normal bowel sounds, soft. ABSENT: distended, guarding, mass, organolmegaly, rebound, tenderness Extremities exam: PRESENT: pedal edema Neurological exam: PRESENT: alert, awake, oriented to person, oriented to place, oriented to time, oriented to situation Psychiatric exam: PRESENT: anxious - Baseline anxiety, normal mood Skin exam: PRESENT: dry, warm Results Laboratory Results: 03/12/20 08:47 03/12/20 08:47 03/12/20 03/12/20 08:47 08:47 WBC 9.0 RBC 3.90 Hgb 8.4 L Hct 27.2 L MCV 70 L MCH 21.6 L MCHC 30.9 L RDW 19.8 H Plt Count 325 Seg Neutrophils % Not Reportable Sodium 133.3 L Potassium 4.4 Chloride 94 L Carbon Dioxide 24 Anion Gap 15 BUN 57 H Creatinine 4.32 H Est GFR ( Amer) 13 L Glucose 168 H Calcium 7.6 L 03/07/20 10:45 Blood Blood Culture - Final NO GROWTH IN 5 DAYS 03/07/20 10:00 Blood Blood Culture - Final NO GROWTH IN 5 DAYS 03/07/20 03/07/20 03/07/20 06:13 06:13 09:00 Creatine Kinase 74 CK-MB (CK-2) 3.71 Troponin I 0.119 0.118 03/07/20 15:11 Creatine Kinase CK-MB (CK-2) Troponin I 0.133 Impressions: Chest X-Ray 03/07/20 05:58 IMPRESSION: Interval line/tube modification. Chest/Abdomen CTA 03/07/20 08:01 IMPRESSION: 1. No pulmonary embolus. 2. Moderate right-sided pleural effusion with areas of subsegmental atelectasis in the right lower lobe. 3. Alveolar opacities in the left lower lobe concerning for pneumonia. 4. Cardiomegaly with suspected pulmonary hypertension and right-sided cardiac dysfunction. Guidance Fluoroscopy 03/08/20 00:00 IMPRESSION: IMAGE(S) OBTAINED DURING PROCEDURE. Assessment and Plan - Diagnosis (1) AV fistula occlusion Is this a current diagnosis for this admission?: Yes Plan: Vascular surgery outpatient follow-up arranged -no localized pain to right arm (2) Anemia in chronic kidney disease (CKD) Is this a current diagnosis for this admission?: Yes (3) Diabetes mellitus type 2 in nonobese Is this a current diagnosis for this admission?: Yes (4) Dizziness Is this a current diagnosis for this admission?: Yes (5) Elevated troponin Is this a current diagnosis for this admission?: Yes (6) Hyponatremia Is this a current diagnosis for this admission?: Yes (7) Metabolic acidosis Is this a current diagnosis for this admission?: Yes (8) Pneumonia Qualifiers: Pneumonia type: due to unspecified organism Laterality: left Lung loc ation: lower lobe of lung Qualified Code(s): J18.9 - Pneumonia, unspecified organism Is this a current diagnosis for this admission?: Yes (9) CHF (congestive heart failure) Qualifiers: Heart failure type: unspecified Heart failure chronicity: acute on chronic Qualified Code(s): I50.9 - Heart failure, unspecified Is this a current diagnosis for this admission?: Yes (10) ESRD needing dialysis Is this a current diagnosis for this admission?: Yes (11) Hypertensive emergency Is this a current diagnosis for this admission?: Yes (12) Physical debility Is this a current diagnosis for this admission?: Yes Plan: 03/12/2020 Patient is extremely weak and would benefit greatly from SNF placement at discharge, she is agreeable to this Case management looking for a bed - Plan Summary Summary: 03/08 Patient denies any chest pain. She was noted to have potassium of 6 which is consistent with her end-stage renal disease. Unfortunately she has a dysfunctional AV fistula. Plan is to insert a temporary dialysis catheter permacath likely today and then she will need a possible fistulogram with declot or intervention in the coming days. He also received Kayexalate overnight. 03/09 hyperkalemia secondary to her kidney function. She was dialyzed received some Kayexalate. Will recheck potassium level 03/10 patient's clinical status is improved, she is more awake and alert. She is however still pretty weak and will likely need rehab and to have ordered a PT evaluation. She does have a clotted AV fistula so this will have to be likely declotted as outpatient. In the interim a subclavian Shiley catheter was placed and this can be used for a few weeks till her fistula is declotted. Anemia is relatively stable, secondary to chronic kidney disease. At this point I think patient is clinically stable to begin discharge planning. We will also order social service to assess needs. She had a recent hip fracture and her mobility is somewhat limited and apparently she lives alone. Is unclear how she has been able to manage - Time Time Spent with patient: 15-24 minutes Medications reviewed and adjusted accordingly: Yes Anticipated discharge: SNF Within: within 48 hours - Inpatient Certification Based on my medical assessment, after consideration of the patient's comorbidities, presenting symptoms, or acuity I expect that the services needed warrant INPATIENT care.: Yes I certify that my determination is in accordance with my understanding of Medicare's requirements for reasonable and necessary INPATIENT services [42 CFR 412.3e].: Yes Medical Necessity: Significant Comorbidiites Make Outpatient Treatment Too Risky, Need Close Monitoring Due to Risk of Patient Decompensation, Risk of Com plication if Not Cared For in Hospital, Risk of Diagnosis Which Will Require Inpatient Eval/Care/Monitoring
[2020-03-12] MEDS: FLUTICASONE NASAL SPRAY 50 MCG/SPRY 120 SPRAY/16 GM NASL SCH (16:03)
[2020-03-12] MEDS: INSULIN GLARGINE,HUM.REC.ANLOG 1,000 UNIT/10 ML VIAL SUBCUT SCH (21:18)
[2020-03-12] MEDS: ACETAMINOPHEN 325 MG TABLET PO PRN (21:19)
[2020-03-12] MEDS: TEMAZEPAM 7.5 MG CAPSULE PO PRN (23:01)
[2020-03-13] MEDS: ACETAMINOPHEN 325 MG TABLET PO PRN (05:04)
[2020-03-13] MEDS: HEPARIN SOD (PORCINE) 5,000 UNIT/ML 1 ML VIAL SUBCUT SCH ×3 (05:06→22:42)
[2020-03-13] MEDS: CLONIDINE HCL 0.2 MG TABLET PO SCH ×3 (05:23→22:50)
[2020-03-13] MEDS: DEXTROSE 50%-WATER 25 GM/50 ML DISP.SYRIN IV PRN ×2 (06:10→21:10)
[2020-03-13] MEDS: INSULIN REG, HUMAN 100 UNIT/ML 3 ML VIAL (PYX) SUBCUT SCH ×4 (08:02→22:53)
[2020-03-13] MEDS: DOCUSATE SODIUM 100 MG CAPSULE PO SCH (10:41)
[2020-03-13] MEDS: ESCITALOPRAM OXALATE 10 MG TABLET PO SCH (10:42)
[2020-03-13] MEDS: CARVEDILOL 12.5 MG TABLET PO SCH ×2 (10:42→22:51)
[2020-03-13] MEDS: ASPIRIN 81 MG TABLET, ENT COATED PO SCH (10:42)
[2020-03-13] MEDS: TORSEMIDE 20 MG TABLET PO SCH ×2 (10:42→17:00)
[2020-03-13] MEDS: DORZOLAMIDE HCL 2%/TIMOLOL MALEAT 0.5% OPH SOLN 10 ML OS SCH ×2 (10:42→17:00)
[2020-03-13] MEDS: FLUTICASONE NASAL SPRAY 50 MCG/SPRY 120 SPRAY/16 GM NASL SCH (10:42)
--- NOTE | 2020-03-13 17:13 | PDOC PROGRESS REPORT ---
Subjective Progress Note for:: 03/13/20 Subjective:: 03/11/2020 patient seen during dialysis today. Patient to be doing quite well overall. She adamantly denies ever missing dialysis or her medications and states she is fully compliant with her plan of care as laid out by her doctors. I spoke with Dr. Dewitt who states that this is not true and that patient actually does miss dialysis regularly and is also noncompliant with her diet and medications. She has been emotionally labile off and on throughout the admiss ion having panic attacks intermittently. She states her right eye is blurry and Dr. Dewitt called her ophthalmology surgeon Dr. Puga who interviewed patient over the phone and stated that this does not seem like an emergent problem and she can follow-up with him next . She had been threatening to leave AMA in order to make this appointment which was originally scheduled for today. She is continued to have anxiety attacks throughout the day and I have started her on Lexapro and as needed Ativan. She has a superficial skin slough wound on her left dorsal aspect of her foot but this seems to be healing and dry today. She had an AV fistula occlusion which will be addressed by her vascular surgeon outpatient in the next 1 to 2 weeks. She is currently being dialyzed through a temporary dialysis catheter. 03/12/2020 Patient is much calmer today and states she is agreeable to SNF and actually wants to go there instead of going home with home health. She would like to remain inpatient until she is accepted to SNF. On labs today, hemoglobin is rising, BMP consistent with ESRD. She has no new complaints today. I spoke with the nurse and the patient about possibly taking the patient outside to get some fresh air today which will significantly help with her severe anxiety. If her nurse has time, I think this would be beneficial. 03/30/2020 We are waiting on patient to be transitioned to rehab facility, hopefully tomorrow. We will check a coronavirus test today in anticipation of her placement in the next 48 hours given the nursing facilities require coronavirus testing prior to transfer. Patient had low blood sugar overnight and I have reduced her Lantus dose to 10 units instead of 15 units nightly. She is having some intermittent nausea and vomiting. Had considered trying Reglan however she is on Lexapro and most recent QTC on her EKG was 477 prior to starting this medication. We will continue with Phenergan as needed for now. Reason For Visit: CHEST PAIN,PNA,ESRD Physical Exam Vital Signs: Temp Pulse Resp BP Pulse Ox 97.4 F 63 16 112/67 94 03/13/20 15:37 03/13/20 15:37 03/13/20 15:37 03/13/20 15:37 03/13/20 15:37 Intake & Output 03/12/20 03/13/20 03/14/20 06:59 06:59 06:59 Intake Total 918 520 50 Output Total 3200 0 Balance -2282 520 50 Weight 68.4 kg 69.4 kg General appearance: PRESENT: no acute distress, well-developed, well-nourished Head exam: PRESENT: atraumatic, normocephalic Eye exam: PRESENT: conjunctiva pink. ABSENT: scleral icterus Mouth exam: PRESENT: moist Respiratory exam: PRESENT: clear to auscultation peterson. ABSENT: rales, rhonchi, wheezes Cardiovascular exam: PRESENT: RRR. ABSENT: diastolic murmur, rubs, systolic murmur GI/Abdominal exam: PRESENT: normal bowel sounds, soft. ABSENT: distended, guarding, mass, organolmegaly, rebound, tenderness Neurological exam: PRESENT: alert, awake, oriented to person, oriented to place, oriented to time, oriented to situation Psychiatric exam: PRESENT: appropriate affect, normal mood Skin exam: PRESENT: dry, warm Results Laboratory Results: 03/12/20 08:47 03/12/20 08:47 03/07/20 03/07/20 03/07/20 06:13 06:13 09:00 Creatine Kinase 74 CK-MB (CK-2) 3.71 Troponin I 0.119 0.118 03/07/20 15:11 Creatine Kinase CK-MB (CK-2) Troponin I 0.133 Impressions: Chest X-Ray 03/07/20 05:58 IMPRESSION: Interval line/tube modification. Chest/Abdomen CTA 03/07/20 08:01 IMPRESSION: 1. No pulmonary embolus. 2. Moderate right-sided pleural effusion with areas of subsegmental atelectasis in the right lower lobe. 3. Alveolar opacities in the left lower lobe concerning for pneumonia. 4. Cardiomegaly with suspected pulmonary hypertension and right-sided cardiac dysfunction. Guidance Fluoroscopy 03/08/20 00:00 IMPRESSION: IMAGE(S) OBTAINED DURING PROCEDURE. Assessment and Plan - Diagnosis (1) AV fistula occlusion Is this a current diagnosis for this admission?: Yes (2) Anemia in chronic kidney disease (CKD) Is this a current diagnosis for this admission?: Yes (3) Diabetes mellitus type 2 in nonobese Is this a current diagnosis for this admission?: Yes (4) Dizziness Is this a current diagnosis for this admission?: Yes (5) Elevated troponin Is this a current diagnosis for this admission?: Yes (6) Hyponatremia Is this a current diagnosis for this admission?: Yes (7) Metabolic acidosis Is this a current diagnosis for this admission?: Yes (8) Pneumonia Qualifiers: Pneumonia type: due to unspecified organism Laterality: left Lung location: lower lobe of lung Qualified Code(s): J18.9 - Pneumonia, unspecified organism Is this a current diagnosis for this admission?: Yes (9) CHF (congestive heart failure) Qualifiers: Heart failure type: unspecified Heart failure chronicity: acute on chronic Qualified Code(s): I50.9 - Heart failure, unspecified Is this a current diagnosis for this admission?: Yes (10) ESRD needing dialysis Is this a current diagnosis for this admission?: Yes (11) Hypertensive emergency Is this a current diagnosis for this admission?: Yes (12) Physical debility Is this a current diagnosis for this admission?: Yes (13) Nausea and vomiting Qualifiers: Vomiting type: unspecified Vomiting Intractability: non-intractable Qualified Code(s): R11.2 - Nausea with vomiting, unspecified Is this a current diagnosis for this admission?: Yes Plan: Suspect diabetic gastroparesis Phenergan as needed If persistent, can recheck QTC on EKG and start Reglan if QTC is not too high - Plan Summary Summary: 03/08 Patient denies any chest pain. She was noted to have potassium of 6 which is consistent with her end-stage renal disease. Unfortunately she has a dysfunc tional AV fistula. Plan is to insert a temporary dialysis catheter permacath likely today and then she will need a possible fistulogram with declot or intervention in the coming days. He also received Kayexalate overnight. 03/09 hyperkalemia secondary to her kidney function. She was dialyzed received some Kayexalate. Will recheck potassium level 4/30 patient's clinical status is improved, she is more awake and alert. She is however still pretty weak and will likely need rehab and to have ordered a PT evaluation. She does have a clotted AV fistula so this will have to be likely declotted as outpatient. In the interim a subclavian Shiley catheter was placed and this can be used for a few weeks till her fistula is declotted. Anemia is relatively stable, secondary to chronic kidney disease. At this point I think patient is clinically stable to begin discharge planning. We will also order social service to assess needs. She had a recent hip fracture and her mobility is somewhat limited and apparently she lives alone. Is unclear how she has been able to manage - Time Time Spent with patient: 15-24 minutes Medications reviewed and adjusted accordingly: Yes Anticipated discharge: SNF Within: within 48 hours - Inpatient Certification Based on my medical assessment, after consideration of the patient's comorbidities, presenting symptoms, or acuity I expect that the services needed warrant INPATIENT care.: Yes I certify that my determination is in accordance with my understanding of Medicare's requirements for reasonable and necessary INPATIENT services [42 CFR 412.3e].: Yes Medical Necessity: Significant Comorbidiites Make Outpatient Treatment Too Risky, Need Close Monitoring Due to Risk of Patient Decompensation, Risk of Complication if Not Cared For in Hospital, Risk of Diagnosis Which Will Require Inpatient Eval/Care/Monitoring
[2020-03-13] MEDS: OXYCODONE-ACETAMINOPHEN 5-325 MG TABLET PO PRN (18:20)
[2020-03-13] MEDS ORDERED: INSULIN GLARGINE,HUM.REC.ANLOG 1,000 UNIT/10 ML VIAL SUBCUT SCH (22:00)
[2020-03-14] MEDS ORDERED: EPOETIN ALFA-EPBX 2,000 UNIT, EPOETIN ALFA-EPBX 3,000 UNIT, EPOETIN ALFA-EPBX 20,000 UN... IV PRN ×4 (05:00)
[2020-03-14] MEDS ORDERED: HEPARIN SOD (PORCINE) 1,000 UNIT/ML 10 ML VIAL IV PRN (05:00)
[2020-03-14] MEDS: CLONIDINE HCL 0.2 MG TABLET PO SCH ×3 (06:01→21:33)
[2020-03-14] MEDS: HEPARIN SOD (PORCINE) 5,000 UNIT/ML 1 ML VIAL SUBCUT SCH ×3 (06:04→21:34)
[2020-03-14 08:15] LABS: HEMOGLOBIN 8.3 g/dL (12.0-15.5); MEAN CORPUSCULAR HEMOGLOBIN 22.1 pg (27.0-33.4); MEAN CORPUSCULAR VOLUME 69 fl (80-97); PLATELET COUNT 336 10^3/uL (150-450); RED BLOOD COUNT 3.76 10^6/uL (3.72-5.28); RED CELL DISTRIBUTION WIDTH 19.2 % (11.5-14.0); WHITE BLOOD COUNT 7.7 10^3/uL (4.0-10.5)
[2020-03-14] MEDS: INSULIN REG, HUMAN 100 UNIT/ML 3 ML VIAL (PYX) SUBCUT SCH ×4 (08:22→21:34)
[2020-03-14 08:32] LABS: ANION GAP 14 (5-19); BLOOD UREA NITROGEN 53 mg/dL (7-20); CALCIUM 7.6 mg/dL (8.4-10.2); CARBON DIOXIDE 27 mmol/L (22-30); CHLORIDE 92 mmol/L (98-107); GLUCOSE 118 mg/dL (75-110); POTASSIUM 3.9 mmol/L (3.6-5.0)
[2020-03-14 08:41] LABS: ABSOLUTE LYMPHOCYTES# (MANUAL) 1.1 10^3/uL (0.5-4.7); ABSOLUTE MONOCYTES # (MANUAL) 0.2 10^3/uL (0.1-1.4); BASOPHILS % (MANUAL) 1 % (0-2); EOSINOPHILS % (MANUAL) 1 % (0-6); LYMPHOCYTES % (MANUAL) 14 % (13-45); MONOCYTES % (MANUAL) 2 % (3-13); SEGMENTED NEUTROPHILS % (MAN) 82 % (42-78); TOTAL CELLS COUNTED 100
[2020-03-14 08:53] LABS: ANISOCYTOSIS 2+; HYPOCHROMASIA 2+; POIKILOCYTOSIS 2+; POLYCHROMASIA 1+
[2020-03-14 08:54] LABS: TARGET CELLS 2+
[2020-03-14 08:57] LABS: PLATELET COMMENT ADEQUATE
[2020-03-14 09:00] LABS: NUCLEATED RED BLOOD CELLS 6 /100 WBC (0)
[2020-03-14] MEDS: ASPIRIN 81 MG TABLET, ENT COATED PO SCH (10:55)
[2020-03-14] MEDS: TORSEMIDE 20 MG TABLET PO SCH ×2 (10:55→17:29)
[2020-03-14] MEDS: CARVEDILOL 12.5 MG TABLET PO SCH ×2 (10:55→21:32)
[2020-03-14] MEDS: ESCITALOPRAM OXALATE 10 MG TABLET PO SCH (10:55)
[2020-03-14] MEDS: DORZOLAMIDE HCL 2%/TIMOLOL MALEAT 0.5% OPH SOLN 10 ML OS SCH ×2 (10:56→17:29)
[2020-03-14] MEDS: DOCUSATE SODIUM 100 MG CAPSULE PO SCH (10:56)
[2020-03-14] MEDS: FLUTICASONE NASAL SPRAY 50 MCG/SPRY 120 SPRAY/16 GM NASL SCH (10:56)
--- NOTE | 2020-03-14 11:42 | PDOC PROGRESS REPORT ---
Subjective Progress Note for:: 03/14/20 Reason For Visit: Patient seen today in the hospital on dialysis. Patient undergoing dialysis without any issues. Overall she feels better. She still has some blurry vision to her right eye and is now scheduled to see Dr. Puga/retinal surgeon on following discharge. She says she has not had any deterioration of her vision from what she had on Saturday when I last saw her. She denies any history of chest pain or shortness of breath. Labs and medications were reviewed. Dialysis orders were reviewed with the treating dialysis nurse. Physical Exam Vital Signs: Temp Pulse Resp BP Pulse Ox 97.4 F 60 15 127/77 H 77 L 03/14/20 05:51 03/14/20 07:00 03/14/20 05:51 03/14/20 05:51 03/14/20 05:51 Intake & Output 03/13/20 03/14/20 03/15/20 06:59 06:59 06:59 Intake Total 520 270 700 Output Total 0 3000 Balance 520 270 -2300 Weight 69.4 kg 70.1 kg General appearance: PRESENT: no acute distress Respiratory exam: PRESENT: clear to auscultation peterson. ABSENT: crackles Cardiovascular exam: PRESENT: +S1, +S2 GI/Abdominal exam: PRESENT: normal bowel sounds, soft. ABSENT: organomegaly, tenderness Extremities exam: ABSENT: pedal edema Neurological exam: PRESENT: alert, awake, oriented to person, oriented to place Psychiatric exam: PRESENT: appropriate affect Results Laboratory Results: 03/14/20 07:26 03/14/20 07:26 03/14/20 03/14/20 07:26 07:26 WBC 7.7 RBC 3.76 Hgb 8.3 L Hct 26.0 L MCV 69 L MCH 22.1 L MCHC 32.0 RDW 19.2 H Plt Count 336 Seg Neutrophils % Not Reportable Sodium 132.8 L Potassium 3.9 Chloride 92 L Carbon Dioxide 27 Anion Gap 14 BUN 53 H Creatinine 4.38 H Est GFR ( Amer) 13 L Glucose 118 H Calcium 7.6 L 03/07/20 03/07/20 03/07/20 06:13 06:13 09:00 Creatine Kinase 74 CK-MB (CK-2) 3.71 Troponin I 0.119 0.118 03/07/20 15:11 Creatine Kinase CK-MB (CK-2) Troponin I 0.133 Impressions: Chest X-Ray 03/07/20 05:58 IMPRESSION: Interval line/tube modification. Chest/Abdomen CTA 03/07/20 08:01 IMPRESSION: 1. No pulmonary embolus. 2. Moderate right-sided pleural effusion with areas of subsegmental atelectasis in the right lower lobe. 3. Alveolar opacities in the left lower lobe concerning for pneumonia. 4. Cardiomegaly with suspected pulmonary hypertension and right-sided cardiac dysfunction. Guidance Fluoroscopy 03/08/20 00:00 IMPRESSION: IMAGE(S) OBTAINED DURING PROCEDURE. Assessment & Plan - Diagnosis (1) Blurry vision, right eye Plan: Unchanged in the right eye. She has had discussions with Dr. Abdirahman Puga/retinal surgeon who is scheduled now to see her on . (2) End stage renal disease on dialysis Is this a current diagnosis for this admission?: Yes Plan: Seen on dialysis. Vital signs are stable. Dialysis being supervised to ensure safe and smooth procedure. Plan to remove 1 L of fluid as tolerated. Dialysis orders were reviewed with the treating dialysis nurse. (3) Pneumonia Qualifiers: Pneumonia type: due to unspecified organism Laterality: left Lung location: lower lobe of lung Qualified Code(s): J18.9 - Pneumonia, unspecified organism Is this a current diagnosis for this admission?: Yes Plan: She has completed a course of antibiotics which included azithromycin and ceftriaxone. (4) Diabetes mellitus type 2 in nonobese Is this a current diagnosis for this admission?: Yes Plan: As per hospitalist. (5) Hyperkalemia Is this a current diagnosis for this admission?: Yes Plan: Resolved. Advised compliance with diet and dialysis treatments. Monitor. (6) Hypocalcemia Is this a current diagnosis for this admission?: Yes Plan: Improving. Advised compliance with her medications. (7) Hyponatremia Is this a current diagnosis for this admission?: Yes Plan: Improving. Monitor. (8) Hypertension Qualifiers: Hypertension type: unspecified Qualified Code(s): I10 - Essential (primary) hypertension Is this a current diagnosis for this admission?: Yes Plan: Well-controlled. (9) AV fistula occlusion Is this a current diagnosis for this admission?: Yes Plan: Needs outpatient evaluation as we do not have vascular surgeon at the moment here in hospital to do that. Meanwhile dialysis going through left IJ catheter that was placed. (10) Metabolic acidosis Is this a current diagnosis for this admission?: Yes Plan: Resolved.
[2020-03-14] MEDS: HYDRALAZINE HCL 25 MG TABLET PO SCH ×2 (13:54→21:35)
--- NOTE | 2020-03-14 13:55 | PDOC PROGRESS REPORT ---
Subjective Progress Note for:: 03/14/20 Subjective:: 03/11/2020 patient seen during dialysis today. Patient to be doing quite well overall. She adamantly denies ever missing dialysis or her medications and states she is fully compliant with her plan of care as laid out by her doctors. I spoke with Dr. Dewitt who states that this is not true and that patient actually does miss dialysis regularly and is also noncompliant with her diet and medications. She has been emotionally labile off and on throughout the admiss ion having panic attacks intermittently. She states her right eye is blurry and Dr. Dewitt called her ophthalmology surgeon Dr. Puga who interviewed patient over the phone and stated that this does not seem like an emergent problem and she can follow-up with him next . She had been threatening to leave AMA in order to make this appointment which was originally scheduled for today. She is continued to have anxiety attacks throughout the day and I have started her on Lexapro and as needed Ativan. She has a superficial skin slough wound on her left dorsal aspect of her foot but this seems to be healing and dry today. She had an AV fistula occlusion which will be addressed by her vascular surgeon outpatient in the next 1 to 2 weeks. She is currently being dialyzed through a temporary dialysis catheter. 03/12/2020 Patient is much calmer today and states she is agreeable to SNF and actually wants to go there instead of going home with home health. She would like to remain inpatient until she is accepted to SNF. On labs today, hemoglobin is rising, BMP consistent with ESRD. She has no new complaints today. I spoke with the nurse and the patient about possibly taking the patient outside to get some fresh air today which will significantly help with her severe anxiety. If her nurse has time, I think this would be beneficial. 03/13/2020 We are waiting on patient to be transitioned to rehab facility, hopefully tomorrow. We will check a coronavirus test today in anticipation of her placement in the next 48 hours given the nursing facilities require coronavirus testing prior to transfer. Patient had low blood sugar overnight and I have reduced her Lantus dose to 10 units instead of 15 units nightly. She is having some intermittent nausea and vomiting. Had considered trying Reglan however she is on Lexapro and most recent QTC on her EKG was 477 prior to starting this medication. We will continue with Phenergan as needed for now. 03/14/2020 Patient doing well today, states her nausea and vomiting is basically resolved and only recurs occasionally. Her coronavirus test is still pending as it was only taken yesterday. Plan is still to get her to SNF as soon as this is completed and negative. She is still agreeable to this plan. She has no other specific complaints today. Reason For Visit: CHEST PAIN,PNA,ESRD Physical Exam Vital Signs: Temp Pulse Resp BP Pulse Ox 99.0 F 79 14 144/78 H 92 03/14/20 12:18 03/14/20 12:18 03/14/20 12:18 03/14/20 12:18 03/14/20 12:18 Intake & Output 03/13/20 03/14/20 03/15/20 06:59 06:59 06:59 Intake Total 520 270 700 Output Total 0 3000 Balance 520 270 -2300 Weight 69.4 kg 70.1 kg General appearance: PRESENT: no acute distress, well-developed, well-nourished Head exam: PRESENT: atraumatic, normocephalic Eye exam: PRESENT: conjunctiva pink Mouth exam: PRESENT: moist Respiratory exam: PRESENT: clear to auscultation peterson. ABSENT: rales, rhonchi, wheezes Cardiovascular exam: PRESENT: RRR. ABSENT: diastolic murmur, rubs, systolic murmur GI/Abdominal exam: PRESENT: normal bowel sounds, soft. ABSENT: distended, guarding, mass, organolmegaly, rebound, tenderness Neurological exam: PRESENT: alert, awake, oriented to person, oriented to place, oriented to time, oriented to situation Psychiatric exam: PRESENT: appropriate affect, normal mood Skin exam: PRESENT: dry, warm Results Laboratory Results: 03/14/20 07:26 03/14/20 07:26 03/14/20 03/14/20 07:26 07:26 WBC 7.7 RBC 3.76 Hgb 8.3 L Hct 26.0 L MCV 69 L MCH 22.1 L MCHC 32.0 RDW 19.2 H Plt Count 336 Seg Neutrophils % Not Reportable Sodium 132.8 L Potassium 3.9 Chloride 92 L Carbon Dioxide 27 Anion Gap 14 BUN 53 H Creatinine 4.38 H Est GFR ( Amer) 13 L Glucose 118 H Calcium 7.6 L 03/07/20 03/07/20 03/07/20 06:13 06:13 09:00 Creatine Kinase 74 CK-MB (CK-2) 3.71 Troponin I 0.119 0.118 03/07/20 15:11 Creatine Kinase CK-MB (CK-2) Troponin I 0.133 Impressions: Chest X-Ray 03/07/20 05:58 IMPRESSION: Interval line/tube modification. Chest/Abdomen CTA 03/07/20 08:01 IMPRESSION: 1. No pulmonary embolus. 2. Moderate right-sided pleural effusion with areas of subsegmental atelectasis in the right lower lobe. 3. Alveolar opacities in the left lower lobe concerning for pneumonia. 4. Cardiomegaly with suspected pulmonary hypertension and right-sided cardiac dysfunction. Guidance Fluoroscopy 03/08/20 00:00 IMPRESSION: IMAGE(S) OBTAINED DURING PROCEDURE. Assessment and Plan - Diagnosis (1) AV fistula occlusion Is this a current diagnosis for this admission?: Yes (2) Anemia in chronic kidney disease (CKD) Is this a current diagnosis for this admission?: Yes (3) Diabetes mellitus type 2 in nonobese Is this a current diagnosis for this admission?: Yes (4) Dizziness Is this a current diagnosis for this admission?: Yes (5) Elevated troponin Is this a current diagnosis for this admission?: Yes (6) Hyponatremia Is this a current diagnosis for this admission?: Yes (7) Metabolic acidosis Is this a current diagnosis for this admission?: Yes (8) Pneumonia Qualifiers: Pneumonia type: due to unspecified organism Laterality: left Lung location: lower lobe of lung Qualified Code(s): J18.9 - Pneumonia, unspecified organism Is this a current diagnosis for this admission?: Yes Plan: Seen on chest imaging Completed 5 days of empiric ceftriaxone and Zithromax, clinically improved back to baseline Presentation is not consistent with coronavirus, no need to test for this as of yet 03/14/2020 Antibiotics have completed, no further signs or symptoms of infection (9) CHF (congestive heart failure) Qualifiers: Heart failure type: unspecified Heart failure chronicity: acute on chronic Qualified Code(s): I50.9 - Heart failure, unspecified Is this a current diagnosis for this admission?: Yes (10) ESRD needing dialysis Is this a current diagnosis for this admission?: Yes (11) Hypertensive emergency Is this a current diagnosis for this admission?: Yes (12) Physical debility Is this a current diagnosis for this admission?: Yes (13) Nausea and vomiting Qualifiers: Vomiting type: unspecified Vomiting Intractability: non-intractable Qualified Code(s): R11.2 - Nausea with vomiting, unspecified Is this a current diagnosis for this admission?: Yes - Plan Summary Summary: 03/08 Patient denies any chest pain. She was noted to have potassium of 6 which is consistent with her end-stage renal disease. Unfortunately she has a dys functional AV fistula. Plan is to insert a temporary dialysis catheter permacath likely today and then she will need a possible fistulogram with declot or intervention in the coming days. He also received Kayexalate overnight. 03/09 hyperkalemia secondary to her kidney function. She was dialyzed received some Kayexalate. Will recheck potassium level 03/10 patient's clinical status is improved, she is more awake and alert. She is however still pretty weak and will likely need rehab and to have ordered a PT evaluation. She does have a clotted AV fistula so this will have to be likely declotted as outpatient. In the interim a subclavian Shiley catheter was placed and this can be used for a few weeks till her fistula is declotted. Anemia is relatively stable, secondary to chronic kidney disease. At this point I think patient is clinically stable to begin discharge planning. We will also order social service to assess needs. She had a recent hip fracture and her mobility is somewhat limited and apparently she lives alone. Is unclear how she has been able to manage - Time Time Spent with patient: 15-24 minutes Medications reviewed and adjusted accordingly: Yes Anticipated discharge: Home - Inpatient Certification Based on my medical assessment, after consideration of the patient's comorbidities, presenting symptoms, or acuity I expect that the services needed warrant INPATIENT care.: Yes I certify that my determination is in accordance with my understanding of Medicare's requirements for reasonable and necessary INPATIENT services [42 CFR 412.3e].: Yes Medical Necessity: Significant Comorbidiites Make Outpatient Treatment Too Risky, Need Close Monitoring Due to Risk of Patient Decompensation, Risk of Complication if Not Cared For in Hospital, Risk of Diagnosis Which Will Require Inpatient Eval/Care/Monitoring
[2020-03-14] MEDS: OXYCODONE-ACETAMINOPHEN 5-325 MG TABLET PO PRN (17:29)
[2020-03-14] MEDS: PROMETHAZINE HCL INJ 25 MG/1 ML VIAL IV PRN (23:54)
[2020-03-15] MEDS: HEPARIN SOD (PORCINE) 5,000 UNIT/ML 1 ML VIAL SUBCUT SCH ×3 (06:51→21:34)
[2020-03-15] MEDS: CLONIDINE HCL 0.2 MG TABLET PO SCH ×3 (06:51→21:33)
[2020-03-15] MEDS: HYDRALAZINE HCL 25 MG TABLET PO SCH ×3 (06:51→21:33)
[2020-03-15] MEDS: PROMETHAZINE HCL INJ 25 MG/1 ML VIAL IV PRN ×2 (07:07→17:39)
[2020-03-15] MEDS: DEXTROSE 50%-WATER 25 GM/50 ML DISP.SYRIN IV PRN (07:50)
[2020-03-15] MEDS: INSULIN REG, HUMAN 100 UNIT/ML 3 ML VIAL (PYX) SUBCUT SCH ×4 (08:03→21:34)
[2020-03-15] MEDS: CARVEDILOL 12.5 MG TABLET PO SCH ×3 (10:21→21:38)
[2020-03-15] MEDS: ASPIRIN 81 MG TABLET, ENT COATED PO SCH (10:21)
[2020-03-15] MEDS: DOCUSATE SODIUM 100 MG CAPSULE PO SCH (10:21)
[2020-03-15] MEDS: FLUTICASONE NASAL SPRAY 50 MCG/SPRY 120 SPRAY/16 GM NASL SCH (10:22)
[2020-03-15] MEDS: DORZOLAMIDE HCL 2%/TIMOLOL MALEAT 0.5% OPH SOLN 10 ML OS SCH ×2 (10:22→17:34)
[2020-03-15] MEDS: ESCITALOPRAM OXALATE 10 MG TABLET PO SCH (10:22)
[2020-03-15] MEDS: TORSEMIDE 20 MG TABLET PO SCH ×2 (10:22→17:34)
[2020-03-15] MEDS: ACETAMINOPHEN 325 MG TABLET PO PRN ×2 (10:28→21:28)
[2020-03-15 12:38] LABS: PATH REVIEW PATHOLOGIST REVIEWED
--- NOTE | 2020-03-15 16:19 | PDOC PROGRESS REPORT ---
Subjective Progress Note for:: 03/15/20 Subjective:: 03/11/2020 patient seen during dialysis today. Patient to be doing quite well overall. She adamantly denies ever missing dialysis or her medications and states she is fully compliant with her plan of care as laid out by her doctors. I spoke with Dr. Dewitt who states that this is not true and that patient actually does miss dialysis regularly and is also noncompliant with her diet and medications. She has been emotionally labile off and on throughout the admiss ion having panic attacks intermittently. She states her right eye is blurry and Dr. Dewitt called her ophthalmology surgeon Dr. Puga who interviewed patient over the phone and stated that this does not seem like an emergent problem and she can follow-up with him next . She had been threatening to leave AMA in order to make this appointment which was originally scheduled for today. She is continued to have anxiety attacks throughout the day and I have started her on Lexapro and as needed Ativan. She has a superficial skin slough wound on her left dorsal aspect of her foot but this seems to be healing and dry today. She had an AV fistula occlusion which will be addressed by her vascular surgeon outpatient in the next 1 to 2 weeks. She is currently being dialyzed through a temporary dialysis catheter. 03/12/2020 Patient is much calmer today and states she is agreeable to SNF and actually wants to go there instead of going home with home health. She would like to remain inpatient until she is accepted to SNF. On labs today, hemoglobin is rising, BMP consistent with ESRD. She has no new complaints today. I spoke with the nurse and the patient about possibly taking the patient outside to get some fresh air today which will significantly help with her severe anxiety. If her nurse has time, I think this would be beneficial. 03/13/2020 We are waiting on patient to be transitioned to rehab facility, hopefully tomorrow. We will check a coronavirus test today in anticipation of her placement in the next 48 hours given the nursing facilities require coronavirus testing prior to transfer. Patient had low blood sugar overnight and I have reduced her Lantus dose to 10 units instead of 15 units nightly. She is having some intermittent nausea and vomiting. Had considered trying Reglan however she is on Lexapro and most recent QTC on her EKG was 477 prior to starting this medication. We will continue with Phenergan as needed for now. 03/14/2020 Patient doing well today, states her nausea and vomiting is basically resolved and only recurs occasionally. Her coronavirus test is still pending as it was only taken yesterday. Plan is still to get her to SNF as soon as this is completed and negative. She is still agreeable to this plan. She has no other specific complaints today. 03/15/2020 Patient is doing fine today. She is still having some intermittent nausea though this seems to be relieved by Phenergan. I recommended that she asked the nurse for dose of Phenergan prior to eating each meal. I spoke with the lead case manager today about the possibility of getting orthopedics to see the patient here, however, case management made an excellent point that the hospitalist not currently allowing nonemergent procedures to take place in the OR and this would include the patient's proximal tibia fracture repair. As time allows, I may reach out to orthopedic surgery by expect them to tell me the same thing case management has stated, which is no elective procedures are to be done in the hospital currently. We will continue to look for a rehab facility bed for the patient as she is requiring a great deal of assistance for transitions. Reason For Visit: CHEST PAIN,PNA,ESRD Physical Exam Vital Signs: Temp Pulse Resp BP Pulse Ox 97.8 F 64 16 128/73 H 96 03/15/20 11:15 03/15/20 14:00 03/15/20 11:15 03/15/20 11:15 03/15/20 11:15 Intake & Output 03/14/20 03/15/20 03/16/20 06:59 06:59 06:59 Intake Total 270 700 Output Total 3000 Balance 270 -2300 Weight 70.1 kg 66.9 kg General appearance: PRESENT: no acute distress, well-developed, well-nourished Head exam: PRESENT: atraumatic, normocephalic Eye exam: PRESENT: conjunctiva pink Mouth exam: PRESENT: moist Respiratory exam: PRESENT: clear to auscultation peterson. ABSENT: rales, rhonchi, wheezes Cardiovascular exam: PRESENT: RRR. ABSENT: diastolic murmur, rubs, systolic murmur GI/Abdominal exam: PRESENT: normal bowel sounds, soft. ABSENT: distended, guarding, mass, organolmegaly, rebound, tenderness Neurological exam: PRESENT: alert, awake, oriented to person, oriented to place, oriented to time, oriented to situation Psychiatric exam: PRESENT: appropriate affect, normal mood Skin exam: PRESENT: dry, warm Results Laboratory Results: 03/14/20 07:26 03/14/20 07:26 03/07/20 03/07/20 03/07/20 06:13 06:13 09:00 Creatine Kinase 74 CK-MB (CK-2) 3.71 Troponin I 0.119 0.118 03/07/20 15:11 Creatine Kinase CK-MB (CK-2) Troponin I 0.133 Impressions: Chest X-Ray 03/07/20 05:58 IMPRESSION: Interval line/tube modification. Chest/Abdomen CTA 03/07/20 08:01 IMPRESSION: 1. No pulmonary embolus. 2. Moderate right-sided pleural effusion with areas of subsegmental atelectasis in the right lower lobe. 3. Alveolar opacities in the left lower lobe concerning for pneumonia. 4. Cardiomegaly with suspected pulmonary hypertension and right-sided cardiac dysfunction. Guidance Fluoroscopy 03/08/20 00:00 IMPRESSION: IMAGE(S) OBTAINED DURING PROCEDURE. Assessment and Plan - Diagnosis (1) AV fistula occlusion Is this a current diagnosis for this admission?: Yes (2) Anemia in chronic kidney disease (CKD) Is this a current diagnosis for this admission?: Yes (3) Diabetes mellitus type 2 in nonobese Is this a current diagnosis for this admission?: Yes (4) Dizziness Is this a current diagnosis for this admission?: Yes (5) Elevated troponin Is this a current diagnosis for this admission?: Yes (6) Hyponatremia Is this a current diagnosis for this admission?: Yes (7) Metabolic acidosis Is this a current diagnosis for this admission?: Yes (8) Pneumonia Qualifiers: Pneumonia type: due to unspecified organism Laterality: left Lung location: lower lobe of lung Qualified Code(s): J18.9 - Pneumonia, unspecified organism Is this a current diagnosis for this admission?: Yes (9) CHF (congestive heart failure) Qualifiers: Heart failure type: unspecified Heart failure chronicity: acute on chronic Qualified Code(s): I50.9 - Heart failure, unspecified Is this a current diagnosis for this admission?: Yes (10) ESRD needing dialysis Is this a current diagnosis for this admission?: Yes (11) Hypertensive emergency Is this a current diagnosis for this admission?: Yes (12) Physical debility Is this a current diagnosis for this admission?: Yes (13) Nausea and vomiting Qualifiers: Vomiting type: unspecified Vomiting Intractability: non-intractable Qualified Code(s): R11.2 - Nausea with vomiting, unspecified Is this a current diagnosis for this admission?: Yes (14) Fracture of proximal end of tibia Qualifiers: Encounter type: subsequent encounter Fracture type: closed Fracture mor phology: unspecified fracture morphology Laterality: left Is this a current diagnosis for this admission?: Yes Plan: Patient has been referred to orthopedic surgery outpatient as no elective procedures are currently being performed in the hospital due to coronavirus pandemic Pain management Needs rehab facility placement - Plan Summary Summary: 03/08 Patient denies any chest pain. She was noted to have potassium of 6 which is consistent with her end-stage renal disease. Unfortunately she has a dysfunctional AV fistula. Plan is to insert a temporary dialysis catheter permacath likely today and then she will need a possible fistulogram with declot or intervention in the coming days. He also received Kayexalate overnight. 03/09 hyperkalemia secondary to her kidney function. She was dialyzed received some Kayexalate. Will recheck potassium level 03/10 patient's clinical status is improved, she is more awake and alert. She is however still pretty weak and will likely need rehab and to have ordered a PT evaluation. She does have a clotted AV fistula so this will have to be likely declotted as outpatient. In the interim a subclavian Shiley catheter was placed and this can be used for a few weeks till her fistula is declotted. Anemia is relatively stable, secondary to chronic kidney disease. At this point I think patient is clinically stable to begin discharge planning. We will also order social service to assess needs. She had a recent hip fracture and her mobility is somewhat limited and apparently she lives alone. Is unclear how she has been able to manage - Time Time Spent with patient: 15-24 minutes Medications reviewed and adjusted accordingly: Yes Anticipated discharge: SNF Within: within 48 hours - Inpatient Certification Based on my medical assessment, after consideration of the patient's comorbidities, presenting symptoms, or acuity I expect that the services needed warrant INPATIENT care.: Yes I certify that my determination is in accordance with my understanding of Medicare's requirements for reasonable and necessary INPATIENT services [42 CFR 412.3e].: Yes Medical Necessity: Significant Comorbidiites Make Outpatient Treatment Too Risky, Need Close Monitoring Due to Risk of Patient Decompensation, Risk of Complication if Not Cared For in Hospital, Risk of Diagnosis Which Will Require Inpatient Eval/Care/Monitoring
[2020-03-15] MEDS: OXYCODONE-ACETAMINOPHEN 5-325 MG TABLET PO PRN (20:16)
[2020-03-15] MEDS: TEMAZEPAM 7.5 MG CAPSULE PO PRN (21:28)
[2020-03-16] MEDS ORDERED: EPOETIN ALFA-EPBX 30,000 UNIT in SYRINGE, DISPOSABLE, 1 EACH IV PRN (05:00)
[2020-03-16] MEDS ORDERED: HEPARIN SOD (PORCINE) 1,000 UNIT/ML 10 ML VIAL IV PRN (05:00)
[2020-03-16] MEDS: OXYCODONE-ACETAMINOPHEN 5-325 MG TABLET PO PRN (05:40)
[2020-03-16] MEDS: HYDRALAZINE HCL 25 MG TABLET PO SCH ×2 (05:43→14:20)
[2020-03-16] MEDS: CLONIDINE HCL 0.2 MG TABLET PO SCH ×2 (05:43→14:28)
[2020-03-16] MEDS: HEPARIN SOD (PORCINE) 5,000 UNIT/ML 1 ML VIAL SUBCUT SCH ×2 (05:43→14:29)
[2020-03-16 06:16] LABS: ABSOLUTE BASOPHILS # (AUTO) 0.1 10^3/uL (0.0-0.2); ABSOLUTE EOSINOPHILS # (AUTO) 0.1 10^3/uL (0.0-0.6); ABSOLUTE LYMPHOCYTES (AUTO) 0.9 10^3/uL (0.5-4.7); ABSOLUTE MONOCYTES (AUTO) 0.8 10^3/uL (0.1-1.4); ABSOLUTE NEUT (AUTO) 8.4 10^3/uL (1.7-8.2); EOSINOPHILS % (AUTO) 1.3 % (0-6); HEMOGLOBIN 8.9 g/dL (12.0-15.5); LYMPHOCYTES % (AUTO) 8.9 % (13-45); MEAN CORPUSCULAR HEMOGLOBIN 22.1 pg (27.0-33.4); MEAN CORPUSCULAR HGB CONC 31.8 g/dL (32.0-36.0); MEAN CORPUSCULAR VOLUME 70 fl (80-97); MONOCYTES % (AUTO) 7.8 % (3-13); PLATELET COUNT 342 10^3/uL (150-450); RED BLOOD COUNT 4.03 10^6/uL (3.72-5.28); RED CELL DISTRIBUTION WIDTH 19.7 % (11.5-14.0); TOTAL CELLS COUNTED % (AUTO) 100 %; WHITE BLOOD COUNT 10.4 10^3/uL (4.0-10.5)
[2020-03-16 06:32] LABS: ANION GAP 16 (5-19); BLOOD UREA NITROGEN 50 mg/dL (7-20); CALCIUM 7.5 mg/dL (8.4-10.2); CARBON DIOXIDE 25 mmol/L (22-30); CHLORIDE 92 mmol/L (98-107); GLUCOSE 107 mg/dL (75-110); POTASSIUM 4.4 mmol/L (3.6-5.0)
[2020-03-16] MEDS: INSULIN REG, HUMAN 100 UNIT/ML 3 ML VIAL (PYX) SUBCUT SCH ×3 (08:21→18:12)
[2020-03-16] MEDS ORDERED: BISACODYL 5 MG TABEC PO PRN (10:45)
[2020-03-16] MEDS ORDERED: BISACODYL 10 MG SUPP.RECT PR PRN (10:45)
--- NOTE | 2020-03-16 10:53 | PDOC PROGRESS REPORT ---
Subjective Progress Note for:: 03/16/20 Subjective:: 03/11/2020 patient seen during dialysis today. Patient to be doing quite well overall. She adamantly denies ever missing dialysis or her medications and states she is fully compliant with her plan of care as laid out by her doctors. I spoke with Dr. Dewitt who states that this is not true and that patient actually does miss dialysis regularly and is also noncompliant with her diet and medications. She has been emotionally labile off and on throughout the admiss ion having panic attacks intermittently. She states her right eye is blurry and Dr. Dewitt called her ophthalmology surgeon Dr. Puga who interviewed patient over the phone and stated that this does not seem like an emergent problem and she can follow-up with him next . She had been threatening to leave AMA in order to make this appointment which was originally scheduled for today. She is continued to have anxiety attacks throughout the day and I have started her on Lexapro and as needed Ativan. She has a superficial skin slough wound on her left dorsal aspect of her foot but this seems to be healing and dry today. She had an AV fistula occlusion which will be addressed by her vascular surgeon outpatient in the next 1 to 2 weeks. She is currently being dialyzed through a temporary dialysis catheter. 03/12/2020 Patient is much calmer today and states she is agreeable to SNF and actually wants to go there instead of going home with home health. She would like to remain inpatient until she is accepted to SNF. On labs today, hemoglobin is rising, BMP consistent with ESRD. She has no new complaints today. I spoke with the nurse and the patient about possibly taking the patient outside to get some fresh air today which will significantly help with her severe anxiety. If her nurse has time, I think this would be beneficial. 03/13/2020 We are waiting on patient to be transitioned to rehab facility, hopefully tomorrow. We will check a coronavirus test today in anticipation of her placement in the next 48 hours given the nursing facilities require coronavirus testing prior to transfer. Patient had low blood sugar overnight and I have reduced her Lantus dose to 10 units instead of 15 units nightly. She is having some intermittent nausea and vomiting. Had considered trying Reglan however she is on Lexapro and most recent QTC on her EKG was 477 prior to starting this medication. We will continue with Phenergan as needed for now. 03/14/2020 Patient doing well today, states her nausea and vomiting is basically resolved and only recurs occasionally. Her coronavirus test is still pending as it was only taken yesterday. Plan is still to get her to SNF as soon as this is completed and negative. She is still agreeable to this plan. She has no other specific complaints today. 03/15/2020 Patient is doing fine today. She is still having some intermittent nausea though this seems to be relieved by Phenergan. I recommended that she asked the nurse for dose of Phenergan prior to eating each meal. I spoke with the outpatient case manager today about the possibility of getting orthopedics to see the patient here, however, case management made an excellent point that the hospitalist not currently allowing nonemergent procedures to take place in the OR and this would include the patient's proximal tibia fracture repair. As time allows, I may reach out to orthopedic surgery by expect them to tell me the same thing case management has stated, which is no elective procedures are to be done in the hospital currently. We will continue to look for a rehab facility bed for the patient as she is requiring a great deal of assistance for transitions. 03/16/2020 Patient complains of being constipated and I have added a more extensive bowel regimen for her. We will give oral Dulcolax and if this is ineffective after a few hours can give rectal Dulcolax, and if this is ineffective after a few hours can proceed with a glycerin or soapsuds enema. Patient states her nausea is primarily under control but she just is not eating very much. She states her appointment with her eye doctor is tomorrow and her appointment with her orthopedist has already passed. I will reach out to her orthopedist today and see if he has any plans to perform her surgery in the near future. Reason For Visit: CHEST PAIN,PNA,ESRD Physical Exam Vital Signs: Temp Pulse Resp BP Pulse Ox 97.9 F 65 14 130/73 H 93 03/16/20 03:22 03/16/20 07:00 03/16/20 03:22 03/16/20 03:22 03/16/20 03:22 Intake & Output 03/15/20 03/16/20 03/17/20 06:59 06:59 06:59 Intake Total 700 200 800 Output Total 3000 3200 Balance -2300 200 -2400 Weight 66.9 kg 66.8 kg General appearance: PRESENT: no acute distress, well-developed, well-nourished Head exam: PRESENT: atraumatic, normocephalic Eye exam: PRESENT: conjunctiva pink. ABSENT: scleral icterus Mouth exam: PRESENT: moist Respiratory exam: PRESENT: clear to auscultation peterson. ABSENT: rales, rhonchi, wheezes Cardiovascular exam: PRESENT: RRR. ABSENT: diastolic murmur, rubs, systolic murmur GI/Abdominal exam: PRESENT: normal bowel sounds, soft. ABSENT: distended, guarding, mass, organolmegaly, rebound, tenderness Neurological exam: PRESENT: alert, awake, oriented to person, oriented to place, oriented to time, oriented to situation Psychiatric exam: PRESENT: appropriate affect, normal mood Skin exam: PRESENT: dry, intact, warm Results Laboratory Results: 03/16/20 06:02 03/16/20 06:02 03/16/20 03/16/20 06:02 06:02 WBC 10.4 RBC 4.03 Hgb 8.9 L Hct 28.0 L MCV 70 L MCH 22.1 L MCHC 31.8 L RDW 19.7 H Plt Count 342 Seg Neutrophils % 81.0 H Sodium 132.5 L Potassium 4.4 Chloride 92 L Carbon Dioxide 25 Anion Gap 16 BUN 50 H Creatinine 4.89 H Est GFR ( Amer) 11 L Glucose 107 Calcium 7.5 L 03/07/20 03/07/20 03/07/20 06:13 06:13 09:00 Creatine Kinase 74 CK-MB (CK-2) 3.71 Troponin I 0.119 0.118 03/07/20 15:11 Creatine Kinase CK-MB (CK-2) Troponin I 0.133 Impressions: Chest X-Ray 03/07/20 05:58 IMPRESSION: Interval line/tube modification. Chest/Abdomen CTA 03/07/20 08:01 IMPRESSION: 1. No pulmonary embolus. 2. Moderate right-sided pleural effusion with areas of subsegmental atelectasis in the right lower lobe. 3. Alveolar opacities in the left lower lobe concerning for pneumonia. 4. Cardiomegaly with suspected pulmonary hypertension and right-sided cardiac dysfunction. Guidance Fluoroscopy 03/08/20 00:00 IMPRESSION: IMAGE(S) OBTAINED DURING PROCEDURE. Assessment and Plan - Diagnosis (1) AV fistula occlusion Is this a current diagnosis for this admission?: Yes (2) Anemia in chronic kidney disease (CKD) Is this a current diagnosis for this admission?: Yes (3) Diabetes mellitus type 2 in nonobese Is this a current diagnosis for this admission?: Yes (4) Dizziness Is this a current diagnosis for this admission?: Yes (5) Elevated troponin Is this a current diagnosis for this admission?: Yes (6) Hyponatremia Is this a current diagnosis for this admission?: Yes (7) Metabolic acidosis Is this a current diagnosis for this admission?: Yes (8) Pneumonia Qualifiers: Pneumonia type: due to unspecified organism Laterality: left Lung location: lower lobe of lung Qualified Code(s): J18.9 - Pneumonia, unspecified organism Is this a current diagnosis for this admission?: Yes (9) CHF (congestive heart failure) Qualifiers: Heart failure type: unspecified Heart failure chronicity: acute on chronic Qualified Code(s): I50.9 - Heart failure, unspecified Is this a current diagnosis for this admission?: Yes (10) ESRD needing dialysis Is this a current diagnosis for this admission?: Yes (11) Hypertensive emergency Is this a current diagnosis for this admission?: Yes (12) Physical debility Is this a current diagnosis for this admission?: Yes (13) Nausea and vomiting Qualifiers: Vomiting type: unspecified Vomiting Intractability: non-intractable Qualified Code(s): R11.2 - Nausea with vomiting, unspecified Is this a current diagnosis for this admission?: Yes (14) Fracture of proximal end of tibia Qualifiers: Encounter type: subsequent encounter Fracture type: closed Fracture morphology: unspecified fracture morphology Laterality: left Is this a current diagnosis for this admission?: Yes (15) Constipation Qualifiers: Constipation type: unspecified constipation type Qualified Code(s): K59.00 - Constipation, unspecified Is this a current diagnosis for this admission?: Yes Plan: Stool softener, oral Dulcolax, rectal Dulcolax, enemas are available as well - Plan Summary Summary: 03/08 Patient denies any chest pain. She was noted to have potassium of 6 which is consistent with her end-stage renal disease. Unfortunately she has a dysfunctional AV fistula. Plan is to insert a temporary dialysis catheter permacath likely today and then she will need a possible fistulogram with declot or intervention in the coming days. He also received Kayexalate overnight. 03/09 hyperkalemia secondary to her kidney function. She was dialyzed received some Kayexalate. Will recheck potassium level 03/10 patient's clinical status is improved, she is more awake and alert. She is however still pretty weak and will likely need rehab and to have ordered a PT evaluation. She does have a clotted AV fistula so this will have to be likely declotted as outpatient. In the interim a subclavian Shiley catheter was placed and this can be used for a few weeks till her fistula is declotted. Anemia is relatively stable, secondary to chronic kidney disease. At this point I think patient is clinically stable to begin discharge planning. We will also order social service to assess needs. She had a recent hip fracture and her mobility is somewhat limited and apparently she lives alone. Is unclear how she has been able to manage - Time Time Spent with patient: 15-24 minutes Medications reviewed and adjusted accordingly: Yes Anticipated discharge: SNF Within: within 48 hours - Inpatient Certification Based on my medical assessment, after consideration of the patient's comorbidities, presenting symptoms, or acuity I expect that the services needed warrant INPATIENT care.: Yes I certify that my determination is in accordance with my understanding of Medicare's requirements for reasonable and necessary INPATIENT services [42 CFR 412.3e].: Yes Medical Necessity: Significant Comorbidiites Make Outpatient Treatment Too Risky, Need Close Monitoring Due to Risk of Patient Decompensation, Risk of Complication if Not Cared For in Hospital, Risk of Diagnosis Which Will Require Inpatient Eval/Care/Monitoring
[2020-03-16] MEDS: TORSEMIDE 20 MG TABLET PO SCH ×2 (11:04→18:12)
[2020-03-16] MEDS: CARVEDILOL 12.5 MG TABLET PO SCH (11:05)
[2020-03-16] MEDS: ESCITALOPRAM OXALATE 10 MG TABLET PO SCH (11:06)
[2020-03-16] MEDS: ASPIRIN 81 MG TABLET, ENT COATED PO SCH (11:06)
[2020-03-16] MEDS: FLUTICASONE NASAL SPRAY 50 MCG/SPRY 120 SPRAY/16 GM NASL SCH (11:06)
[2020-03-16] MEDS: DOCUSATE SODIUM 100 MG CAPSULE PO SCH (11:10)
[2020-03-16] MEDS: DORZOLAMIDE HCL 2%/TIMOLOL MALEAT 0.5% OPH SOLN 10 ML OS SCH ×2 (11:12→18:12)
[2020-03-16] MEDS ORDERED: HEPARIN SODIUM,PORCINE/D5W 25,000 UNIT/250 ML RTUINJ IV PRN (16:25)
[2020-03-16 16:49] VITALS: BP 112/61
[2020-03-16 17:32] LABS: HEMOGLOBIN 8.5 g/dL (12.0-15.5); MEAN CORPUSCULAR HEMOGLOBIN 22.2 pg (27.0-33.4); MEAN CORPUSCULAR HGB CONC 31.7 g/dL (32.0-36.0); MEAN CORPUSCULAR VOLUME 70 fl (80-97); PLATELET COUNT 361 10^3/uL (150-450); RED BLOOD COUNT 3.85 10^6/uL (3.72-5.28); WHITE BLOOD COUNT 11.2 10^3/uL (4.0-10.5)
[2020-03-16 17:40] LABS: INTERNATIONAL RATION (INR) 1.34; PROTHROMBIN TIME 16.7 SEC (11.4-15.4)
[2020-03-16 17:41] LABS: PARTIAL THROMBOPLASTIN TIME 36.9 SEC (23.5-35.8)
--- NOTE | 2020-03-16 17:46 | PDOC TRANSFER SUMMARY ---
General Admission Date/PCP: 03/07/20 10:15 INDIGO VALLE NP Admission Date: 03/07/20 Transfer Date: 03/16/20 Accepting Facility: [facility] Resuscitation Status: Full Code - Transfer Diagnosis (1) Ischemia of right upper extremity Is this a current diagnosis for this admission?: Yes Diagnosis Summary: At approximately 2:30 PM on 03/16/2020 patient began complaining of severe right upper extremity pain/paresthesias/numbness and also noted she could no longer make a fist with her right hand due to severe weakness. She is noted to have a very weak 1+ right radial pulse with a delayed cap refill. Transferred to [facility] for urgent vascular surgery evaluation for possible ischemic limb versus compartment syndrome from extended AV fistula clot Nephrology made aware Accepting physician is Preston Barraza MD. 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 (4) Diabetes mellitus type 2 in nonobese Is this a current diagnosis for this admission?: Yes (5) Dizziness Is this a current diagnosis for this admission?: Yes (6) Elevated troponin Is this a current diagnosis for this admission?: Yes Diagnosis Summary: Due to ESRD (7) Hyponatremia Is this a current diagnosis for this admission?: Yes Diagnosis Summary: Resolved (8) Metabolic acidosis Is this a current diagnosis for this admission?: Yes Diagnosis Summary: Resolved (9) Pneumonia Is this a current diagnosis for this admission?: Yes Diagnosis Summary: Resolved (10) CHF (congestive heart failure) Is this a current diagnosis for this admission?: Yes (11) ESRD needing dialysis Is this a current diagnosis for this admission?: Yes (12) Hypertensive emergency Is this a current diagnosis for this admission?: Yes (13) Physical debility Is this a current diagnosis for this admission?: Yes (14) Nausea and vomiting Is this a current diagnosis for this admission?: Yes (15) Fracture of proximal end of tibia Is this a current diagnosis for this admission?: Yes Diagnosis Summary: Has follow-up with orthopedic surgeon outpatient as hospital is not doing elective procedures currently Needs placement at nursing facility for rehab (16) Constipation Is this a current diagnosis for this admission?: Yes - Transfer Medications Home Medications: Aspirin [Ecotrin] 81 mg PO DAILY 03/24/19 Clonidine HCl [Catapres 0.2 mg Tablet] 0.2 mg PO BIDP PRN 11/16/19 Carvedilol [Coreg 12.5 mg Tablet] 25 mg PO Q12 02/21/20 Chlorthalidone [Hygroton 25 mg Tablet] 25 mg PO DAILYP PRN 02/21/20 Dorzolamide HCl/Timolol Maleat [Cosopt Oph Soln 10 ml] 1 drop OS BID 02/21/20 Hydralazine HCl [Apresoline 25 mg Tablet] 25 mg PO Q8 02/21/20 Insulin Detemir [Levemir Insulin 100 units/mL Insulin Pen] 15 units SUBCUT QHS 02/21/20 Torsemide [Demadex 20 mg Tablet] 100 mg PO BID 02/21/20 Transfer Medications: Current Medications Acetaminophen (Tylenol 325 Mg Tablet) 650 mg PO Q6HP PRN PRN Reason: FOR PAIN SCALE 1-2 Stop: 04/09/20 13:20 Last Admin: 03/15/20 21:28 Dose: 650 mg Documented by: Albuterol/Ipratropium (Duoneb 3 Ml Ampul) 3 ml NEB RTQ6HP PRN PRN Reason: SHORTNESS OF BREATH Stop: 04/06/20 12:59 Aspirin (Ecotrin 81 Mg Ec Tablet) 81 mg PO DAILY [facility] Stop: 04/07/20 09:59 Last Admin: 03/16/20 11:06 Dose: 81 mg Documented by: Bisacodyl (Dulcolax 10 Mg Supp.Rect) 10 mg MD DAILYP PRN PRN Reason: UNRESOLVED CONSTIPATION Stop: 04/15/20 10:44 Bisacodyl (Dulcolax 5 Mg Tablet) 5 mg PO DAILYP PRN PRN Reason: UNRESOLVED CONSTIPATION Stop: 04/15/20 10:44 Carvedilol (Coreg 12.5 Mg Tablet) 25 mg PO Q12 [facility] Stop: 04/06/20 21:59 Last Admin: 03/16/20 11:05 Dose: 25 mg Documented by: Clonidine (Catapres 0.2 Mg Tablet) 0.2 mg PO Q8 [facility] Stop: 04/06/20 13:59 Last Admin: 03/16/20 14:28 Dose: Not Given Documented by: Dextrose (Dextrose Inj 50% Syringe (25 Gm/50 Ml)) 12.5 gm IV PRN PRN; Protocol PRN Reason: FOR BG 50-69 IN ALERT PATIENT Stop: 04/06/20 13:20 Dextrose (Dextrose Inj 50% Syringe (25 Gm/50 Ml)) 25 gm IV PRN PRN; Protocol PRN Reason: PER PROTOCOL Stop: 04/06/20 13:20 Last Admin: 03/15/20 07:50 Dose: 25 gm Documented by: Docusate Sodium (Colace 100 Mg Capsule) 100 mg PO DAILY [facility] Stop: 04/07/20 09:59 Last Admin: 03/16/20 11:10 Dose: Not Given Documented by: Dorzolamide/Timolol (Cosopt Oph Soln 10 Ml) 1 drop OS BID [facility] Stop: 04/06/20 17:59 Last Admin: 03/16/20 11:12 Dose: 1 drop Documented by: Escitalopram Oxalate (Lexapro 10 Mg Tablet) 10 mg PO DAILY [facility] Stop: 04/10/20 17:44 Last Admin: 03/16/20 11:06 Dose: 10 mg Documented by: Fluticasone Propionate (Flonase Nasal Sheridan 50 Mcg/Sheridan 16 Gm) 1 spray NASL DAILY [facility] Stop: 04/11/20 15:59 Last Admin: 03/16/20 11:06 Dose: 1 spr Documented by: Glucagon (Glucagen Inj 1 Mg Vial) 1 mg IM PRN PRN; Protocol PRN Reason: Evaluate for BG < 70 Stop: 04/06/20 13:20 Glucose (Glutose 40% Gel 15 Gm Tube) 15 gm PO PRN PRN; Protocol PRN Reason: FOR BG 50-69 IN ALERT PATIENT Stop: 04/06/20 13:20 Glucose (Glutose 40% Gel 15 Gm Tube) 30 gm PO PRN PRN; Protocol PRN Reason: FOR BG < 50 IN ALERT PATIENT Stop: 04/06/20 13:20 Heparin Sodium (Porcine) (Heparin Inj 1,000 Unit/Ml 10 Ml Vial) 3,600 unit IV .SPLIT B/N CATHETERS PRN PRN Reason: THIS MED IS NOT "PRN" Stop: 03/16/20 23:59 Last Admin: 03/16/20 08:15 Dose: 4,300 units Documented by: Hydralazine HCl (Apresoline 25 Mg Tablet) 25 mg PO Q8 [facility] Stop: 04/06/20 13:59 Last Admin: 03/16/20 14:20 Dose: 25 mg Documented by: Epoetin Cal-epbx 30,000 unit/ (Syringe) 3 mls @ 0 mls/hr IV .DIALYSIS PRN PRN Reason: THIS MED IS NOT "PRN" Stop: 03/16/20 23:59 Last Admin: 03/16/20 08:19 Dose: 30,000 mls/hr Documented by: Heparin Sodium/Dextrose (Heparin Rtu 25,000 Unit/250 Ml D5w Premix) 25,000 unit in 250 mls @ 0 mls/hr IV CONTINUOUS PRN; Protocol PRN Reason: THIS MED IS NOT "PRN" Stop: 04/15/20 16:24 Insulin Human Regular (Humulin R (Pyxis) Insulin 100 Unit/Ml 3ml) 0 - 12 unit SUBCUT [facility]; Protocol Stop: 04/06/20 15:59 Last Admin: 03/16/20 11:06 Dose: Not Given Documented by: Lorazepam (Ativan Inj 2 Mg/1 Ml Vial) 1 mg IV Q6HP PRN PRN Reason: ANXIETY/AGITATION Stop: 03/18/20 17:43 Last Admin: 03/14/20 01:15 Dose: 1 mg Documented by: Magnesium Hydroxide (Milk Of Magnesia 30 Ml Udcup) 30 ml PO HSP PRN PRN Reason: FOR CONSTIPATION Stop: 04/06/20 12:59 Oxycodone/Acetaminophen (Percocet 5-325 Mg Tablet) 1 tab PO Q6HP PRN PRN Reason: FOR PAIN SCALE 3-4 Stop: 03/21/20 12:59 Last Admin: 03/16/20 05:40 Dose: 1 tab Documented by: Promethazine HCl (Phenergan Inj 25 Mg/1 Ml Vial) 12.5 mg IV Q6HP PRN PRN Reason: NAUSEA Stop: 04/07/20 09:56 Last Admin: 03/15/20 17:39 Dose: 12.5 mg Documented by: Temazepam (Restoril 7.5 Mg Capsule) 7.5 mg PO HSP PRN PRN Reason: SLEEP OR INSOMNIA Stop: 03/21/20 12:59 Last Admin: 03/15/20 21:28 Dose: 7.5 mg Documented by: Torsemide (Demadex 20 Mg Tablet) 100 mg PO BID [facility] Stop: 04/06/20 17:59 Last Admin: 03/16/20 11:04 Dose: 100 mg Documented by: - Allergies Allergies/Adverse Reactions: No Known Allergies Allergy (Verified 11/23/19 10:37) Hospital Course Hospital Course: HPI Per admitting physician: "STEPHANIE RODRIGUEZ is a 49 year old female Patient presents emergency room complains of feeling dizzy. She states she woke up this morning and she felt dizzy. Dizziness associated with nausea and vomiting. She denies any fever or cough. She denies any chest pain at this time but apparently according to records she had 5 out of 10 substernal chest discomfort when she was having this episode. She denied previous episodes. She was evaluated in the emergency room and found to have elevated troponin however patient has end-stage renal disease which could account for this troponin. It appears cardiology was consulted in the emergency room, Dr. Hughes and is aware of this patient. Patient was also found to have a left lower lobe infiltrate with pneumonia on chest x-ray" Per nephrology consult: "STEPHANIE RODRIGUEZ is a 49 year old -[place] lady known to me with history of ESRD on maintenance hemodialysis 3 times a week, history of congestive heart failure, diabetes mellitus type 2, and history of mitral valve repair in June 2018 who was admitted yesterday presenting with dizziness assoc iated with some nausea and vomiting. Patient told me today that she was at a friend's house when she experienced slight substernal chest pain for which EMS was called. On the way to the emergency room she was given nitroglycerin and so when she reached emergency room she no longer has any chest pain. She denies any shortness of breath, cough nor fever. Initial evaluation showed elevated troponin. A chest x-ray showed moderate opacity/effusion in the right lower hemothorax. CT scan of the chest with IV contrast revealed no pulmonary embolus. It also revealed moderate right-sided pleural effusion with areas of subsegmental atelectasis in the right lower lobe, alveolar opacities in the left lower lobe concerning for pneumonia, and cardiomegaly with suspected pulmonary hypertension and right-sided cardiac dysfunction. Patient also presented with high potassium of 5.7. Other electrolyte abnormalities includes hyponatremia and metabolic acidosis. Cardiology was consulted and Dr. Mil Hughes's saw the patient and his assessment was no acute coronary syndrome. She was also started on IV ceftriaxone and oral Zithromax. Patient's last dialysis was last Saturday. She was having issues with her right arm AV fistula that caused frequent stopping of the machine and clotting. She was supposed to go to [place] to have fistulogram of her right arm AV fistula today which obviously will not happen. Dr. Gregg is consulted for possible declotting of her right AV fistula and or PermCath placement so that we can do hemodialysis on this patient at least tomorrow. Today the patient is chest pain-free and denies any shortness of breath. She is virtually asymptomatic today. Her blood pressure has been also elevated at times but has improved." 03/11/2020 patient seen during dialysis today. Patient to be doing quite well overall. She adamantly denies ever missing dialysis or her medications and states she is fully compliant with her plan of care as laid out by her doctors. I spoke with Dr. Dewitt who states that this is not true and that patient actually does miss dialysis regularly and is also noncompliant with her diet and medications. She has been emotionally labile off and on throughout the admission having panic attacks intermittently. She states her right eye is blurry and Dr. Dewitt called her ophthalmology surgeon Dr. Puga who interviewed patient over the phone and stated that this does not seem like an emergent problem and she can follow-up with him next . She had been threatening to leave AMA in order to make this appointment which was originally scheduled for today. She is continued to have anxiety attacks throughout the day and I have started her on Lexapro and as needed Ativan. She has a superficial skin slough wound on her left dorsal aspect of her foot but this seems to be healing and dry today. She had an AV fistula occlusion which will be addressed by her vascular surgeon outpatient in the next 1 to 2 weeks. She is currently being dialyzed through a temporary dialysis catheter. 03/12/2020 Patient is much calmer today and states she is agreeable to SNF and actually wants to go there instead of going home with home health. She would like to remain inpatient until she is accepted to SNF. On labs today, hemoglobin is rising, BMP consistent with ESRD. She has no new complaints today. I spoke with the nurse and the patient about possibly taking the patient outside to get some fresh air today which will significantly help with her severe anxiety. If her nurse has time, I think this would be beneficial. 03/13/2020 We are waiting on patient to be transitioned to rehab facility, hopefully tomorrow. We will check a coronavirus test today in anticipation of her placement in the next 48 hours given the nursing facilities require coronavirus testing prior to transfer. Patient had low blood sugar overnight and I have reduced her Lantus dose to 10 units instead of 15 units nightly. She is having some intermittent nausea and vomiting. Had considered trying Reglan however she is on Lexapro and most recent QTC on her EKG was 477 prior to starting this medication. We will continue with Phenergan as needed for now. 03/14/2020 Patient doing well today, states her nausea and vomiting is basically resolved and only recurs occasionally. Her coronavirus test is still pending as it was only taken yesterday. Plan is still to get her to SNF as soon as this is completed and negative. She is still agreeable to this plan. She has no other specific complaints today. 03/15/2020 Patient is doing fine today. She is still having some intermittent nausea though this seems to be relieved by Phenergan. I recommended that she asked the nurse for dose of Phenergan prior to eating each meal. I spoke with the case db chloe today about the possibility of getting orthopedics to see the patient here, however, case management made an excellent point that the hospitalist not currently allowing nonemergent procedures to take place in the OR and this would include the patient's proximal tibia fracture repair. As time allows, I may reach out to orthopedic surgery by expect them to tell me the same thing case management has stated, which is no elective procedures are to be done in the hospital currently. We will continue to look for a rehab facility bed for the patient as she is requiring a great deal of assistance for transitions. 03/16/2020 Patient complains of being constipated and I have added a more extensive bowel regimen for her. We will give oral Dulcolax and if this is ineffective after a few hours can give rectal Dulcolax, and if this is ineffective after a few hours can proceed with a glycerin or soapsuds enema. Patient states her nausea is primarily under control but she just is not eating very much. She states her appointment with her eye doctor is tomorrow and her appointment with her o rthopedist has already passed. I will reach out to her orthopedist today and see if he has any plans to perform her surgery in the near future. Reason for transfer: At approximately 2:30 PM on 03/16/2020 patient began complaining of sudden onset severe right upper extremity pain/paresthesias/numbness and also noted she could no longer make a fist with her right hand due to severe weakness. She is noted to have a very weak 1+ right radial pulse with a delayed cap refill. Transferred to [facility] for urgent vascular surgery evaluation for possible ischemic limb versus compartment syndrome from extended AV fistula clot Nephrology made aware Accepting physician is Preston Barraza MD. Please notify him when the patient arrives Physical Exam Vital Signs: Temp Pulse Resp BP Pulse Ox 98.1 F 73 18 112/61 91 L 03/16/20 16:17 03/16/20 16:17 03/16/20 16:17 03/16/20 16:17 03/16/20 16:17 Intake & Output 03/15/20 03/16/20 03/17/20 06:59 06:59 06:59 Intake Total 700 200 800 Output Total 3000 3200 Balance -2300 200 -2400 Weight 66.9 kg 66.8 kg General appearance: PRESENT: mild distress, thin Head exam: PRESENT: atraumatic, normocephalic Eye exam: PRESENT: conjunctiva pink Mouth exam: PRESENT: moist Respiratory exam: PRESENT: clear to auscultation peterson. ABSENT: rales, rhonchi, wheezes Cardiovascular exam: PRESENT: RRR. ABSENT: diastolic murmur, rubs, systolic murmur Vascular exam: PRESENT: other - Right radial pulse 1+ and very weak. ABSENT: normal capillary refill - Delayed cap refill and right upper extremity distally GI/Abdominal exam: PRESENT: normal bowel sounds, soft. ABSENT: distended, guarding, mass, organolmegaly, rebound, tenderness Neurological exam: PRESENT: alert, awake, oriented to person, oriented to place, oriented to time, oriented to situation, motor sensory deficit - 3+/5 strength in right upper extremity in the wrist and fingers unable to make a fist Psychiatric exam: PRESENT: appropriate affect, normal mood Skin exam: PRESENT: dry, intact, warm Results Laboratory Results: 03/16/20 06:02 03/16/20 03/16/20 06:02 06:02 WBC 10.4 RBC 4.03 Hgb 8.9 L Hct 28.0 L MCV 70 L MCH 22.1 L MCHC 31.8 L RDW 19.7 H Plt Count 342 Seg Neutrophils % 81.0 H Sodium 132.5 L Potassium 4.4 Chloride 92 L Carbon Dioxide 25 Anion Gap 16 BUN 50 H Creatinine 4.89 H Est GFR ( Amer) 11 L Glucose 107 Calcium 7.5 L 03/07/20 03/07/20 03/07/20 06:13 06:13 09:00 Creatine Kinase 74 CK-MB (CK-2) 3.71 Troponin I 0.119 0.118 03/07/20 15:11 Creatine Kinase CK-MB (CK-2) Troponin I 0.133 Impressions: Chest X-Ray 03/07/20 05:58 IMPRESSION: Interval line/tube modification. Chest/Abdomen CTA 03/07/20 08:01 IMPRESSION: 1. No pulmonary embolus. 2. Moderate right-sided pleural effusion with areas of subsegmental atelectasis in the right lower lobe. 3. Alveolar opacities in the left lower lobe concerning for pneumonia. 4. Cardiomegaly with suspected pulmonary hypertension and right-sided cardiac dysfunction. Guidance Fluoroscopy 03/08/20 00:00 IMPRESSION: IMAGE(S) OBTAINED DURING PROCEDURE. Plan Discharge Plan: Transfer to [facility] for emergent vascular surgery evaluation Time Spent: Greater than 30 Minutes
[2020-03-16 18:18] LABS: ABSOLUTE LYMPHOCYTES# (MANUAL) 0.4 10^3/uL (0.5-4.7); ABSOLUTE MONOCYTES # (MANUAL) 0.3 10^3/uL (0.1-1.4); BASOPHILS % (MANUAL) 0 % (0-2); EOSINOPHILS % (MANUAL) 0 % (0-6); LYMPHOCYTES % (MANUAL) 4 % (13-45); MONOCYTES % (MANUAL) 3 % (3-13); SEGMENTED NEUTROPHILS % (MAN) 93 % (42-78); TOTAL CELLS COUNTED 100
[2020-03-16 18:19] LABS: ANISOCYTOSIS 2+; OVALOCYTES SLIGHT; PLATELET COMMENT ADEQUATE; POIKILOCYTOSIS 1+; POLYCHROMASIA SLIGHT; STOMATOCYTES SLIGHT; TARGET CELLS 1+; TEAR DROP CELLS SLIGHT
--- NOTE | 2020-03-17 00:17 | PDOC PROGRESS REPORT ---
Subjective Progress Note for:: 03/16/20 Reason For Visit: Patient seen Saturday morning for dialysis. She is receiving dialysis without any issues. She is quite comfortable. Her blurry vision in the right eye is apparently better than what it was when last seen. Denies any chest pain shortness of breath or weakness. Labs and medications were reviewed. Dialysis orders were reviewed with the treating dialysis nurse. Physical Exam Vital Signs: Temp Pulse Resp BP Pulse Ox 98.1 F 73 18 112/61 91 L 03/16/20 16:17 03/16/20 16:17 03/16/20 16:17 03/16/20 16:17 03/16/20 16:17 Intake & Output 03/15/20 03/16/20 03/17/20 06:59 06:59 06:59 Intake Total 700 200 800 Output Total 3000 3200 Balance -2300 200 -2400 Weight 66.9 kg 66.8 kg General appearance: PRESENT: no acute distress Respiratory exam: PRESENT: clear to auscultation peterson. ABSENT: crackles Cardiovascular exam: PRESENT: +S1, +S2 GI/Abdominal exam: PRESENT: normal bowel sounds, soft. ABSENT: organomegaly, tenderness Neurological exam: PRESENT: alert, awake, oriented to person, oriented to place Results Laboratory Results: 03/16/20 16:57 03/16/20 06:02 03/16/20 03/16/20 03/16/20 06:02 06:02 16:57 WBC 10.4 11.2 H RBC 4.03 3.85 Hgb 8.9 L 8.5 L Hct 28.0 L 27.0 L MCV 70 L 70 L MCH 22.1 L 22.2 L MCHC 31.8 L 31.7 L RDW 19.7 H 20.0 H Plt Count 342 361 Seg Neutrophils % 81.0 H Not Reportable Sodium 132.5 L Potassium 4.4 Chloride 92 L Carbon Dioxide 25 Anion Gap 16 BUN 50 H Creatinine 4.89 H Est GFR ( Amer) 11 L Glucose 107 Calcium 7.5 L 03/07/20 03/07/20 03/07/20 06:13 06:13 09:00 Creatine Kinase 74 CK-MB (CK-2) 3.71 Troponin I 0.119 0.118 03/07/20 15:11 Creatine Kinase CK-MB (CK-2) Troponin I 0.133 Impressions: Chest X-Ray 03/07/20 05:58 IMPRESSION: Interval line/tube modification. Chest/Abdomen CTA 03/07/20 08:01 IMPRESSION: 1. No pulmonary embolus. 2. Moderate right-sided pleural effusion with areas of subsegmental atelectasis in the right lower lobe. 3. Alveolar opacities in the left lower lobe concerning for pneumonia. 4. Cardiomegaly with suspected pulmonary hypertension and right-sided cardiac dysfunction. Guidance Fluoroscopy 03/08/20 00:00 IMPRESSION: IMAGE(S) OBTAINED DURING PROCEDURE. Assessment & Plan - Diagnosis (1) Blurry vision, right eye Plan: Unchanged in the right eye. She has had discussions with Dr. Abdirahman Puga/retinal surgeon who is scheduled now to see her on . (2) End stage renal disease on dialysis Is this a current diagnosis for this admission?: Yes Plan: Seen on dialysis. Vital signs are stable. Dialysis being supervised to ensure safe and smooth procedure. Plan to remove 1 L of fluid as tolerated. Dialysis orders were reviewed with the treating dialysis nurse. (3) Pneumonia Qualifiers: Pneumonia type: due to unspecified organism Laterality: left Lung location: lower lobe of lung Qualified Code(s): J18.9 - Pneumonia, unspecified organism Is this a current diagnosis for this admission?: Yes Plan: She has completed a course of antibiotics which included azithromycin and ceftriaxone. She has tested covid negative (4) Diabetes mellitus type 2 in nonobese Is this a current diagnosis for this admission?: Yes Plan: As per hospitalist. (5) Hyperkalemia Is this a current diagnosis for this admission?: Yes Plan: Resolved. Advised compliance with diet and dialysis treatments. Monitor. (6) Hypocalcemia Is this a current diagnosis for this admission?: Yes Plan: Improving. Advised compliance with her medications. (7) Hyponatremia Is this a current diagnosis for this admission?: Yes Plan: Improving. Monitor. (8) Hypertension Qualifiers: Hypertension type: unspecified Qualified Code(s): I10 - Essential (primary) hypertension Is this a current diagnosis for this admission?: Yes Plan: Well-controlled. (9) AV fistula occlusion Is this a current diagnosis for this admission?: Yes Plan: Needs outpatient evaluation as we do not have vascular surgeon at the moment here in hospital to do that. Meanwhile dialysis going through left IJ catheter that was placed.
== END 2020-03-16 18:03 | disposition short-term general hospital (02) | DRG 314 ==
LOC: ER 05:48 → OBSVTOIN 10:15 → EH 10:15 → 3S 12:02
PROVIDERS: ADMIT Internal Medicine; ATTEND Internal Medicine
PROC: 02HV33Z Insertion of Infusion Device into Superior Vena Cava, Percutaneous Approach (ICD-10-PCS; 2020-03-08)
PROC: 0JH63XZ Insertion of Tunneled Vascular Access Device into Chest Subcutaneous Tissue and Fascia, Percutaneous Approach (ICD-10-PCS; 2020-03-08)
PROC: B5181ZA Fluoroscopy of Superior Vena Cava using Low Osmolar Contrast, Guidance (ICD-10-PCS; 2020-03-08)
PROC: B548ZZZ Ultrasonography of Superior Vena Cava (ICD-10-PCS; 2020-03-08)
PROC: 5A1D70Z Performance of Urinary Filtration, Intermittent, Less than 6 Hours Per Day (ICD-10-PCS; principal; 2020-03-09)
PROC: 5A1D70Z Performance of Urinary Filtration, Intermittent, Less than 6 Hours Per Day (ICD-10-PCS; 2020-03-11)
PROC: 5A1D70Z Performance of Urinary Filtration, Intermittent, Less than 6 Hours Per Day (ICD-10-PCS; 2020-03-14)
PROC: 5A1D70Z Performance of Urinary Filtration, Intermittent, Less than 6 Hours Per Day (ICD-10-PCS; 2020-03-16)
DX: T82.590A Other mechanical complication of surgically created arteriovenous fistula, initial encounter (principal); J18.9 Pneumonia, unspecified organism; N18.6 End stage renal disease; I13.2 Hypertensive heart and chronic kidney disease with heart failure and with stage 5 chronic kidney disease, or end stage renal disease; E87.1 Hypo-osmolality and hyponatremia; I50.32 Chronic diastolic (congestive) heart failure; E87.2 Acidosis; S82.102A Unspecified fracture of upper end of left tibia, initial encounter for closed fracture; H33.21 Serous retinal detachment, right eye; I16.1 Hypertensive emergency; E11.22 Type 2 diabetes mellitus with diabetic chronic kidney disease; E11.3549 Type 2 diabetes mellitus with proliferative diabetic retinopathy with combined traction retinal detachment and rhegmatogenous retinal detachment, unspecified eye; I70.208 Unspecified atherosclerosis of native arteries of extremities, other extremity; R79.89 Other specified abnormal findings of blood chemistry; E87.5 Hyperkalemia; D63.1 Anemia in chronic kidney disease; E83.51 Hypocalcemia; F41.0 Panic disorder [episodic paroxysmal anxiety]; S90.812A Abrasion, left foot, initial encounter; X58.XXXA Exposure to other specified factors, initial encounter; R42 Dizziness and giddiness; H53.8 Other visual disturbances; K59.00 Constipation, unspecified; Z60.2 Problems related to living alone; Y83.8 Other surgical procedures as the cause of abnormal reaction of the patient, or of later complication, without mention of misadventure at the time of the procedure; Z03.818 Encounter for observation for suspected exposure to other biological agents ruled out; Z99.2 Dependence on renal dialysis; Z95.2 Presence of prosthetic heart valve; Z79.82 Long term (current) use of aspirin; Z79.4 Long term (current) use of insulin; Z91.19 Patient's noncompliance with other medical treatment and regimen; Z91.15 Patient's noncompliance with renal dialysis; Z91.14 Patient's other noncompliance with medication regimen
CPT/HCPCS: 00532; 36415; 71045; 71275; 77001; 80048; 80053; 82550; 82553; 82607; 82728; 82746; 82962; 83540; 83550; 83605; 84484; 85025; 85045; 85610; 85730; 87040; 87635; 93005; 93010; 94640; 96365; 96367; 99285; J0610; C1713; J0456; J0696; J1642; J1644; J1815; J2060; J2250; J2550; J2704; J3010; J3490; J7620; Q5105; Q9967

== ENCOUNTER 2020-03-31 17:53 | Emergency (ER) | payer OTHER, MEDICARE, MEDICAID ==
--- NOTE | 2020-03-31 18:37 | ER Document Report ---
Entered by TOI ELAM SCRIBE 03/31/20 1735 Acting as scribe for:GAVINO DEL RIO DO ED General - General Stated Complaint: NO FEELING FROM KNEE DOWN Time Seen by Provider: 03/31/20 17:55 Primary Care Provider: INDIGO VALLE NP [Primary Care Provider] - Follow up as needed AMI LUNA JR, DO [ACTIVE PROVISIONAL STAFF] - Follow up as needed Information source: Patient Notes: This 49-year-old female presents to the emergency department via EMS complaining of left leg numbness below the knee that began today. Patient reports pain in the left knee. Patient explains that she fell on the way into her dialysis appointment on 02/20/2020 and had to get a long leg cast for a proximal tibia fracture. Patient had an orthopedic appointment three days ago where they cut out a donut over the left anterior patella. Patient explains that she was having pain in her left knee and it has not improved since they made the donut in the long leg cast. Patient states that she is waiting for a call from [facility] for her follow-up appointment. Patient is a // dialysis patient with her last appointment being today. TRAVEL OUTSIDE OF THE [place] IN LAST 30 DAYS: No - Related Data Allergies/Adverse Reactions: No Known Allergies Allergy (Verified 03/31/20 19:04) Past Medical History - General Information source: Patient - Social History Smoking Status: Never Smoker Cigarette use (# per day): No Chew tobacco use (# tins/day): No Family History: Reviewed & Not Pertinent - Past Medical History Cardiac Medical History: Reports: Hx Congestive Heart Failure, Hx Hypertension, Hx Heart Murmur Endocrine Medical History: Reports: Hx Diabetes Mellitus Type 2 Renal/ Medical History: Reports: Hx End Stage Renal Disease, Hx Hemodialysis Past Surgical History: Reports: Hx Valve Replacement - Mitral valve repair on 06/30/2018, Hx Vascular Surgery - Vas-Cath placement, peritoneal dialysis catheter placement, Other - Left eye surgery-Nov 2018 - Immunizations Immunizations up to date: Yes Hx Diphtheria, Pertussis, Tetanus Vaccination: No Hx Pneumococcal Vaccination: 08/11/20 Review of Systems - Review of Systems Constitutional: See HPI. denies: Fever EENT: No symptoms reported Cardiovascular: No symptoms reported Respiratory: No symptoms reported Gastrointestinal: No symptoms reported Genitourinary: No symptoms reported Female Genitourinary: No symptoms reported Musculoskeletal: See HPI, Other - Left leg numbness and pain Skin: No symptoms reported Hematologic/Lymphatic: No symptoms reported Neurological/Psychological: No symptoms reported -: Yes All other systems reviewed and negative Physical Exam - Vital signs Vitals: Temp Pulse Resp BP Pulse Ox 98.3 F 98 18 169/89 H 98 03/31/20 17:53 03/31/20 17:53 03/31/20 17:53 03/31/20 17:53 03/31/20 17:53 - Notes Notes: Physical Exam: General: Alert, appears well. HEENT: Normocephalic. Atraumatic. PERRL. Extraocular movements intact. Oropharynx clear. Left eye patch for previous surgery in Nov 2018. Neck: Supple. Non-tender. Respiratory: No respiratory distress. Clear and equal breath sounds bilaterally. Cardiovascular: Regular rate and rhythm. Abdominal: Normal Inspection. Non-tender. No distension. Normal Bowel Sounds. Back: No gross abnormalities. Extremities: Moves all four extremities. Upper extremities: Normal inspection. Normal ROM. Lower extremities: No edema. Long leg cast on the left leg with a donut over the anterior patella. Neurovascularly intact distally. After removal of the cast, the skin is warm, sensation is intact, patient is able to move toes and there is no deformity. Mild soft tissue swelling noted. Neurological: Normal cognition. AAOx4. Normal speech. Psychological: Normal affect. Normal Mood. Skin: Warm. Dry. Normal color. Course - Re-evaluation Re-evalutation: 03/31/20 20:18 MDM 49 year old unfortunate female with left proximal tibia fx. "Collapsed" at home 02/26/20 and sustained fx. Seen here and has seen Dr. Luna as Ortho. Due to her comorbidities - ESRD, DM, htn, she has been referred to [facility] in [place]. Unfortunately they have reportedly yet to contact her. This afternoon she noted decreased sensation to her left leg from her proximal tibia to midfoot. The great toe has good feeling and motion and cap refill. After speaking with Dr. Moreira, he recomended contacting Dr. Bennett. After speaking with Dr. Luna the long leg cast was bivalved and she regained feeling in the left lower leg and a doppler revealed chronic appearing occlusive disease but lack of total occlusion. Dr. Bennett will remain involved and tells me if he is not succesful in getting her to [facility] in the near future, he will arrange transfer to [facility] for care for this fracture. Discussed this with pt and she expressed understanding. No evidence of compartment syndrome here, or dvt or rsd. She will need close follow up for this though and will call Dr. Luna's office tomorrow. - Vital Signs Vital signs: Temp Pulse Resp BP Pulse Ox 98.4 F 98 20 165/89 H 98 03/31/20 20:32 03/31/20 20:32 03/31/20 20:32 03/31/20 20:32 03/31/20 17:53 - Diagnostic Test Radiology reviewed: Reports reviewed Discharge - Discharge Clinical Impression: Left tibial fracture Qualifiers: Encounter type: subsequent encounter Tibia location: proximal Fracture type: closed Fracture morphology: unspecified fracture morphology Fracture healing: with routine healing Qualified Code(s): S82.102D - Unspecified fracture of upper end of left tibia, subsequent encounter for closed fracture with routine healing Condition: Good Disposition: HOME, SELF-CARE Referrals: INDIGO VALLE NP [Primary Care Provider] - Follow up as needed AMI LUNA JR, DO [ACTIVE PROVISIONAL STAFF] - Follow up as needed I personally performed the services described in the documentation, reviewed and edited the documentation which was dictated to the scribe in my presence, and it accurately records my words and actions.
[2020-03-31] MEDS ORDERED: HYDROCODONE/ACETAMINOPHEN 5-325 MG TABLET PO ONE (19:03)
[2020-03-31 20:44] VITALS: BP 165/89
[2020-03-31] MEDS ORDERED: HYDROCODONE/ACETAMINOPHEN 5-325 MG (6 TAB/ER DISP) PO PRN (21:01)
--- NOTE | 2020-03-31 22:02 | RADIOLOGY REPORT (SQ) ---
EXAM DESCRIPTION: Arterial Doppler evaluation of the left lower extremity CLINICAL HISTORY: 49 years Female, left leg numbness recent trauma. TECHNIQUE: Ultrasound of the arteries of the leg performed with grayscale, pulsed Doppler, and color Doppler. COMPARISON: None FINDINGS: Left leg (velocities in cm/s): HEALTH SCIENCES MANAGER: Monophasic, 49.4 cm/s DFA: Monophasic, 32.1 cm/s SFA-proximal: Monophasic, 84.0cm/s SFA-mid: Monophasic, 77.4cm/s SFA-distal: Monophasic, 54.2cm/s Popliteal: Monophasic, 82.9cm/s Proximal DIRECTOR TEEN POST: Biphasic, 32.4cm/s Distal DIRECTOR TEEN POST: Biphasic, 37.4cm/s Proximal NILSA: Monophasic, 35.8cm/s Distal NILSA: Monophasic, 40.9 cm/s Dorsalis pedis: Monophasic, 56.6 Peroneal: Retrograde flow. Moderate to severe vascular calcifications are seen in the arteries. Right dorsalis pedis: Monophasic, 90.4 IMPRESSION: Monophasic waveforms throughout the entire left lower extremity suggesting arterial inflow disease in the aorta or iliac artery. Moderate to severe scattered vascular calcifications throughout the vessels. Retrograde flow in the peroneal artery. No major branch vessel occlusions or stenosis.
== END 2020-03-31 22:25 | disposition home or self-care (01) ==
LOC: ER 17:53
DX: S82.102D Unspecified fracture of upper end of left tibia, subsequent encounter for closed fracture with routine healing (principal); R20.0 Anesthesia of skin; M25.562 Pain in left knee; W19.XXXA Unspecified fall, initial encounter; I50.9 Heart failure, unspecified; I11.0 Hypertensive heart disease with heart failure; E11.9 Type 2 diabetes mellitus without complications
CPT/HCPCS: 93926; 99283

== ENCOUNTER 2020-04-18 03:04 | Inpatient (IN) | payer OTHER, MEDICARE, MEDICAID ==
--- NOTE | 2020-04-18 03:43 | ER Document Report ---
ED General - General TRAVEL OUTSIDE OF THE [place] IN LAST 30 DAYS: No <TEODORA PRYOR - Last Filed: 04/18/20 08:42> - General TRAVEL OUTSIDE OF THE [place] IN LAST 30 DAYS: No <SO JESUS - Last Filed: 04/18/20 19:24> - General Chief Complaint: Shortness Of Breath Stated Complaint: SHORTNESS OF BREATH Time Seen by Provider: 04/18/20 03:24 Notes: 49-year-old female with past medical history of congestive heart failure and kidney disease presenting with shortness of breath starting this morning. States that she just woke up short of breath. She woke up and her abdomen was swollen and distended. Aso notes that she has lower extremity swelling as well. Last bowel movement was this morning. Denies any headaches fevers, chest pain, abdominal pain. Last dialysis treatment was on Saturday. Patient also has had left tibia vertical repair performed last week. Form done in [place]. She denies any calf tenderness 10 (TEODORA PRYOR) - Related Data Allergies/Adverse Reactions: No Known Allergies Allergy (Verified 03/31/20 19:04) Past Medical History - Social History Family History: Reviewed & Not Pertinent - Past Medical History Cardiac Medical History: Reports: Hx Congestive Heart Failure, Hx Hypertension, Hx Heart Murmur Denies: Hx Coronary Artery Disease, Hx Heart Attack Pulmonary Medical History: Denies: Hx Asthma, Hx Bronchitis, Hx COPD, Hx Pneumonia, Hx Respiratory Failure Neurological Medical History: Denies: Hx Cerebrovascular Accident, Hx Migraine, Hx Seizures Endocrine Medical History: Reports: Hx Diabetes Mellitus Type 2 Renal/ Medical History: Reports: Hx End Stage Renal Disease, Hx Hemodialysis. Denies: Hx Peritoneal Dialysis GI Medical History: Denies: Hx Cirrhosis, Hx Diverticulitis, Hx Hiatal Hernia Musculoskeletal Medical History: Denies Hx Arthritis, Denies Hx Fibromyalgia, Denies Hx Gout Skin Medical History: Denies Hx Eczema, Denies Hx Psoriasis Psychiatric Medical History: Denies: Hx Depression Past Surgical History: Reports: Hx Valve Replacement - Mitral valve repair on 06/30/2018, Hx Vascular Surgery - Vas-Cath placement, peritoneal dialysis catheter placement, Other - Left eye surgery-Nov 2018 - Immunizations Immunizations up to date: Yes Hx Diphtheria, Pertussis, Tetanus Vaccination: No Hx Pneumococcal Vaccination: 08/11/20 <TEODORA PRYOR - Last Filed: 04/18/20 08:42> - General Information source: Patient - Social History Smoking Status: Unknown if Ever Smoked Family History: Reviewed & Not Pertinent <SO JESUS - Last Filed: 04/18/20 19:24> Physical Exam - Vital signs Interpretation: Hypertensive, Hypoxic <TEODORA PRYOR - Last Filed: 04/18/20 08:42> - Vital signs Vitals: Temp Resp BP 98.0 F 20 188/110 H 04/18/20 03:10 04/18/20 03:10 04/18/20 03:10 - Notes Notes: Adult General: GENERAL: Alert, interacts well. No acute distress HEAD: Normocephalic, atraumatic EYES: Extraocular movements intact. Ptosis of the left eyelid ENT: Airway patent. Nares patent. NECK: Full range of motion. Supple. Trachea midline. LUNGS: Decreased breath sounds in bilateral lower lobes, no wheezes, rales, or rhonchi. No respiratory distress. Nontender chest wall. HEART: Regular rate and rhythm. No murmurs, rubs or gallops. ABDOMEN: Soft, nontender. Distended. Bowel sounds distant in all 4 quadrants GENITOURINARY: Deferred EXTREMITIES: brace on left lower leg due to surgical fixation of tibia, surgical site with sutures along anterior tibia, surrounding area is non tender, no erythema no discharge. bilateral lower extremity edema 2+ NEUROLOGICAL: Alert and oriented x3. Normal speech. PSYCH: Normal affect, normal mood. SKIN: Warm, dry, normal turgor. No rashes or lesions noted. (TEODORA PRYOR) Course - Laboratory Result Diagrams: 04/18/20 03:25 04/18/20 04:03 <TEODORA PRYOR - Last Filed: 04/18/20 08:42> - Laboratory Result Diagrams: 04/18/20 03:25 04/18/20 04:03 - Diagnostic Test Radiology reviewed: Reports reviewed - Consults Dr. Daley Time consulted: 11:36 Dr. Whitaker Time consulted: 11:35 Consulted provider: will come to ER <SO JESUS - Last Filed: 04/18/20 19:24> - Re-evaluation Re-evalutation: 04/18/20 07:00 Patient is resting comfortably in the bed. No acute respiratory distress. Continues states that she wants ice. Nurse notified provider that patient wanted to leave AMA. Discussed with patient that I was uncertain of the cause of shortness of breath and that she is currently on oxygen but if she were to leave AMA she would likely develop shortness of breath. I also discussed with patient that we need to rule out a pulmonary embolism as a cause of her shortness of breath due to the fact she had surgery on her leg 1 week ago and she has been nonambulatory since. Patient's oxygen saturation hovers around 80 to 90s on 4 L. She has good Pleth at the 90 range. Patient's labs show that she is hyperkalemic at 5.7. Patient was started on 1000 mg of calcium gluconate and 5 units of insulin as her sugars were in the 350s. EKG showed no peaked T waves. Chest x-ray shows a left IJ hemodialysis catheter and also shows no interval changes from previous study. Discussed case with Dr. Mcintyre who recommends that we do a CTA versus a VQ scan. VQ scan was DC'd and CTA was ordered. Patient does have IV access at the left AC. As patient is hyperkalemic, short of breath she would likely benefit from dialysis today. Was informed that there is a dialysis bed in the hospital. Ordered patient's daily blood pressure medications as her blood pressure was in the 200s over 110s. Pending CTA. Consulted 04/18/20 08:42 Case was discussed with Dr. Dewitt. Agrees to admission through hospitalist and will dialyze patient today. Dr. Daley called and recommends blood pressure be b elow 200 and O2 sats >90 prior to admission. Patient repeat blood pressure is 163/94. Oxygen saturation continues to fluctuate on 5L. Is in the 90's when she is awake. Will start patient on bipap. Patient continues to say she wants to leave ama but talked with patient and she is agreeable to stay. 04/18/20 08:47 Patient turned over to Vikas LENS INSPECTOR. (TEODORA PRYOR) 04/18/20 09:25 Patient is refusing to be admitted. We discussed risks and benefits of leaving AGAINST MEDICAL ADVICE. Patient has requested to leave AGAINST MEDICAL ADVICE. The patient has chosen to leave the facility against medical advice. The relevant issues have been reviewed and discussed with the patient at the bedside. At the time of this assessment there is no indication for involuntary commitment. The patient is alert, oriented, and able to express clearly their reasoning for not wanting to remain in the emergency department for further treatment. The patient is not clinically psychotic, intoxicated, and denies and suicidal ideation. Differential or suspected diagnoses based on medical screening exam: Hypoxia, hyperkalemia, need for dialysis. The patient is aware of the concerning diagnoses and acknowledges understanding of the reasons for the following recommendations: Loss of life, permanent disability, chronic pain, worsening of condition, cardiac dysfunction, respiratory dysfunction loss of current lifestyle, urinary dysfunction The following recommendations/services were offered and refused: Admission The following risks were explained: , permanent disability, loss of function Clinical impression: Patient is competent to make decisions regarding the medical that is being offered. 04/18/20 09:31 Patient has now decided that she is agreeable to stay as long as we are willing to give her something for her anxiety. We will give p.o. Ativan, respiratory has been paged to put patient on BiPAP admission still pending. 04/18/20 11:35 Case was discussed with Dr. Daley, agreeable to admission at this time. Request to call Dr. Whitaker for admission. Spoke with Dr. Whitaker discussed patient's history, physical, need for admission. That Dr. Dewitt is aware and will dialyze size patient today. States he will come to the emergency room to see patient in the ER. 04/18/20 14:37 (SO JESUS) - Vital Signs Vital signs: Temp Pulse Resp BP Pulse Ox 97.7 F 72 16 167/89 H 100 04/18/20 17:33 04/18/20 19:00 04/18/20 17:33 04/18/20 17:33 04/18/20 17:33 - Laboratory Laboratory results interpreted by me: 04/18/20 04/18/20 04/18/20 03:25 04:03 04:03 WBC 12.3 H Hgb 8.3 L Hct 28.0 L MCV 75 L MCH 22.3 L MCHC 29.6 L RDW 23.8 H Seg Neuts % (Manual) 79 H Band Neutrophils % 1 L Abs Neuts (Manual) 9.8 H VBG pH 7.27 L Sodium Potassium Chloride BUN Creatinine Est GFR ( Amer) Est GFR (MDRD) Non-Af Glucose POC Glucose Calcium Direct Bilirubin Alkaline Phosphatase NT-Pro-B Natriuret Pep 31013 H Albumin 04/18/20 04/18/20 04:03 06:17 WBC Hgb Hct MCV MCH MCHC RDW Seg Neuts % (Manual) Band Neutrophils % Abs Neuts (Manual) VBG pH Sodium 135.9 L Potassium 5.7 H Chloride 97 L BUN 78 H Creatinine 4.64 H Est GFR ( Amer) 12 L Est GFR (MDRD) Non-Af 10 L Glucose 379 H POC Glucose 355 H Calcium 8.3 L Direct Bilirubin 0.7 H Alkaline Phosphatase 498 H NT-Pro-B Natriuret Pep Albumin 3.3 L - Consults Dr. Daley Reason for consultation: 04/18/20 11:36 admission (SO JESUS) Dr. Whitaker Reason for consultation: 04/18/20 11:43 Admission (SO JESUS) Discharge <TEODORA PRYOR - Last Filed: 04/18/20 08:42> - Discharge Admitting Provider: Sherman (Hospitalist) Unit Admitted: Telemetry <SO JESUS - Last Filed: 04/18/20 19:24> - Discharge Clinical Impression: Hypoxia, Hyperkalemia, Chronic kidney disease on chronic dialysis Condition: Poor Disposition: ADMITTED INPATIENT
[2020-04-18 04:03] LABS: HEMOGLOBIN 8.3 g/dL (12.0-15.5); MEAN CORPUSCULAR HEMOGLOBIN 22.3 pg (27.0-33.4); MEAN CORPUSCULAR HGB CONC 29.6 g/dL (32.0-36.0); MEAN CORPUSCULAR VOLUME 75 fl (80-97); PLATELET COUNT 298 10^3/uL (150-450); RED BLOOD COUNT 3.72 10^6/uL (3.72-5.28); RED CELL DISTRIBUTION WIDTH 23.8 % (11.5-14.0); WHITE BLOOD COUNT 12.3 10^3/uL (4.0-10.5)
[2020-04-18 04:43] LABS: ABSOLUTE LYMPHOCYTES# (MANUAL) 1.7 10^3/uL (0.5-4.7); ABSOLUTE MONOCYTES # (MANUAL) 0.7 10^3/uL (0.1-1.4); BAND NEUTROPHILS % (MANUAL) 1 % (3-5); BASOPHILS % (MANUAL) 0 % (0-2); EOSINOPHILS % (MANUAL) 0 % (0-6); LYMPHOCYTES % (MANUAL) 14 % (13-45); MONOCYTES % (MANUAL) 6 % (3-13); SEGMENTED NEUTROPHILS % (MAN) 79 % (42-78); TOTAL CELLS COUNTED 100
[2020-04-18 04:44] LABS: ANISOCYTOSIS 3+; HYPOCHROMASIA 2+; PLATELET COMMENT ADEQUATE; POIKILOCYTOSIS 2+; POLYCHROMASIA 1+; TARGET CELLS 1+; TEAR DROP CELLS 1+
[2020-04-18 04:46] LABS: VENOUS BLOOD BASE EXCESS -2.8 mmol/L; VENOUS BLOOD HCO3 24.9 mmol/L (20-32); VENOUS BLOOD PCO2 54.9 mmHg (35-63); VENOUS BLOOD PH 7.27 (7.30-7.42)
--- NOTE | 2020-04-18 04:46 | RADIOLOGY REPORT (SQ) ---
CLINICAL INDICATION: shortness of breath. TECHNIQUE: A single portable AP view was obtained of the chest at 0353 hours. COMPARISON: March 07, 2020. FINDINGS: The is prominent but stable with postsurgical change silhouette is normal. The lungs definite right basilar airspace and pleural disease, similar to prior. Left lung is grossly clear.. No pneumothorax. Left IJ tunneled hemodialysis access catheter tip in mid SVC, upper limits of acceptable IMPRESSION: No adverse change when compared to prior.
[2020-04-18 04:54] LABS: ALBUMIN 3.3 g/dL (3.5-5.0); ALKALINE PHOSPHATASE 498 U/L (38-126); ANION GAP 15 (5-19); ASPARTATE AMINO TRANSFERASE 32 U/L (14-36); BILIRUBIN,DIRECT 0.7 mg/dL (0.0-0.4); BLOOD UREA NITROGEN 78 mg/dL (7-20); CALCIUM 8.3 mg/dL (8.4-10.2); CARBON DIOXIDE 24 mmol/L (22-30); CHLORIDE 97 mmol/L (98-107); GLUCOSE 379 mg/dL (75-110); POTASSIUM 5.7 mmol/L (3.6-5.0)
[2020-04-18] MEDS ORDERED: CALCIUM GLUCONATE 1000 MG/10 ML INJ IV ONE (06:10)
[2020-04-18] MEDS ORDERED: OXYCODONE HCL IR 5 MG TABLET PO ONE (06:19)
[2020-04-18] MEDS ORDERED: INSULIN REG, HUMAN 100 UNIT/ML 3 ML VIAL (PYX) IV ONE (06:20)
[2020-04-18] MEDS ORDERED: HYDRALAZINE HCL 25 MG TABLET PO ONE (06:55)
[2020-04-18] MEDS ORDERED: CARVEDILOL 12.5 MG TABLET PO ONE (07:00)
--- NOTE | 2020-04-18 08:03 | EKG REPORT ---
SEVERITY:- ABNORMAL ECG - SINUS RHYTHM PROBABLE LEFT ATRIAL ABNORMALITY LEFT POSTERIOR FASCICULAR BLOCK LOW VOLTAGE WITH RIGHT AXIS DEVIATION NONSPECIFIC T ABNORMALITIES, LATERAL LEADS : Confirmed by: Maria Ines Moseley 18-Apr-2020 08:02:36
--- NOTE | 2020-04-18 08:34 | RADIOLOGY REPORT (SQ) ---
COMPLETED DATE/TME: 04/18/2020 06:32 EXAM: CT chest angiogram with contrast. INDICATION: Pulmonary embolism. TECHNIQUE: Contiguous axial CT images of the chest. Intravenous contrast: Present. Protocol: Pulmonary embolus (PE) protocol angiogram. Reformats: MIPs and MPRs created and utilized. DLP 495 mGy-cm. This exam was performed according to our departmental dose-optimization program, which includes automated exposure control, adjustment of the mA and/or kV according to patient size and/or use of iterative reconstruction technique. Note: LV=left ventricle. RV=right ventricle. COMPARISON: 03/07/2020. FINDINGS: Upper abdomen: Partially imaged. Ascites is noted. There is reflux of contrast into the IVC. Thoracic aorta: Mild atherosclerotic calcifications. Changes of mitral valve replacement Heart: No right atrial thrombus. No pericardial effusion. Cardiomegaly RV/LV ratio: Within normal limits. Pulmonary arteries: Technical: Adequate opacification to the level of the segmental vessels. Pulmonary embolus: No low-density filling defect to suggest acute PE. Main pulmonary artery measures up to 3 cm in diameter. Mediastinum: No pathologic sized middle mediastinal lymphadenopathy. Tracheobronchial tree: Unremarkable. Lungs: Lobar consolidation: There is a persistent consolidation along the left lower lobe, improved since the prior exam. Pleural effusion: Small to moderate right Pneumothorax: Negative. Other: Negative. Bones: Unremarkable. IMPRESSION: 1. No CT evidence of acute PE. 2. Dilated main pulmonary artery, suggestive of pulmonary arterial hypertension. 3. Cardiomegaly with reflux of contrast into the IVC, suggestive of right-sided cardiac dysfunction. 4. Mild improvement of the left lower lobe consolidation. 5. Small to moderate right-sided pleural effusion. TECHNICAL DOCUMENTATION: Quality ID # [id number]: Final reports with documentation of one or more dose reduction techniques (e.g., Automated exposure control, adjustment of the mA and/or kV according to patient size, use of iterative reconstruction technique) copyright 2011 [employer]- All Rights Reserved
[2020-04-18] MEDS ORDERED: LORAZEPAM 1 MG TABLET PO ONE (09:42)
[2020-04-18] MEDS ORDERED: HEPARIN SOD (PORCINE) 1,000 UNIT/ML 10 ML VIAL IV PRN (12:45)
--- NOTE | 2020-04-18 12:59 | PDOC H&P ---
History of Present Illness Admission Date/PCP: 04/18/20 11:58 INDIGO VALLE NP History of Present Illness: STEPHANIE RODRIGUEZ is a 49 year old female with a history of insulin-dependent d iabetes mellitus, end-stage renal disease on hemodialysis, mitral valve replacement, essential hypertension, pulmonary hypertension, and diastolic heart failure who presents with shortness of breath. She apparently had dialysis on Saturday but there is been some concern that she had perhaps missed at least one treatment last week, this has not been verified. She had leg swelling and abdominal distention. She was brought in by EMS. She was hypoxic and working to breathe. She was eventually put on BiPAP. She apparently got quite anxious and so had gotten a dose of Ativan and so was unable to interact with me very much when I saw her in the ER. The ER had already spoken to Dr. Dewitt and he was going to emergently dialyze her. Past Medical History Cardiac Medical History: Reports: Congestive Heart Failure, Hypertension, Heart Murmur Denies: Coronary Artery Disease, Myocardial Infarction Pulmonary Medical History: Denies: Asthma, Bronchitis, Chronic Obstructive Pulmonary Disease (COPD), Pneumonia, Respiratory Failure Neurological Medical History: Denies: Migraine, Seizures Endocrine Medical History: Reports: Diabetes Mellitus Type 2 Renal/ Medical History: Reports: End Stage Renal Disease GI Medical History: Denies: Cirrhosis, Diverticulitis, Hiatal Hernia Musculoskeltal Medical History: Denies: Arthritis, Fibromyalgia, Gout Skin Medical History: Denies: Eczema, Psoriasis Psychiatric Medical History: Denies: Depression Hematology: Reports: Anemia - RECENT BLOOD TRANSFUSION Denies: Sickle Cell Disease, Bleeding Tendencies Past Surgical History Past Surgical History: Reports: Valve Replacement - Mitral valve repair on 06/30/2018, Vascular Surgery - Vas-Cath placement, peritoneal dialysis catheter placement, Other - Left eye surgery-Nov 2018 Social History Smoking Status: Unknown if Ever Smoked Frequency of Alcohol Use: None Hx Recreational Drug Use: No Drugs: None Hx Prescription Drug Abuse: No Family History Family History: Reviewed & Not Pertinent Parental Family History Reviewed: No - Unable to obtain Children Family History Reviewed: No - Unable to obtain Sibling(s) Family History Reviewed.: No - Unable to obtain Medication/Allergy Home Medications: Aspirin [Ecotrin] 81 mg PO DAILY 03/24/19 Clonidine HCl [Catapres 0.2 mg Tablet] 0.2 mg PO BIDP PRN 11/16/19 Carvedilol [Coreg 12.5 mg Tablet] 25 mg PO Q12 02/21/20 Chlorthalidone [Hygroton 25 mg Tablet] 25 mg PO DAILYP PRN 02/21/20 Dorzolamide HCl/Timolol Maleat [Cosopt Oph Soln 10 ml] 1 drop OS BID 02/21/20 Hydralazine HCl [Apresoline 25 mg Tablet] 25 mg PO Q8 02/21/20 Insulin Detemir [Levemir Insulin 100 units/mL Insulin Pen] 15 units SUBCUT QHS 02/21/20 Torsemide [Demadex 20 mg Tablet] 100 mg PO BID 02/21/20 Allergies/Adverse Reactions: No Known Allergies Allergy (Verified 03/31/20 19:04) Review of Systems ROS unobtainable: Due to mental status Physical Exam Vital Signs: Temp Pulse Resp BP Pulse Ox 98.0 F 20 157/99 H 86 L 04/18/20 03:30 04/18/20 12:31 04/18/20 12:31 04/18/20 12:30 Intake & Output 04/17/20 04/18/20 04/19/20 06:59 06:59 06:59 Weight 75.9 kg General appearance: PRESENT: disheveled, severe distress Head exam: PRESENT: atraumatic, normocephalic Eye exam: PRESENT: EOMI, PERRLA - Sluggish. ABSENT: conjunctival injection, nystagmus, scleral icterus Ear exam: PRESENT: normal external ear exam Mouth exam: PRESENT: neck supple, other - BiPAP mask on Throat exam: PRESENT: other - BiPAP mask on Neck exam: PRESENT: full ROM, JVD. ABSENT: lymphadenopathy, meningismus, thyromegaly Respiratory exam: PRESENT: accessory muscle use, crackles - Bilateral, decreased breath sounds - Right base, symmetrical, tachypnea. ABSENT: chest wall tenderness, prolonged expiratory phas, rhonchi, unlabored, wheezes Cardiovascular exam: PRESENT: +S1, +S2, tachycardia Pulses: PRESENT: normal carotid pulses Vascular exam: PRESENT: normal capillary refill GI/Abdominal exam: PRESENT: ascites, distended, normal bowel sounds, soft. ABSENT: guarding, rebound, tenderness Extremities exam: PRESENT: pedal edema, +2 edema, other - Has a knee immobilizer on the left lower extremity. ABSENT: clubbing Musculoskeletal exam: PRESENT: normal inspection. ABSENT: deformity Neurological exam: PRESENT: altered - Had just gotten some Ativan, oriented to person Psychiatric exam: PRESENT: flat affect Skin exam: PRESENT: dry, warm Results Laboratory Results: 04/18/20 03:25 04/18/20 04:03 04/18/20 04/18/20 04/18/20 03:25 03:25 04:03 WBC 12.3 H RBC 3.72 Hgb 8.3 L Hct 28.0 L MCV 75 L MCH 22.3 L MCHC 29.6 L RDW 23.8 H Plt Count 298 Seg Neutrophils % Not Reportable VBG pH 7.27 L VBG pCO2 54.9 VBG HCO3 24.9 VBG Base Excess -2.8 Sodium Cancelled Potassium Cancelled Chloride Cancelled Carbon Dioxide Cancelled Anion Gap Cancelled BUN Cancelled Creatinine Cancelled Est GFR ( Amer) Cancelled Est GFR (Non-Af Amer) Cancelled Glucose Cancelled Calcium Cancelled Total Bilirubin Cancelled AST Cancelled Alkaline Phosphatase Cancelled Total Protein Cancelled Albumin Cancelled 04/18/20 04:03 WBC RBC Hgb Hct MCV MCH MCHC RDW Plt Count Seg Neutrophils % VBG pH VBG pCO2 VBG HCO3 VBG Base Excess Sodium 135.9 L Potassium 5.7 H Chloride 97 L Carbon Dioxide 24 Anion Gap 15 BUN 78 H Creatinine 4.64 H Est GFR ( Amer) 12 L Est GFR (Non-Af Amer) Glucose 379 H Calcium 8.3 L Total Bilirubin 1.0 AST 32 Alkaline Phosphatase 498 H Total Protein 8.0 Albumin 3.3 L 04/18/20 04/18/20 04/18/20 03:25 04:03 04:03 Troponin I 0.040 NT-Pro-B Natriuret Pep Cancelled [id number] H Impressions: Chest X-Ray 04/18/20 03:40 IMPRESSION: No adverse change when compared to prior. Chest/Abdomen CTA 04/18/20 06:32 IMPRESSION: 1. No CT evidence of acute PE. 2. Dilated main pulmonary artery, suggestive of pulmonary arterial hypertension. 3. Cardiomegaly with reflux of contrast into the IVC, suggestive of right-sided cardiac dysfunction. 4. Mild improvement of the left lower lobe consolidation. 5. Small to moderate right-sided pleural effusion. TECHNICAL DOCUMENTATION: Quality ID # [id number]: Final reports with documentation of one or more dose reduction techniques (e.g., Automated exposure control, adjustment of the mA and/or kV according to patient size, use of iterative reconstruction technique) copyright 2011 [employer]- All Rights Reserved Assessment and Plan - Diagnosis (1) Acute respiratory failure with hypoxia Is this a current diagnosis for this admission?: Yes Plan: Currently stable on BiPAP, will receive emergent dialysis. Will reassess her oxygenation after dialysis. (2) Acute diastolic heart failure Is this a current diagnosis for this admission?: Yes Plan: She will receive emergent hemodialysis to remove sufficient volume to help her breathing. Her medications will be resumed when she is able to tolerate p.o. (3) Pulmonary hypertension Is this a current diagnosis for this admission?: Yes Plan: We will resume her home medications including her diuretic when she is able to take p.o. (4) ESRD needing dialysis Is this a current diagnosis for this admission?: Yes Plan: Nephrology has been consulted (5) Ascites Qualifiers: Ascites type: other type Qualified Code(s): R18.8 - Other ascites Is this a current diagnosis for this admission?: Yes Plan: This is due to her end-stage renal disease and heart failure with volume overload. We will see how she does with dialysis, but she may wind up needing a therapeutic paracentesis. (6) Hyperkalemia Is this a current diagnosis for this admission?: Yes Plan: This will be addressed via hemodialysis (7) Diabetes mellitus type 2 in nonobese Is this a current diagnosis for this admission?: Yes Plan: We will continue her home long-acting insulin, and when she is able to eat we will cover her with a sliding scale as well. (8) Fracture of proximal end of tibia Qualifiers: Encounter type: subsequent encounter Fracture type: closed Fracture morphology: unspecified fracture morphology Laterality: left Is this a current diagnosis for this admission?: Yes Plan: We will try to get a weightbearing status from her surgeon, in the meantime she is nonweightbearing on the left lower extremity (9) Hypertension Qualifiers: Hypertension type: essential hypertension Qualified Code(s): I10 - Essential (primary) hypertension Is this a current diagnosis for this admission?: Yes Plan: We will resume her home medications when she is able to tolerate p.o. (10) Pleural effusion Is this a current diagnosis for this admission?: Yes Plan: We will see how she responds to hemodialysis, but she may need a therapeutic thoracentesis - Time Time Spent with patient: 35 or more minutes - Inpatient Certification Based on my medical assessment, after consideration of the patient's comorbidities, presenting symptoms, or acuity I expect that the services needed warrant INPATIENT care.: Yes I certify that my determination is in accordance with my understanding of Medicare's requirements for reasonable and necessary INPATIENT services [42 CFR 412.3e].: Yes Medical Necessity: Significant Comorbidiites Make Outpatient Treatment Too Risky, Need Close Monitoring Due to Risk of Patient Decompensation, Need For Continuous Telemetry Monitoring, Need for Surgery, Risk of Complication if Not Cared For in Hospital
[2020-04-18] MEDS ORDERED: EPOETIN ALFA-EPBX 2,000 UNIT, EPOETIN ALFA-EPBX 3,000 UNIT, EPOETIN ALFA-EPBX 20,000 UN... IV PRN ×4 (13:00)
--- NOTE | 2020-04-18 13:51 | PDOC CONSULTATION ---
Consultation Consult Date: 04/18/20 Provider Consulted: Alberto CORREA Consult reason:: ESRD for HD History of Present Illness Admission Date/PCP: 04/18/20 11:58 INDIGO VALLE NP History of Present Illness: STEPHANIE RODRIGUEZ is a 49 year old female with a history of ESRD in the background of insulin-dependent diabetes mellitus, mitral valve replacement, essential hypertension, pulmonary hypertension, and diastolic heart failure, recent fracture of the proximal left tibia who presents with shortness of breath over last two days. No complaints of any chest pain, fever or chills. She misses treatment infrequently on dialysis. She is currently in respiratory failure on BiPAP. She went on to have a CT angiogram that shows a dilated pulmonary artery along with reflux of contrast into the IVC indicative of pulmonary hypertension, persistent left lower lobe consolidation and a moderate sized right pleural effusion. Currently being seen while undergoing dialysis. Patient though dishevelled and rather sick looking still looks comfortable and is not fighting the BiPAP. Vital signs are stable but for hypertension. Labs and medications were reviewed. Treatment orders were discussed with the treating dialysis nurse. Past Medical History Cardiac Medical History: Reports: CHF-Diastolic, Heart Murmur, Hypertension- primary, Valvular Heart disease Denies: Coronary Artery Disease, Myocardial Infarction Pulmonary Medical History: Denies: Asthma, Bronchitis, Chronic Obstructive Pulmonary Disease (COPD), Pneumonia, Respiratory Failure Neurological Medical History: Denies: Migraine, Seizures Endocrine Medical History: Reports: Diabetes Mellitus Type 2 Renal/ Medical History: Reports: End Stage Renal Disease, Secondary Hyperparathyroidism GI Medical History: Denies: Cirrhosis, Diverticulitis, Hiatal Hernia Musculoskeltal Medical History: Denies: Arthritis, Fibromyalgia, Gout Skin Medical History: Denies: Eczema, Psoriasis Psychiatric Medical History: Denies: Depression Hematology Medical History: Reports Anemia of Chronic Kidney Disease Past Surgical History Past Surgical History: Reports: Dialysis Access Surgery AVF, Valve Replacement - Mitral valve repair on 06/30/2018, Vascular Surgery - Vas-Cath placement, peritoneal dialysis catheter placement, Other - Left eye surgery-Nov 2018 Social History Smoking Status: Unknown if Ever Smoked Frequency of Alcohol Use: None Hx Recreational Drug Use: No Drugs: None Hx Prescription Drug Abuse: No Family History Parental Family History Reviewed: No Children Family History Reviewed: No Sibling(s) Family History Reviewed.: No Medication/Allergy Home Medications: Clonidine HCl [Catapres 0.2 mg Tablet] 0.2 mg PO BIDP PRN 11/16/19 Carvedilol [Coreg 12.5 mg Tablet] 25 mg PO Q12 02/21/20 Chlorthalidone [Hygroton 25 mg Tablet] 25 mg PO DAILY 02/21/20 Dorzolamide HCl/Timolol Maleat [Cosopt Oph Soln 10 ml] 1 drop OD BID 02/21/20 Hydralazine HCl [Apresoline 25 mg Tablet] 25 mg PO Q8 02/21/20 Insulin Detemir [Levemir Insulin 100 units/mL Insulin Pen] 15 units SUBCUT QHS 02/21/20 Torsemide [Demadex 20 mg Tablet] 100 mg PO BID 02/21/20 Cholecalciferol (Vitamin D3) [Vitamin D3 1000 Unit Tablet] 4,000 unit PO DAILY 04/18/20 Allergies/Adverse Reactions: No Known Allergies Allergy (Verified 03/31/20 19:04) Review of Systems Constitutional: PRESENT: anorexia, fatigue, weakness. ABSENT: chills, fever(s), headache(s), night sweats Nose, Mouth, and Throat: ABSENT: mouth pain, sore throat Cardiovascular: PRESENT: dyspnea on exertion, edema. ABSENT: chest pain, orthropnea, palpitations Respiratory: PRESENT: dyspnea. ABSENT: cough, hemoptysis Gastrointestinal: ABSENT: abdominal pain, bloating, coffee ground emesis, constipation, dysphagia, hematemesis, hematochezia, nausea Musculoskeletal: ABSENT: deformity, joint swelling Integumentary: ABSENT: lesions, pruritus, rash Neurological: ABSENT: abnormal movements, abnormal speech, confusion, convulsions, focal weakness, frequent falls Endocrine: ABSENT: polydipsia Hematologic/Lymphatic: ABSENT: easy bruising Physical Exam Vital Signs: Temp Pulse Resp BP Pulse Ox 98.0 F 14 161/103 H 86 L 04/18/20 03:30 04/18/20 12:46 04/18/20 12:46 04/18/20 12:46 Intake & Output 04/17/20 04/18/20 04/19/20 06:59 06:59 06:59 Weight 75.9 kg 79.1 kg General appearance: PRESENT: mild distress - Currently on BiPAP Eye exam: PRESENT: EOMI, PERRLA. ABSENT: scleral icterus Ear exam: ABSENT: normal external ear exam Mouth exam: PRESENT: moist. ABSENT: neck supple Neck exam: ABSENT: lymphadenopathy, meningismus, tenderness Respiratory exam: PRESENT: clear to auscultation peterson, decreased breath sounds. ABSENT: crackles Cardiovascular exam: PRESENT: +S1, +S2 GI/Abdominal exam: PRESENT: distended, normal bowel sounds, soft. ABSENT: firm, guarding, organomegaly, rigid Extremities exam: PRESENT: pedal edema Neurological exam: PRESENT: altered, oriented to person, oriented to place Psychiatric exam: PRESENT: appropriate affect Skin exam: ABSENT: mottled, petechiae, rash Results Laboratory Results: 04/18/20 03:25 04/18/20 04:03 04/18/20 04/18/20 04/18/20 03:25 03:25 04:03 WBC 12.3 H RBC 3.72 Hgb 8.3 L Hct 28.0 L MCV 75 L MCH 22.3 L MCHC 29.6 L RDW 23.8 H Plt Count 298 Seg Neutrophils % Not Reportable VBG pH 7.27 L VBG pCO2 54.9 VBG HCO3 24.9 VBG Base Excess -2.8 Sodium Cancelled Potassium Cancelled Chloride Cancelled Carbon Dioxide Cancelled Anion Gap Cancelled BUN Cancelled Creatinine Cancelled Est GFR ( Amer) Cancelled Est GFR (Non-Af Amer) Cancelled Glucose Cancelled Calcium Cancelled Total Bilirubin Cancelled AST Cancelled Alkaline Phosphatase Cancelled Total Protein Cancelled Albumin Cancelled 04/18/20 04:03 WBC RBC Hgb Hct MCV MCH MCHC RDW Plt Count Seg Neutrophils % VBG pH VBG pCO2 VBG HCO3 VBG Base Excess Sodium 135.9 L Potassium 5.7 H Chloride 97 L Carbon Dioxide 24 Anion Gap 15 BUN 78 H Creatinine 4.64 H Est GFR ( Amer) 12 L Est GFR (Non-Af Amer) Glucose 379 H Calcium 8.3 L Total Bilirubin 1.0 AST 32 Alkaline Phosphatase 498 H Total Protein 8.0 Albumin 3.3 L 04/18/20 04/18/20 04/18/20 03:25 04:03 04:03 Troponin I 0.040 NT-Pro-B Natriuret Pep Cancelled [id number] H Impressions: Chest X-Ray 04/18/20 03:40 IMPRESSION: No adverse change when compared to prior. Chest/Abdomen CTA 06/08/20 06:32 IMPRESSION: 1. No CT evidence of acute PE. 2. Dilated main pulmonary artery, suggestive of pulmonary arterial hypertension. 3. Cardiomegaly with reflux of contrast into the IVC, suggestive of right-sided cardiac dysfunction. 4. Mild improvement of the left lower lobe consolidation. 5. Small to moderate right-sided pleural effusion. TECHNICAL DOCUMENTATION: Quality ID # [id number]: Final reports with documentation of one or more dose reduction techniques (e.g., Automated exposure control, adjustment of the mA and/or kV according to patient size, use of iterative reconstruction technique) copyright 2011 [employer]- All Rights Reserved Assessment & Plan - Diagnosis (1) Acute respiratory failure with hypoxia Is this a current diagnosis for this admission?: Yes Plan: In the face of right heart failure and pulmonary hypertension on BiPAP. Presently stable and saturating decently. (2) End stage renal disease on dialysis Plan: Patient currently being seen undergoing dialysis. Patient tolerating procedure well. Vital signs shows uncontrolled hypertension. Dialysis being supervised to ensure safe and smooth procedure. Plan to remove between 2 and 3 L as to lerated. Dialysis orders were reviewed with the treating dialysis nurse. (3) Hyperkalemia Is this a current diagnosis for this admission?: Yes Plan: Should resolve with dialysis. Monitor. (4) Pulmonary hypertension Is this a current diagnosis for this admission?: Yes Plan: Patient known to have pulmonary hypertension. I am not sure the exact etiology of right heart failure. She denies sleep apnea and usage of CPAP. She has also got elevated alkaline phosphatase more likely suggestive of congestive hepatopathy and I do not believe it is all bone related given the fact she has got ESRD. Monitor. (5) Anemia in chronic kidney disease (CKD) Plan: Will adjust erythropoietin. (6) Diabetes mellitus type 2 in nonobese Is this a current diagnosis for this admission?: Yes Plan: Advised tight control. (7) Fracture of proximal end of tibia Qualifiers: Encounter type: subsequent encounter Fracture type: closed Fracture morphology: unspecified fracture morphology Laterality: left Is this a current diagnosis for this admission?: Yes Plan: As per primary care/Ortho. (8) Hypertension Qualifiers: Hypertension type: essential hypertension Qualified Code(s): I10 - Essential (primary) hypertension Is this a current diagnosis for this admission?: Yes Plan: Uncontrolled. See the response to dialysis. Monitor (9) Pneumonia Qualifiers: Pneumonia type: due to unspecified organism Laterality: left Lung location: lower lobe of lung Qualified Code(s): J18.9 - Pneumonia, unspecified organism Plan: As per CTA of the chest. Management as per hospitalist. (10) Status post mitral valve repair Plan: Stable.
[2020-04-18] MEDS: HEPARIN SOD (PORCINE) 5,000 UNIT/ML 1 ML VIAL SUBCUT SCH ×2 (15:04→22:28)
[2020-04-18] MEDS ORDERED: DIPHENHYDRAMINE HCL 50 MG/ML VIAL IV ONE (18:00)
[2020-04-19] MEDS ORDERED: ACETAMINOPHEN 325 MG TABLET PO PRN (04:36)
[2020-04-19] MEDS: HEPARIN SOD (PORCINE) 5,000 UNIT/ML 1 ML VIAL SUBCUT SCH ×2 (05:00→14:22)
[2020-04-19 06:25] LABS: HEMATOCRIT 28.5 % (36.0-47.0); HEMOGLOBIN 8.7 g/dL (12.0-15.5); MEAN CORPUSCULAR HEMOGLOBIN 22.8 pg (27.0-33.4); MEAN CORPUSCULAR HGB CONC 30.7 g/dL (32.0-36.0); MEAN CORPUSCULAR VOLUME 74 fl (80-97); PLATELET COUNT 276 10^3/uL (150-450); RED BLOOD COUNT 3.84 10^6/uL (3.72-5.28); RED CELL DISTRIBUTION WIDTH 22.2 % (11.5-14.0); WHITE BLOOD COUNT 10.7 10^3/uL (4.0-10.5)
[2020-04-19 06:50] LABS: ANION GAP 15 (5-19); BLOOD UREA NITROGEN 63 mg/dL (7-20); CALCIUM 7.8 mg/dL (8.4-10.2); CARBON DIOXIDE 22 mmol/L (22-30); CHLORIDE 98 mmol/L (98-107); GLUCOSE 290 mg/dL (75-110); PHOSPHORUS 7.2 mg/dL (2.5-4.5); POTASSIUM 5.3 mmol/L (3.6-5.0)
[2020-04-19] MEDS ORDERED: CLONIDINE HCL 0.2 MG TABLET PO PRN (08:13)
[2020-04-19] MEDS ORDERED: DEXTROSE 40% GEL 15 GM TUBE PO PRN ×2 (09:59)
[2020-04-19] MEDS ORDERED: DEXTROSE 50%-WATER 25 GM/50 ML DISP.SYRIN IV PRN ×2 (09:59)
[2020-04-19] MEDS ORDERED: GLUCAGON,HUMAN RECOMB 1 MG INJ IM PRN (09:59)
[2020-04-19] MEDS ORDERED: CHLORTHALIDONE 25 MG TABLET PO SCH (10:00)
[2020-04-19] MEDS ORDERED: TORSEMIDE 20 MG TABLET PO SCH (10:00)
[2020-04-19] MEDS ORDERED: CARVEDILOL 12.5 MG TABLET PO SCH (10:00)
[2020-04-19] MEDS ORDERED: DORZOLAMIDE HCL 2%/TIMOLOL MALEAT 0.5% OPH SOLN 10 ML OD SCH (10:00)
[2020-04-19] MEDS ORDERED: CHOLECALCIFEROL (D3) 1,000 UNIT (25 MCG) TABLET PO SCH (10:00)
[2020-04-19] MEDS ORDERED: INSULIN LISPRO 100 UNIT/ML 3 ML VIAL SUBCUT SCH (11:00)
[2020-04-19] MEDS ORDERED: HYDRALAZINE HCL 25 MG TABLET PO SCH (14:00)
[2020-04-19 15:15] VITALS: BP 152/85
--- NOTE | 2020-04-19 15:51 | PDOC DISCHARGE SUMMARY ---
Impression - Admit/DC Date/PCP Admission Date/Primary Care Provider: 04/18/20 11:58 INDIGO VALLE NP Discharge Date: 04/19/20 - Discharge Diagnosis (1) Acute respiratory failure with hypoxia Is this a current diagnosis for this admission?: Yes (2) Acute diastolic heart failure Is this a current diagnosis for this admission?: Yes (3) Pulmonary hypertension Is this a current diagnosis for this admission?: Yes (4) ESRD needing dialysis Is this a current diagnosis for this admission?: Yes (5) Ascites Is this a current diagnosis for this admission?: Yes (6) Hyperkalemia Is this a current diagnosis for this admission?: Yes (7) Diabetes mellitus type 2 in nonobese Is this a current diagnosis for this admission?: Yes (8) Fracture of proximal end of tibia Is this a current diagnosis for this admission?: Yes (9) Hypertension Is this a current diagnosis for this admission?: Yes (10) Pleural effusion Is this a current diagnosis for this admission?: Yes - Additional Information Resuscitation Status: Full Code Discharge Diet: Other (Comments) - Dialysis diet Discharge Activity: Activity As Tolerated, Balance Activity w/Rest Referrals: INDIGO VALLE, PHILIPPE [Primary Care Provider] - Follow up as needed Home Medications: Clonidine HCl [Catapres 0.2 mg Tablet] 0.2 mg PO BIDP PRN 11/16/19 Carvedilol [Coreg 12.5 mg Tablet] 25 mg PO Q12 02/21/20 Chlorthalidone [Hygroton 25 mg Tablet] 25 mg PO DAILY 02/21/20 Dorzolamide HCl/Timolol Maleat [Cosopt Oph Soln 10 ml] 1 drop OD BID 02/21/20 Hydralazine HCl [Apresoline 25 mg Tablet] 25 mg PO Q8 02/21/20 Insulin Detemir [Levemir Insulin 100 units/mL Insulin Pen] 15 units SUBCUT QHS 02/21/20 Torsemide [Demadex 20 mg Tablet] 100 mg PO BID 02/21/20 Cholecalciferol (Vitamin D3) [Vitamin D3 1000 Unit Tablet] 4,000 unit PO DAILY 04/18/20 History of Present Illiness History of Present Illness: STEPHANIE RODRIGUEZ is a 49 year old female with a history of insulin-dependent diabetes mellitus, end-stage renal disease on hemodialysis, mitral valve replacement, essential hypertension, pulmonary hypertension, and diastolic heart failure who presents with shortness of breath. She apparently had dialysis on Saturday but there is been some concern that she had perhaps missed at least one treatment last week, this has not been verified. She had leg swelling and abdominal distention. She was brought in by EMS. She was hypoxic and working to breathe. She was eventually put on BiPAP. She apparently got quite anxious and so had gotten a dose of Ativan and so was unable to interact with me very much when I saw her in the ER. The ER had already spoken to Dr. Dewitt and he was going to emergently dialyze her. Hospital Course Hospital Course: She was able to get dialysis and come off of BiPAP. We put her back on her home medications and got her blood pressure under control. Her said that she is often noncompliant with dialysis and frequently does not complete her treatments and occasionally misses treatments. She has a dialysis treatment scheduled for tomorrow and was encouraged to make that appointment and complete treatment. Her labs and examination were reassuring and she was discharged in stable condition. Physical Exam Vital Signs: Temp Pulse Resp BP Pulse Ox 97.7 F 73 16 152/85 H 96 04/19/20 12:09 04/19/20 12:09 04/19/20 12:09 04/19/20 12:04/19/20 12:09 Intake & Output 04/18/20 04/19/20 04/20/20 06:59 06:59 06:59 Intake Total 300 270 Output Total 4400 Balance -4100 270 Weight 75.9 kg 79.5 kg General appearance: PRESENT: no acute distress, cooperative, disheveled, obese Respiratory exam: PRESENT: clear to auscultation peterson, symmetrical, unlabored. ABSENT: accessory muscle use, crackles, prolonged expiratory phas, rhonchi, tachypnea, wheezes Cardiovascular exam: PRESENT: RRR, +S1, +S2 Pulses: PRESENT: normal carotid pulses Vascular exam: PRESENT: normal capillary refill GI/Abdominal exam: PRESENT: normal bowel sounds, soft. ABSENT: distended, rebound, tenderness Extremities exam: ABSENT: clubbing, pedal edema Musculoskeletal exam: PRESENT: normal inspection. ABSENT: deformity Neurological exam: PRESENT: awake, oriented to person, oriented to place, oriented to situation Psychiatric exam: PRESENT: flat affect Skin exam: PRESENT: dry, warm Results Laboratory Results: WBC 10.7 10^3/uL (4.0-10.5) H 04/19/20 06:02 RBC 3.84 10^6/uL (3.72-5.28) 04/19/20 06:02 Hgb 8.7 g/dL (12.0-15.5) L 04/19/20 06:02 Hct 28.5 % (36.0-47.0) L 04/19/20 06:02 MCV 74 fl (80-97) L 04/19/20 06:02 MCH 22.8 pg (27.0-33.4) L 04/19/20 06:02 MCHC 30.7 g/dL (32.0-36.0) L 04/19/20 06:02 RDW 22.2 % (11.5-14.0) H 04/19/20 06:02 Plt Count 276 10^3/uL (150-450) 04/19/20 06:02 Lymph % (Auto) Not Reportable 04/18/20 03:25 Hartley % (Auto) Not Reportable 04/18/20 03:25 Eos % (Auto) Not Reportable 04/18/20 03:25 Baso % (Auto) Not Reportable 04/18/20 03:25 Absolute Neuts (auto) Not Reportable 04/18/20 03:25 Absolute Lymphs (auto) Not Reportable 04/18/20 03:25 Absolute Monos (auto) Not Reportable 04/18/20 03:25 Absolute Eos (auto) Not Reportable 04/18/20 03:25 Absolute Basos (auto) Not Reportable 04/18/20 03:25 Total Counted 100 04/18/20 03:25 Seg Neutrophils % Not Reportable 04/18/20 03:25 Seg Neuts % (Manual) 79 % (42-78) H 04/18/20 03:25 Band Neutrophils % 1 % (3-5) L 04/18/20 03:25 Lymphocytes % (Manual) 14 % (13-45) 04/18/20 03:25 Monocytes % (Manual) 6 % (3-13) 04/18/20 03:25 Eosinophils % (Manual) 0 % (0-6) 04/18/20 03:25 Basophils % (Manual) 0 % (0-2) 04/18/20 03:25 Abs Neuts (Manual) 9.8 10^3/uL (1.7-8.2) H 04/18/20 03:25 Abs Lymphs (Manual) 1.7 10^3/uL (0.5-4.7) 04/18/20 03:25 Abs Monocytes (Manual) 0.7 10^3/uL (0.1-1.4) 04/18/20 03:25 Absolute Eos (Manual) 0.0 10^3/uL (0.0-0.6) 04/18/20 03:25 Abs Basophils (Manual) 0.0 10^3/uL (0.0-0.2) 04/18/20 03:25 Platelet Comment ADEQUATE 04/18/20 03:25 Polychromasia 1+ 04/18/20 03:25 Hypochromasia 2+ 04/18/20 03:25 Poikilocytosis 2+ 04/18/20 03:25 Anisocytosis 3+ 04/18/20 03:25 Microcytosis 1+ 04/18/20 03:25 Target Cells 1+ 04/18/20 03:25 Tear Drop Cells 1+ 04/18/20 03:25 VBG pH 7.27 (7.30-7.42) L 04/18/20 04:03 VBG pCO2 54.9 mmHg (35-63) 04/18/20 04:03 VBG HCO3 24.9 mmol/L (20-32) 04/18/20 04:03 VBG Base Excess -2.8 mmol/L 04/18/20 04:03 Sodium 134.5 mmol/L (137-145) L 04/19/20 06:02 Potassium 5.3 mmol/L (3.6-5.0) H 04/19/20 06:02 Chloride 98 mmol/L (98-107) 04/19/20 06:02 Carbon Dioxide 22 mmol/L (22-30) 04/19/20 06:02 Anion Gap 15 (5-19) 04/19/20 06:02 BUN 63 mg/dL (7-20) H 04/19/20 06:02 Creatinine 3.56 mg/dL (0.52-1.25) H 04/19/20 06:02 Est GFR ( Amer) 16 (>60) L 04/19/20 06:02 Est GFR (Non-Af Amer) Cancelled 04/18/20 03:25 Est GFR (MDRD) Non-Af 14 (>60) L 04/19/20 06:02 Glucose 290 mg/dL (75-110) H 04/19/20 06:02 POC Glucose 304 mg/dL (70-110) H 04/19/20 12:10 Calcium 7.8 mg/dL (8.4-10.2) L 04/19/20 06:02 Phosphorus 7.2 mg/dL (2.5-4.5) H 04/19/20 06:02 Magnesium 2.0 mg/dL (1.6-2.3) 04/19/20 06:02 Total Bilirubin 1.0 mg/dL (0.2-1.3) 04/18/20 04:03 Direct Bilirubin 0.7 mg/dL (0.0-0.4) H 04/18/20 04:03 Neonat Total Bilirubin Not Reportable 04/18/20 04:03 Neonat Direct Bilirubin Not Reportable 04/18/20 04:03 Neonat Indirect Bili Not Reportable 04/18/20 04:03 AST 32 U/L (14-36) 04/18/20 04:03 ALT 12 U/L (<35) 04/18/20 04:03 Alkaline Phosphatase 498 U/L (38-126) H 04/18/20 04:03 Troponin I 0.040 ng/mL 04/18/20 04:03 NT-Pro-B Natriuret Pep 75039 pg/mL (<125) H 04/18/20 04:03 Total Protein 8.0 g/dL (6.3-8.2) 04/18/20 04:03 Albumin 3.3 g/dL (3.5-5.0) L 04/18/20 04:03 EGFR Cancelled 04/18/20 03:25 04/18/20 04/18/20 04/18/20 03:25 04:03 04:03 Troponin I 0.040 NT-Pro-B Natriuret Pep Cancelled [id number] H Impressions: Chest X-Ray 04/18/20 03:40 IMPRESSION: No adverse change when compared to prior. Chest/Abdomen CTA 04/18/20 06:32 IMPRESSION: 1. No CT evidence of acute PE. 2. Dilated main pulmonary artery, suggestive of pulmonary arterial hypertension. 3. Cardiomegaly with reflux of contrast into the IVC, suggestive of right-sided cardiac dysfunction. 4. Mild improvement of the left lower lobe consolidation. 5. Small to moderate right-sided pleural effusion. TECHNICAL DOCUMENTATION: Quality ID # [id number]: Final reports with documentation of one or more dose reduction techniques (e.g., Automated exposure control, adjustment of the mA and/or kV according to patient size, use of iterative reconstruction technique) copyright 2011 [employer]- All Rights Reserved Plan Time Spent: Greater than 30 Minutes Stroke Is this a Stroke Patient?: No Acute Heart Failure - Is this a Heart Failure Patient?: No
[2020-04-19] MEDS ORDERED: INSULIN DETEMIR 15 UNIT SUBCUT SCH (22:00)
[2020-04-19] MEDS ORDERED: [UNRECOGNIZED DRUG - OTHER] SUBCUT SCH (22:00)
[2020-04-19] MEDS ORDERED: INSULIN GLARGINE,HUM.REC.ANLOG 1,000 UNIT/10 ML VIAL SUBCUT SCH (22:00)
[2020-04-20] MEDS ORDERED: HEPARIN SOD (PORCINE) 1,000 UNIT/ML 10 ML VIAL IV PRN (05:00)
== END 2020-04-19 16:30 | disposition home or self-care (01) | DRG 291 ==
LOC: ER 03:04 → EH 11:58 → 3S 17:25
PROVIDERS: ADMIT Family Medicine; ATTEND Family Medicine
PROC: 5A1D70Z Performance of Urinary Filtration, Intermittent, Less than 6 Hours Per Day (ICD-10-PCS; principal; 2020-04-18)
PROC: 5A09357 Assistance with Respiratory Ventilation, Less than 24 Consecutive Hours, Continuous Positive Airway Pressure (ICD-10-PCS; 2020-04-18)
DX: I13.2 Hypertensive heart and chronic kidney disease with heart failure and with stage 5 chronic kidney disease, or end stage renal disease (principal); N18.6 End stage renal disease; J96.01 Acute respiratory failure with hypoxia; I50.33 Acute on chronic diastolic (congestive) heart failure; J18.9 Pneumonia, unspecified organism; R18.8 Other ascites; J90 Pleural effusion, not elsewhere classified; N25.81 Secondary hyperparathyroidism of renal origin; I27.20 Pulmonary hypertension, unspecified; E11.22 Type 2 diabetes mellitus with diabetic chronic kidney disease; E87.5 Hyperkalemia; D63.1 Anemia in chronic kidney disease; Z99.2 Dependence on renal dialysis; Z95.2 Presence of prosthetic heart valve; Z79.82 Long term (current) use of aspirin; Z79.4 Long term (current) use of insulin; Z79.899 Other long term (current) drug therapy; S82.102D Unspecified fracture of upper end of left tibia, subsequent encounter for closed fracture with routine healing; Z91.15 Patient's noncompliance with renal dialysis
CPT/HCPCS: 36415; 71045; 71275; 80048; 80053; 82803; 82962; 83735; 83880; 84100; 84484; 85025; 85027; 93005; 93010; 94660; 96374; 99285; G0257; J0610; J1200; J1644; J1815; J3490; Q5105

== ENCOUNTER 2020-04-22 05:34 | Emergency (ER) | payer OTHER, MEDICARE, MEDICAID ==
--- NOTE | 2020-04-22 06:55 | ER Document Report ---
ED General - General Stated Complaint: WEAKNESS Time Seen by Provider: 04/22/20 06:03 Primary Care Provider: INDIGO VALLE NP [Primary Care Provider] - Follow up as needed Notes: 49-year-old woman history of end-stage renal disease and hemodialysis presents to emergency department history of CHF, ascites, diabetes mellitus type 2, hypertension and pleural effusion. Patient has a history of a left tibia fracture she has had surgery with orthopedics at [facility]. States that she is scheduled to have a procedure today due to continued oozing and bleeding from the site of surgery. She denies fever, nausea vomiting or shortness of breath at this time. She does complain of weakness and was concerned that her blood count may have dropped low. She denies chest pain or palpitations. TRAVEL OUTSIDE OF THE [place] IN LAST 30 DAYS: No - Related Data Allergies/Adverse Reactions: No Known Allergies Allergy (Verified 04/22/20 07:46) Past Medical History - Social History Family History: Reviewed & Not Pertinent - Past Medical History Cardiac Medical History: Reports: Hx Congestive Heart Failure, Hx Hypertension, Hx Heart Murmur Denies: Hx Coronary Artery Disease, Hx Heart Attack Pulmonary Medical History: Denies: Hx Asthma, Hx Bronchitis, Hx COPD, Hx Pneumonia, Hx Respiratory Failure Neurological Medical History: Denies: Hx Cerebrovascular Accident, Hx Migraine, Hx Seizures Endocrine Medical History: Reports: Hx Diabetes Mellitus Type 2 Renal/ Medical History: Reports: Hx End Stage Renal Disease, Hx Hemodialysis. Denies: Hx Peritoneal Dialysis GI Medical History: Denies: Hx Cirrhosis, Hx Diverticulitis, Hx Hiatal Hernia Musculoskeletal Medical History: Denies Hx Arthritis, Denies Hx Fibromyalgia, Denies Hx Gout Skin Medical History: Denies Hx Eczema, Denies Hx Psoriasis Psychiatric Medical History: Denies: Hx Depression Past Surgical History: Reports: Hx Valve Replacement - Mitral valve repair on 06/30/2018, Hx Vascular Surgery - Vas-Cath placement, peritoneal dialysis catheter placement, Other - Left eye surgery-Nov 2018 - Immunizations Immunizations up to date: Yes Hx Diphtheria, Pertussis, Tetanus Vaccination: No Hx Pneumococcal Vaccination: 08/11/20 Physical Exam - Vital signs Vitals: BP Pulse Ox 118/88 H 87 L 04/22/20 01:22 04/22/20 01:22 Course - Re-evaluation Re-evalutation: 04/22/20 09:11 Patient was found to be hyperkalemic with a potassium level of 6.9. She is due for dialysis. I have discussed the patient with Dr. Saul Dewitt, he states that we are able to accommodate the patient for dialysis today. She is being treated medically for the hyperkalemia, calcium gluconate 2 g IV, dextrose 25 g IV, regular insulin 8 units IV, Kayexalate 30 g p.o. I have contacted the orthopedists at [facility], the patient was supposed to be there this morning for a procedure, washout and intervention for left leg fracture. They have agreed to accept the patient in transfer after dialysis has been performed. She will be a direct admit to the surgical floor. I have explained this plan to the patient and she is in agreement with that plan. - Vital Signs Vital signs: Temp Pulse Resp BP Pulse Ox 97.5 F 61 16 151/91 H 100 04/22/20 08:17 04/22/20 08:17 04/22/20 11:01 04/22/20 11:00 04/22/20 11:00 - Laboratory Result Diagrams: 04/22/20 07:18 04/22/20 07:18 Laboratory results interpreted by me: 04/22/20 04/22/20 04/22/20 07:18 07:18 14:51 RBC 3.56 L Hgb 8.1 L Hct 26.2 L MCV 74 L MCH 22.7 L MCHC 30.7 L RDW 22.8 H Seg Neuts % (Manual) 83 H Monocytes % (Manual) 0 L Abs Monocytes (Manual) 0.0 L Sodium 135.2 L Potassium 6.9 H* BUN 100 H Creatinine 5.94 H Est GFR ( Amer) 9 L Est GFR (MDRD) Non-Af 8 L POC Glucose 63 L Calcium 6.6 L* Direct Bilirubin 0.9 H Alkaline Phosphatase 305 H Albumin 3.1 L I have reviewed laboratory data and used this information for the treatment decisions regarding the patient. - EKG Interpretation by Me EKG shows normal: Sinus rhythm - Rate of 61, probable left atrial abnormality, left posterior fascicular block, low voltage throughout, normal axis, no acute ST or T wave abnormalities noted. Discharge - Discharge Clinical Impression: Hyperkalemia, ESRD needing dialysis Left leg injury Qualifiers: Encounter type: initial encounter Qualified Code(s): S89.92XA - Unspecified injury of left lower leg, initial encounter Surgical wound breakdown Qualifiers: Encounter type: initial encounter Qualified Code(s): T81.31XA - Disruption of external operation (surgical) wound, not elsewhere classified, initial encounter Condition: Good Disposition: [facility] Referrals: INDIGO VLALE [facility] [employer] [Primary Care Provider] - Follow up as needed
[2020-04-22 07:39] LABS: HEMATOCRIT 26.2 % (36.0-47.0); HEMOGLOBIN 8.1 g/dL (12.0-15.5); MEAN CORPUSCULAR HEMOGLOBIN 22.7 pg (27.0-33.4); MEAN CORPUSCULAR HGB CONC 30.7 g/dL (32.0-36.0); MEAN CORPUSCULAR VOLUME 74 fl (80-97); PLATELET COUNT 312 10^3/uL (150-450); RED BLOOD COUNT 3.56 10^6/uL (3.72-5.28); RED CELL DISTRIBUTION WIDTH 22.8 % (11.5-14.0); WHITE BLOOD COUNT 9.6 10^3/uL (4.0-10.5)
[2020-04-22 07:54] LABS: BLOOD UREA NITROGEN 100 mg/dL (7-20); GLUCOSE 77 mg/dL (75-110)
[2020-04-22 07:55] LABS: ALBUMIN 3.1 g/dL (3.5-5.0); ALKALINE PHOSPHATASE 305 U/L (38-126); ANION GAP 14 (5-19); ASPARTATE AMINO TRANSFERASE 25 U/L (14-36); BILIRUBIN,DIRECT 0.9 mg/dL (0.0-0.4); BILIRUBIN,TOTAL 1.1 mg/dL (0.2-1.3); CARBON DIOXIDE 22 mmol/L (22-30); CHLORIDE 99 mmol/L (98-107); TOTAL PROTEIN 7.6 g/dL (6.3-8.2)
[2020-04-22] MEDS ORDERED: ONDANSETRON HCL INJ/PF 4 MG/2 ML SDV IV ONE (07:55)
[2020-04-22] MEDS ORDERED: MORPHINE SULFATE 10 MG/ML INJ IV ONE ×2 (07:55→17:17)
--- NOTE | 2020-04-22 07:57 | RADIOLOGY REPORT (SQ) ---
EXAM DESCRIPTION: XR CHEST 1 VIEW COMPLETED DATE/TME: 04/22/2020 07:01 CLINICAL HISTORY: Shortness of breath COMPARISON: 04/18/2020 FINDINGS: Single frontal view of the chest. Cardiomediastinal silhouette: Left IJ tunneled hemodialysis catheter with tip in the SVC. Prior median sternotomy and valve repair. Cardiomegaly. Lungs: Stable right pleural effusion and right basilar opacity. No pneumothorax. Bones: Stable. Upper abdomen: Stable. IMPRESSION: 1. No significant interval change.
[2020-04-22 08:02] LABS: ABSOLUTE LYMPHOCYTES# (MANUAL) 1.3 10^3/uL (0.5-4.7); ANISOCYTOSIS 3+; BASOPHILS % (MANUAL) 1 % (0-2); EOSINOPHILS % (MANUAL) 2 % (0-6); LYMPHOCYTES % (MANUAL) 14 % (13-45); MONOCYTES % (MANUAL) 0 % (3-13); PLATELET COMMENT ADEQUATE; SEGMENTED NEUTROPHILS % (MAN) 83 % (42-78); TOTAL CELLS COUNTED 100
[2020-04-22 08:03] LABS: CALCIUM 6.6 mg/dL (8.4-10.2); POIKILOCYTOSIS 2+; POLYCHROMASIA SLIGHT; POTASSIUM 6.9 mmol/L (3.6-5.0); TARGET CELLS 2+
[2020-04-22] MEDS ORDERED: DEXTROSE 50%-WATER 25 GM/50 ML DISP.SYRIN IV ONE (08:29)
[2020-04-22] MEDS ORDERED: SODIUM POLYSTYRENE SULFONATE 15 GM/60 ML PO ONE (08:29)
[2020-04-22] MEDS ORDERED: INSULIN REG, HUMAN 100 UNIT/ML 3 ML VIAL (PYX) IV ONE (08:29)
[2020-04-22] MEDS ORDERED: CALCIUM GLUCONATE 1000 MG/10 ML INJ IV ONE (08:38)
[2020-04-22] MEDS ORDERED: HYDROMORPHONE HCL INJ/PF 2 MG/ML AMPULE IV ONE (09:09)
[2020-04-22] MEDS ORDERED: ACETAMINOPHEN 325 MG TABLET PO ONE (09:10)
[2020-04-22] MEDS ORDERED: EPOETIN ALFA-EPBX 2,000 UNIT, EPOETIN ALFA-EPBX 3,000 UNIT, EPOETIN ALFA-EPBX 20,000 UN... IV PRN ×4 (12:35)
[2020-04-22] MEDS ORDERED: HEPARIN SOD (PORCINE) 1,000 UNIT/ML 10 ML VIAL IV PRN (12:35)
[2020-04-22] MEDS ORDERED: HEPARIN SOD (PORCINE) 1,000 UNIT/ML 10 ML VIAL IV ONE (15:37)
[2020-04-22 18:07] LABS: ANION GAP 14 (5-19); CALCIUM 8.2 mg/dL (8.4-10.2); CARBON DIOXIDE 26 mmol/L (22-30); CHLORIDE 95 mmol/L (98-107); GLUCOSE 88 mg/dL (75-110)
[2020-04-22 18:21] LABS: BLOOD UREA NITROGEN 45 mg/dL (7-20); POTASSIUM 4.2 mmol/L (3.6-5.0)
--- NOTE | 2020-04-22 19:18 | EKG REPORT ---
SEVERITY:- ABNORMAL ECG - SINUS RHYTHM PROBABLE LEFT ATRIAL ABNORMALITY LEFT POSTERIOR FASCICULAR BLOCK LOW VOLTAGE THROUGHOUT : Confirmed by: Keira Fernandes MD 22-Apr-2020 19:18:04
[2020-04-22 19:42] VITALS: BP 188/112
[2020-04-22] MEDS ORDERED: NORMAL SALINE INJ/PF 0.9% 10 ML SDV IV SCH (22:00)
--- NOTE | 2020-04-22 23:56 | PDOC PROGRESS REPORT ---
Subjective Progress Note for:: 04/22/20 Reason For Visit: On dialysis in the background of diabetes mellitus, hypertension, congestive heart failure with pulmonary hypertension, mitral valve replacement and recent surgery for left tibial fracture was admitted with history of shortness of breath. Evaluations in the ER revealed that she was in early heart failure along with a potassium of 6.9. Urgent consultation was placed for urgent hemodialysis. Currently being seen while undergoing dialysis. Denies any history of chest pains. Physical Exam Vital Signs: Temp Pulse Resp BP Pulse Ox 97.5 F 61 16 151/91 H 100 04/22/20 08:17 04/22/20 08:17 04/22/20 11:01 04/22/20 11:00 04/22/20 11:00 Intake & Output 04/21/20 04/22/20 04/23/20 06:59 06:59 06:59 Weight 65.771 kg General appearance: PRESENT: no acute distress Respiratory exam: PRESENT: clear to auscultation peterson, decreased breath sounds. ABSENT: crackles Cardiovascular exam: PRESENT: +S1, +S2 GI/Abdominal exam: PRESENT: normal bowel sounds, soft. ABSENT: organomegaly, tenderness Extremities exam: PRESENT: pedal edema Neurological exam: PRESENT: alert, awake, oriented to person, oriented to place Results Laboratory Results: 04/22/20 07:18 04/22/20 07:18 04/22/20 04/22/20 07:18 07:18 WBC 9.6 RBC 3.56 L Hgb 8.1 L Hct 26.2 L MCV 74 L MCH 22.7 L MCHC 30.7 L RDW 22.8 H Plt Count 312 Seg Neutrophils % Not Reportable Sodium 135.2 L Potassium 6.9 H* Chloride 99 Carbon Dioxide 22 Anion Gap 14 BUN 100 H Creatinine 5.94 H Est GFR ( Amer) 9 L Glucose 77 Calcium 6.6 L* Total Bilirubin 1.1 AST 25 Alkaline Phosphatase 305 H Total Protein 7.6 Albumin 3.1 L Impressions: Chest X-Ray 04/22/20 07:01 IMPRESSION: 1. No significant interval change. Assessment & Plan - Diagnosis (1) End stage renal disease on dialysis Plan: Patient currently being seen while on dialysis. She is got early heart failure along with hyperkalemia. She is apparently going to be transferred to [facility] because of some procedure that needs to be done for her fracture repair of her left leg. Vital signs are stable. Dialysis being supervised. Plan to remove approximately 1-2 L as tolerated. Dialysis orders were reviewed with the treating dialysis nurse. (2) Hyperkalemia Plan: Should respond to dialysis. Will put on a 1K x 1 hour followed by 2K for 2 hours. Dialysis orders reviewed with the treating dialysis nurse. (3) Acute diastolic heart failure Plan: See response to dialysis. She is currently on 2 L of nasal cannula oxygen only. (4) Diabetes mellitus type 2 in nonobese Plan: Poorly controlled secondary to noncompliance was unfortunate. (5) Anemia in chronic kidney disease (CKD) Plan: Will adjust erythropoietin. (6) Fracture of proximal end of tibia Qualifiers: Encounter type: subsequent encounter Fracture type: closed Fracture morphology: unspecified fracture morphology Laterality: left Plan: Presently stable but needs some procedure and is being transferred to [facility] after dialysis.
== END 2020-04-22 20:30 | disposition short-term general hospital (02) ==
LOC: ER 05:34
DX: S89.92XA Unspecified injury of left lower leg, initial encounter (principal); T81.31XA Disruption of external operation (surgical) wound, not elsewhere classified, initial encounter; E87.5 Hyperkalemia; I13.2 Hypertensive heart and chronic kidney disease with heart failure and with stage 5 chronic kidney disease, or end stage renal disease; N18.6 End stage renal disease; I50.9 Heart failure, unspecified; Z99.2 Dependence on renal dialysis; E11.22 Type 2 diabetes mellitus with diabetic chronic kidney disease; R53.1 Weakness; X58.XXXA Exposure to other specified factors, initial encounter; Z86.711 Personal history of pulmonary embolism; Z98.890 Other specified postprocedural states
CPT/HCPCS: 93005; 36415; 82962; 85025; 80053; 71045; 93010; G0257; J0610; J3490 ×2; J1644; J2270; J1170; J1815; J2405; Q5105 ×3; 96365; 96366; 96375; 96376; 99285

== ENCOUNTER 2020-06-25 14:06 | Emergency (ER) | payer MEDICARE, MEDICAID ==
--- NOTE | 2020-06-25 15:09 | ER Document Report ---
ED GI/ - General Stated Complaint: Vaginal bleeding Time Seen by Provider: 06/25/20 14:40 Primary Care Provider: INDIGO VALLE NP [Primary Care Provider] - Follow up as needed WINSTON FLOYD MD [ACTIVE STAFF] - Follow up in 3-5 days (Call next week for an outpatient follow-up appointment.) Mode of Arrival: Wheelchair Information source: Patient Notes: 49-year-old female past medical history significant for hypertension, diabetes, mitral valve replacement, renal failure on dialysis who presents to the emergency room complaining of persistent vaginal bleeding for the past month. Patient states she was just discharged from [facility] a week ago. 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 Patient states they attempted to do a pelvic exam while she was at [facility] but she was unable to tolerate it. Patient remembers being seen by coal bagger but does not know what they told her about the bleeding. She has no local coal bagger. States she was sent to emergency room by her primary care physician to check her H&H to make sure that she does not need a blood transfusion states she is perimenopausal and previous to the current bleeding her previous menstrual cycle was approximately 6 months prior to that. Denies any nausea, vomiting,. TRAVEL OUTSIDE OF THE [place] IN LAST 30 DAYS: No - Related Data Allergies/Adverse Reactions: No Known Allergies Allergy (Verified 04/22/20 07:46) Past Medical History - General Information source: Patient - Social History Smoking Status: Never Smoker Frequency of alcohol use: None Drug Abuse: None Family History: Reviewed & Not Pertinent - Past Medical History Cardiac Medical History: Reports: Hx Congestive Heart Failure, Hx Hypertension, Hx Heart Murmur Denies: Hx Coronary Artery Disease, Hx Heart Attack Pulmonary Medical History: Denies: Hx Asthma, Hx Bronchitis, Hx COPD, Hx Pneumonia, Hx Respiratory Failure Neurological Medical History: Denies: Hx Cerebrovascular Accident, Hx Migraine, Hx Seizures Endocrine Medical History: Reports: Hx Diabetes Mellitus Type 2 Renal/ Medical History: Reports: Hx End Stage Renal Disease, Hx Hemodialysis. Denies: Hx Peritoneal Dialysis GI Medical History: Denies: Hx Cirrhosis, Hx Diverticulitis, Hx Hiatal Hernia Musculoskeletal Medical History: Denies Hx Arthritis, Denies Hx Fibromyalgia, Denies Hx Gout Skin Medical History: Denies Hx Eczema, Denies Hx Psoriasis Psychiatric Medical History: Denies: Hx Depression Past Surgical History: Reports: Hx Valve Replacement - Mitral valve repair on 06/30/2018, Hx Vascular Surgery - Vas-Cath placement, peritoneal dialysis catheter placement, Other - Left eye surgery-Nov 2018 - Immunizations Immunizations up to date: Yes Hx Diphtheria, Pertussis, Tetanus Vaccination: No Hx Pneumococcal Vaccination: 08/11/20 Review of Systems - Review of Systems Constitutional: No symptoms reported Cardiovascular: No symptoms reported Respiratory: No symptoms reported Gastrointestinal: denies: Abdominal pain, Nausea, Vomiting Female Genitourinary: Vaginal bleeding Neurological/Psychological: No symptoms reported -: Yes All other systems reviewed and negative Physical Exam - Vital signs Vitals: Temp Pulse Resp BP Pulse Ox 97.6 F 93 16 151/75 H 100 06/25/20 16:10 06/25/20 16:10 06/25/20 16:10 06/25/20 16:10 06/25/20 16:10 - General General appearance: Appears well, Alert In distress: Mild - Respiratory Respiratory status: No respiratory distress Chest status: Nontender Breath sounds: Normal Chest palpation: Normal - Cardiovascular Rhythm: Regular Heart sounds: Normal auscultation Murmur: No - Abdominal Inspection: Normal Distension: No distension Bowel sounds: Normal Tenderness: Nontender Organomegaly: No organomegaly - Genitourinary External exam: Normal Speculum exam: Cervix closed, Other - Moderate bleeding noted in the vaginal vault. No clots were noted. Vaginal bleeding: Heavy Bimanuel exam: Normal. No: Cervical motion tender, Adnexal mass, Adnexal tenderness - Neurological Neuro grossly intact: Yes Cognition: Normal Orientation: AAOx4 Monique Coma Scale Eye Opening: Spontaneous Monique Coma Scale Verbal: Oriented Monique Coma Scale Motor: Obeys Commands [place] Coma Scale Total: 15 Speech: Normal Motor strength normal: LUE, RUE, LLE, RLE Sensory: Normal Course - Re-evaluation Re-evalutation: 06/25/20 17:48 Patient is resting comfortably reviewed lab and ultrasound results with patient. Patient is a Saturday dialysis patient. States she did not have her dialysis this morning. Counseled patient on need for medications for her hypokalemia. EKG shows slightly peaked T waves. Discussed with patient p ossible admission. 06/25/20 18:05 Consult patient that we do not have any dialysis beds and I am unable to reach Dr. Dewitt her gambling box person on the weekend. Discussed with patient that we would need to transfer her either back to [facility] or possibly divided. Patient does not want to be transferred she did not want to be admitted. Patient would like to leave AMA but is agreeable to be given medications for hyperkalemia and will I talk to patient prior to signing her out AMA. 06/25/20 19:15 Patient has requested to leave AGAINST MEDICAL ADVICE. The patient has chosen to leave the facility against medical advice. The relevant issues have been reviewed and discussed with the patient and family at the bedside. At the time of this assessment there is no indication for involuntary commitment. The patient is alert, oriented, and able to express clearly their reasoning for not wanting to remain in the emergency department for further treatment. The patient is not clinically psychotic, intoxicated, and denies and suicidal ideation. Differential or suspected diagnoses based on medical screening exam: Hyperkalemia The patient is aware of the concerning diagnoses and acknowledges understanding of the reasons for the following recommendations: Loss of life, permanent disability, chronic pain, worsening of condition, cardiac dysfunction, respiratory dysfunction loss of current lifestyle The following recommendations/services were offered and refused: Transfer to another facility. The following risks were explained: , permanent disability, loss of current lifestyle, worsening condition, cardiac dysfunction, respiratory dysfunction, Clinical impression: Patient is competent to make decisions regarding the medical that is being offered. - Vital Signs Vital signs: Temp Pulse Resp BP Pulse Ox 98.0 F 90 18 158/92 H 98 06/25/20 19:44 06/25/20 19:44 06/25/20 19:44 06/25/20 19:44 06/25/20 19:44 - Laboratory Result Diagrams: 06/25/20 15:50 06/25/20 15:50 Laboratory results interpreted by me: 06/25/20 06/25/20 15:50 15:50 Hgb 10.3 L Hct 34.0 L MCV 70 L MCH 21.0 L MCHC 30.1 L RDW 18.7 H Seg Neutrophils % 78.9 H Potassium 6.9 H* BUN 99 H Creatinine 6.98 H Est GFR ( Amer) 8 L Est GFR (MDRD) Non-Af 6 L Glucose 298 H Calcium 7.8 L AST 42 H Alkaline Phosphatase 367 H Total Protein 9.1 H - Diagnostic Test Radiology reviewed: Reports reviewed - EKG Interpretation by Me EKG shows normal: Sinus rhythm [place]/QRS: RBBB, LBBB Additional EKG results interpreted by me: 06/25/20 17:55 EKG was interpreted by ED physician Dr. Lugo No acute STEMI Sinus rhythm Rate of 91 Peaked T waves Nonspecific T wave abnormalities. Discharge - Discharge Clinical Impression: Vaginal bleeding, Hyperkalemia, Left against medical advice Uterine fibroid Qualifiers: Uterine leiomyoma location: unspecified location Qualified Code(s): D25.9 - Leiomyoma of uterus, unspecified Condition: Stable Disposition: AGAINST MEDICAL ADVICE Instructions: Dysfunctional Uterine Bleeding ([facility]) Additional Instructions: You were treated for your hyper kalemia however you have EKG changes secondary to your hyperkalemia. You have requested to leave AGAINST MEDICAL ADVICE. You were counseled on the risks of leaving AGAINST MEDICAL ADVICE. You have chosen to leave the facility against medical advice. The relevant issues have been reviewed and discussed. Risks have been discussed including but not limited to loss of life, loss of current lifestyle, worsening of condition. Respiratory dysfunction, cardiac dysfunction, urinary dysfunction. Please call the [facility] for an outpatient follow-up appointment for uterine fibroids and bleeding. Please follow-up with your gambling box person for dialysis as scheduled. Return to the emergency room for any new or worsening symptoms. You can return at any time for ongoing care. Referrals: INDIGO VALLE NP [Primary Care Provider] - Follow up as needed WINSTON FLOYD MD [ACTIVE STAFF] - Follow up in 3-5 days (Call next week for an outpatient follow-up appointment.)
--- NOTE | 2020-06-25 16:16 | RADIOLOGY REPORT (SQ) ---
EXAM DESCRIPTION: U/S NON OB PEL TV W/DOPPLER IMAGES COMPLETED DATE/TIME: 06/25/2020 4:00 pm REASON FOR STUDY: vaginal bleeding COMPARISON: None. TECHNIQUE: Dynamic and static grayscale images acquired of the pelvis via transvaginal approach and recorded on PACS. Additional selected color Doppler and spectral images recorded. LIMITATIONS: Nonvisualized ovaries. FINDINGS: UTERUS: Contour normal. 2 cm fundal fibroid which appears to communicate with the endomet rium. Diffuse uterine parenchymal calcifications. ENDOMETRIAL STRIPE: 11 mm endometrial thickness. CERVIX: No nabothian cysts. RIGHT OVARY AND DOPPLER: Normal size. No worrisome masses. Normal arterial vascular flow without evid ence for torsion. LEFT OVARY AND DOPPLER: Normal size. No worrisome masses. Normal arterial vascular flow without evide nce for torsion. FREE FLUID: Small amount of cul-de-sac free fluid. OTHER: No other significant finding. MEASUREMENTS: UTERUS: 9 x 5.7 x 4.7 cm ENDOMETRIAL STRIPE: 11 mm RIGHT OVARY: Not visualized. LEFT OVARY: Not visualized. IMPRESSION: 2 cm fundal fibroid which appears to communicate with the endometrium. Diffuse uterine parenchymal calcifications.11 mm endometrial thickness. Nonvisualized ovaries. TECHNICAL DOCUMENTATION: JOB ID: [id number] [place]-72 2010 [employer]- All Rights Reserved Rev-03/28 Reading location - IP/workstation name: [email or web address]
[2020-06-25 17:11] LABS: ABSOLUTE BASOPHILS # (AUTO) 0.1 10^3/uL (0.0-0.2); ABSOLUTE EOSINOPHILS # (AUTO) 0.1 10^3/uL (0.0-0.6); ABSOLUTE LYMPHOCYTES (AUTO) 1.1 10^3/uL (0.5-4.7); ABSOLUTE MONOCYTES (AUTO) 0.3 10^3/uL (0.1-1.4); ABSOLUTE NEUT (AUTO) 5.7 10^3/uL (1.7-8.2); BASOPHILS % (AUTO) 0.8 % (0-2); EOSINOPHILS % (AUTO) 1.5 % (0-6); HEMOGLOBIN 10.3 g/dL (12.0-15.5); MEAN CORPUSCULAR HGB CONC 30.1 g/dL (32.0-36.0); MEAN CORPUSCULAR VOLUME 70 fl (80-97); MONOCYTES % (AUTO) 3.8 % (3-13); PLATELET COUNT 320 10^3/uL (150-450); RED BLOOD COUNT 4.89 10^6/uL (3.72-5.28); RED CELL DISTRIBUTION WIDTH 18.7 % (11.5-14.0); SEGMENTED NEUTROPHILS % (AUTO) 78.9 % (42-78); TOTAL CELLS COUNTED % (AUTO) 100 %; WHITE BLOOD COUNT 7.2 10^3/uL (4.0-10.5)
[2020-06-25 17:15] LABS: ALBUMIN 3.9 g/dL (3.5-5.0); ALKALINE PHOSPHATASE 367 U/L (38-126); ANION GAP 16 (5-19); ASPARTATE AMINO TRANSFERASE 42 U/L (14-36); BILIRUBIN,DIRECT 0.3 mg/dL (0.0-0.4); BILIRUBIN,TOTAL 0.6 mg/dL (0.2-1.3); BLOOD UREA NITROGEN 99 mg/dL (7-20); CALCIUM 7.8 mg/dL (8.4-10.2); CARBON DIOXIDE 23 mmol/L (22-30); CHLORIDE 101 mmol/L (98-107); GLUCOSE 298 mg/dL (75-110); TOTAL PROTEIN 9.1 g/dL (6.3-8.2)
[2020-06-25 17:23] LABS: POTASSIUM 6.9 mmol/L (3.6-5.0)
[2020-06-25] MEDS ORDERED: CALCIUM GLUCONATE 1000 MG/10 ML INJ IV ONE (17:44)
[2020-06-25] MEDS ORDERED: DEXTROSE 50%-WATER 25 GM/50 ML DISP.SYRIN IV ONE (17:44)
[2020-06-25] MEDS ORDERED: INSULIN REG, HUMAN 100 UNIT/ML 3 ML VIAL (PYX) IV ONE (17:44)
[2020-06-25] MEDS ORDERED: FUROSEMIDE INJ/PF 20 MG/2 ML SDV IV ONE (17:45)
[2020-06-25] MEDS ORDERED: SODIUM BICARBONATE 8.4% INJ 50 MEQ/50 ML DISP.SYRIN IV ONE (17:45)
[2020-06-25 19:46] VITALS: BP 158/92
--- NOTE | 2020-06-25 23:26 | EKG REPORT ---
SEVERITY:- ABNORMAL ECG - SINUS RHYTHM PROBABLE LEFT ATRIAL ABNORMALITY IRBBB AND LPFB NONSPECIFIC T ABNORMALITIES, LATERAL LEADS PROLONGED QT INTERVAL : Confirmed by: Mil Hughes MD 25-Jun-2020 23:25:48
== END 2020-06-25 19:44 | disposition left against medical advice (07) ==
LOC: ER 14:06
DX: Z53.20 Procedure and treatment not carried out because of patient's decision for unspecified reasons (principal); D25.9 Leiomyoma of uterus, unspecified; E87.5 Hyperkalemia; N93.9 Abnormal uterine and vaginal bleeding, unspecified; E11.9 Type 2 diabetes mellitus without complications; I50.9 Heart failure, unspecified; I11.0 Hypertensive heart disease with heart failure
CPT/HCPCS: 93005; 99285; 96374; 96375; 36415; 85025; 80053; 76830; 93976; 93010; J0610; J3490 ×2; J1940; A9270; J1815

== ENCOUNTER 2020-06-28 18:10 | Emergency (ER) | payer MEDICARE, MEDICAID ==
[2020-06-28] MEDS ORDERED: ONDANSETRON 4 MG TAB.RAPDIS PO ONE (18:41)
--- NOTE | 2020-06-28 18:42 | ER Document Report ---
ED Medical Screen (RME) - General Chief Complaint: Weakness Stated Complaint: WEAKNESS Time Seen by Provider: 06/28/20 18:33 Primary Care Provider: INDIGO VALLE NP [Primary Care Provider] - Follow up as needed Mode of Arrival: Wheelchair Information source: Patient Notes: HPI; 49-year-old female past medical history significant for diabetes, hypertension, end-stage renal disease on dialysis presents emergency room complaining of chest tightness that started around 4 PM today. Patient states symptoms started after having dialysis. Goes on to state that she feels tight all over. Complains of nausea with vomiting. Denies fevers. No COVID-19 exposure. PE: Alert and oriented x3. Mild distress noted. Lungs: Clear to auscultation without rales, rhonchi, wheezes. Heart: Regular rate and rhythm without murmurs, rubs, gallops. I have greeted and performed a rapid initial assessment of this patient. A comprehensive ED assessment and evaluation of the patient, analysis of test results and completion of the medical decision making process will be conducted by additional ED providers. I have specifically instructed the patient or family members with the patient to immediately return to any nursing staff should anything change in the patient's condition or with their chief complaint. TRAVEL OUTSIDE OF THE [place] IN LAST 30 DAYS: No - Related Data Allergies/Adverse Reactions: No Known Allergies Allergy (Verified 04/22/20 07:46) Past Medical History - Social History Chew tobacco use (# tins/day): No Frequency of alcohol use: None Drug Abuse: None - Past Medical History Cardiac Medical History: Reports: Hx Congestive Heart Failure, Hx Hypertension, Hx Heart Murmur Denies: Hx Coronary Artery Disease, Hx Heart Attack Pulmonary Medical History: Denies: Hx Asthma, Hx Bronchitis, Hx COPD, Hx Pneumonia, Hx Respiratory Failure Neurological Medical History: Denies: Hx Cerebrovascular Accident, Hx Migraine, Hx Seizures Endocrine Medical History: Reports: Hx Diabetes Mellitus Type 2 Renal/ Medical History: Reports: Hx End Stage Renal Disease, Hx Hemodialysis. Denies: Hx Peritoneal Dialysis GI Medical History: Denies: Hx Cirrhosis, Hx Diverticulitis, Hx Hiatal Hernia Musculoskeltal Medical History: Denies Hx Arthritis, Denies Hx Fibromyalgia, Denies Hx Gout Skin Medical History: Denies Hx Eczema, Denies Hx Psoriasis Psychiatric Medical History: Denies: Hx Depression Past Surgical History: Reports: Hx Gynecologic Surgery - d&c, Hx Orthopedic Surgery - left aka, Hx Valve Replacement - Mitral valve repair on 06/30/2018, Hx Vascular Surgery - Vas-Cath placement, peritoneal dialysis catheter placement, Other - Left eye surgery-Nov 2018 - Immunizations Immunizations up to date: Yes Hx Diphtheria, Pertussis, Tetanus Vaccination: No Physical Exam - Vital signs Vitals: Temp Pulse Resp BP Pulse Ox 97.9 F 100 16 155/89 H 100 06/28/20 18:15 06/28/20 18:15 06/28/20 18:15 06/28/20 18:15 06/28/20 18:15 Course - Vital Signs Vital signs: Temp Pulse Resp BP Pulse Ox 97.9 F 100 16 155/89 H 100 06/28/20 18:15 06/28/20 18:15 06/28/20 18:15 06/28/20 18:15 06/28/20 18:15 Doctor's Discharge - Discharge Referrals: INDIGO VALLE NP [Primary Care Provider] - Follow up as needed
--- NOTE | 2020-06-28 19:12 | RADIOLOGY REPORT (SQ) ---
EXAM DESCRIPTION: CHEST SINGLE VIEW IMAGES COMPLETED DATE/TIME: 06/28/2020 6:56 pm REASON FOR STUDY: chest pain COMPARISON: 04/22/2020 EXAM PARAMETERS: NUMBER OF VIEWS: One view. TECHNIQUE: Single frontal radiographic view of the chest acquired. RADIATION DOSE: NA LIMITATIONS: None. FINDINGS: LUNGS AND PLEURA: Persistent right pleural effusion. No acute infiltrate or mass. MEDIASTINUM AND HILAR STRUCTURES: No masses. Contour normal. HEART AND VASCULAR STRUCTURES: Heart normal in size. Normal vasculature. BONES: No acute findings. HARDWARE: Dual-lumen catheter. OTHER: No other significant finding. IMPRESSION: Persistent right pleural effusion. TECHNICAL DOCUMENTATION: JOB ID: [id number] 2010 [employer]- All Rights Reserved Reading location - IP/workstation name: [email or web address]
[2020-06-28 19:32] LABS: HEMATOCRIT 29.9 % (36.0-47.0); HEMOGLOBIN 9.3 g/dL (12.0-15.5); MEAN CORPUSCULAR VOLUME 68 fl (80-97); PLATELET COUNT 326 10^3/uL (150-450); RED BLOOD COUNT 4.42 10^6/uL (3.72-5.28); RED CELL DISTRIBUTION WIDTH 18.5 % (11.5-14.0); WHITE BLOOD COUNT 7.7 10^3/uL (4.0-10.5)
[2020-06-28 19:51] LABS: ALKALINE PHOSPHATASE 333 U/L (38-126); ANION GAP 14 (5-19); ASPARTATE AMINO TRANSFERASE 39 U/L (14-36); BILIRUBIN,DIRECT 0.3 mg/dL (0.0-0.4); BILIRUBIN,TOTAL 0.7 mg/dL (0.2-1.3); BLOOD UREA NITROGEN 58 mg/dL (7-20); CALCIUM 8.1 mg/dL (8.4-10.2); CARBON DIOXIDE 27 mmol/L (22-30); CHLORIDE 98 mmol/L (98-107); CREATINE KINASE 82 U/L (30-135); GLUCOSE 152 mg/dL (75-110); POTASSIUM 5.5 mmol/L (3.6-5.0)
[2020-06-28 19:53] LABS: ABSOLUTE LYMPHOCYTES# (MANUAL) 1.1 10^3/uL (0.5-4.7); ABSOLUTE MONOCYTES # (MANUAL) 0.1 10^3/uL (0.1-1.4); BASOPHILS % (MANUAL) 0 % (0-2); EOSINOPHILS % (MANUAL) 1 % (0-6); LYMPHOCYTES % (MANUAL) 14 % (13-45); MONOCYTES % (MANUAL) 1 % (3-13); SEGMENTED NEUTROPHILS % (MAN) 84 % (42-78); TOTAL CELLS COUNTED 100
[2020-06-28 19:57] LABS: ANISOCYTOSIS 1+; HYPOCHROMASIA 1+; OVALOCYTES SLIGHT; POIKILOCYTOSIS 1+; TARGET CELLS 1+; TEAR DROP CELLS SLIGHT
[2020-06-28 19:58] LABS: PLATELET COMMENT ADEQUATE
[2020-06-28 20:02] LABS: CREATINE KINASE MB 3.23 ng/mL (<4.55); TROPONIN I 0.022 ng/mL
[2020-06-28] MEDS ORDERED: MORPHINE SULFATE 10 MG/ML INJ IV ONE (21:35)
[2020-06-28 22:05] VITALS: BP 148/97
--- NOTE | 2020-06-28 22:43 | ER Document Report ---
Entered by VIRGEN CASTELLANO SCRIBE 06/28/202036 Acting as scribe for:KATTY RUCKER DO ED General - General Chief Complaint: Weakness Stated Complaint: WEAKNESS Time Seen by Provider: 06/28/20 18:33 Primary Care Provider: INDIGO VALLE NP [Primary Care Provider] - Follow up as needed Mode of Arrival: Wheelchair Notes: This 49 year old female patient presents to the emergency department today with complaints of right third finger pain. Patient has extensive vascular disease including left leg amputation who presents today with chronic right third finger pain. Patient had her RUE fistula removed in [facility] and she has had pain ever since. She is on pain meds for this and was told it would get better with time. She has an appointment with this vascular surgeon tomorrow. Patient requesting to have this finger amputated tonight. TRAVEL OUTSIDE OF THE [place] IN LAST 30 DAYS: No - Related Data Allergies/Adverse Reactions: No Known Allergies Allergy (Verified 04/22/20 07:46) Past Medical History - General Information source: Patient - Social History Smoking Status: Never Smoker Cigarette use (# per day): No Chew tobacco use (# tins/day): No Frequency of alcohol use: None Drug Abuse: None Lives with: Family Family History: Reviewed & Not Pertinent - Past Medical History Cardiac Medical History: Reports: Hx Congestive Heart Failure, Hx Hypertension, Hx Heart Murmur Endocrine Medical History: Reports: Hx Diabetes Mellitus Type 2 Renal/ Medical History: Reports: Hx End Stage Renal Disease, Hx Hemodialysis Past Surgical History: Reports: Hx Gynecologic Surgery - d&c, Hx Orthopedic Surgery - left aka, Hx Valve Replacement - Mitral valve repair on 06/30/2018, Hx Vascular Surgery - Vas-Cath placement, peritoneal dialysis catheter placement, Other - Left eye surgery-Nov 2018 - Immunizations Immunizations up to date: Yes Hx Diphtheria, Pertussis, Tetanus Vaccination: No Hx Pneumococcal Vaccination: 08/11/20 Review of Systems - Review of Systems Constitutional: No symptoms reported EENT: No symptoms reported Cardiovascular: No symptoms reported Respiratory: No symptoms reported Gastrointestinal: No symptoms reported Genitourinary: No symptoms reported Female Genitourinary: No symptoms reported Musculoskeletal: See HPI, Other - right third finger pain Skin: No symptoms reported Hematologic/Lymphatic: No symptoms reported Neurological/Psychological: No symptoms reported -: Yes All other systems reviewed and negative Physical Exam - Vital signs Vitals: Temp Pulse Resp BP Pulse Ox 97.9 F 100 16 155/89 H 100 06/28/20 18:15 06/28/20 18:15 06/28/20 18:15 06/28/20 18:15 06/28/20 18:15 Interpretation: Normal - General General appearance: Appears well, Alert - HEENT Head: Normocephalic, Atraumatic Eyes: Normal Pupils: PERRL - Respiratory Respiratory status: No respiratory distress Chest status: Nontender Breath sounds: Normal Chest palpation: Normal - Cardiovascular Rhythm: Regular Heart sounds: Normal auscultation Murmur: No - Abdominal Inspection: Normal Distension: No distension Bowel sounds: Normal Tenderness: Nontender Organomegaly: No organomegaly - Back Back: Normal, Nontender - Extremities General upper extremity: Tender, Normal ROM, Normal strength, Normal temperature General lower extremity: Normal inspection, Nontender, Normal color, Normal ROM, Normal temperature, Normal weight bearing. No: Katya's sign Shoulder: Normal Arm: Normal Elbow: Normal Forearm: Normal Wrist: Normal Hand: Tender - 3rd right digit with necrotic eschar and tenderness to palpation - Neurological Neuro grossly intact: Yes Cognition: Normal Orientation: AAOx4 [place] Coma Scale Eye Opening: Spontaneous [place] Coma Scale Verbal: Oriented Monique Coma Scale Motor: Obeys Commands [place] Coma Scale Total: 15 Speech: Normal Motor strength normal: LUE, RUE, LLE, RLE Sensory: Normal - Psychological Associated symptoms: Normal affect, Normal mood - Skin Skin Temperature: Warm Skin Moisture: Dry Skin Color: Normal Course - Re-evaluation Re-evalutation: 06/28/20 Patient is a 49-year-old female who comes in complaining of third right digit pain which she has had for months. Patient is necrotic eschar and states that she wants to cut off. Spoke with Dr. Calvert who would not do this and does not recommend it because it would put the patient's entire hand and wrist. This is been reiterated to the patient. She has been given pain medication and has hydrocodone at home. Given warm pack for her finger. No other new issues tonight. Blood work, chest x-ray benign. Patient has an appointment with her vascular or orthopedic surgeon in the morning. She is to discuss her finger with them at that time. No further concerns or symptoms. Stable for discharge. Understands and agrees with plan. - Vital Signs Vital signs: Temp Pulse Resp BP Pulse Ox 98.4 F 94 16 148/97 H 98 06/28/20 22:04 06/28/20 22:04 06/28/20 22:04 06/28/20 22:04 06/28/20 22:04 - Laboratory Result Diagrams: 06/28/20 19:00 06/28/20 19:00 Laboratory results interpreted by me: 06/28/20 06/28/20 19:00 19:00 Hgb 9.3 L Hct 29.9 L MCV 68 L MCH 21.0 L MCHC 31.0 L RDW 18.5 H Seg Neuts % (Manual) 84 H Monocytes % (Manual) 1 L Potassium 5.5 H BUN 58 H Creatinine 4.56 H Est GFR ( Amer) 12 L Est GFR (MDRD) Non-Af 10 L Glucose 152 H Calcium 8.1 L AST 39 H Alkaline Phosphatase 333 H Total Protein 9.0 H Discharge - Discharge Clinical Impression: Necrosis of finger Condition: Stable Disposition: HOME, SELF-CARE Instructions: Kidney Failure ([facility]) Additional Instructions: Please follow-up with your vascular surgeon regarding your finger. Referrals: INDIGO VALLE, PHILIPPE [Primary Care Provider] - Follow up as needed I personally performed the services described in the documentation, reviewed and edited the documentation which was dictated to the scribe in my presence, and it accurately records my words and actions.
--- NOTE | 2020-06-30 09:54 | EKG REPORT ---
SEVERITY:- ABNORMAL ECG - SINUS RHYTHM PROBABLE LEFT ATRIAL ABNORMALITY RIGHT AXIS DEVIATION NONSPECIFIC T ABNORMALITIES, LATERAL LEADS BORDERLINE PROLONGED QT INTERVAL : Confirmed by: Maria Ines Moseley 30-Jun-2020 09:53:46
== END 2020-06-28 22:25 | disposition home or self-care (01) ==
LOC: ER 18:10
DX: E11.52 Type 2 diabetes mellitus with diabetic peripheral angiopathy with gangrene (principal); I96 Gangrene, not elsewhere classified; M79.644 Pain in right finger(s); I10 Essential (primary) hypertension; Z98.890 Other specified postprocedural states; Z89.612 Acquired absence of left leg above knee
CPT/HCPCS: 93005; 99285; 96374; 36415; 82553; 82550; 85025; 80053; 84484; 71045; 93010; A9270; J2270; S0119

== ENCOUNTER 2020-09-15 17:28 | Emergency (ER) | payer MEDICARE, MEDICAID ==
--- NOTE | 2020-09-15 18:11 | ER Document Report ---
ED Medical Screen (RME) - General Chief Complaint: Nausea Stated Complaint: NAUSEA/DIAHERRA - DR REFERRED Time Seen by Provider: 09/15/20 18:05 Primary Care Provider: GUILLE PAULINO GREY WASHER, GREY WASHER [Primary Care Provider] - Follow up as needed Mode of Arrival: Wheelchair Information source: Patient Notes: 50-year-old female presents to ED for complaint of nausea and watery diarrhea for the last 4 days. She states she is on antibiotics for a infection in her right hand. Her right hand was amputated a month ago for infection. She also has a left [id number] amputation. She does have a history of diabetes high blood pressure and she is on dialysis. She does have a dialysis catheter. She states her primary care doctor sent her to the emergency room due to the diarr hea in case she is dehydrated and needs fluids. Patient is alert oriented respirations regular nonlabored speaking in full sentences. We will order blood in urine. She states she does sometimes make urine even though she is on dialysis. I have greeted and performed a rapid initial assessment of this patient. A comprehensive ED assessment and evaluation of the patient, analysis of test res ults and completion of medical decision making process will be conducted by an additional ED providers. TRAVEL OUTSIDE OF THE [place] IN LAST 30 DAYS: No - Related Data Allergies/Adverse Reactions: No Known Allergies Allergy (Verified 04/22/20 07:46) Past Medical History - Past Medical History Cardiac Medical History: Reports: Hx Congestive Heart Failure, Hx Hypertension, Hx Heart Murmur Denies: Hx Coronary Artery Disease, Hx Heart Attack Pulmonary Medical History: Denies: Hx Asthma, Hx Bronchitis, Hx COPD, Hx Pneumonia, Hx Respiratory Failure Neurological Medical History: Denies: Hx Cerebrovascular Accident, Hx Migraine, Hx Seizures Endocrine Medical History: Reports: Hx Diabetes Mellitus Type 2 Renal/ Medical History: Reports: Hx End Stage Renal Disease, Hx Hemodialysis. Denies: Hx Peritoneal Dialysis GI Medical History: Denies: Hx Cirrhosis, Hx Diverticulitis, Hx Hiatal Hernia Musculoskeltal Medical History: Denies Hx Arthritis, Denies Hx Fibromyalgia, Denies Hx Gout Skin Medical History: Denies Hx Eczema, Denies Hx Psoriasis Psychiatric Medical History: Denies: Hx Depression Past Surgical History: Reports: Hx Gynecologic Surgery - d&c, Hx Orthopedic Surgery - left aka, Hx Valve Replacement - Mitral valve repair on 06/30/2018, Hx Vascular Surgery - Vas-Cath placement, peritoneal dialysis catheter placement, Other - Left eye surgery-Nov 2018 - Immunizations Immunizations up to date: Yes Hx Diphtheria, Pertussis, Tetanus Vaccination: No Physical Exam - Vital signs Vitals: Temp Pulse Resp BP Pulse Ox 97.7 F 77 18 180/72 H 100 09/15/20 17:36 09/15/20 17:36 09/15/20 17:36 09/15/20 17:36 09/15/20 17:36 Course - Vital Signs Vital signs: Temp Pulse Resp BP Pulse Ox 97.7 F 77 18 180/72 H 100 09/15/20 17:36 09/15/20 17:36 09/15/20 17:36 09/15/20 17:36 09/15/20 17:36 Doctor's Discharge - Discharge Referrals: GUILLE PAULINO NP, GREY WASHER [Primary Care Provider] - Follow up as needed
[2020-09-15 19:21] LABS: HEMATOCRIT 29.8 % (36.0-47.0); HEMOGLOBIN 9.4 g/dL (12.0-15.5); MEAN CORPUSCULAR HEMOGLOBIN 21.3 pg (27.0-33.4); MEAN CORPUSCULAR HGB CONC 31.6 g/dL (32.0-36.0); MEAN CORPUSCULAR VOLUME 68 fl (80-97); PLATELET COUNT 262 10^3/uL (150-450); RED BLOOD COUNT 4.42 10^6/uL (3.72-5.28); WHITE BLOOD COUNT 5.4 10^3/uL (4.0-10.5)
[2020-09-15 19:46] LABS: ALBUMIN 3.6 g/dL (3.5-5.0); ALKALINE PHOSPHATASE 346 U/L (38-126); ANION GAP 15 (5-19); ASPARTATE AMINO TRANSFERASE 22 U/L (14-36); BILIRUBIN,DIRECT 0.4 mg/dL (0.0-0.4); BILIRUBIN,TOTAL 0.6 mg/dL (0.2-1.3); BLOOD UREA NITROGEN 59 mg/dL (7-20); CALCIUM 8.6 mg/dL (8.4-10.2); CARBON DIOXIDE 24 mmol/L (22-30); CHLORIDE 101 mmol/L (98-107); GLUCOSE 189 mg/dL (75-110); POTASSIUM 4.2 mmol/L (3.6-5.0)
[2020-09-15 20:00] LABS: ABSOLUTE MONOCYTES # (MANUAL) 0.2 10^3/uL (0.1-1.4); BASOPHILS % (MANUAL) 0 % (0-2); EOSINOPHILS % (MANUAL) 2 % (0-6); LYMPHOCYTES % (MANUAL) 18 % (13-45); MONOCYTES % (MANUAL) 3 % (3-13); SEGMENTED NEUTROPHILS % (MAN) 77 % (42-78); TOTAL CELLS COUNTED 100
[2020-09-15 20:02] LABS: ANISOCYTOSIS 3+; HYPOCHROMASIA SLIGHT; OVALOCYTES SLIGHT; PLATELET COMMENT ADEQUATE; TARGET CELLS 1+; TEAR DROP CELLS SLIGHT
[2020-09-15] MEDS ORDERED: NORMAL SALINE 500 ML IV ONE (22:58)
--- NOTE | 2020-09-15 23:03 | ER Document Report ---
ED GI/ - General Chief Complaint: Diarrhea Stated Complaint: NAUSEA/DIAHERRA - DR REFERRED Time Seen by Provider: 09/15/20 18:05 Primary Care Provider: GUILLE PAULINO SHAREPOINT TRAINER, SHAREPOINT TRAINER [NURSE PRACTITIONER] - Follow up as needed Mode of Arrival: Wheelchair Information source: Patient Notes: Patient is a 50-year-old female dialysis patient presenting to the emergency department with complaints of watery diarrhea that has been ongoing for the last 4 days. Patient denies any fever, nausea, vomiting, chills, abdominal pain or urinary symptoms. Patient reports she has tried taking Imodium and Pepto-Bismol however her diarrhea persists. She states that her primary care provider has her on Bactrim and Levaquin for a wound infection to her right arm (recent amputation). She states that she typically gets diarrhea when she is on antibiotics. She typically goes to dialysis Saturday, and Saturday, she did miss today's dialysis due to not feeling well. She plans to attend dialysis tomorrow to make up for this. TRAVEL OUTSIDE OF THE [place] IN LAST 30 DAYS: No - Related Data Allergies/Adverse Reactions: No Known Allergies Allergy (Verified 04/22/20 07:46) Past Medical History - General Information source: Patient - Social History Smoking Status: Former Smoker Chew tobacco use (# tins/day): No Drug Abuse: None Lives with: Family - Daughter Family History: Reviewed & Not Pertinent Patient has homicidal ideation: No - Past Medical History Cardiac Medical History: Reports: Hx Congestive Heart Failure, Hx Hypertension, Hx Heart Murmur Denies: Hx Coronary Artery Disease, Hx Heart Attack Pulmonary Medical History: Denies: Hx Asthma, Hx Bronchitis, Hx COPD, Hx Pneumonia, Hx Respiratory Failure Neurological Medical History: Denies: Hx Cerebrovascular Accident, Hx Migraine, Hx Seizures Endocrine Medical History: Reports: Hx Diabetes Mellitus Type 2 Renal/ Medical History: Reports: Hx End Stage Renal Disease, Hx Hemodialysis. Denies: Hx Peritoneal Dialysis GI Medical History: Denies: Hx Cirrhosis, Hx Diverticulitis, Hx Hiatal Hernia Musculoskeletal Medical History: Denies Hx Arthritis, Denies Hx Fibromyalgia, Denies Hx Gout Skin Medical History: Denies Hx Eczema, Denies Hx Psoriasis Psychiatric Medical History: Denies: Hx Depression Past Surgical History: Reports: Hx Gynecologic Surgery - d&c, Hx Orthopedic Surgery - left aka, Hx Valve Replacement - Mitral valve repair on 06/30/2018, Hx Vascular Surgery - Vas-Cath placement, peritoneal dialysis catheter placement, Other - Left eye surgery-Nov 2018 - Immunizations Immunizations up to date: Yes Hx Diphtheria, Pertussis, Tetanus Vaccination: No Hx Pneumococcal Vaccination: 08/11/20 Review of Systems - Review of Systems Gastrointestinal: Diarrhea -: Yes All other systems reviewed and negative Physical Exam - Vital signs Vitals: Temp Pulse Resp BP Pulse Ox 97.7 F 77 18 180/72 H 100 09/15/20 17:36 09/15/20 17:36 09/15/20 17:36 09/15/20 17:36 09/15/20 17:36 - Notes Notes: PHYSICAL EXAMINATION: GENERAL: Appears to be stated age, no acute distress noted. Patient in a pleasant mood. HEAD: Atraumatic, normocephalic. EYES: Pupils equal round and reactive to light, extraocular movements intact, conjunctiva are normal. ENT: Nares patent, oropharynx clear without exudates. Moist mucous membranes. NECK: Normal range of motion, supple without lymphadenopathy LUNGS: Breath sounds clear to auscultation bilaterally and equal. No wheezes rales or rhonchi. HEART: Regular rate and rhythm without murmurs ABDOMEN: Soft, nontender, nondistended abdomen. No guarding, no rebound. No masses appreciated. 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 Left leg amputation below the knee, clean dressing intact. NEUROLOGICAL: Cranial nerves grossly intact. Normal speech. Normal sensory, motor exams PSYCH: Normal mood, normal affect. SKIN: Warm, Dry, normal turgor, no rashes or lesions noted. Course - Re-evaluation Re-evalutation: Patient appears well, nontoxic. Vital signs reviewed. Laboratory investigations are grossly unremarkable. Patient does have an elevated crea tinine however it is at or below her baseline. She is a hemodialysis patient. She denies any complaints other than her persistent diarrhea. At the time of my initial evaluation patient has been here for several hours and has not had any episodes of diarrhea per her report. We will give her a small fluid bolus and reevaluate as she feels like she is dehydrated. Patient reports that she feels improved after receiving a 500 mL normal saline bolus. She is now reporting that she has an area on her vagina that has "something white on it". Antonia RN and I assessed the area and patient appears to have a yeast rash over the clitoris. We will put her on some nystatin ointment for this. Patient advised to start taking a probiotic as the Imodium and Pepto that she has used have not worked. She will follow back up with her primary care provider regarding the antibiotic usage as I do not want to stop these considering therefore a post surgical wound. Patient is in agreement with discharge plan. She is going to dialysis later on today. Her son is in route to pick her up and take her home. Patient denies any additional needs. - Vital Signs Vital signs: Temp Pulse Resp BP Pulse Ox 98.3 F 85 16 156/79 H 99 09/16/20 04:03 09/16/20 04:03 09/16/20 04:03 09/16/20 04:03 09/16/20 04:03 - Laboratory Result Diagrams: 09/15/20 18:41 09/15/20 18:41 Laboratory results interpreted by me: 09/15/20 09/15/20 09/15/20 18:14 18:41 18:41 Hgb 9.4 L Hct 29.8 L MCV 68 L MCH 21.3 L MCHC 31.6 L RDW 22.0 H BUN 59 H Creatinine 4.72 H Est GFR ( Amer) 12 L Est GFR (MDRD) Non-Af 10 L Glucose 189 H POC Glucose 197 H Alkaline Phosphatase 346 H Discharge - Discharge Clinical Impression: Diarrhea Qualifiers: Diarrhea type: unspecified type Qualified Code(s): R19.7 - Diarrhea, unspecified Condition: Stable Disposition: HOME, SELF-CARE Additional Instructions: Your work-up today was reassuring. You received 2 small boluses of IV fluids. Fortunately it seems as though your diarrhea has slowed down. Please keep the follow-up appointment you have today. Consider starting to take some probiotics as this may help with your diarrhea. Talk to your primary care provider about the ongoing antibiotic use as this is likely the culprit of the diarrhea. Return if any new or worsening symptoms. Prescriptions: Nystatin [Mycostatin Ointment 15 gm] 1 gm TP TID #1 tube Referrals: GUILLE PAULINO NP, SHAREPOINT TRAINER [NURSE PRACTITIONER] - Follow up as needed
[2020-09-16] MEDS ORDERED: NORMAL SALINE 250 ML IV ONE (03:43)
[2020-09-16 04:03] VITALS: BP 156/79
[2020-09-16] MEDS ORDERED: FUROSEMIDE 80 MG TABLET PO ONE (06:49)
[2020-09-16] MEDS ORDERED: FUROSEMIDE 40 MG TABLET ONE (06:53)
== END 2020-09-16 08:16 | disposition home or self-care (01) ==
LOC: ER 17:28
DX: R19.7 Diarrhea, unspecified (principal); R11.0 Nausea; B37.49 Other urogenital candidiasis; E11.22 Type 2 diabetes mellitus with diabetic chronic kidney disease; I13.2 Hypertensive heart and chronic kidney disease with heart failure and with stage 5 chronic kidney disease, or end stage renal disease; N18.6 End stage renal disease; I50.9 Heart failure, unspecified; Z99.2 Dependence on renal dialysis
CPT/HCPCS: 99284; 96360; 96361; 36415; 82962; 83690; 85025; 80053; A9270; J7050; J7040; J3490

== ENCOUNTER 2020-09-16 09:24 | Emergency (ER) | payer MEDICARE, MEDICAID ==
[2020-09-16] MEDS ORDERED: DIPHENOXYLATE HCL/ATROP SULF 2.5-0.025 MG TABLET PO ONE (11:27)
--- NOTE | 2020-09-16 12:48 | ER Document Report ---
Entered by VIRGEN CASTELLANO SCRIBE 09/16/20 1121 Acting as scribe for:OTTO VORA MD ED GI/ - General Chief Complaint: Diarrhea Stated Complaint: DIARRHEA Time Seen by Provider: 09/16/20 11:03 Primary Care Provider: INDIGO VALLE NP [Primary Care Provider] - Follow up as needed Mode of Arrival: Ambulatory Information source: Patient Notes: This 50 year old female patient presents to the emergency department today with complaints of continued diarrhea for the last four days. Patient has been on antibiotic therapy for multiple wounds for an extended period of time, she is currently on Septra and Levaquin. She was seen here yesterday and discharged at around 8:00 AM this morning, she reports after getting home she continued to have diarrhea. She did not go to dialysis yesterday because of the diarrhea, she was supposed to go today at 11:30 but she is here for the diarrhea. She has taken Imodium once and Pepto-Bismol once and stopped trying them because it did not work. TRAVEL OUTSIDE OF THE [place] IN LAST 30 DAYS: No - Related Data Allergies/Adverse Reactions: No Known Allergies Allergy (Verified 04/22/20 07:46) Past Medical History - General Information source: Patient - Social History Smoking Status: Never Smoker Cigarette use (# per day): No Frequency of alcohol use: None Drug Abuse: None Lives with: Family Family History: Reviewed & Not Pertinent - Past Medical History Cardiac Medical History: Reports: Hx Congestive Heart Failure, Hx Hypertension, Hx Heart Murmur Endocrine Medical History: Reports: Hx Diabetes Mellitus Type 2 Renal/ Medical History: Reports: Hx End Stage Renal Disease, Hx Hemodialysis Past Surgical History: Reports: Hx Gynecologic Surgery - d&c, Hx Orthopedic Surgery - left aka, Hx Valve Replacement - Mitral valve repair on 06/30/2018, Hx Vascular Surgery - Vas-Cath placement, peritoneal dialysis catheter placement, Other - Left eye surgery-Nov 2018 - Immunizations Immunizations up to date: Yes Hx Diphtheria, Pertussis, Tetanus Vaccination: No Hx Pneumococcal Vaccination: 08/11/20 Review of Systems - Review of Systems Constitutional: No symptoms reported EENT: No symptoms reported Cardiovascular: No symptoms reported Respiratory: No symptoms reported Gastrointestinal: See HPI, Diarrhea Genitourinary: No symptoms reported Female Genitourinary: No symptoms reported Musculoskeletal: No symptoms reported Skin: No symptoms reported Hematologic/Lymphatic: No symptoms reported Neurological/Psychological: No symptoms reported -: Yes All other systems reviewed and negative Physical Exam - Vital signs Vitals: Temp Pulse Resp BP Pulse Ox 97.5 F 84 16 185/92 H 97 09/16/20 09:29 09/16/20 09:29 09/16/20 09:29 09/16/20 09:29 09/16/20 09:29 - Notes Notes: Physical Exam: General: Alert, appears at baseline. HEENT: Normocephalic. Atraumatic. PERRL. Extraocular movements intact. Oropharynx clear. Neck: Supple. Non-tender. Respiratory: No respiratory distress. Clear and equal breath sounds bilaterally. Cardiovascular: Regular rate and rhythm. Abdominal: Normal Inspection. Non-tender. No distension. Normal Bowel Sounds. Back: No gross abnormalities. Extremities: Moves all four extremities. Upper extremities: Right hand amputation, stub is bandaged. Lower extremities: Left AKA, stub is bandaged. There is bandaging over the right anterior thigh. Neurological: Normal cognition. AAOx4. Normal speech. Psychological: Normal affect. Normal Mood. Skin: Warm. Dry. Normal color. Course - Re-evaluation Re-evalutation: 09/16/20 16:51 The initial laboratory specimen that went to the lab, showed no WBCs. The C. difficile testing required a new specimen. Several hours later, she finally produced another stool specimen. The nurse reports that this time it was not runny and was more like soft pudding. Perhaps the Lomotil she received is helping. - Vital Signs Vital signs: Temp Pulse Resp BP Pulse Ox 97.4 F 85 16 159/84 H 99 09/16/20 12:55 09/16/20 12:55 09/16/20 09:29 09/16/20 12:55 09/16/20 12:55 - Laboratory Result Diagrams: 09/16/20 13:00 09/16/20 13:00 Laboratory results interpreted by me: 09/16/20 09/16/20 13:00 13:00 Hgb 9.3 L Hct 30.2 L MCV 68 L MCH 21.0 L MCHC 30.8 L RDW 22.7 H Lymph % (Auto) 10.0 L Seg Neutrophils % 82.0 H BUN 62 H Creatinine 5.56 H Est GFR ( Amer) 10 L Est GFR (MDRD) Non-Af 8 L Glucose 272 H Alkaline Phosphatase 304 H Albumin 3.4 L Discharge - Discharge Clinical Impression: Diarrhea Qualifiers: Diarrhea type: unspecified type Qualified Code(s): R19.7 - Diarrhea, unspecified Condition: Stable Disposition: HOME, SELF-CARE Additional Instructions: Diarrhea Diarrhea means frequent, watery stools. There are many causes. Any problem that keeps the intestinal tract from absorbing water from the stool can lead to diarrhea. A sudden new diarrhea problem is usually caused by a virus, food sensitivity, toxic bacteria, or drugs. In this case, we expect the problem to go away soon. Testing is done only if you seem seriously ill from the diarrhea. If you have chronic diarrhea, or diarrhea that keeps coming back, we need to find out why. Chronic diarrhea can be due to inflammation of the bowels such as Crohn's disease or ulcerative colitis, food sensitivity such as intolerance to lactose or wheat protein, irritable bowel syndrome, and other problems. If your diarrhea is a significant problem but it's not clear why you have it, we'll refer you to a specialist for further testing. During an episode of diarrhea, drink small amounts (two to six ounces) of clear liquids (soft drinks, sport drinks, herb teas, broth, etc). Take fluids frequently to prevent dehydration. It's usually not a problem to take mild anti- diarrhea medication such as Kaopectate or Pepto-Bismol. As the diarrhea eases, advance to small amounts of bland food (mashed potato, toast) for 24 hours. Call the physician if blood appears in your vomit or stool, if vomiting lasts longer than 24 hours, if the abdominal pain worsens or becomes localized to one area, if you develop high fever, or if you become lightheaded and weak. Your initial diarrhea specimen that was sent to the lab did not show any white blood cells in it which would suggest this is not an infectious diarrhea problem. The C. difficile testing will take several hours before the results will be known. Your stools seem to have gotten a little more firm and less frequent since taking the Imodium earlier today. By the history you gave, you only took Pepto-Bismol once and Imodium perhaps once. You need to take the Imodium 1 to 2 tablets every 4 hours if you continue to have diarrhea. You should not take the Imodium in case you might have diarrhea as this could lead to constipation. Be sure to go to dialysis tomorrow at your scheduled time. Follow-up with your primary care provider if your diarrhea does not improve. RETURN TO THE EMERGENCY ROOM IF ANY NEW OR WORSENING SYMPTOMS. Referrals: INDIGO VALLE, ANALYSIS MANAGER [Primary Care Provider] - Follow up as needed I personally performed the services described in the documentation, reviewed and edited the documentation which was dictated to the scribe in my presence, and it accurately records my words and actions.
[2020-09-16 13:34] LABS: ABSOLUTE EOSINOPHILS # (AUTO) 0.1 10^3/uL (0.0-0.6); ABSOLUTE LYMPHOCYTES (AUTO) 0.5 10^3/uL (0.5-4.7); ABSOLUTE MONOCYTES (AUTO) 0.3 10^3/uL (0.1-1.4); ABSOLUTE NEUT (AUTO) 4.4 10^3/uL (1.7-8.2); BASOPHILS % (AUTO) 0.7 % (0-2); EOSINOPHILS % (AUTO) 0.9 % (0-6); HEMATOCRIT 30.2 % (36.0-47.0); HEMOGLOBIN 9.3 g/dL (12.0-15.5); MEAN CORPUSCULAR HGB CONC 30.8 g/dL (32.0-36.0); MEAN CORPUSCULAR VOLUME 68 fl (80-97); MONOCYTES % (AUTO) 6.4 % (3-13); PLATELET COUNT 258 10^3/uL (150-450); RED BLOOD COUNT 4.43 10^6/uL (3.72-5.28); RED CELL DISTRIBUTION WIDTH 22.7 % (11.5-14.0); TOTAL CELLS COUNTED % (AUTO) 100 %; WHITE BLOOD COUNT 5.4 10^3/uL (4.0-10.5)
[2020-09-16 13:52] LABS: ALBUMIN 3.4 g/dL (3.5-5.0); ALKALINE PHOSPHATASE 304 U/L (38-126); ANION GAP 16 (5-19); ASPARTATE AMINO TRANSFERASE 24 U/L (14-36); BILIRUBIN,DIRECT 0.4 mg/dL (0.0-0.4); BILIRUBIN,TOTAL 0.5 mg/dL (0.2-1.3); BLOOD UREA NITROGEN 62 mg/dL (7-20); CALCIUM 8.7 mg/dL (8.4-10.2); CARBON DIOXIDE 22 mmol/L (22-30); CHLORIDE 104 mmol/L (98-107); GLUCOSE 272 mg/dL (75-110); POTASSIUM 4.8 mmol/L (3.6-5.0); TOTAL PROTEIN 7.5 g/dL (6.3-8.2)
[2020-09-16 19:34] VITALS: BP 186/97
[2020-09-16 20:46] LABS: C DIFFICILE GDH NEGATIVE (NEGATIVE)
== END 2020-09-16 18:14 | disposition home or self-care (01) ==
LOC: ER 09:24
DX: R19.7 Diarrhea, unspecified (principal); I50.9 Heart failure, unspecified; E11.22 Type 2 diabetes mellitus with diabetic chronic kidney disease; I13.2 Hypertensive heart and chronic kidney disease with heart failure and with stage 5 chronic kidney disease, or end stage renal disease; N18.6 End stage renal disease; Z79.2 Long term (current) use of antibiotics; Z99.2 Dependence on renal dialysis; Z89.612 Acquired absence of left leg above knee
CPT/HCPCS: 99283; 36415; 87045; 89055; 87205; 85025; 80053; 87324; 87449; A9270; 87077; J3490

== ENCOUNTER 2020-11-21 10:23 | Emergency (ER) | payer MEDICARE, MEDICAID ==
[2020-11-21 10:56] LABS: ABSOLUTE EOSINOPHILS # (AUTO) 0.4 10^3/uL (0.0-0.6); ABSOLUTE LYMPHOCYTES (AUTO) 1.3 10^3/uL (0.5-4.7); ABSOLUTE MONOCYTES (AUTO) 0.5 10^3/uL (0.1-1.4); ABSOLUTE NEUT (AUTO) 4.6 10^3/uL (1.7-8.2); BASOPHILS % (AUTO) 0.7 % (0-2); EOSINOPHILS % (AUTO) 5.2 % (0-6); HEMATOCRIT 38.7 % (36.0-47.0); HEMOGLOBIN 11.7 g/dL (12.0-15.5); MEAN CORPUSCULAR HEMOGLOBIN 20.9 pg (27.0-33.4); MEAN CORPUSCULAR HGB CONC 30.3 g/dL (32.0-36.0); MEAN CORPUSCULAR VOLUME 69 fl (80-97); MONOCYTES % (AUTO) 7.4 % (3-13); PLATELET COUNT 263 10^3/uL (150-450); RED BLOOD COUNT 5.62 10^6/uL (3.72-5.28); RED CELL DISTRIBUTION WIDTH 22.8 % (11.5-14.0); SEGMENTED NEUTROPHILS % (AUTO) 67.7 % (42-78); TOTAL CELLS COUNTED % (AUTO) 100 %; WHITE BLOOD COUNT 6.8 10^3/uL (4.0-10.5)
[2020-11-21 11:27] LABS: ALBUMIN 3.7 g/dL (3.5-5.0); ALKALINE PHOSPHATASE 495 U/L (38-126); ANION GAP 13 (5-19); ASPARTATE AMINO TRANSFERASE 50 U/L (14-36); BILIRUBIN,DIRECT 0.9 mg/dL (0.0-0.4); BILIRUBIN,TOTAL 0.9 mg/dL (0.2-1.3); BLOOD UREA NITROGEN 69 mg/dL (7-20); CALCIUM 8.3 mg/dL (8.4-10.2); CARBON DIOXIDE 24 mmol/L (22-30); CHLORIDE 100 mmol/L (98-107); CREATINE KINASE 57 U/L (30-135); GLUCOSE 139 mg/dL (75-110); POTASSIUM 5.5 mmol/L (3.6-5.0); TOTAL PROTEIN 8.3 g/dL (6.3-8.2)
[2020-11-21 11:37] LABS: CREATINE KINASE MB 2.7 ng/mL (<4.55); TROPONIN I 0.017 ng/mL
--- NOTE | 2020-11-21 14:21 | RADIOLOGY REPORT (SQ) ---
EXAM DESCRIPTION: CT ABD/PELVIS NO ORAL OR IV IMAGES COMPLETED DATE/TIME: 11/21/2020 1:31 pm REASON FOR STUDY: pain COMPARISON: CT of the chest with contrast from 04/18/2020. TECHNIQUE: CT scan of the abdomen and pelvis performed without intravenous or oral contrast. Images reviewed with lung, soft tissue, and bone windows. Reconstructed coronal and sagittal MPR images revi ewed. All images stored on PACS. All CT scanners at this facility use dose modulation, iterative reconstruction, and/or weight based d osing when appropriate to reduce radiation dose to as low as reasonably achievable (ALARA). [facility]: Dose Right [facility]: CareDose [facility]: Dose Right [facility]: Teradose 4D [facility]: [employer] RADIATION DOSE: CT Rad equipment meets quality standard of care and radiation dose reduction techniq ues were employed. CTDIvol: 4.8 mGy. DLP: 275 mGy-cm. LIMITATIONS: None. FINDINGS: LOWER CHEST: Cardiomegaly, mitral valve prosthesis, and severe atherosclerotic calcificati on of the coronary arteries. There is no pericardial effusion. There is a small to moderate right-s ided pleural effusion associated with areas of subsegmental atelectasis in the right lower lobe. The re are consolidative opacities in the lingula and left lower lobe (images 2 and 9 of series 3). NON-CONTRASTED LIVER, SPLEEN, ADRENALS: Evaluation is limited by the absence of intravenous contrast. The liver is enlarged and the spleen is borderline enlarged. There is no adrenal mass. PANCREAS: No acute gross abnormality of the pancreas. GALLBLADDER: No acute gross abnormality of the gallbladder. RIGHT KIDNEY AND URETER: Evaluation is limited by the absence of intravenous contrast. There is no h ydronephrosis, nephrolithiasis, hydroureter or ureterolithiasis. LEFT KIDNEY AND URETER: Evaluation is limited by the absence of intravenous contrast. There is no hy dronephrosis, nephrolithiasis, hydroureter or ureterolithiasis. AORTA AND RETROPERITONEUM: Extensive atherosclerotic calcification of the abdominopelvic vasculature suggestive of underlying diabetes mellitus. There is no abdominal aortic aneurysm. There is no retr operitoneal adenopathy, hemorrhage or mass. BOWEL AND PERITONEAL CAVITY: There is a small amount of ascites. There is no bowel obstruction, albin l wall thickening or pericolonic/ perienteric inflammation. There is no mesenteric adenopathy, free intraperitoneal gas or mesenteric/ omental inflammation. APPENDIX: Unable to identify the appendix. PELVIS, BLADDER, AND ABDOMINAL WALL:Fat containing right inguinal hernia and mild anasarca. BONES: Soft tissue swelling and dystrophic calcifications over the ischial tuberosities - correlate f or decubitus ulcers. OTHER: No other finding. IMPRESSION: 1. Hepatomegaly. 2. Findings of volume overload including a right-sided pleural effusion, small amount of ascites and anasarca. 3. Consolidative opacities in the lingula and left lower lobe - correlate with clinical findings to exclude a pneumonia. 4. Soft tissue swelling and dystrophic calcifications over the ischial tuberosities - correlate for d ecubitus ulcers. 5. Extensive atherosclerotic calcification of the abdominopelvic vasculature suggestive of underlying diabetes mellitus. COMMENT: Quality ID # [id number]: Final reports with documentation of one or more dose reduction techniques (e.g., Automated exposure control, adjustment of the mA and/or kV according to patient size, use of iterative reconstruction technique) TECHNICAL DOCUMENTATION: JOB ID: [id number] 2010 [employer]- All Rights Reserved Reading location - IP/workstation name: [email or web address]
[2020-11-21] MEDS ORDERED: SODIUM POLYSTYRENE SULFONATE 15 GM/60 ML PO ONE (15:19)
--- NOTE | 2020-11-21 16:15 | ER Document Report ---
ED General - General Chief Complaint: Other Stated Complaint: SHORTNESS OF BREATH Time Seen by Provider: 11/21/20 10:30 Primary Care Provider: MADELEINE AMADO NP [Primary Care Provider] - Follow up as needed Mode of Arrival: Medic Information source: Patient TRAVEL OUTSIDE OF THE [place] IN LAST 30 DAYS: No - HPI Notes: Patient comes in by ambulance complaining of constipation. She also has a complaint of her right eye being blurry. She states that she can see fine out of it just that it is occasionally "blurry". She denies any pain. She has had some abdominal cramping pain and states she is had some trouble moving her b owels. She states that she feels the blurry vision has started since she began taking antibiotics approximate 3 weeks ago. She denies any vomiting. No fevers. She does dialyze on Saturday and is due to dialyze tomorrow. - Related Data Allergies/Adverse Reactions: gabapentin Allergy (Verified 11/21/20 11:03) Home Medications: antibiotic, BP meds, DDM Past Medical History - General Information source: Patient - Social History Smoking Status: Former Smoker Frequency of alcohol use: None Drug Abuse: None Family History: Reviewed & Not Pertinent - Past Medical History Cardiac Medical History: Reports: Hx Congestive Heart Failure, Hx Hypertension, Hx Heart Murmur Denies: Hx Coronary Artery Disease, Hx Heart Attack Pulmonary Medical History: Denies: Hx Asthma, Hx Bronchitis, Hx COPD, Hx Pneumonia, Hx Respiratory Failure Neurological Medical History: Denies: Hx Cerebrovascular Accident, Hx Migraine, Hx Seizures Endocrine Medical History: Reports: Hx Diabetes Mellitus Type 2 Renal/ Medical History: Reports: Hx End Stage Renal Disease, Hx Hemodialysis. Denies: Hx Peritoneal Dialysis GI Medical History: Denies: Hx Cirrhosis, Hx Diverticulitis, Hx Hiatal Hernia Musculoskeletal Medical History: Denies Hx Arthritis, Denies Hx Fibromyalgia, Denies Hx Gout Skin Medical History: Denies Hx Eczema, Denies Hx Psoriasis Psychiatric Medical History: Denies: Hx Depression Past Surgical History: Reports: Hx Gynecologic Surgery - d&c, Hx Orthopedic Surgery - left aka, right hand, Hx Valve Replacement - Mitral valve repair on 06/30/2018, Hx Vascular Surgery - Vas-Cath placement, peritoneal dialysis catheter placement, Other - Left eye surgery-Nov 2018 - Immunizations Immunizations up to date: Yes Hx Diphtheria, Pertussis, Tetanus Vaccination: No Hx Pneumococcal Vaccination: 08/11/20 Review of Systems - Review of Systems Constitutional: denies: Chills, Fever EENT: Blurred vision Cardiovascular: denies: Chest pain, Palpitations Respiratory: denies: Cough, Short of breath Gastrointestinal: Constipation -: Yes All other systems reviewed and negative Physical Exam - Vital signs Vitals: Resp 13 11/21/20 10:25 Interpretation: Normal - General General appearance: Appears well, Alert - HEENT Head: Normocephalic, Atraumatic Cornea: Normal Notes: Patient has a prosthetic left eye. The right eye shows that the extraocular muscles are intact. The pupils approximate 3 mm and reactive. There is no significant discharge. - Respiratory Respiratory status: No respiratory distress Chest status: Nontender Breath sounds: Normal Chest palpation: Normal - Cardiovascular Rhythm: Regular Heart sounds: Normal auscultation Murmur: No - Abdominal Inspection: Normal Distension: No distension Bowel sounds: Normal Tenderness: Nontender Organomegaly: No organomegaly - Back Back: Normal, Nontender - Extremities General upper extremity: Normal color, Normal temperature General lower extremity: Nontender, Normal color, Normal temperature. No: Katya's sign - Neurological Neuro grossly intact: Yes Cognition: Normal Orientation: AAOx4 Monique Coma Scale Eye Opening: Spontaneous [place] Coma Scale Verbal: Oriented Monique Coma Scale Motor: Obeys Commands Monique Coma Scale Total: 15 Speech: Normal Motor strength normal: LUE, RUE, LLE, RLE Sensory: Normal - Psychological Associated symptoms: Normal affect, Normal mood - Skin Skin Temperature: Warm Skin Moisture: Dry Skin Color: Normal Course - Re-evaluation Re-evalutation: 11/21/20 16:16 Patient presents with 2 complaints. One is blurry vision. Patient has no evidence of acute angle glaucoma. Extraocular muscles are intact. I do not see any evidence of infectious process. I did call and discuss it with her primary care physician who states she will take care of arranging a referral to the loft worker pile driving. This was with the nurse practitioner Madeleine Amado. Patient also has some constipation. CT of the abdomen was not remarkable for any type of abdominal pathology that would contribute to the constipation. So I called and discussed the case with the patient's plate stacker who is Dr. Dewitt. He asked that I give the patient magnesium citrate. I also encouraged patient to follow-up with dialysis tomorrow as scheduled. Patient had some questionable lesions on the CT that could possibly have been infectious process in the lungs with patient has had no cough fever or significant shortness of breath. In addition patient has no elevated white blood cell count. - Vital Signs Vital signs: Temp Pulse Resp BP Pulse Ox 97.5 F 70 11 L 141/89 H 94 11/21/20 10:26 11/21/20 10:26 11/21/20 14:00 11/21/20 13:01 11/21/20 14:00 - Laboratory Results Result Diagrams: 11/21/20 10:45 11/21/20 10:45 Laboratory Results Interpreted: 11/21/20 11/21/20 10:45 10:45 RBC 5.62 H Hgb 11.7 L MCV 69 L MCH 20.9 L MCHC 30.3 L RDW 22.8 H Sodium 136.7 L Potassium 5.5 H BUN 69 H Creatinine 4.88 H Est GFR ( Amer) 11 L Est GFR (MDRD) Non-Af 9 L Glucose 139 H Calcium 8.3 L Direct Bilirubin 0.9 H AST 50 H Alkaline Phosphatase 495 H Total Protein 8.3 H Critical Laboratory Results Reviewed: No Critical Results - Radiology Results Critical Radiology Results Reviewed: No Critical Results Discharge - Discharge Clinical Impression: Blurry vision, right eye Constipation Qualifiers: Constipation type: other constipation type Qualified Code(s): K59.09 - Other constipation Condition: Stable Disposition: HOME, SELF-CARE Instructions: Constipation ([facility]) Additional Instructions: Please follow-up with Madeleine Amado as soon as possible. She will take care of referring you to ophthalmology. Prescriptions: Magnesium Citrate [Citrate of Magnesia 296 ml Bottle] 296 ml PO DAILY #1 bottle Referrals: MADELEINE AMADO, BAR CATCHER [Primary Care Provider] - Follow up as needed
[2020-11-21 16:21] VITALS: BP 137/89
--- NOTE | 2020-11-21 18:18 | EKG REPORT ---
SEVERITY:- ABNORMAL ECG - SINUS RHYTHM LEFT POSTERIOR FASCICULAR BLOCK ABNORMAL T, CONSIDER ISCHEMIA, LATERAL LEADS BORDERLINE PROLONGED QT INTERVAL : Confirmed by: Keira Fernandes MD 21-Nov-2020 18:16:26
== END 2020-11-21 17:04 | disposition home or self-care (01) ==
LOC: ER 10:23
DX: K59.00 Constipation, unspecified (principal); H53.8 Other visual disturbances; I12.0 Hypertensive chronic kidney disease with stage 5 chronic kidney disease or end stage renal disease; E11.22 Type 2 diabetes mellitus with diabetic chronic kidney disease; N18.6 End stage renal disease; Z99.2 Dependence on renal dialysis; R16.0 Hepatomegaly, not elsewhere classified; Z79.2 Long term (current) use of antibiotics; Z79.899 Other long term (current) drug therapy; Z97.0 Presence of artificial eye; Z87.891 Personal history of nicotine dependence; Z88.6 Allergy status to analgesic agent
CPT/HCPCS: 93005; 99285; 36415; 82553; 82550; 85025; 80053; 84484; 74176; 93010; A9270